=== PATIENT | male | born 1950 | race Caucasian/White ===

== ENCOUNTER 2023-04-01 13:22 | Observation (INO) | payer MEDICARE, OTHER, SELFPAY ==
[2023-04-01] VITALS (43 sets, daily range): BP systolic 135–183; BP diastolic 75–108; PULSE 61–78; RESP 0–25; TEMP 36.2–36.9; O2SAT 92–99; BMI 27.3; BMI 20.1
--- NOTE | 2023-04-01 13:36 | CT_ITS ---
The [address] [address] Patient Name: KIA MENDEZ MRN: [id number] date: 1950 Sex: M Assigned Patient Location: ER Current Patient Location: ER Accession/Order Number: [id number] Exam Date: 04/01/2023 13:40 Report Date: 04/01/2023 14:05 At the request of: TENA BOWLING Procedure: CT stroke head/brain wo con EXAM: CT stroke head/brain wo con; [id number] REASON FOR EXAM: aphasia, now resolved COMPARISON: None. TECHNIQUE: Axial CT images of the head obtained without contrast. Multiplanar reformats generated at the scanner. Dose reduction technique used: Automated exposure control and/or adjustment of the mA and/or kV according to patient size and/or use of iterative reconstruction technique. FINDINGS: Parenchyma: -Mild generalized cerebral volume loss. -No midline shift or mass effect. Basilar cisterns are patent. -No acute intracranial hemorrhage. -No loss of cortical dejesus-white differentiation to indicate acute cortical infarct. -Mild multifocal and bilateral periventricular white matter predominant hypoattenuation, nonspecific though commonly seen in the setting of chronic microvascular ischemic disease. Extra-axial spaces: No extra-axial fluid collection or hemorrhage. Ventricles: Within expected limits given degree of cerebral volume loss. Paranasal sinuses: Partial opacification of the right anterior and posterior ethmoid air cells. Mastoid air cells: Visualized mastoids are clear. Orbits: No acute abnormality. Osseous: No acute findings. Soft tissues: No acute abnormality. IMPRESSION: No acute intracranial abnormality. Electronically authenticated by: SARATH SHETH Date: 04/01/2023 14:05
--- NOTE | 2023-04-01 13:37 | ECG_ITS ---
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
--- NOTE | 2023-04-01 13:37 | XR_ITS ---
The [place] [id number] Patient Name: KIA MENDEZ MRN: [id number] date: 1950 Sex: M Assigned Patient Location: ER Current Patient Location: ER Accession/Order Number: [id number] Exam Date: 04/01/2023 13:40 Report Date: 04/01/2023 14:12 At the request of: TENA BOWLIGN Procedure: XR chest 1V EXAMINATION: XR chest 1V 04/01/2023 11:11 AM PDT HISTORY: cva TECHNIQUE: Single frontal view of the chest acquired. COMPARISONS: None. FINDINGS: Lines/tubes/other: None. Heart and mediastinum: Calcified atherosclerosis of the aortic arch. Bones: No acute osseous abnormality. Lungs: The lungs are clear. There is no evidence of pneumonia or pulmonary edema. Pleura: There is no significant pleural effusion or pneumothorax. Other: None. IMPRESSION: No acute cardiopulmonary abnormality. Electronically authenticated by: SARATH SHETH Date: 04/01/2023 14:12
[2023-04-01 13:39] LABS: Glucometer 136 mg/dL (74-106)
--- NOTE | 2023-04-01 13:39 | ED.NEUROSD1 ---
HPI - Neuro Symptoms/Deficit General Chief Complaint: Neuro Symptoms/Deficit Stated Complaint: CVA SYMPTOMS Time Seen by Provider: 04/01/23 13:32 Source: patient and family Mode of arrival: Wheelchair History of Present Illness HPI Narrative: 72-year-old male presents for aphasia which is now resolved. It started about twenty minutes ago. Family reports that he couldn't get any words out and what did come out was not intelligible. He has a mild headache. He is now able to speak and his speech is back to normal. He didn't have any motor deficits. He's never had a stroke. Related Data Home Medications Medication Instructions Recorded Confirmed acetaminophen 650 mg 650 mg PO Q8H 04/01/23 04/01/23 tablet,extended release (8 Hour Pain Reliever) atorvastatin 40 mg tablet 40 mg PO DAILY 04/01/23 04/01/23 clopidogrel 75 mg tablet 75 mg PO DAILY 04/01/23 04/01/23 famotidine 20 mg tablet 20 mg PO Q12H 04/01/23 04/01/23 lisinopril 2.5 mg tablet 2.5 mg PO DAILY 04/01/23 04/01/23 metformin 1,000 mg tablet 1,000 mg PO DAILY 04/01/23 04/01/23 metoprolol tartrate 25 mg tablet 25 mg PO Q12H 04/01/23 04/01/23 primidone 50 mg tablet 50 mg PO DAILY 04/01/23 04/01/23 semaglutide 0.25 mg or 0.5 mg (2 mg subcut 04/01/23 mg/3 mL) subcutaneous pen injector (Ozempic) tamsulosin 0.4 mg capsule 0.4 mg PO Q24H 04/01/23 04/01/23 tramadol 50 mg tablet 50 mg PO Q6H PRN pain 04/01/23 04/01/23 Allergies Allergy/AdvReac Type Severity Reaction Status Date / Time codeine Allergy Severe Verified 04/01/23 13:31 acetaminophen [From Percocet] Allergy Mild itchy Verified 04/01/23 14:49 oxycodone [From Percocet] Allergy Mild itchy Verified 04/01/23 14:49 Review of Systems ROS Narrative A ten point review of systems is negative except as noted above. [facility] Medical History (Updated 04/01/23 @ 16:13 by Kashmir Harris MD) Surgical History (Updated 04/01/23 @ 14:00 by Kenneth Eldridge) Exam Narrative Exam Narrative: Nurses note and vital signs reviewed and patient is not hypoxic. General: The patient appears well and in no apparent distress. Patient is resting comfortably on cart. Skin: Warm, dry, no pallor noted. There is no rash noted. Head: Normocephalic, atraumatic Eye: Normal conjunctiva, no drainage, EOMI. PERRL Ears, Nose, Mouth, and Throat: oral mucosa is moist. Nares patent. Cardiovascular: Regular Rate and Rhythm Respiratory: Patient is in no distress, no accessory muscle use, lungs are clear to auscultation, no wheezing, rales or rhonchi Back: non-tender GI: soft and nontender Musculoskeletal: The patient has no evidence of calf tenderness, no pitting edema, symmetrical pulses noted bilaterally Neurological: A&O x4, normal speech; upper and lower extremity strength five out of five and symmetric, no pronator drift. Cranial nerves II through XII intact. Psychiatric: Cooperative initial NIH score is zero. Constitutional Vital Signs - 24 hr 04/01/23 13:26 04/01/23 13:33 04/01/23 14:00 Temperature 97.6 F Pulse Rate [Monitor] 78 75 Respiratory Rate 16 16 Blood Pressure [Left Arm] 169/83 H 135/76 H Pulse Oximetry 97 95 Oxygen Delivery Method Room Air Room Air Course Vital Signs Vital signs: Vital Signs Pulse Rate 78 04/01/23 13:26 Respiratory Rate 16 04/01/23 13:26 Blood Pressure 169/83 H 04/01/23 13:26 Pulse Oximetry 97 04/01/23 13:26 Oxygen Delivery Method Room Air 04/01/23 13:26 Temperature 97.6 F 04/01/23 13:33 Pulse Rate 75 04/01/23 14:00 Respiratory Rate 16 04/01/23 14:00 Blood Pressure 135/76 H 04/01/23 14:00 Pulse Oximetry 95 04/01/23 14:00 Oxygen Delivery Method Room Air 04/01/23 14:00 MDM - Neuro Symptoms/Deficit MDM Narrative Medical decision making narrative: the patient's symptoms have resolved completely. He continues to have a normal neurologic exam. 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 Radiologist recommended follow-up CTA of chest but we must wait twenty-four hours for another dose of the contrast material. I have consulted neurology and they recommended admission here with MRI tomorrow and 75 mg of Plavix as well as aspirin be given here today. The patient has been off of his Plavix for twelve days because he had right knee arthroscopic surgery. Findings are discussed thoroughly with the patient and his family. Differential Diagnosis Differential diagnosis: Likely subarachnoid hemorrhage, cerebrovascular accident and transient cerebral ischemia Lab Data Attestation: I reviewed the patient's lab results. Labs: Lab Results 04/01/23 04/01/23 Range/Units 13:28 13:35 WBC 6.5 (4.0-11.0) 10^3/uL RBC 4.43 L (4.70-6.10) 10^6/uL Hgb 13.5 L (14.0-18.0) g/dL Hct 40.1 L (42.0-54.0) % MCV 90.5 (80.0-94.0) fL MCH 30.5 (25.9-34.0) pg MCHC 33.7 (29.9-35.2) g/dL RDW 13.2 (11.0-15.0) % Plt Count 208 (150-450) 10^3/uL MPV 10.2 (9.5-13.5) fL Neut % (Auto) 69.0 (43.0-75.0) % Lymph % (Auto) 16.8 L (20.5-60.0) % [place] % (Auto) 8.2 (1.7-12.0) % Eos % (Auto) 5.1 (0.9-7.0) % Baso % (Auto) 0.6 (0.2-2.0) % Neut # (Auto) 4.5 (1.4-6.5) 10^3/uL Lymph # (Auto) 1.1 L (1.2-3.8) 10^3/uL [place] # (Auto) 0.5 (0.3-0.8) 10^3/uL Eos # (Auto) 0.3 (0.0-0.7) 10^3/uL Baso # (Auto) 0.0 (0.0-0.1) 10^3/uL Abs Immat Gran (auto) 0.02 (0.00-0.03) 10^3/uL Imm/Tot Granulo (auto) 0.3 (0.0-0.5) % PT 10.7 (9.0-11.6) sec INR 1.01 APTT 28.9 (22.3-36.2) sec Sodium 140 (136-145) mmol/L Potassium 4.2 (3.5-5.1) mmol/L Chloride 104 (98-107) mmol/L Carbon Dioxide 26.6 (21.0-32.0) mmol/L Anion Gap 13.6 BUN 24.0 H (7.0-18.0) mg/dL Creatinine 1.23 (0.70-1.30) mg/dL Est GFR ( Amer) >60 (>=60) Est GFR (Non-Af Amer) 58 L (>=60) BUN/Creatinine Ratio 19.5 Glucose 144 H (74-106) mg/dL Calcium 8.9 (8.5-10.1) mg/dL POC Glucose 136 H (74-106) mg/dL Discharge Plan Discharge Chief Complaint: Neuro Symptoms/Deficit Clinical Impression: Transient cerebral ischemia Patient Disposition: Admitted As Inpatient Time of Disposition Decision: 16:13 Condition: Good Prescriptions / Home Meds: No Action acetaminophen [8 Hour Pain Reliever] 650 mg tablet extended release 650 mg PO Q8H atorvastatin 40 mg tablet 40 mg PO DAILY clopidogrel 75 mg tablet 75 mg PO DAILY famotidine 20 mg tablet 20 mg PO Q12H lisinopril 2.5 mg tablet 2.5 mg PO DAILY metformin 1,000 mg tablet 1,000 mg PO DAILY metoprolol tartrate 25 mg tablet 25 mg PO Q12H primidone 50 mg tablet 50 mg PO DAILY Ozempic 0.25 mg or 0.5 mg (2 mg/3 mL) pen injector SUBCUT tamsulosin 0.4 mg capsule 0.4 mg PO Q24H tramadol 50 mg tablet 50 mg PO Q6H PRN (Reason: pain) Referrals: BRINDA WELLER [Primary Care Provider] - 1 week
[2023-04-01 13:52] LABS: Basophils Percent Auto 0.6 % (0.2-2.0); Eosinophils Absolute Auto 0.3 10^3/uL (0.0-0.7); Eosinophils Percent Auto 5.1 % (0.9-7.0); Hematocrit 40.1 % (42.0-54.0); Hemoglobin 13.5 g/dL (14.0-18.0); Immature Granulocytes Abs Auto 0.02 10^3/uL (0.00-0.03); Immature Granulocytes Pct Auto 0.3 % (0.0-0.5); Lymphocytes Absolute Auto 1.1 10^3/uL (1.2-3.8); Lymphocytes Percent Auto 16.8 % (20.5-60.0); Mean Corpuscular HGB Conc 33.7 g/dL (29.9-35.2); Mean Corpuscular Hemoglobin 30.5 pg (25.9-34.0); Mean Corpuscular Volume 90.5 fL (80.0-94.0); Mean Platelet Volume 10.2 fL (9.5-13.5); Monocytes Absolute Auto 0.5 10^3/uL (0.3-0.8); Monocytes Percent Auto 8.2 % (1.7-12.0); Neutrophils Absolute Auto 4.5 10^3/uL (1.4-6.5); Platelet Count 208 10^3/uL (150-450); Red Blood Count 4.43 10^6/uL (4.70-6.10); Red Cell Distribution Width 13.2 % (11.0-15.0); White Blood Count 6.5 10^3/uL (4.0-11.0)
[2023-04-01 14:03] LABS: Anion Gap 13.6; BUN Creatinine Ratio 19.5; Calcium 8.9 mg/dL (8.5-10.1); Carbon Dioxide 26.6 mmol/L (21.0-32.0); Chloride 104 mmol/L (98-107); Estimated GFR (African America >60 (>=60); Estimated GFR (Non-African Ame 58 (>=60); Glucose 144 mg/dL (74-106); Potassium 4.2 mmol/L (3.5-5.1); Sodium 140 mmol/L (136-145)
[2023-04-01 14:12] LABS: INR 1.01; Partial Thromboplastin Time 28.9 sec (22.3-36.2); Prothrombin Time 10.7 sec (9.0-11.6)
--- NOTE | 2023-04-01 14:12 | CT_ITS ---
[address] [address] Patient Name: KIA MENDEZ MRN: [id number] date: 1950 Sex: M Assigned Patient Location: ED.MAIN Current Patient Location: ED.MAIN Accession/Order Number: [id number] Exam Date: 04/01/2023 14:20 Report Date: 04/01/2023 15:34 At the request of: TENA BOWLING Procedure: CT angio head EXAMINATION: CT angio head, CT angio neck; [id number], [id number] COMPARISON: None. CLINICAL STATEMENT: aphasia, resolved TECHNIQUE: Helical CT images of the head and neck were obtained after the administration of IV contrast. Multiplanar reformats and maximum intensity projection images were generated at the scanner. 3-D imaging was performed. Dose reduction technique used: Automated exposure control and/or adjustment of the mA and/or kV according to patient size and/or use of iterative reconstruction technique. Findings: CTA of the neck: Aortic arch: Conventional arch anatomy. Severe atherosclerosis with broad-based focal outpouching in the distal left caudal aspect of the aortic arch measuring up to 2.5 cm in diameter which may represent eccentric mural thrombus versus atypical ductal diverticulum or focal aneurysm. Right common carotid artery: No significant stenosis. Right internal carotid artery: Mild plaque. No hemodynamically significant stenosis, with degree of narrowing in the <50% range. Left common carotid artery: No significant stenosis. Left internal carotid artery: No significant plaque. No hemodynamically significant stenosis, with degree of narrowing in the <50% range. Vertebral arteries: No hemodynamically significant stenosis. * Note: Measurements of stenoses were done in accordance with NASCET criteria. That is, the stenosis is calculated from the ratio of the linear luminal diameter of the narrowest segment of the diseased portion of the artery compared to the diameter of the artery beyond or distal to any post stenotic dilatation. CTA of the head ([place], COW): Right anterior circulation: Normal course and caliber of the right intracranial internal carotid artery. Conventional branching anatomy into the anterior and middle cerebral arteries. No significant stenosis. No aneurysm. Left anterior circulation: Normal course and caliber of the right intracranial internal carotid artery. Conventional branching anatomy into the anterior and middle cerebral arteries. No significant stenosis. No aneurysm. Anterior communicating artery: Present. No aneurysm. Posterior communicating arteries: origin to the left posterior cerebral artery. A right-sided posterior communicating artery is present. Posterior circulation: No significant stenosis. No aneurysm. Soft tissues of the neck: No other significant findings. Visualized lung apices: Clear. Osseous: No acute findings. Mild mucosal thickening of the right anterior and posterior ethmoid air cells. Small mucous retention cyst in the left maxillary sinus. Impression: 1. No large vessel occlusion. 2. No significant stenosis of the cervical carotid or vertebral arteries. 3. Severe atherosclerosis with broad-based focal outpouching in the left caudal aspect of the distal aortic arch which may represent eccentric mural thrombus versus atypical ductal diverticulum or focal aneurysm. Incompletely evaluated on this exam. Recommend CTA of the chest for further evaluation. Electronically authenticated by: SARATH SHETH Date: 04/01/2023 15:34
--- NOTE | 2023-04-01 14:12 | CT_ITS ---
[address] [address] Patient Name: KIA MENDEZ MRN: [id number] date: 1950 Sex: M Assigned Patient Location: ED.MAIN Current Patient Location: ED.MAIN Accession/Order Number: [id number] Exam Date: 04/01/2023 14:20 Report Date: 04/01/2023 15:34 At the request of: TENA BOWLING Procedure: CT angio neck EXAMINATION: CT angio head, CT angio neck; [id number], [id number] COMPARISON: None. CLINICAL STATEMENT: aphasia, resolved TECHNIQUE: Helical CT images of the head and neck were obtained after the administration of IV contrast. Multiplanar reformats and maximum intensity projection images were generated at the scanner. 3-D imaging was performed. Dose reduction technique used: Automated exposure control and/or adjustment of the mA and/or kV according to patient size and/or use of iterative reconstruction technique. Findings: CTA of the neck: Aortic arch: Conventional arch anatomy. Severe atherosclerosis with broad-based focal outpouching in the distal left caudal aspect of the aortic arch measuring up to 2.5 cm in diameter which may represent eccentric mural thrombus versus atypical ductal diverticulum or focal aneurysm. Right common carotid artery: No significant stenosis. Right internal carotid artery: Mild plaque. No hemodynamically significant stenosis, with degree of narrowing in the <50% range. Left common carotid artery: No significant stenosis. Left internal carotid artery: No significant plaque. No hemodynamically significant stenosis, with degree of narrowing in the <50% range. Vertebral arteries: No hemodynamically significant stenosis. * Note: Measurements of stenoses were done in accordance with NASCET criteria. That is, the stenosis is calculated from the ratio of the linear luminal diameter of the narrowest segment of the diseased portion of the artery compared to the diameter of the artery beyond or distal to any post stenotic dilatation. CTA of the head ([place], COW): Right anterior circulation: Normal course and caliber of the right intracranial internal carotid artery. Conventional branching anatomy into the anterior and middle cerebral arteries. No significant stenosis. No aneurysm. Left anterior circulation: Normal course and caliber of the right intracranial internal carotid artery. Conventional branching anatomy into the anterior and middle cerebral arteries. No significant stenosis. No aneurysm. Anterior communicating artery: Present. No aneurysm. Posterior communicating arteries: origin to the left posterior cerebral artery. A right-sided posterior communicating artery is present. Posterior circulation: No significant stenosis. No aneurysm. Soft tissues of the neck: No other significant findings. Visualized lung apices: Clear. Osseous: No acute findings. Mild mucosal thickening of the right anterior and posterior ethmoid air cells. Small mucous retention cyst in the left maxillary sinus. Impression: 1. No large vessel occlusion. 2. No significant stenosis of the cervical carotid or vertebral arteries. 3. Severe atherosclerosis with broad-based focal outpouching in the left caudal aspect of the distal aortic arch which may represent eccentric mural thrombus versus atypical ductal diverticulum or focal aneurysm. Incompletely evaluated on this exam. Recommend CTA of the chest for further evaluation. Electronically authenticated by: SARATH SHETH Date: 04/01/2023 15:34
[2023-04-01] MEDS: ASPIRIN 81 MG TAB.CHEW 324 MG PO (14:38)
[2023-04-01] MEDS: MORPHINE SULFATE 2 MG/ML SYRINGE IV (14:39)
[2023-04-01] MEDS: CLOPIDOGREL BISULFATE 75 MG TABLET PO (16:43)
--- NOTE | 2023-04-01 17:15 | CA_ITS ---
Patient: KIA MENDEZ Exam Date: 04/02/2023 : 1950 Gender:M Ordering : SHAIKH Pricila CAMPA . Admission #: [id number] Family : DR BOTELLOMarin MARIA DE JESUS Smart Order #: [id number] CLICK HERE TO VIEW EXAM ECHOCARDIOGRAM REPORT PROCEDURE: CA ECHO DOPPLER COMPLETE INDICATIONS: TIA, Hypertension COMPARISON: None. DESCRIPTION: COMPLETE ECHOCARDIOGRAM Real-time transthoracic echocardiography with 2D, M-mode, spectral and color flow Doppler performed. QUALITY: Technical quality was good. LEFT VENTRICLE: Normal chamber size. Severely thickened septal wall (2.1 cm). Systolic function is at the lower limits of normal. No evidence of outflow tract obstruction. LV EF: Lower limits of normal left ventricular ejection fraction, (50-55%). DIASTOLIC: Grade I diastolic dysfunction. ATRIAL SEPTUM: Visually appears intact. LEFT ATRIUM: Moderate dilatation. RIGHT ATRIUM: Mild dilatation. RIGHT VENTRICLE: Normal chamber size. Normal systolic function. TRICUSPID VALVE: Normal mobility and thickness. No stenosis with no regurgitation. MITRAL VALVE: Normal mobility and thickness. No evidence of mitral valve stenosis. There is no mitral annular calcification. Mild mitral regurgitation. AORTIC VALVE: Normal trileaflet appearance. Mildly calcified aortic valve. Normal leaflet mobility. No evidence of aortic valve stenosis. Mild to moderate aortic regurgitation. AORTIC ROOT: Normal diameter and appearance. PULMONIC VALVE: Normal thickness and mobility. No stenosis. No regurgitation. PERICARDIUM: No evidence of pericardial effusion. IVC: Collapses with inspirations. PLEURA: CONCLUSION: 1. The left ventricle exhibits concentric hypertrophy with significant thickening of the septal wall [2.1 cm]. Systolic function is at the lower limits of normal. LVEF is 50 to 55%. 2. Grade 1, mild diastolic dysfunction. 3. Normal right ventricular size and systolic function. 4. Mild mitral regurgitation. 5. Mild to moderate aortic regurgitation. 6. No pericardial effusion Adult Echocardiography Procedure Report Left Ventricle LVEDD (3.7 - 5.6 cm): 5.16 cm, 5.11 cm LVESD (2.2 - 4.0 cm): 3.94 cm LVIVS thickness (0.6 - 1.2 cm): 2.51 cm, 2.15 cm LVPW thickness (0.5 - 1.0 cm): 1.18 cm e': 0.09 m/s E - e': 7.89 LVOT Max Gradient: 3.65 mm[Hg] LVOT Area (cm2): 0.96 m/s Peak Velocity (LVOT): 0.96 m/s Mean Velocity (LVOT): 0.68 m/s LVOT Diameter 2.59 cm Left Atrium LA Volume Index (2D A2C): 50.00 ml/m2 Left Atrium Systolic Dimension: 4.39 cm Mitral Valve MV E to A Ratio: 0.63 Mitral Valve A-Wave Peak Velocity: 1.08 m/s Mitral Valve E-Wave Peak Velocity: 0.68 m/s Right Ventricle Aorta AO Root Diam: 3.80 cm Aortic Valve AoV Area (Peak Deepak): 4.21 cm2, 4.21 cm2 Peak Velocity(Antegrade Flow): 1.20 m/s Peak Gradient(Antegrade Flow): 5.72 mm[Hg] Tricuspid Valve Pulmonic Valve Peak Velocity: 0.90 m/s Peak Gradient: 4.03 mm[Hg], 2.49 mm[Hg] Right Atrium Right Atrium Systolic Pressure: 50.33 ml, 50.33 ml Dictated by: Chago Salter M.D. on 04/02/2023 at 18:04 Approved by: Chago Salter M.D. on 04/02/2023 at 18:15
--- NOTE | 2023-04-01 17:25 | MR_ITS ---
The [address] [address] Patient Name: KIA MENDEZ MRN: [id number] date: 1950 Sex: M Assigned Patient Location: MS Current Patient Location: MS Accession/Order Number: [id number] Exam Date: 04/01/2023 08:00 Report Date: 04/02/2023 09:23 At the request of: SHAIKH LOKESH Procedure: MR head/brain wo con EXAMINATION: MR head/brain wo con, 04/01/2023 8:00 AM EDT HISTORY: TIA/stroke COMPARISON: None. TECHNIQUE: MRI of the brain was performed without IV contrast. HISTORY: TIA/stroke FINDINGS: CEREBRUM: No edema, hemorrhage, mass, acute infarction, or inappropriate atrophy. Mild scattered hyperintense foci are present, typical for a patient of this age, most commonly caused by small vessel ischemic changes. CEREBELLUM: No edema, hemorrhage, mass, acute infarction, or inappropriate atrophy. BRAINSTEM: No edema, hemorrhage, mass, acute infarction, or inappropriate atrophy. CSF SPACES: Ventricles, cisterns, and sulci are appropriate for age. No hydrocephalus, subarachnoid hemorrhage, or mass. SKULL: No mass or other significant visible lesion. SINUSES: Mild diffuse paranasal sinus mucoperiosteal thickening ORBITS: Limited views are unremarkable. OTHER: Negative. IMPRESSION: No acute infarct Electronically authenticated by: BARBARA RODGERS Date: 04/02/2023 09:23
--- NOTE | 2023-04-01 17:26 | CT_ITS ---
[address] [address] Patient Name: KIA MENDEZ MRN: [id number] date: 1950 Sex: M Assigned Patient Location: Current Patient Location: Accession/Order Number: [id number] Exam Date: 04/01/2023 14:45 Report Date: 04/02/2023 17:09 At the request of: SHAIKH LOKESH Procedure: CT angio chest EXAM: CT angio chest TECHNIQUE: CT angiogram with contrast performed of the chest including multi planar reformatted images and maximum intensity projection images. 3-D volume rendering created of the thoracic vasculature. Dose reduction techniques were achieved by using automated exposure control and/or adjustment of mA and/or kV according to patient size and/or use of iterative reconstruction technique. HISTORY: Aortic arch thrombus COMPARISON: CT scan of the neck from 04/01/2023 FINDINGS: Neck and Axilla: No lower neck or axillary lymphadenopathy. Mediastinum and Linnea: No hilar or mediastinal lymphadenopathy. The esophagus is grossly unremarkable without dilatation or gross mass lesion. Heart and Major Vessels: The heart appears unremarkable for size without pericardial effusion. Stable small broad outpouching of the caudal surface of the distal aortic arch, most compatible with a ductus diverticulum, with the diverticulum [id number] mm in diameter and approximately 8 mm maximum depth. Lung Suh: A few small benign calcified granulomas of the right lung. No acute consolidation. Pleural Spaces: No significant pleural effusion. No pneumothorax. Upper Abdomen: No acute abnormality identified. Chest Wall: No acute abnormality. IMPRESSION: Outpouching of the caudal surface of the distal portion of the aortic arch, most compatible with a ductus diverticulum. No additional acute thoracic pathology. Electronically authenticated by: CHRISTIAN JACOBSEN Date: 04/02/2023 17:09
[2023-04-01] MEDS: ENOXAPARIN SODIUM 60 MG/0.6 ML SYRINGE SUBQ (18:13)
[2023-04-01] MEDS: FAMOTIDINE 20 MG TABLET PO (18:13)
[2023-04-01 20:12] LABS: Glucometer 104 mg/dL (74-106)
[2023-04-01] MEDS: TAMSULOSIN HCL 0.4 MG CAPSULE PO (20:38)
[2023-04-01] MEDS: METOPROLOL TARTRATE 25 MG TABLET PO (20:38)
[2023-04-02] VITALS (15 sets, daily range): BP systolic 153–172; BP diastolic 67–83; PULSE 65–79; RESP 16; TEMP 36.3–36.8; O2SAT 92–95; BMI 28.1
[2023-04-02 01:00] LABS: Estimated Average Glucose 189 mg/dL; Glycohemoglobin A1C 8.2 % (4.5-6.2)
[2023-04-02 01:25] LABS: Chol HDL Ratio 3.2; Cholesterol 107 mg/dL (<=200); HDL Cholesterol 33 mg/dL (40-60); Triglycerides 117 mg/dL (<=150); VLDL CHOLESTEROL 23.4 mg/dL
[2023-04-02] MEDS: ENOXAPARIN SODIUM 60 MG/0.6 ML SYRINGE SUBQ (05:56)
[2023-04-02] MEDS: FAMOTIDINE 20 MG TABLET PO (05:56)
[2023-04-02 07:36] LABS: Glucometer 103 mg/dL (74-106)
[2023-04-02] MEDS: PRIMIDONE 50 MG TABLET PO (08:50)
[2023-04-02] MEDS: LISINOPRIL 10 MG TABLET PO (08:50)
[2023-04-02] MEDS: ATORVASTATIN CALCIUM 40 MG TABLET PO (08:51)
[2023-04-02] MEDS: CLOPIDOGREL BISULFATE 75 MG TABLET PO (08:51)
[2023-04-02] MEDS: METOPROLOL TARTRATE 25 MG TABLET PO (08:51)
[2023-04-02] MEDS: ACETAMINOPHEN 325 MG TABLET 650 MG PO (08:51)
--- NOTE | 2023-04-02 12:00 | SWNOTE1 ---
SW met with pt to discuss dc needs. Pt live at home by himself, but stated family does check on him. He is independent at home, does not use any medical equipment and does not have any services coming into the home. Pt denies having any needs at discharge. SW to follow as needed.
[2023-04-02 13:03] LABS: Glucometer 102 mg/dL (74-106)
--- NOTE | 2023-04-02 14:45 | CM.NOTE ---
Rounds made with Dr. Marie, pt awaiting CTA to be completed this afternoon. Possible discharge to home after CTA. No discharge needs identified.
--- NOTE | 2023-04-02 17:15 | PM.HP ---
H&P: HPI History of Present Illness Chief complaint: CVA SYMPTOMS TRANSIET CEREBRAL ISCHEMCIA Narrative: HPI and hospital course: 72 y o male presented to ED with sudden onset inability to speak c/w expressive aphasia, associated headache that resolved shortly after he came to ED. Denied any prior hx of similar complaints, also denies any other neurological signs and symptoms Patient admitted for TIA w/u. Normal CT head, CTA head and neck negative for large vessel disease. Possible thrombus in aortic arch on CTA neck that was ruled out by CTA chest. He was empirically treated with Lovenox until CTA chest confirmed there was no mural thrombus. MRI brain negative for stroke. No events on tele. No prior hx of Afib. Patent follows [facility] for CAD. Patient has no neurological symptoms to offer. Stable for d/c. Outpatient f/u with PCP and neurology Educated on signs and symptoms of CVA and instructed to come to ED if he developed any symptoms concerning for CVA/TIA Admission Diagnosis TIA CAD s/p PCI HTN HLD T2 DM Migraine FLORES BPH h/o melanoma Discharge diagnosis as above Discharge status as above Review of Systems ROS Status of ROS 10 or more systems reviewed and unremarkable except as noted in history and below [facility] Medical History (Updated 04/02/23 @ 17:38 by Shaikh Cynthia MD) Surgical History (Updated 04/01/23 @ 14:00 by Kenneth Eldridge) Family History (Updated 04/02/23 @ 17:33 by Shaikh Cynthia MD) Other Family history of hypertension Family history of myocardial infarction Family history of stroke Social History (Updated 04/02/23 @ 17:34 by Shaikh Cynthia MD) Within the past year, how often did you have a drink containing alcohol: never Within the past year, how often did you have six or more drinks on one occasion: never Score interpretation: A score less than 4 is consistent with normal alcohol consumption. Smoking status: Never smoker Non-prescribed substance use: denies use Meds Home Medications and Allergies Home Medications Medication Instructions Recorded Confirmed Type acetaminophen 650 mg 650 mg PO Q8H 04/01/23 04/01/23 History tablet,extended release (8 Hour Pain Reliever) atorvastatin 40 mg tablet 40 mg PO DAILY 04/01/23 04/01/23 History clopidogrel 75 mg tablet 75 mg PO DAILY 04/01/23 04/01/23 History famotidine 20 mg tablet 20 mg PO Q12H 04/01/23 04/01/23 History lisinopril 2.5 mg tablet 2.5 mg PO DAILY 04/01/23 04/01/23 History metformin 1,000 mg tablet 1,000 mg PO DAILY 04/01/23 04/01/23 History metoprolol tartrate 25 mg tablet 25 mg PO Q12H 04/01/23 04/01/23 History primidone 50 mg tablet 50 mg PO DAILY 04/01/23 04/01/23 History semaglutide 0.25 mg or 0.5 mg (2 mg subcut 04/01/23 History mg/3 mL) subcutaneous pen injector (Ozempic) tamsulosin 0.4 mg capsule 0.4 mg PO Q24H 04/01/23 04/01/23 History tramadol 50 mg tablet 50 mg PO Q6H PRN pain 04/01/23 04/01/23 History aspirin 81 mg chewable tablet 81 mg PO DAILY #30 tabs 04/02/23 Rx Allergies Allergy/AdvReac Type Severity Reaction Status Date / Time codeine Allergy Severe Verified 04/01/23 13:31 acetaminophen [From Percocet] Allergy Mild itchy Verified 04/01/23 14:49 oxycodone [From Percocet] Allergy Mild itchy Verified 04/01/23 14:49 Exam Constitutional Vital Signs - 24 hr 04/01/23 19:52 04/01/23 17:33 04/01/23 17:35 Temperature Pulse Rate 71 62 Respiratory Rate 14 Blood Pressure 160/82 H Blood Pressure [Left Arm] Pulse Oximetry 96 Oxygen Delivery Method 04/01/23 17:40 04/01/23 17:50 04/01/23 18:00 Temperature Pulse Rate 63 61 62 Respiratory Rate 0 L 2 L 17 Blood Pressure Blood Pressure [Left Arm] Pulse Oximetry Oxygen Delivery Method 04/01/23 18:10 04/01/23 18:20 04/01/23 18:30 Temperature Pulse Rate 62 66 69 Respiratory Rate 11 L 13 7 L Blood Pressure Blood Pressure [Left Arm] Pulse Oximetry Oxygen Delivery Method 04/01/23 18:40 04/01/23 18:50 04/01/23 19:00 Temperature Pulse Rate 67 64 70 Respiratory Rate 8 L 4 L 10 L Blood Pressure Blood Pressure [Left Arm] Pulse Oximetry Oxygen Delivery Method 04/01/23 19:10 04/01/23 19:20 04/01/23 19:21 Temperature 97.2 F L Pulse Rate 68 73 73 Respiratory Rate 7 L 9 L 12 Blood Pressure 137/79 H Blood Pressure [Left Arm] Pulse Oximetry 96 Oxygen Delivery Method 04/01/23 19:21 04/01/23 19:30 04/01/23 19:40 Temperature Pulse Rate 73 68 69 Respiratory Rate 12 6 L 0 L Blood Pressure Blood Pressure [Left Arm] Pulse Oximetry Oxygen Delivery Method 04/01/23 19:50 04/01/23 19:47 04/01/23 20:50 Temperature 97.6 F Pulse Rate 73 69 Respiratory Rate 0 L 18 Blood Pressure Blood Pressure [Left Arm] 162/82 H Pulse Oximetry 93 L 97 Oxygen Delivery Method Room Air Room Air 04/01/23 21:55 04/01/23 23:55 04/02/23 01:00 Temperature Pulse Rate 75 73 67 Respiratory Rate Blood Pressure Blood Pressure [Left Arm] Pulse Oximetry Oxygen Delivery Method 04/02/23 01:48 04/02/23 03:40 04/02/23 04:03 Temperature Pulse Rate 74 67 68 Respiratory Rate Blood Pressure Blood Pressure [Left Arm] Pulse Oximetry Oxygen Delivery Method 04/02/23 04:07 04/02/23 05:30 04/02/23 06:51 Temperature 98.3 F Pulse Rate 72 70 79 Respiratory Rate 16 Blood Pressure Blood Pressure [Left Arm] 160/67 H Pulse Oximetry 95 Oxygen Delivery Method Room Air 04/02/23 08:50 04/02/23 09:00 04/02/23 11:25 Temperature Pulse Rate 70 Respiratory Rate Blood Pressure 172/83 H Blood Pressure [Left Arm] Pulse Oximetry 92 L Oxygen Delivery Method Room Air 04/02/23 11:51 04/02/23 14:02 04/02/23 14:00 Temperature 97.4 F L Pulse Rate 65 72 71 Respiratory Rate 16 Blood Pressure Blood Pressure [Left Arm] 153/74 H Pulse Oximetry 94 L Oxygen Delivery Method Room Air 04/02/23 15:59 Temperature Pulse Rate 69 Respiratory Rate Blood Pressure Blood Pressure [Left Arm] Pulse Oximetry Oxygen Delivery Method Documenting provider has reviewed patient's vital signs: yes Common normals: no apparent distress, healthy appearing and well nourished General appearance: cooperative HENMT Common normals: normocephalic and head/scalp atraumatic Eye Common normals: PERRL, EOMs intact bilaterally, conjunctivae normal and no scleral icterus Respiratory Common normals: normal respiratory effort, no use of accessory muscles and clear to auscultation bilaterally Cardio Common normals: regular rate, regular rhythm, S1 normal heart sound, S2 normal heart sound and no murmurs GI Common normals: Normal to inspection, nondistended, normoactive bowel sounds present, soft to palpation, non-tender and no hepatosplenomegaly Extremity Common normals: normal to inspection and full ROM Neuro Common normals: CN's II-XII intact bilaterally, moves all extremities, no focal motor deficits and no sensory deficits noted Psych Common normals: mental status grossly normal, thought process normal, cooperative, affect normal, speech normal and activity/motor behavior normal Assessment and Plan Assessment and Plan (1) Transient cerebral ischemia: Assessment and Plan: Presented with expressive aphasia. No other neurologial symptoms. Asymptomatic currently. MRI brain/CT head negative CTA head/neck negative 2D ECHO no sig structural abnormality - official read is pending C/w ASA, plavix, statin as before. Outpatient f/u with PCP and Neurology. Qualifiers: Transient cerebral ischemia type: other Qualified Code(s): G45.8 - Other transient cerebral ischemic attacks and related syndromes (2) CAD (coronary artery disease): Assessment and Plan: Asymptomatic, stable. S/p PCI x 4 On ASA, plavix, statin and Lopressor. (3) History of diabetes mellitus: Assessment and Plan: On metformin, ozempic Metformin needs to be withheld for 48 hours and can be resumed on 04/05/23 A1C above goal. Will defer to PCP (4) History of hypertension: Assessment and Plan: c/w home meds Defer to PCP (5) HLD (hyperlipidemia): Assessment and Plan: c/w statin (6) Migraine: Assessment and Plan: Not frequent. Outpatient f/u Qualifiers: Migraine type: without aura Status migrainosus presence: without status migrainosus Intractability: not intractable Qualified Code(s): G43.009 - Migraine without aura, not intractable, without status migrainosus
[2023-04-02 17:39] LABS: Glucometer 173 mg/dL (74-106)
--- NOTE | 2023-04-04 13:26 | CM.DCFOLLOWU ---
Person spoke with:patient How are you feeling? good How is your pain? no pain Did you understand your discharge instructions? yes Do you have any questions about your discharge instructions? no Were you given any prescriptions at discharge? yes Were you able to get your prescriptions filled? yes Do you understand how to take your medications as ordered?yes Do you have any questions about your follow up appointment and do you plan to keep your follow up appointment? no questions, did not make follow up appointments yet, but he will Is there anything else that you would like to discuss? no Questions/Comments/Concerns/Other:
== END 2023-04-02 18:53 | disposition home or self-care (01) ==
LOC: ER 16:13 → MS 04-02 06:47 → ICU 04-02 16:37 → MS 04-02 16:37
PROVIDERS: Admitting Provider Internal Medicine; Emergency Provider Emergency Medicine; PCP Internal Medicine; Visit Provider Internal Medicine
DX: G45.9 Transient cerebral ischemic attack, unspecified (principal); I25.10 Atherosclerotic heart disease of native coronary artery without angina pectoris; I10 Essential (primary) hypertension; E78.5 Hyperlipidemia, unspecified; E11.9 Type 2 diabetes mellitus without complications; G43.909 Migraine, unspecified, not intractable, without status migrainosus; N40.0 Benign prostatic hyperplasia without lower urinary tract symptoms; Z85.820 Personal history of malignant melanoma of skin; Z79.899 Other long term (current) drug therapy; Z79.84 Long term (current) use of oral hypoglycemic drugs; Z79.85 Long-term (current) use of injectable non-insulin antidiabetic drugs; Z79.82 Long term (current) use of aspirin
CPT/HCPCS: 36415; 70450; 70496; 70498; 70551; 71045; 71275; 80048; 80061; 83036; 85025; 85610; 85730; 93005; 93306; 94761; 96372; 96374; 99285; G0378; Q9967

== ENCOUNTER 2023-04-12 21:28 | Emergency (ER) | payer MEDICARE, OTHER, SELFPAY ==
[2023-04-12] VITALS (10 sets, daily range): BP systolic 111–130; BP diastolic 61–68; PULSE 57–99; RESP 3–22; TEMP 36.7; O2SAT 93–99; BMI 27.8
--- NOTE | 2023-04-12 22:13 | ECG_ITS ---
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
--- NOTE | 2023-04-12 22:13 | XR_ITS ---
[address] [address] Patient Name: KIA MENDEZ MRN: [id number] date: 1950 Sex: M Assigned Patient Location: ER Current Patient Location: ER Accession/Order Number: [id number] Exam Date: 04/12/2023 22:25 Report Date: 04/12/2023 22:51 At the request of: RALPH MONAE Procedure: XR chest 1V EXAMINATION: XR chest 1V, , 04/12/2023 10:25 PM EDT INDICATION: chest pain HISTORY: Ordering Provider Reason for Exam: chest pain Technologist Note: Additional: COMPARISON: Chest x-ray dated 04/01/2023. TECHNIQUE: Chest x-ray: One view. FINDINGS: No pneumothorax, pleural effusion or focal airspace consolidation. Heart is normal in size. Bony thorax is unremarkable. IMPRESSION: No acute cardiopulmonary process. Electronically authenticated by: JANAK GOMEZ Date: 04/12/2023 22:51
--- NOTE | 2023-04-12 22:14 | ED.CHESTPAI1 ---
HPI - Chest Pain General Chief Complaint: Chest Pain Stated Complaint: SOB, BURNING THROAT, LIGHT HEADED Time Seen by Provider: 04/12/23 21:47 Source: patient Mode of arrival: Wheelchair Limitations: no limitations History of Present Illness HPI narrative: past history of multiple stents for CAD. Presents complaining of chest pain that started around 8pm. Burning substernal pain that radiated into his nec and numbness of the left arm. Pain associated with dyspnea. Pain did resolve and it returned after he took a shower and was resting. States it felt worse when it returned. En route to the hospital it started to subside and is now nearly gone. No associated nausea Related Data Home Medications Medication Instructions Recorded Confirmed acetaminophen 650 mg 650 mg PO Q8H 04/01/23 04/12/23 tablet,extended release (8 Hour Pain Reliever) atorvastatin 40 mg tablet 40 mg PO DAILY 04/01/23 04/12/23 clopidogrel 75 mg tablet 75 mg PO DAILY 04/01/23 04/12/23 famotidine 20 mg tablet 20 mg PO Q12H 04/01/23 04/12/23 lisinopril 2.5 mg tablet 2.5 mg PO DAILY 04/01/23 04/12/23 metformin 1,000 mg tablet 1,000 mg PO DAILY 04/01/23 04/12/23 metoprolol tartrate 25 mg tablet 25 mg PO Q12H 04/01/23 04/12/23 primidone 50 mg tablet 50 mg PO DAILY 04/01/23 04/12/23 semaglutide 0.25 mg or 0.5 mg (2 mg subcut 04/01/23 mg/3 mL) subcutaneous pen injector (Ozempic) tamsulosin 0.4 mg capsule 0.4 mg PO Q24H 04/01/23 04/12/23 tramadol 50 mg tablet 50 mg PO Q6H PRN pain 04/01/23 04/12/23 Previous Rx's Medication Instructions Recorded aspirin 81 mg chewable tablet 81 mg PO DAILY #30 tabs 04/02/23 Allergies Allergy/AdvReac Type Severity Reaction Status Date / Time codeine Allergy Severe Verified 04/01/23 13:31 acetaminophen [From Percocet] Allergy Mild itchy Verified 04/01/23 14:49 oxycodone [From Percocet] Allergy Mild itchy Verified 04/01/23 14:49 Review of Systems ROS Status of ROS 10 or more systems reviewed and unremarkable except as noted in history and below [facility] Medical History (Updated 04/13/23 @ 00:29 by Maurilio Rowell MD) Surgical History (Updated 04/01/23 @ 14:00 by Kenneth Eldridge) Family History (Updated 04/02/23 @ 17:33 by Shaikh Cynthia MD) Other Family history of hypertension Family history of myocardial infarction Family history of stroke Social History (Updated 04/02/23 @ 17:34 by Shaikh Cynthia MD) Within the past year, how often did you have a drink containing alcohol: never Within the past year, how often did you have six or more drinks on one occasion: never Score interpretation: A score less than 4 is consistent with normal alcohol consumption. Smoking status: Never smoker Non-prescribed substance use: denies use Exam Constitutional Vital Signs - 24 hr 04/12/23 21:33 04/12/23 21:39 04/12/23 21:40 Temperature 98.0 F Pulse Rate 95 H 88 Pulse Rate [Monitor] 57 L Respiratory Rate 22 3 L 21 Blood Pressure Blood Pressure [Left Arm] 116/68 Pulse Oximetry 98 99 97 Oxygen Delivery Method Room Air 04/12/23 21:50 04/12/23 22:00 04/12/23 22:10 Temperature Pulse Rate 99 H 91 H 90 Pulse Rate [Monitor] Respiratory Rate 10 L 15 10 L Blood Pressure Blood Pressure [Left Arm] Pulse Oximetry 93 L 94 L 94 L Oxygen Delivery Method 04/12/23 22:17 04/12/23 22:17 04/12/23 22:17 Temperature Pulse Rate 94 H 90 92 H Pulse Rate [Monitor] Respiratory Rate 15 13 13 Blood Pressure 111/67 111/67 Blood Pressure [Left Arm] Pulse Oximetry 94 L 94 L Oxygen Delivery Method 04/12/23 22:30 04/12/23 23:00 04/12/23 23:30 Temperature Pulse Rate 82 83 91 H Pulse Rate [Monitor] Respiratory Rate 18 17 18 Blood Pressure 122/67 H 122/61 H 130/62 H Blood Pressure [Left Arm] Pulse Oximetry 94 L 94 L Oxygen Delivery Method Common normals: no apparent distress, average body habitus, oriented x3 and healthy appearing Eye Common normals: PERRL, EOMs intact bilaterally and conjunctivae normal Respiratory Common normals: normal respiratory effort, no retractions, no use of accessory muscles and clear to auscultation bilaterally Cardio Common normals: no JVD, regular rate, regular rhythm, S1 normal heart sound and S2 normal heart sound GI Common normals: Normal to inspection, nondistended, normoactive bowel sounds present, soft to palpation and non-tender Extremity Common normals: normal to inspection and full ROM Neuro Common normals: oriented x3, CN's II-XII intact bilaterally, moves all extremities, no focal motor deficits and no sensory deficits noted Psych Appearance: grossly normal Course Vital Signs Vital signs: Vital Signs Temperature 98.0 F 04/12/23 21:33 Pulse Rate 57 L 04/12/23 21:33 Respiratory Rate 22 04/12/23 21:33 Blood Pressure 116/68 04/12/23 21:33 Pulse Oximetry 98 04/12/23 21:33 Oxygen Delivery Method Room Air 04/12/23 21:33 Temperature 98.0 F 04/12/23 21:33 Pulse Rate 91 H 04/12/23 23:30 Respiratory Rate 18 04/12/23 23:30 Blood Pressure 130/62 H 04/12/23 23:30 Pulse Oximetry 94 L 04/12/23 23:00 Oxygen Delivery Method Room Air 04/12/23 21:33 MDM - Chest Pain MDM Narrative Medical decision making narrative: patient known history of CAD. Presents with recurrent chest pain tonight. Workup neg and pain resolved. 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 Discussed with the hospitalist and patient accepted in transfer Lab Data Labs: Lab Results 04/12/23 Range/Units 21:45 WBC 7.9 (4.0-11.0) 10^3/uL RBC 4.54 L (4.70-6.10) 10^6/uL Hgb 13.9 L (14.0-18.0) g/dL Hct 40.9 L (42.0-54.0) % MCV 90.1 (80.0-94.0) fL MCH 30.6 (25.9-34.0) pg MCHC 34.0 (29.9-35.2) g/dL RDW 13.1 (11.0-15.0) % Plt Count 243 (150-450) 10^3/uL MPV 10.4 (9.5-13.5) fL Neut % (Auto) 72.0 (43.0-75.0) % Lymph % (Auto) 13.8 L (20.5-60.0) % [place] % (Auto) 8.3 (1.7-12.0) % Eos % (Auto) 4.9 (0.9-7.0) % Baso % (Auto) 0.5 (0.2-2.0) % Neut # (Auto) 5.7 (1.4-6.5) 10^3/uL Lymph # (Auto) 1.1 L (1.2-3.8) 10^3/uL [place] # (Auto) 0.7 (0.3-0.8) 10^3/uL Eos # (Auto) 0.4 (0.0-0.7) 10^3/uL Baso # (Auto) 0.0 (0.0-0.1) 10^3/uL Abs Immat Gran (auto) 0.04 H (0.00-0.03) 10^3/uL Imm/Tot Granulo (auto) 0.5 (0.0-0.5) % Sodium 140 (136-145) mmol/L Potassium 4.0 (3.5-5.1) mmol/L Chloride 107 (98-107) mmol/L Carbon Dioxide 21.8 (21.0-32.0) mmol/L Anion Gap 15.2 BUN 22.0 H (7.0-18.0) mg/dL Creatinine 1.47 H (0.70-1.30) mg/dL Est GFR ( Amer) 57 L (>=60) Est GFR (Non-Af Amer) 47 L (>=60) BUN/Creatinine Ratio 15.0 Glucose 176 H (74-106) mg/dL Calcium 9.2 (8.5-10.1) mg/dL Troponin I High Sens 14.5 (4.0-76.1) pg/mL NT-Pro-B Natriuret Pep 871.0 (<=900.0) pg/mL Discharge Plan Discharge Chief Complaint: Chest Pain Clinical Impression: Chest pain Patient Disposition: [facility] Discharge Location: [facility] Mode of Transportation: EMS
[2023-04-12 22:21] LABS: Basophils Percent Auto 0.5 % (0.2-2.0); Eosinophils Absolute Auto 0.4 10^3/uL (0.0-0.7); Eosinophils Percent Auto 4.9 % (0.9-7.0); Hematocrit 40.9 % (42.0-54.0); Hemoglobin 13.9 g/dL (14.0-18.0); Immature Granulocytes Abs Auto 0.04 10^3/uL (0.00-0.03); Immature Granulocytes Pct Auto 0.5 % (0.0-0.5); Lymphocytes Absolute Auto 1.1 10^3/uL (1.2-3.8); Lymphocytes Percent Auto 13.8 % (20.5-60.0); Mean Corpuscular Hemoglobin 30.6 pg (25.9-34.0); Mean Corpuscular Volume 90.1 fL (80.0-94.0); Mean Platelet Volume 10.4 fL (9.5-13.5); Monocytes Absolute Auto 0.7 10^3/uL (0.3-0.8); Monocytes Percent Auto 8.3 % (1.7-12.0); Neutrophils Absolute Auto 5.7 10^3/uL (1.4-6.5); Platelet Count 243 10^3/uL (150-450); Red Blood Count 4.54 10^6/uL (4.70-6.10); Red Cell Distribution Width 13.1 % (11.0-15.0); White Blood Count 7.9 10^3/uL (4.0-11.0)
[2023-04-12 22:46] LABS: Anion Gap 15.2; Calcium 9.2 mg/dL (8.5-10.1); Carbon Dioxide 21.8 mmol/L (21.0-32.0); Chloride 107 mmol/L (98-107); Estimated GFR (African America 57 (>=60); Estimated GFR (Non-African Ame 47 (>=60); Glucose 176 mg/dL (74-106); Sodium 140 mmol/L (136-145); Troponin I High Sensitivity 14.5 pg/mL (4.0-76.1)
[2023-04-13] VITALS (10 sets, daily range): BP systolic 150–158; BP diastolic 70–73; PULSE 72–80; RESP 14–25; O2SAT 93–96
[2023-04-13 01:23] LABS: Troponin I High Sensitivity 25.2 pg/mL (4.0-76.1)
== END 2023-04-13 02:40 | disposition short-term general hospital (02) ==
PROVIDERS: Emergency Provider Internal Medicine; PCP Internal Medicine
DX: R07.9 Chest pain, unspecified (principal); I25.10 Atherosclerotic heart disease of native coronary artery without angina pectoris; R06.00 Dyspnea, unspecified; Z95.5 Presence of coronary angioplasty implant and graft; Z79.899 Other long term (current) drug therapy; Z79.84 Long term (current) use of oral hypoglycemic drugs
CPT/HCPCS: 36415; 71045; 80048; 83880; 84484; 85025; 93005; 99285

== ENCOUNTER 2023-04-20 15:58 | Outpatient (OUT) | payer MEDICARE, OTHER, SELFPAY ==
--- NOTE | 2023-04-20 16:01 | US_ITS ---
[place] [id number] Patient Name: KIA MENDEZ MRN: [id number] date: 1950 Sex: M Assigned Patient Location: US Current Patient Location: US Accession/Order Number: [id number] Exam Date: 04/20/2023 16:02 Report Date: 04/23/2023 09:02 At the request of: HILARIO GARCIA Procedure: US venous doppler LE RT EXAMINATION: US venous doppler LE RT HISTORY: R60.0 EDEMA COMPARISON: No relevant comparison available. TECHNIQUE: Grayscale, color and Doppler FINDINGS: Region: Right leg Thrombus: None Flow: Normal Augmentation: Normal Compressibility: Normal US/US venous doppler LE RT IMPRESSION: No deep or superficial vein thrombus in the right leg *Exam performed in accordance with [facility] practice guidelines- Peripheral venous ultrasound, January 01, 2010. Electronically authenticated by: BARBARA RODGERS Date: 04/23/2023 09:02
== END 2023-04-20 15:59 | disposition home or self-care (01) ==
LOC: US 15:59
PROVIDERS: PCP Nurse Practitioner Family; Visit Provider Nurse Practitioner Family
DX: R60.0 Localized edema (principal)
CPT/HCPCS: 93971

== ENCOUNTER 2023-05-29 08:10 | Emergency (ER) | payer MEDICARE, OTHER, SELFPAY ==
[2023-05-29 08:29] VITALS: BP 174/94; PULSE 70; RESP 18; TEMP 36.7; O2SAT 96; BMI 27.3
--- NOTE | 2023-05-29 08:51 | ECG_ITS ---
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
[2023-05-29 08:53] VITALS: BP 137/71
[2023-05-29 08:55] VITALS: PULSE 69; RESP 13
--- NOTE | 2023-05-29 09:14 | ED_ITS ---
HPI - General Adult General Chief complaint: Extremity Problem, Nontraumatic Stated complaint: R SHOULDER PAIN/HAD GALBLADDER SURG 05/28 Time Seen by Provider: 05/29/23 08:28 Source: patient and family Mode of arrival: walk-in Limitations: no limitations History of Present Illness HPI narrative: 73-year-old chief complaint right shoulder pain. Patient reports he has had right shoulder pain since his discharge from his cholecystectomy yesterday. Right shoulder but not think it would be this severe. He denies any fever, sweats, chills. He denies any chest pain or shortness of breath. He reports some mild discomfort in his abdomen but it is no worse than yesterday. He has not had a bowel movement in forty-eight hours. He denies any nausea or vomiting. He did not call his surgeon. He reports that he took tramadol but this has not worked for him. He is requesting stronger pain medication deal of pain. Related Data Home Medications Medication Instructions Recorded Confirmed acetaminophen 650 mg 650 mg PO Q8H 04/01/23 04/12/23 tablet,extended release (8 Hour Pain Reliever) atorvastatin 40 mg tablet 40 mg PO DAILY 04/01/23 04/12/23 clopidogrel 75 mg tablet 75 mg PO DAILY 04/01/23 04/12/23 famotidine 20 mg tablet 20 mg PO Q12H 04/01/23 04/12/23 lisinopril 2.5 mg tablet 2.5 mg PO DAILY 04/01/23 04/12/23 metformin 1,000 mg tablet 1,000 mg PO DAILY 04/01/23 04/12/23 metoprolol tartrate 25 mg tablet 25 mg PO Q12H 04/01/23 04/12/23 primidone 50 mg tablet 50 mg PO DAILY 04/01/23 04/12/23 semaglutide 0.25 mg or 0.5 mg (2 mg subcut 04/01/23 mg/3 mL) subcutaneous pen injector (Ozempic) tamsulosin 0.4 mg capsule 0.4 mg PO Q24H 04/01/23 04/12/23 tramadol 50 mg tablet 50 mg PO Q6H PRN pain 04/01/23 04/12/23 Previous Rx's Medication Instructions Recorded aspirin 81 mg chewable tablet 81 mg PO DAILY #30 tabs 04/02/23 hydrocodone 5 mg-acetaminophen 325 1 tab PO Q8H PRN pain 3 days #9 05/29/23 mg tablet tabs Allergies Allergy/AdvReac Type Severity Reaction Status Date / Time codeine Allergy Severe Verified 04/01/23 13:31 acetaminophen [From Percocet] Allergy Mild itchy Verified 04/01/23 14:49 oxycodone [From Percocet] Allergy Mild itchy Verified 04/01/23 14:49 Review of Systems ROS Status of ROS 10 or more systems reviewed and unremarkable except as noted in history and below [facility] Medical History Surgical History Family History Other Family history of hypertension Family history of myocardial infarction Family history of stroke Social History Within the past year, how often did you have a drink containing alcohol: never Within the past year, how often did you have six or more drinks on one occasion: never Score interpretation: A score less than 4 is consistent with normal alcohol consumption. Smoking status: Never smoker Non-prescribed substance use: denies use Exam Narrative Exam Narrative: VITALS: I have reviewed the triage vital signs. GENERAL: Well developed, well appearing adult in no acute distress. NEURO: Alert and oriented. Moves all extremities. Face is symmetric and expressive. EYES: PERRL. No scleral icterus or conjunctival injection. No discharge. HENT: Normocephalic, atraumatic. Hearing is grossly intact. Nares grossly patent and without discharge. Mucous membranes moist. NECK: No JVD. Patient moves neck without restriction. CARDIO: Rhythm regular. Normal rate. No murmur, rub, or gallop. Pulses equal bilaterally in the upper and lower extremity. No lower extremity edema. PULM: Lungs clear to auscultation in all [place]. No wheezes, rales, or rhonchi. No conversational dyspnea. No splinting, stridor, or accessory muscle use. GI/: Abdomen is soft and non-tender. Normoactive bowel sounds. Multiple port sites that are well approximated. EXTREMITIES: Symmetric muscle bulk. No joint swelling. No clubbing, cyanosis, or deformity. No pain with range of motion of the right shoulder. No swelling SKIN: Warm and dry. Normal turgor. No rash or lesions appreciated. PSYCH: Mood, affect, and interaction is appropriate to the setting. Constitutional Vital Signs, click to edit/add: Last Vital Signs Temp 98.0 F 05/29/23 08:29 Pulse 70 05/29/23 08:29 Resp 18 05/29/23 08:29 BP 174/94 H 05/29/23 08:29 Pulse Ox 96 05/29/23 08:29 O2 Del Method Room Air 05/29/23 08:29 Course Vital Signs Vital signs: Vital Signs Temperature 98.0 F 05/29/23 08:29 Pulse Rate 70 05/29/23 08:29 Respiratory Rate 18 05/29/23 08:29 Blood Pressure 174/94 H 05/29/23 08:29 Pulse Oximetry 96 05/29/23 08:29 Oxygen Delivery Method Room Air 05/29/23 08:29 Temperature 98.0 F 05/29/23 08:29 Pulse Rate 70 05/29/23 08:29 Respiratory Rate 18 05/29/23 08:29 Blood Pressure 174/94 H 05/29/23 08:29 Pulse Oximetry 96 05/29/23 08:29 Oxygen Delivery Method Room Air 05/29/23 08:29 Medical Decision Making MDM Narrative Medical decision making narrative: Well-appearing 73-year-old male with some pain in his right shoulder after undergoing acute cholecystectomy outpatient yesterday. Vital stable, the patient is febrile. He is in no acute distress. He took tramadol at home with no relief and is requesting a stronger pain medication called the surgeon yet. His abdomen is soft and nontender. We'll obtain an EKG. EKG normal sinus rhythm. NO STEMI. Normal QTC. unchanged from 02/23/23 ECG. Recommend discussing with his surgeon. We discussed that this shoulder pain to normal and surgery from either patient positioning, retained gas in the abdomen or referred pain from inflammation in the gallbladder fossa. Either way the expected course is improving. Discussed return if it is not improving. He is appropriate for discharge home. SHe reports she is ALLERGIC to codeine. Might have been ALLERGIC to Percocet and is not sure. ALLERGY was mild itching. His OARRS is reviewed and appropriate. Discuss discontinuation of tramadol if he does not believe this works. We'll prescribe [place]. D/C tramadol. Return precautions were discussed. All questions were answered. The patient was discharged home. Discharge Plan Discharge Chief Complaint: Extremity Problem, Nontraumatic Clinical Impression: Acute shoulder pain Patient Disposition: Home, Self-Care Time of Disposition Decision: 09:15 Condition: Good Mode of Transportation: Private Vehicle Prescriptions / Home Meds: New hydrocodone-acetaminophen 5-325 mg tablet 1 tab PO Q8H MDD 3 tabs PRN (Reason: pain) 3 Days Qty: 9 0RF No Action acetaminophen [8 Hour Pain Reliever] 650 mg tablet extended release 650 mg PO Q8H atorvastatin 40 mg tablet 40 mg PO DAILY clopidogrel 75 mg tablet 75 mg PO DAILY famotidine 20 mg tablet 20 mg PO Q12H lisinopril 2.5 mg tablet 2.5 mg PO DAILY metformin 1,000 mg tablet 1,000 mg PO DAILY metoprolol tartrate 25 mg tablet 25 mg PO Q12H primidone 50 mg tablet 50 mg PO DAILY Ozempic 0.25 mg or 0.5 mg (2 mg/3 mL) pen injector SUBCUT tamsulosin 0.4 mg capsule 0.4 mg PO Q24H tramadol 50 mg tablet 50 mg PO Q6H PRN (Reason: pain) aspirin 81 mg tablet,chewable 81 mg PO DAILY Qty: 30 0RF Instructions: Arm Pain (ED) Additional Instructions: CALL YOUR SURGEON TODAY TO UPDATE ON YOUR CONDITION. Stand Alone Forms: Portal Instructions Referrals: HILARIO GARCIA [Primary Care Provider] - 1 week (FOLLOW UP WITH YOUR SURGEON THIS WEEK. RETURN WITH NEW OR WORSENING SYMPTOMS DISCUSSED. )
== END 2023-05-29 09:38 | disposition home or self-care (01) ==
PROVIDERS: Emergency Provider Student in an Organized Health Care Education/Training Program; PCP Nurse Practitioner Family
DX: M25.511 Pain in right shoulder (principal); Z90.49 Acquired absence of other specified parts of digestive tract; Z79.899 Other long term (current) drug therapy; Z79.84 Long term (current) use of oral hypoglycemic drugs
CPT/HCPCS: 93005; 99283

== ENCOUNTER 2023-06-13 12:26 | Outpatient (OUT) | payer MEDICARE, OTHER, SELFPAY ==
[2023-06-13 13:18] LABS: Erythrocyte Sedimentation Rate 28 mm/hr (<=20)
[2023-06-14 04:07] LABS: RPR Non Reactive (Non Reactive)
[2023-06-14 06:15] LABS: C-Reactive Protein, Cardiac 1.23 mg/L (0.00-3.00); Homocyst(e)ine 14.7 umol/L (0.0-19.2); Rheumatoid Factor (RF) <10.0 IU/mL (<14.0)
[2023-06-14 08:14] LABS: Ceruloplasmin 13.4 mg/dL (16.0-31.0)
[2023-06-14 12:09] LABS: Lyme Total Antibody CIA Negative (Negative)
[2023-06-14 13:09] LABS: ANA Direct Negative (Negative)
[2023-06-14 16:09] LABS: Immunoglobulin A, Qn, Serum 290 mg/dL (61-437); Immunoglobulin G, Qn, Serum 845 mg/dL (603-1613); Immunoglobulin M, Qn, Serum 63 mg/dL (15-143)
[2023-06-14 18:07] LABS: West Nile Virus, IgG Negative (Negative); West Nile Virus, IgM Negative (Negative)
[2023-06-18 05:08] LABS: Methylmalonic Acid, Serum 150 nmol/L (0-378)
[2023-06-19 21:07] LABS: Copper Level 64 ug/dL (69-132); Zinc Level 54 ug/dL (44-115)
== END 2023-06-13 12:27 | disposition home or self-care (01) ==
LOC: LAB 12:31
PROVIDERS: PCP Internal Medicine; Visit Provider Psychiatry & Neurology Neurology
DX: R51.9 Headache, unspecified (principal); G60.9 Hereditary and idiopathic neuropathy, unspecified; Z11.3 Encounter for screening for infections with a predominantly sexual mode of transmission; E53.1 Pyridoxine deficiency; I70.91 Generalized atherosclerosis; D51.3 Other dietary vitamin B12 deficiency anemia; M79.10 Myalgia, unspecified site; E78.5 Hyperlipidemia, unspecified; G40.909 Epilepsy, unspecified, not intractable, without status epilepticus; R79.89 Other specified abnormal findings of blood chemistry
CPT/HCPCS: 36415; 82390; 82525; 82607; 82746; 82784; 83090; 83921; 84156; 84166; 84207; 84630; 85652; 86038; 86140; 86334; 86335; 86430; 86431; 86592; 86618; 86788; 86789

== ENCOUNTER 2023-09-17 10:27 | Emergency (ER) | payer MEDICARE, OTHER, SELFPAY ==
[2023-09-17 10:40] VITALS: BP 154/70; PULSE 66; RESP 18; TEMP 36.4; O2SAT 98; BMI 26.9
--- NOTE | 2023-09-17 11:14 | ECG_ITS ---
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1950 Requested By: BRINDA WELLER Order Number: [id number] Reading MD: KONSTANTIN HERNANDEZ Measurements Intervals [place] Rate: 68 P: 7 OR: 160 QRS: 17 QRSD: 108 T: -38 QT: 398 QTc: 415 Interpretive Statements 1100 Sinus rhythm 1570 with occasional ventricular premature complexes 3624 Possible inferior myocardial infarction, age undetermined [address] depression 9150 abnormal ECG Compared to ECG 05/29/2023 08:54:52 ST (T wave) deviation now present Possible ischemia no longer present Myocardial infarct finding still present Electronically Signed On 09-18-2023 6:42:32 EST by KONSTANTIN HERNANDEZ
[2023-09-17 11:40] VITALS: PULSE 62
[2023-09-17 11:41] VITALS: BP 153/76
--- NOTE | 2023-09-17 12:10 | ED_ITS ---
HPI - Back Pain/Injury General Chief Complaint: Back Pain/Injury Stated Complaint: BACK PAIN/ PREVIOUS FALL Time Seen by Provider: 09/17/23 12:10 Source: patient Mode of arrival: walk-in History of Present Illness HPI Narrative: this patient's here complaining of back pain. He was deer hunting several weeks ago. He seemingly stumbled and lost his balance and fell over and hit the upper thoracic area on a log. He said it really didn't bother him too much for the 1st several days but now it's been really bothering him severely especially at nighttime. It hurts to twist and turn and makes certain movements. As a sharp lancinating pain. He does not have any underlying pulmonary disease. He has had coronary stents but does not have any type of anterior chest discomfort. Does not radiate to his neck jaw or arm. It's all movement related. Related Data Home Medications Medication Instructions Recorded Confirmed acetaminophen 650 mg 650 mg PO Q8H 04/01/23 04/12/23 tablet,extended release (8 Hour Pain Reliever) atorvastatin 40 mg tablet 40 mg PO DAILY 04/01/23 04/12/23 clopidogrel 75 mg tablet 75 mg PO DAILY 04/01/23 04/12/23 famotidine 20 mg tablet 20 mg PO Q12H 04/01/23 04/12/23 lisinopril 2.5 mg tablet 2.5 mg PO DAILY 04/01/23 04/12/23 metformin 1,000 mg tablet 1,000 mg PO DAILY 04/01/23 04/12/23 metoprolol tartrate 25 mg tablet 25 mg PO Q12H 04/01/23 04/12/23 primidone 50 mg tablet 50 mg PO DAILY 04/01/23 04/12/23 semaglutide 0.25 mg or 0.5 mg (2 mg subcut 04/01/23 mg/3 mL) subcutaneous pen injector (Ozempic) tamsulosin 0.4 mg capsule 0.4 mg PO Q24H 04/01/23 04/12/23 tramadol 50 mg tablet 50 mg PO Q6H PRN pain 04/01/23 04/12/23 Previous Rx's Medication Instructions Recorded aspirin 81 mg chewable tablet 81 mg PO DAILY #30 tabs 04/02/23 hydrocodone 5 mg-acetaminophen 325 1 tab PO Q8H PRN pain 3 days #9 05/29/23 mg tablet tabs Allergies Allergy/AdvReac Type Severity Reaction Status Date / Time codeine Allergy Severe Verified 04/01/23 13:31 acetaminophen [From Percocet] Allergy Mild itchy Verified 04/01/23 14:49 oxycodone [From Percocet] Allergy Mild itchy Verified 04/01/23 14:49 PFSH PFS Medical History (Updated 09/17/23 @ 13:27 by Jl Zarate MD) Migraine ?G43.909 - Migraine, unspecified, not intractable, without status migrainosus (ICD-10) HLD (hyperlipidemia) ?E78.5 - Hyperlipidemia, unspecified (ICD-10) CAD (coronary artery disease) ?I25.10 - Atherosclerotic heart disease of [place] coronary artery without angina pectoris (ICD-10) Transient cerebral ischemia ?G45.9 - Transient cerebral ischemic attack, unspecified (ICD-10) History of diabetes mellitus ?Z86.39 - Personal history of other endocrine, nutritional and metabolic disease (ICD-10) History of hypertension ?Z86.79 - Personal history of other diseases of the circulatory system (ICD- 10) Surgical History (Updated 09/17/23 @ 11:32 by Aditi Minaya RN) Hx of cholecystectomy ?Z90.49 - Acquired absence of other specified parts of digestive tract (ICD- 10) History of heart artery stent ?Z95.5 - Presence of coronary angioplasty implant and graft (ICD-10) History of arthroscopic knee surgery ?Z98.890 - Other specified postprocedural states (ICD-10) Family History Other Family history of hypertension Family history of myocardial infarction Family history of stroke Social History Within the past year, how often did you have a drink containing alcohol: never Within the past year, how often did you have six or more drinks on one occasion: never Score interpretation: A score less than 4 is consistent with normal alcohol consumption. Smoking status: Never smoker Non-prescribed substance use: denies use Exam Narrative Exam Narrative: . Pleasant gentleman appears in no distress while sitting still. Certain movements will catch him and causing him discomfort. Examination of the back shows a be good breath sounds bilaterally with no substance emphysema, there is no bruising or evidence of injury or skin rash. He has some tenderness or percussion of the mid thoracic spine. He has no discomfort in the low back or the cervical spine. Ribs are nontender. He has restriction of motion in the thoracic spine. Heart sounds are normal is no jugular vein distention is Good pulses in both upper extremities. Constitutional Vital Signs, click to edit/add: Last Vital Signs Temp 97.6 F 09/17/23 10:40 Pulse 66 09/17/23 10:40 Resp 18 09/17/23 10:40 BP 153/76 H 09/17/23 11:41 Pulse Ox 98 09/17/23 10:40 Course Vital Signs Vital signs: Vital Signs Temperature 97.6 F 09/17/23 10:40 Pulse Rate 66 09/17/23 10:40 Respiratory Rate 18 09/17/23 10:40 Blood Pressure 154/70 H 09/17/23 10:40 Pulse Oximetry 98 09/17/23 10:40 Temperature 97.6 F 09/17/23 10:40 Pulse Rate 66 09/17/23 10:40 Respiratory Rate 18 09/17/23 10:40 Blood Pressure 153/76 H 09/17/23 11:41 Pulse Oximetry 98 09/17/23 10:40 MDM - Back Pain/Injury MDM Narrative Medical decision making narrative: because the nature of the injury and the fact that he says his pain is a level X CT of the thoracic spine was done and shows no acute injury or fracture. There was some irregularities of his thoracic aorta but it was unchanged from previous imaging. This was discussed with the patient he'll be treated accordingly Discharge Plan Discharge Chief Complaint: Back Pain/Injury Clinical Impression: Contusion of back wall of thorax Patient Disposition: Home, Self-Care Time of Disposition Decision: 13:25 Prescriptions / Home Meds: No Action hydrocodone-acetaminophen 5-325 mg tablet 1 tab PO Q8H MDD 3 tabs PRN (Reason: pain) 3 Days Qty: 9 0RF acetaminophen [8 Hour Pain Reliever] 650 mg tablet extended release 650 mg PO Q8H atorvastatin 40 mg tablet 40 mg PO DAILY clopidogrel 75 mg tablet 75 mg PO DAILY famotidine 20 mg tablet 20 mg PO Q12H lisinopril 2.5 mg tablet 2.5 mg PO DAILY metformin 1,000 mg tablet 1,000 mg PO DAILY metoprolol tartrate 25 mg tablet 25 mg PO Q12H primidone 50 mg tablet 50 mg PO DAILY Ozempic 0.25 mg or 0.5 mg (2 mg/3 mL) pen injector SUBCUT tamsulosin 0.4 mg capsule 0.4 mg PO Q24H tramadol 50 mg tablet 50 mg PO Q6H PRN (Reason: pain) aspirin 81 mg tablet,chewable 81 mg PO DAILY Qty: 30 0RF Additional Instructions: Toradol/[place] Stand Alone Forms: Portal Instructions Referrals: BRINDA WELLER [Primary Care Provider] - 1 week
--- NOTE | 2023-09-17 12:11 | CT_ITS ---
The [address] [address] Patient Name: KIA MENDEZ MRN: [id number] date: 1950 Sex: M Assigned Patient Location: ER Current Patient Location: ER Accession/Order Number: [id number] Exam Date: 09/17/2023 12:27 Report Date: 09/17/2023 13:09 At the request of: PADMINI MINA Procedure: CT thoracic spine wo con EXAM: CT thoracic spine wo con HISTORY: trauma COMPARISON: CTA chest from 04/02/2023 TECHNIQUE: CT thoracic spine wo con FINDINGS: VERTEBRA: No fracture. DISC SPACES AND FACET JOINTS: No acute injury. PREVERTEBRAL SOFT TISSUES: Focal outpouching from the proximal descending thoracic aorta, similar to the prior exam. Evaluation is limited with noncontrast CT. ALIGNMENT: Normal. CT/CT thoracic spine wo con IMPRESSION: 1. No acute abnormality of the thoracic spine. 2. Focal outpouching from the proximal descending thoracic aorta, similar to the prior exam. Electronically authenticated by: AGUSTINA STUART Date: 09/17/2023 13:09
[2023-09-17 13:58] VITALS: BP 161/82; PULSE 63; RESP 17; O2SAT 98
== END 2023-09-17 14:01 | disposition home or self-care (01) ==
PROVIDERS: Emergency Provider Emergency Medicine Emergency Medical Services; PCP Internal Medicine
DX: S20.229A Contusion of unspecified back wall of thorax, initial encounter (principal); W01.198A Fall on same level from slipping, tripping and stumbling with subsequent striking against other object, initial encounter; Z95.5 Presence of coronary angioplasty implant and graft; Z79.899 Other long term (current) drug therapy; Z79.84 Long term (current) use of oral hypoglycemic drugs; E78.5 Hyperlipidemia, unspecified; I25.10 Atherosclerotic heart disease of native coronary artery without angina pectoris; Z86.73 Personal history of transient ischemic attack (TIA), and cerebral infarction without residual deficits; E11.9 Type 2 diabetes mellitus without complications; Z90.49 Acquired absence of other specified parts of digestive tract; Z98.890 Other specified postprocedural states; Z86.79 Personal history of other diseases of the circulatory system
CPT/HCPCS: 72128; 93005; 99284

== ENCOUNTER 2024-03-10 05:39 | Emergency (ER) | payer MEDICARE, OTHER, SELFPAY ==
[2024-03-10] VITALS (16 sets, daily range): BP systolic 108–149; BP diastolic 65–86; PULSE 75–93; TEMP 36.6; O2SAT 93–99; BMI 28.3
--- NOTE | 2024-03-10 06:03 | XR_ITS ---
The [address] [address] Patient Name: KIA MENDEZ MRN: [id number] date: 1950 Sex: M Assigned Patient Location: ER Current Patient Location: ED.MAIN Accession/Order Number: [id number] Exam Date: 03/10/2024 06:15 Report Date: 03/10/2024 06:43 At the request of: TENA BOWLING Procedure: XR chest 1V EXAMINATION: XR chest 1V HISTORY: Chest pain COMPARISON: XR chest 04/12/2023 FINDINGS: LUNGS: Underexpanded lungs with thin strandy opacity within left lateral costophrenic angle. VASCULATURE: No increased pulmonary vasculature. PLEURA: No pneumothorax, effusion, or pleural thickening. CARDIAC: No cardiomegaly or cardiac silhouette abnormality. MEDIASTINUM: No visible mass or adenopathy. BONES: No fracture or visible bone lesion. OTHER: Negative. XR/XR chest 1V IMPRESSION: 1. Low lung volume examination with trace amount of lingular atelectasis or possibly infiltrates. Electronically authenticated by: MEME VILLANUEVA Date: 03/10/2024 06:43
--- NOTE | 2024-03-10 06:03 | ECG_ITS ---
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
--- NOTE | 2024-03-10 06:04 | ED_ITS ---
HPI - Chest Pain General Chief Complaint: Chest Pain Stated Complaint: chest pain cva symptoms Time Seen by Provider: 03/10/24 05:58 Source: patient Mode of arrival: Wheelchair Limitations: no limitations History of Present Illness HPI narrative: 73-year-old male presents to the emergency department for chest pain. He describes a burning sensation in his throat and upper chest associated with tingling in his left arm. No dyspnea fever or cough. At 1:00 in the morning, 5 hours ago, he developed diarrhea and states he made several trips to the bathroom for diarrhea. Subsequently the symptoms developed and have been there continuously but the burning in his chest is almost gone now. He has a history of CAD and has 4 stents. He also states when he was still at home he felt that his heart was beating irregularly and fast. He believes he has a history of atrial fibrillation. Related Data Home Medications ?Medication ?Instructions ?Recorded ?Confirmed acetaminophen 650 mg 650 mg PO Q8H 04/01/23 04/12/23 tablet,extended release (8 Hour Pain Reliever) atorvastatin 40 mg tablet 40 mg PO DAILY 04/01/23 03/10/24 clopidogrel 75 mg tablet 75 mg PO DAILY 04/01/23 03/10/24 famotidine 20 mg tablet 20 mg PO Q12H 04/01/23 03/10/24 lisinopril 2.5 mg tablet 2.5 mg PO DAILY 04/01/23 03/10/24 metformin 1,000 mg tablet 1,000 mg PO DAILY 04/01/23 03/10/24 metoprolol tartrate 25 mg tablet 25 mg PO Q12H 04/01/23 03/10/24 primidone 50 mg tablet 50 mg PO DAILY 04/01/23 03/10/24 semaglutide 0.25 mg or 0.5 mg (2 mg subcut 04/01/23 mg/3 mL) subcutaneous pen injector (Ozempic) tamsulosin 0.4 mg capsule 0.4 mg PO Q24H 04/01/23 03/10/24 tramadol 50 mg tablet 50 mg PO Q6H PRN pain 04/01/23 03/10/24 Previous Rx's ?Medication ?Instructions ?Recorded aspirin 81 mg chewable tablet 81 mg PO DAILY #30 tabs 04/02/23 hydrocodone 5 mg-acetaminophen 325 1 tab PO Q8H PRN pain 3 days #9 05/29/23 mg tablet tabs Allergies Allergy/AdvReac Type Severity Reaction Status Date / Time codeine Allergy Severe Verified 03/10/24 05:47 acetaminophen [From Percocet] Allergy Mild itchy Verified 03/10/24 05:47 oxycodone [From Percocet] Allergy Mild itchy Verified 03/10/24 05:47 Review of Systems ROS Narrative A ten point review of systems is negative except as noted above. PFSH PFSH Medical History (Updated 03/10/24 @ 06:41 by Kashmir Harris MD) Migraine ?G43.909 - Migraine, unspecified, not intractable, without status migrainosus (ICD-10) HLD (hyperlipidemia) ?E78.5 - Hyperlipidemia, unspecified (ICD-10) CAD (coronary artery disease) ?I25.10 - Atherosclerotic heart disease of [place] coronary artery without angina pectoris (ICD-10) Transient cerebral ischemia ?G45.9 - Transient cerebral ischemic attack, unspecified (ICD-10) History of diabetes mellitus ?Z86.39 - Personal history of other endocrine, nutritional and metabolic disease (ICD-10) History of hypertension ?Z86.79 - Personal history of other diseases of the circulatory system (ICD- 10) Surgical History (Updated 09/17/23 @ 11:32 by Aditi Minaya RN) Hx of cholecystectomy ?Z90.49 - Acquired absence of other specified parts of digestive tract (ICD- 10) History of heart artery stent ?Z95.5 - Presence of coronary angioplasty implant and graft (ICD-10) History of arthroscopic knee surgery ?Z98.890 - Other specified postprocedural states (ICD-10) Family History Other Family history of hypertension Family history of myocardial infarction Family history of stroke Social History Within the past year, how often did you have a drink containing alcohol: never Within the past year, how often did you have six or more drinks on one occasion: never Score interpretation: A score less than 4 is consistent with normal alcohol consumption. Smoking status: Never smoker Non-prescribed substance use: denies use Exam Narrative Exam Narrative: Nurses note and vital signs reviewed and patient is not hypoxic. General: The patient appears in no apparent distress. Patient is resting comfortably on cart. Skin: Warm, dry, no pallor noted. There is no rash noted. Head: Normocephalic, atraumatic Eye: Normal conjunctiva, no drainage Ears, Nose, Mouth, and Throat: oral mucosa is moist. Nares patent. Cardiovascular: Regular Rate and Rhythm Respiratory: Patient is in no distress, no accessory muscle use, lungs are clear to auscultation, no wheezing, rales or rhonchi Back: non-tender GI: Soft and nontender Musculoskeletal: The patient has no evidence of calf tenderness, no pitting edema, symmetrical pulses noted bilaterally Neurological: Awake and alert Psychiatric: Cooperative Constitutional Vital Signs, click to edit/add: Last Vital Signs Temp 97.8 F 03/10/24 05:44 Pulse 88 03/10/24 06:10 Resp 16 03/10/24 06:10 BP 126/81 03/10/24 06:00 Pulse Ox 95 03/10/24 06:10 O2 Del Method Room Air 03/10/24 05:44 Course Vital Signs Vital signs: Vital Signs Temperature 97.8 F 03/10/24 05:44 Pulse Rate 89 03/10/24 05:44 Respiratory Rate 22 H 03/10/24 05:44 Blood Pressure 108/78 03/10/24 05:44 Pulse Oximetry 99 03/10/24 05:44 Oxygen Delivery Method Room Air 03/10/24 05:44 Temperature 97.8 F 03/10/24 05:44 Pulse Rate 88 03/10/24 06:10 Respiratory Rate 16 03/10/24 06:10 Blood Pressure 126/81 03/10/24 06:00 Pulse Oximetry 95 03/10/24 06:10 Oxygen Delivery Method Room Air 03/10/24 05:44 MDM - Chest Pain MDM Narrative Medical decision making narrative: Initial troponin is negative. Repeat is ordered for 8 AM and the patient is signed out to Dr. Zarate at change of shift. Differential Diagnosis Differential diagnosis: Likely pneumothorax, unstable angina pectoris, atypical chest pain, st elevation myocardial infarction and chest pain Lab Data Attestation: I reviewed the patient's lab results. Labs: Lab Results 03/10/24 Range/Units 05:56 WBC 6.1 (4.0-11.0) 10^3/uL RBC 4.27 L (4.70-6.10) 10^6/uL Hgb 13.2 L (14.0-18.0) g/dL Hct 39.1 L (42.0-54.0) % MCV 91.6 (80.0-94.0) fL MCH 30.9 (25.9-34.0) pg MCHC 33.8 (29.9-35.2) g/dL RDW 13.2 (11.0-15.0) % Plt Count 216 (150-450) 10^3/uL MPV 10.4 (9.5-13.5) fL Neut % (Auto) 58.4 (43.0-75.0) % Lymph % (Auto) 18.7 L (20.5-60.0) % [place] % (Auto) 7.5 (1.7-12.0) % Eos % (Auto) 14.2 H (0.9-7.0) % Baso % (Auto) 0.7 (0.2-2.0) % Neut # (Auto) 3.6 (1.4-6.5) 10^3/uL Lymph # (Auto) 1.2 (1.2-3.8) 10^3/uL [place] # (Auto) 0.5 (0.3-0.8) 10^3/uL Eos # (Auto) 0.9 H (0.0-0.7) 10^3/uL Baso # (Auto) 0.0 (0.0-0.1) 10^3/uL Abs Immat Gran (auto) 0.03 (0.00-0.03) 10^3/uL Imm/Tot Granulo (auto) 0.5 (0.0-0.5) % Sodium 136 (136-145) mmol/L Potassium 3.8 (3.5-5.1) mmol/L Chloride 103 (98-107) mmol/L Carbon Dioxide 22.6 (21.0-32.0) mmol/L Anion Gap 14.2 BUN 28.0 H (7.0-18.0) mg/dL Creatinine 1.43 H (0.70-1.30) mg/dL Est GFR ( Amer) 58 L (>=60) Est GFR (Non-Af Amer) 48 L (>=60) BUN/Creatinine Ratio 19.6 Glucose 320 H (74-106) mg/dL Calcium 8.4 L (8.5-10.1) mg/dL Troponin I High Sens 16.8 (4.0-76.1) pg/mL ECG Data Attestation: I personally reviewed and interpreted this ECG as follows: (EKG on my interpretation shows sinus rhythm with a rate of [address] segment elevation.) Heart Score History: Highly Suspicious ECG: NS Repolarization Age: >65 years Risk Factors: >3 Risk Factors/ HX of CAD:2 Troponin: <Normal Limit Total Heart Score Recommendations & Risks:: 7 Discharge Plan Discharge Patient Disposition: Still a Patient
[2024-03-10 06:15] LABS: Basophils Percent Auto 0.7 % (0.2-2.0); Eosinophils Absolute Auto 0.9 10^3/uL (0.0-0.7); Eosinophils Percent Auto 14.2 % (0.9-7.0); Hematocrit 39.1 % (42.0-54.0); Hemoglobin 13.2 g/dL (14.0-18.0); Immature Granulocytes Abs Auto 0.03 10^3/uL (0.00-0.03); Immature Granulocytes Pct Auto 0.5 % (0.0-0.5); Lymphocytes Absolute Auto 1.2 10^3/uL (1.2-3.8); Lymphocytes Percent Auto 18.7 % (20.5-60.0); Mean Corpuscular HGB Conc 33.8 g/dL (29.9-35.2); Mean Corpuscular Hemoglobin 30.9 pg (25.9-34.0); Mean Corpuscular Volume 91.6 fL (80.0-94.0); Mean Platelet Volume 10.4 fL (9.5-13.5); Monocytes Absolute Auto 0.5 10^3/uL (0.3-0.8); Monocytes Percent Auto 7.5 % (1.7-12.0); Neutrophils Absolute Auto 3.6 10^3/uL (1.4-6.5); Neutrophils Percent Auto 58.4 % (43.0-75.0); Platelet Count 216 10^3/uL (150-450); Red Blood Count 4.27 10^6/uL (4.70-6.10); Red Cell Distribution Width 13.2 % (11.0-15.0); White Blood Count 6.1 10^3/uL (4.0-11.0)
[2024-03-10] MEDS: ASPIRIN 81 MG TAB.CHEW 324 MG PO (06:24)
[2024-03-10 06:32] LABS: Anion Gap 14.2; BUN Creatinine Ratio 19.6; Calcium 8.4 mg/dL (8.5-10.1); Carbon Dioxide 22.6 mmol/L (21.0-32.0); Chloride 103 mmol/L (98-107); Estimated GFR (African America 58 (>=60); Estimated GFR (Non-African Ame 48 (>=60); Glucose 320 mg/dL (74-106); Potassium 3.8 mmol/L (3.5-5.1); Sodium 136 mmol/L (136-145); Troponin I High Sensitivity 16.8 pg/mL (4.0-76.1)
--- OUTSIDE RECORDS SUMMARY | 2024-03-10 06:34 | XMS_ITS | CCD ---
Author Organization [facility] Care Team Providers Care Table Setter Name Role Phone FRANCHESCA ROWELL Unavailable Unavailable MARCIE, SHI Unavailable Unavailable MARCIE, SHI Unavailable Unavailable MARCIE, SHI Unavailable Unavailable MARCIE, SHI Unavailable Unavailable MARCIE, SHI Unavailable Unavailable MARCIE, SHI Unavailable Unavailable MARCIE, SHI Unavailable Unavailable MARCIE, SHI Unavailable Unavailable JOELLE, LEESA (OD) Unavailable Unavailabl e MARCIE, SHI Unavailable Unavailable MARCIE, SHI Unavailable Unavailable MARCIE, SHI Unavailable Unavailable MARCIE, SHI Unavailable Unavailable MARCIE, SHI Unavailable Unavailable JOELLE, LEESA (OD) Unavailable Unavailabl e MARCIE, SHI Unavailable Unavailable JOELLE, LEESA (OD) Unavailable Unavailabl e JOELLE, LEESA (OD) Unavailable Unavailabl e LACEY PRETTY Unavailable Unavailable SEBAS MIGUEL Unavailable Unavailable Unavailable Unavailable MARANDA Miguel Primary Care Provider DO Yifan Caldwell Emergency Provider [phone] MD Alec Hogue Jr Attending Provider Alka Phillips Unavailable LONG RODRIGUEZ Consulting Unavailable DR SEBAS MIGUEL Primary Care Unavailable MAUREEN MYERS Attending Unavailable MAUREEN MYERS Admitting Unavailable JUAN STEWART Consulting Unavailable DR SEBAS MIGUEL Primary Care Unavailable RALPH ROWELL Consulting Unavailable RALPH ROWELL Attending Unavailable RALPH ROWELL Admitting Unavailable BARBARA TIAN Consulting Unavailable DR SEBAS MIGUEL Primary Care Unavailable DR MEME VILLANUEVA Consulting Unavailable TENA BOWLING Attending Unavailable TNEA BOWLING Admitting Unavailable ALEJANDRO .DR TORRES Consulting Unavailable TENA BOWLING Consulting Unavailable JOSE, HILARIO Admitting Unavailable LAMONT, DR PARRY Primary Care Unavailable RICH, DR MEME Shabazz Consulting Unavailable JOSE, HILARIO Attending Unavailable JOSE, HILARIO Consulting Unavailable LAMONT, DR PARRY Primary Care Unavailable RICH, DR MEME Shabazz Consulting Unavailable JOSE, HILARIO Attending Unavailable JOSE, HILARIO Admitting Unavailable JOSE, HILARIO Consulting Unavailable MARANDA Miguel Primary Care Provider DO Guanako Plummer Emergency Provider DO Grey Neff Admit Provider MD Moses Velez Attending Provider [phone] Sebas Miguel Unavailable Boaz, Dr. Gupta Attending Unavaila ble Lamont II, Dr. Sebas Manzo Primary [facility] vailable Asaad, Imad Unavailable MD Katty Pierre Jr Emergency Provider DO Amauri Carrera Attending Provider Lamont LOW, Dr. Sebas Manzo [facility] [place] vailable Traboulkobii, Dr. Gupta Referring Unavaila ble Traboulssi, Dr. Gupta Attending Unavaila ble Miguel II, Dr. Sebas Manzo [facility] [place] vailable Lamont II, Dr. Sebas Manzo [facility] Aranza vailable Wenydouldominguez, Dr. Gupta Attending Unavaila ble Lamont II, Dr. Sebas Manzo Primary [facility] [place] vailable Traboulkobii, Dr. Gupta Referring Unavaila ble Miguel II, Dr. Sebas Manzo [facility] Aranza vailable Traboulkobii, Dr. Gupta Referring Unavaila ble Traboulssi, Dr. Gupta Attending Unavaila ble Guanako Plummer Admitting Unavailable Guanako Plummer Attending Unavailable Sebas Miguel Primary Care Unavailable Amauri Carrera Admitting Unavailable Amauri Carrera Attending Unavailable Sebas Miguel Primary Care Unavailable Moses Velez Attending Unavailable Grey Neff Admitting Unavailable Belia Hart Consulting Unavailable Sebas Miguel Primary Care Unavailable Edmund Saha Consulting Unavailable Shelley Torres Consulting Unavailable Marco Seymour Consulting Unavail able Lacey Pretty Consulting Unavailable Cosmo Hameed Consulting Unavailab Franca Bueno Consulting Unavailable Dia Mead Consulting Unavailable Belen Darden Consulting Unavailab Lynsey Oneal Consulting Unavailable Giovanna Alberto Consulting Unavailable Taylor Mauricio Consulting Unavailable Amauri Carrera Admitting Unavailable Amauri Carrera Attending Unavailable Sebas Miguel Primary Care Unavailable Katty Pierre Jr Admitting Unavailable Katty Pierre Jr Attending Unavailable Sebas Miguel Primary Care Unavailable Hali Alexander Unavailable Sebas Miguel MD Primary Care Provider [phone] LACEY PRETTY Attending Unavailable SEBAS MIGUEL Primary Care Unavailable HILARIO GARCIA Attending Unavailable AGUSTINA LUIS Attending Unavailable Allergies Allergy Classification Reported Allergen(s) Allergy Type Date of Onset Reaction(s) Facility (8 sources) codeine; Translations: [CODEINE] Drug Allergy 6 AOF, Confusion, Itching [place] [facility] (10 sources) Codeine; Translations: [Codeine Derivatives] Drug Allergy Itching [place] [id number] DO Work Phone: (6 sources) oxyCODONE; Translations: [oxycodone] Drug Allergy 2 [facility] (3 sources) Codeine Drug Allergy itching [email or web address] Other (1 source) Acetaminophen / oxyCODONE Drug Allergy 4 [facility] Repository Medications Current Medications Medication Drug Class(es) Dates Sig (Normalized) Sig (Original) acetaminophen 325 mg / HYDROcodone bitartrate 5 mg oral tablet (2 sources) Opioid Agonist End: 03-04-2024 HYDROcodone-acetami nophen (Scurry) 5-325 mg tablet Take by mouth. As needed/directed 03/04/2024 Discontinued (Therapy completed) Scurry 5-325 MG T ABS one tablet every 8 hours as needed for pain, 3 max per day Quantity: 0 Refills: 0 Ordered: 01-Jun-2023 DO Active acetaminophen 325 mg / oxyCODONE hydrochloride 10 mg oral tablet (1 source) Opioid Agonist take 1 tablet by mouth every six hours as needed oxyCODONE-acetaminophen (Percocet) 10-325 mg tablet Take 1 tablet by mouth every 6 hours if needed for severe pain (7 - 10). Active Aspir-81 (1 source) Aspir-81 Active aspirin 81 mg chewable tablet (19 sources) Platelet Aggregation Inhibitor, Nonsteroidal Anti-inflammatory Drug Start: 2017 End: 2022 take 81 mg by mouth once daily in the morning Aspirin Active 81 MG PO Every morning May 09, 2023 12:00am take 1 tablet by mouth once paola y aspirin 81 mg EC tablet Take 1 tablet (81 mg) by mouth once daily. Active atorvastatin 20 mg oral tablet (20 sources) HMG-CoA Reductase Inhibitor Start: 04-06-2023 take 40 mg by mouth once daily in the morning Atorvastatin Active 40 MG PO Every morning April 06, 2023 3:28pm Start: 10-26-2021 End: 03-04-2024 take 1 tablet by mouth once daily atorvastatin (Lipitor) 40 mg tablet Take 1 tablet (40 mg) by mouth once daily. 03/06/2023 03/04/2024 Discontinued (Therapy completed) Start: 08-19-2019 End: 04-06-2023 take 20 mg by mouth at bedtime Atorvastatin Discontinu ed 20 MG PO Bedtime August 19, 2019 1:00am April 06, 2023 3:28pm Atorvastatin Satya cium Active clopidogrel 75 mg oral tablet (20 sources) [id number] Platelet Inhibitor Start: 08-18-2019 End: 05-09-2023 take 1 tablet by mouth once daily clopidogrel (Plavix) 75 mg tablet Take 1 tablet (75 mg) by mouth once daily. 04/26/2020 Active Clopidogrel Bisu lfate Active cyclobenzaprine hydrochloride 10 mg oral tablet (1 source) Muscle Relaxant Start: 09-27-2023 take 1 tablet by mouth every twenty-four hours Cyclobenzaprine HCl 10 MG 1 tablet at bedtime as needed Orally Once a day for 7 Sep, Active dapagliflozin 10 mg oral tablet (2 sources) Sodium-Glucose Cotransporter 2 Inhibitor End: 03-04-2024 take 1 tablet by mouth once daily dapagliflozin propanediol (Farxiga) 10 mg Take 1 tablet (10 mg) by mouth once daily. 03/04/2024 Discontinued (Therapy completed) dextromethorphan hydrobromide 1.5 mg/ml / pyrilamine maleate 1.5 mg/ml oral solution (1 source) Uncompetitive Q-nojaen-V-aspart ate Receptor Antagonist, Sigma-1 Agonist Start: 09-27-2023 take 10 mL by mouth every eight hours Ringling DM 7.5-7.5 MG/5ML 10 mL Orally every 8 hours for 5 days Sep, Active docusate sodium 50 mg oral capsule (2 sources) take 1 capsule by mouth twice daily as needed for constipation docusate sodium (Colace) 50 mg capsule Take 1 capsule (50 mg) by mouth 2 times a day as needed for constipation. Active take 1 capsule by mo ut twice daily as needed Colace 100 MG Oral Capsule TAKE 1 CAPSUL E TWICE DAILY NEEDED. Quantity: 0 Refills: 0 Ordered: 01-Jun-2023 DO Active docusate sodium 50 mg / sennosides, long term 8.6 mg oral tablet (2 sources) Start: 05-08-2023 take 2 tablets by mouth once daily at bedtime Sennosides-Docusate Sodium (Senna Plus) 8.6-50 mg tablet Active 2 TAB PO Daily at bedtime May 08, 2023 12:00am lisinopril 2.5 mg oral tablet (18 sources) Angiotensin Converting Enzyme Inhibitor Start: 06-09-2018 End: 03-04-2025 take 1 tablet by mouth once daily lisinopril 2.5 mg tablet Indications: Benign essential hypertension Take 1 tablet (2.5 mg) by mouth once daily. 90 tablet 3 03/04/2024 03/04/2025 Active Lisinopril Activ e metFORMIN hydrochloride 1000 mg oral tablet (18 sources) Biguanide Start: 08-18-2019 take 1 tablet by mouth twice daily after mealtime metFORMIN (Glucophage) 1,000 mg tablet Take 1 tablet (1,000 mg) by mouth 2 times a day after meals. 01/07/2023 Active take 1 tablet by mouth once paola y metFORMIN HCl - 1000 MG Oral Tablet TAKE 1 TABLET EVERY 12 HOURS DAILY. Quantity: 0 Refills: 0 Ordered: 13-Sep-2021 DO Active metFORMIN HCl Ac tive metoprolol tartrate 25 mg oral tablet (19 sources) beta-Adrenergic Nicolas Start: 06-09-2018 take 1 tablet by mouth twice daily metoprolol tartrate (Lopressor) 25 mg tablet Take 1 tablet (25 mg) by mouth twice a day. 03/20/2023 Active Metoprolol Tartr ate Active naproxen 500 mg oral tablet (1 source) Nonsteroidal Anti-inflammatory Drug Start: 09-27-2023 take 1 tablet by mouth every twelve hours at mealtime as needed Naproxen 500 MG 1 tablet with food or milk as needed Orally every 12 hrs for 7 days Sep, Active nitroglycerin 0.4 mg sublingual tablet (18 sources) Nitrate Vasodilator Start: 08-19-2019 End: 03-04-2025 nitroglycerin (Nitrostat) 0.4 mg SL tablet Indications: CAD, multiple vessel Place 1 tablet (0.4 mg) under the tongue every 5 minutes if needed for chest pain. 90 tablet 3 03/04/2024 03/04/2025 Active Nitroglycerin Ac tive omeprazole 40 mg delayed release oral capsule (19 sources) Proton Pump Inhibitor Start: 10-18-2020 take 1 capsule by mouth once daily before mealtime omeprazole (PriLOSEC) [address] capsule Take 1 capsule (40 mg) by mouth once daily in the morning. Take before meals. 10/18/2020 Active Start: 06-09-2018 take 40 mg by mouth once daily Omeprazole Active 40 MG PO Daily June 09, 2018 12:00am Omeprazole Activ e ondansetron 4 mg disintegrating oral tablet (7 sources) Serotonin-3 Receptor Antagonist Start: 05-08-2023 take 4 mg by mouth every eight hours Ondansetron Active 4 MG PO Q8H May 08, 2023 12:00am Start: 04-06-2023 End: 04-13-2023 Ondansetron Discontinued 4 M G PO every 6 to 8 hours April 06, 2023 12:00am April 13, 2023 3:57am take 1 tablet by suraj th every four hours Ondansetron HCl - 4 MG Oral Tablet TAKE 1 TABLET EVERY 4 HOURS NEEDED Quantity: 0 Refills: 0 Ordered: 01-Jun-2023 DO Active oseltamivir 75 mg oral capsule (1 source) Neuraminidase Inhibitor Start: 09-27-2023 take 1 capsule by mouth every twelve hours Oseltamivir Phosphate 75 MG 1 capsule Orally Twice a day for 5 day(s) Sep, Active Ozempic (2 sources) Ozempic Active primidone 50 mg oral tablet (18 sources) Anti-epileptic Agent Start: 02-22-2022 End: 04-13-2023 primidone (Mysoline) 50 mg tablet once daily. 03/20/2023 Active Semaglutide (3 sources) Start: 04-13-2023 Semaglutide (Ozempic) 0.25 mg or 0.5 mg (2 mg/3 mL) pen injector Active 0.5 MG SUBCUT every week April 13, 2023 12:00am traMADol hydrochloride 50 mg oral tablet (2 sources) Opioid Agonist End: 03-04-2024 traMADol (Ultram) 50 mg tablet Take by mouth. As needed. 03/04/2024 Discontinued (Therapy completed) Completed/Discontinued Medications Medication Drug Class(es) Dates Sig (Normalized) Sig (Original) 8 hr acetaminophen 650 mg extended release oral tablet (1 source) take 2 tablets by mouth every eight hours Acetaminophen ER 650 MG Oral Tablet Extended Release TAKE 2 TABLET Every 8 hours as needed Quantity: 0 Refills: 0 Ordered: 01-Jun-2023 DO Active acetaminophen 500 mg / chlorpheniramine maleate 2 mg / dextromethorphan hydrobromide 15 mg / pseudoephedrine hydrochloride 30 mg oral tablet (1 source) alpha-Adrenergic Agonist, Histamine-1 Receptor Antagonist, Uncompetitive O-ksyslf-L-asparta te Receptor Antagonist, Sigma-1 Agonist Cold Relief TABS TAKE 1 TABLET ONCE DAILY. Quantity: 0 Refills: 0 Ordered: 01-Jun-2023 DO Active amoxicillin 500 mg oral capsule (1 source) Penicillin-class Antibacterial take 1 capsule by mouth every six hours Amoxicillin 500 MG Oral Capsule TAKE 1 CAPSULE Every 6 hours Quantity: 0 Refills: 0 Ordered: 01-Jun-2023 DO Active canagliflozin 150 mg / metFORMIN hydrochloride 1000 mg oral tablet (5 sources) Biguanide, Sodium-Glucose Cotransporter 2 Inhibitor Start: 06-09-2018 End: 06-11-2019 take 150-1000 mg by mouth twice daily Canagliflozin-Metf ormin (Invokamet) 150-1,000 mg Tablet Discontinued 1 TAB PO Twice daily June 09, 2018 12:00am June 11, 2019 1:29pm doxycycline hyclate 100 mg oral capsule (1 source) Tetracycline-class Drug take 1 capsule by mouth every twelve hours Doxycycline Hyclate 100 MG Oral Capsule TAKE 1 CAPSULE EVERY 12 HOURS UNTIL GONE. Quantity: 0 Refills: 0 Ordered: 01-Jun-2023 DO Active famotidine 20 mg oral tablet (5 sources) Histamine-2 Receptor Antagonist Start: 03-21-2023 End: 03-15-2024 take 20 mg by mouth once daily in the morning Famotidine Discontinued 20 MG PO Every morning April 13, 2023 12:00am May 09, 2023 11:47am fexofenadine hydrochloride 180 mg oral tablet (12 sources) Histamine-1 Receptor Antagonist Start: 08-18-2019 End: 02-02-2020 Fexofenadine (Lizeth Allergy) 180 mg Tablet Discontinued 0 MG PO Daily August 18, 2019 1:00am February 02, 2020 3:33pm UNABLE TO CONFIRM WITH PHARMACY OR PATIENT Lizeth Active 24 hr isosorbide mononitrate 30 mg extended release oral tablet (6 sources) Nitrate Vasodilator Start: 02-03-2020 End: 04-06-2023 take 30 mg by mouth once daily Isosorbide Mononitrate Discontinued 30 MG PO Daily February 03, 2020 12:00am April 06, 2023 3:28pm predniSONE 10 mg oral tablet (5 sources) Start: 03-09-2022 predniSONE 10 MG Oral Tablet TAKE 4 TABS FOR 4 DAYS, 3 TABS FOR 4 DAYS, 2 TABS FOR 4 DAYS, 1 TAB FOR 4 DAYS Quantity: 40 Refills: 0 Ordered: 09-Mar-2022 DO Start : 09-Mar-2022 Active 12 hr ranolazine 500 mg extended release oral tablet (5 sources) Anti-anginal Start: 03-15-2022 take 1 tablet by mouth every twelve hours Ranolazine ER 500 MG Oral Tablet Extended Release 12 Hour TAKE 1 TABLET EVERY 12 HOURS. Quantity: 180 Refills: 3 Ordered: 15-Mar-2022 Lacey Pretty MD Start : 15-Mar-2022 Active rosuvastatin calcium 10 mg oral tablet (10 sources) HMG-CoA Reductase Inhibitor Start: 06-09-2018 End: 08-19-2019 take 1 tablet by mouth once daily Rosuvastatin (Crestor) 10 mg Tablet Discontinued 10 MG PO Daily June 09, 2018 12:00am August 19, 2019 7:46pm sennosides, long term 8.6 mg oral capsule (1 source) Senna 8.6 MG Ora l Capsule TAKE DIRECTED. Quantity: 0 Refills: 0 Ordered: 01-Jun-2023 DO Active sertraline 50 mg oral tablet (5 sources) Serotonin Reuptake Inhibitor Start: 03-09-2022 take 0.5 tablet by mouth once daily, then take 1 tablet by mouth once daily Sertraline HCl - 50 MG Oral Tablet TAKE 1/2 TABLET BY MOUTH DAILY FOR 7 DAYS,THEN 1 TABLET ONCE DAILY FOR 30 DAYS Quantity: 19 Refills: 0 Ordered: 09-Mar-2022 DO Start : 09-Mar-2022 Active tamsulosin hydrochloride 0.4 mg oral capsule (17 sources) alpha-Adrenergic Nicolas Start: 12-06-2020 take 1 capsule by mouth once daily Tamsulosin HCl - 0.4 MG Oral Capsule TAKE 1 CAPSULE Daily Quantity: 0 Refills: 0 Ordered: 07-Dec-2020 DO Start : 06-Dec-2020 Active Start: 06-11-2019 take 0.4 mg by mouth twice daily Tamsulosin Active 0.4 MG PO Twice daily June 11, 2019 12:00am Tamsulosin HCl A ctive ticagrelor 90 mg oral tablet (5 sources) Start: 06-11-2018 End: 08-18-2019 take 1 tablet by mouth twice daily Ticagrelor (Brilinta) 90 mg Tablet Discontinued 90 MG PO Twice daily 60 30 June 11, 2018 12:00am August 18, 2019 6:29pm Problems Active Problems Problem Classification Problem Date Documented Da te Episodic/Chronic Abdominal pain (3 sources) Abdominal pain; Translations: [Unspecified abdominal pain] Onset: 3 05-08-2023 Episodic Acute myocardial infarction (5 sources) Acute ST segment elevation myocardial infarction; Translations: [ST elevation (STEMI) myocardial infarction of unspecified site] 06-09-2018 Chronic Biliary tract disease (4 sources) Cholecystitis; Translations: [Cholecystitis, unspecified] Onset: 3 Episodic Cardiac dysrhythmias (12 sources) Paroxysmal supraventricular tachycardia; Translations: [Paroxysmal supraventricular tachycardia] Onset: 4 03-04-2024 Chronic Cataract (2 sources) Age-related nuclear cataract, right eye; Translations: [Age-related nuclear cataract, left eye] Onset: 7 Chronic Conditions associated with dizziness or vertigo (9 sources) Dizziness; Translations: [Dizziness and giddiness] Episodic Coronary atherosclerosis and other heart disease (20 sources) Atherosclerotic heart disease of [place] post[place] coronary artery without angina pectoris; Translations: [Multi vessel coronary artery disease] Onset: 8 06-09-2018 Chronic Coronary atherosclerosis and other heart disease (5 sources) Presence of coronary angioplasty implant and graft; Translations: [Percutaneous transluminal coronary angioplasty status] Onset: 2 04-13-2023 Episodic Diabetes mellitus without complication (20 sources) Diabetes mellitus; Translations: [Diabetes mellitus without mention of complication, type II or unspecified type, not stated as uncontrolled] Onset: 3 08-19-2019 Chronic Disorders of lipid metabolism (20 sources) Hyperlipidemia; Translations: [Other and unspecified hyperlipidemia] Onset: 7 08-19-2019 Chronic E Codes: Natural/environment (1 source) Overexertion from prolonged static or awkward postures, initial encounter; Translations: [OVEREXERT PROLNG STAT/AWK PST INIT] Onset: 3 Episodic Essential hypertension (20 sources) Essential hypertension; Translations: [Unspecified essential hypertension] Onset: 7 08-19-2019 Chronic Influenza (1 source) Influenza due to other identified influenza virus with other respiratory manifestations Episodic Malaise and fatigue (14 sources) Fatigue; Translations: [Other malaise and fatigue] Onset: 4 03-04-2024 Episodic Nausea and vomiting (6 sources) Nausea, vomiting and diarrhea; Translations: [Nausea with vomiting, unspecified] Onset: 3 08-18-2021 Episodic Noninfectious gastroenteritis (4 sources) Gastroenteritis; Translations: [Noninfective gastroenteritis and colitis, unspecified] 04-06-2023 Episodic Nonspecific chest pain (20 sources) Chest pain; Translations: [Chest pain, unspecified] Onset: 2 08-23-2019 Episodic Other aftercare (1 source) exterminator (current) use of aspirin; Translations: [LEGAL EXECUTIVE ASSISTANT CURRENT USE OF ASPIRIN] Onset: 3 Episodic Other aftercare (1 source) exterminator (current) use of oral hypoglycemic drugs; Translations: [LEGAL EXECUTIVE ASSISTANT USE ORAL HYPOGLYCEMIC DX] Onset: 3 Episodic Other aftercare (1 source) Other exterminator (current) drug therapy; Translations: [OTH RESIDENTIAL CURRENT DRUG THERAPY] Onset: 3 Episodic Other gastrointestinal disorders (5 sources) Stool DNA-based colorectal cancer screening positive; Translations: [Other fecal abnormalities] 06-12-2019 Episodic Other gastrointestinal disorders (2 sources) Constipation; Translations: [Constipation, unspecified] 05-08-2023 Episodic Other gastrointestinal disorders (1 source) Diarrhea, unspecified; Translations: [Diarrhea, unspecified] Onset: 3 Episodic Other lower respiratory disease (1 source) Snoring; Translations: [Other respiratory abnormalities] Episodic Other nervous system disorders (4 sources) Other chronic pain; Translations: [OTHER CHRONIC PAIN] Onset: 2 Chronic Other non-traumatic joint disorders (4 sources) Pain in right knee; Translations: [PAIN IN RIGHT KNEE] Onset: 2 Episodic Other non-traumatic joint disorders (1 source) Effusion, right knee; Translations: [EFFUSION RIGHT KNEE] Onset: 3 Episodic Other nutritional; endocrine; and metabolic disorders (5 sources) Obesity; Translations: [Obesity, unspecified] 08-19-2019 Chronic Other nutritional; endocrine; and metabolic disorders (12 sources) Overweight in adulthood with body mass index of 25 or more but less than 30; Translations: [Overweight] Onset: 4 03-04-2024 Episodic Other nutritional; endocrine; and metabolic disorders (2 sources) Body mass index (BMI) 28.0-28.9, adult; Translations: [Body mass index (BMI) 28.0-28.9, adult] Onset: 4 Episodic Other upper respiratory infections (2 sources) Acute pharyngitis, unspecified Onset: 2 Resolved: 2 Episodic Pancreatic disorders (not diabetes) (3 sources) Pancreatitis; Translations: [Acute pancreatitis without necrosis or infection, unspecified] Episodic Residual codes; unclassified (13 sources) Sleep apnea; Translations: [Unspecified sleep apnea] Chronic Residual codes; unclassified (4 sources) Obstructive sleep apnea syndrome; Translations: [Obstructive sleep apnea (adult) (pediatric)] Onset: 8 12-14-2023 Chronic Sprains and strains (2 sources) Sprain of unspecified site of right knee, initial encounter; Translations: [Strain of muscle, fascia and tendon of lower back, initial encounter] Onset: 3 Episodic Unclassified (2 sources) Athscl heart disease of [place] coronary artery w/o ang pctrs / I25.10(ICD-9) Onset: 8 Unclassified (1 source) Chest pain, unspecified / R07.9(ICD-9) Onset: 8 Unclassified (1 source) CONTACT W/AND (SUSP) EXPOS COVID-19; Translations: [CONTACT W/AND (SUSP) EXPOS COVID-19] Onset: 2 Unclassified (1 source) Supraventricular tachycardia, unspecified (CMS-HCC); Translations: [Supraventricular tachycardia, unspecified (CMS-HCC)] Onset: 4 Past or Other Problems Problem Classification Problem Date Documented Date Episodic/Chronic Cardiac dysrhythmias (1 source) Tachycardia, unspecified; Translations: [TACHYCARDIA UNSPECIFIED] Onset: 05-18-2022 Episodic Other lower respiratory disease (3 sources) Shortness of breath; Translations: [SHORTNESS OF BREATH] Onset: 05-10-2022 Episodic Other non-traumatic joint disorders (4 sources) Pain in unspecified knee; Translations: [PAIN IN UNSPECIFIED KNEE] Onset: 03-09-2022 Episodic Unclassified (10 sources) Never smoked tobacco; Translations: [Never a smoker] Unclassified (2 sources) Contact with and (suspected) exposure to covid-19 Z20.822 Onset: 04-15-2022 Resolved: 04-15-2022 Unclassified (1 source) Onset: 03-04-2024 03-04-2024 Unclassified (1 source) Supraventricular tachycardia, unspecified (CMS-HCC); Translations: [Supraventricular tachycardia, unspecified (CMS-HCC)] Onset: 03-04-2024 Results Test Name Value Interpretation Reference Range Facility COVID + FLU Quick Testingon 09-27-2023 SARS-CoV-2 (COVID-19) RNA BISI+probe Ql (Unsp spec) Negative [employer] Other COVID + FLU Quick Testing Positive [employer] Other COVID + FLU Quick Testing Negative [employer] Other Quick Strepon 09-27-2023 S. pyogenes Org specific cx Ql (Throat) Negative [employer] Other Quick Strep [employer] Other Office Visit (Cardiology)on 06-01-2023 Follow-up visit Diagnoses/Problems Assessed CAD, multiple vessel (414.00) (I25.10) Chest pain (786.50) (R07.9) Essential hypertension (401.9) (I10) Hyperlipidemia (272.4) (E78.5) Never a smoker Overweight with body mass index (BMI) of 27 to 27.9 in adult (278.02,V85.23) (E66.3,Z68.27) Paroxysmal supraventricular tachycardia (427.0) (I47.1) Sleep apnea (780.57) (G47.30) Diabetes mellitus (250.00) (E11.9) Fatigue (780.79) (R53.83) Orders CAD, multiple vessel Renew: Aspirin 81 MG Oral Tablet Delayed Release; TAKE 1 TABLET DAILY Overweight with body mass index (BMI) of 27 to 27.9 in adult Healthy Weight Tips; Status:Complete - Retrospective Authorization; Done: [id number] Some eating tips that can help you lose weight.; Status:Complete - Retrospective Authorization; Done: [id number] SocHx: Never a smoker Tobacco Use Screening; Status:Complete; Done: [id number] Patient Instructions Please bring all medicines, vitamins, and herbal supplements with you when you come to the office. Prescriptions will not be filled unless you are compliant with your follow up appointments or have a follow up appointment scheduled as per instruction of your physician. Refills should be requested at the time of your visit. Follow up in 6 months Same meds. Chief Complaint KIA MENDEZ is being seen for [facility] DC and stress test results. History of Present Illness Patient is here for follow-up continue management for coronary artery disease with prior PCI of the right coronary artery, hyperlipidemia and recent evaluation for chest pain. He underwent PCI to the RCA remotely. Following that he underwent heart cath which showed no residual stenosis. Recent stress test showed inferior NH but no ischemia. He recently underwent cholecystectomy. He has lost about 18 pounds. He feels better but continues to complain of intermittent atypical chest pain. ASSESSMENT: 1. Coronary artery disease with prior PCI to the right coronary artery previously and PCI to the LAD/diagonal. Describe intermittent atypical chest pain I suspect GI possibly due to gastroesophageal reflux disease and recent gallbladder disease. Repeat cardiac catheterization showed only minimal small marginal disease and medical therapy was recommended. recent stress test also was negative for ischemia 2. Previous symptoms of orthostatic hypotension, completely resolved after adjusting his beta-nicolas dose. 3. Remote history of supraventricular tachycardia, with no recurrence. 4. Hyperlipidemia on atorvastatin 5. Mildly overweight. 6. Patient described nitro induced headache. Resolved 7. Classic symptoms of sleep apnea including loud snoring, frequent awakening and daily nap. Recent outpatient sleep study was borderline abnormal. Recommendation was made to see the sleep clinic. He unfortunately did not follow through due to passing away of his 8. Social stress due to the of his 's terminal illness 9. Recent cholecystectomy without any cardiac issues or complication RECOMMENDATION: 1. The patient was advised to continue present medical therapy 2. I suggested losing weight, exercise, and risk factor adjustment. 3. I will see him back in the office in 6-month and recent diagnostic testing including stress test 4. I have reviewed his recent hospitalization record and lab with him 5. Advised him to follow-up with the sleep clinic 6. I advised him to try some [id number] Maalox if develop chest pain Surgical History Problems History of Arm surgery Arm Excision left / removal of melanoma History of Cardiac catheterization History of Complete colonoscopy Procedue Date: 12Jun[address] History of Eye surgery History of Leg surgery History of Percutaneous transluminal coronary angioplasty History of Repair Leg Repair History of Surgery skin cancer removal Current Meds Medication NameInstruction Acetaminophen ER 650 MG Oral Tablet Extended ReleaseTAKE 2 TABLET Every 8 hours as needed Amoxicillin 500 MG Oral CapsuleTAKE 1 CAPSULE Every 6 hours Aspirin 81 MG Oral Tablet Delayed ReleaseTAKE 1 TABLET DAILY. Atorvastatin Calcium 40 MG Oral TabletTAKE 1 TABLET BY MOUTH EVERY DAY Clopidogrel Bisulfate 75 MG Oral TabletTake 1 tablet daily Colace 100 MG Oral CapsuleTAKE 1 CAPSULE TWICE DAILY NEEDED. Cold Relief TABSTAKE 1 TABLET ONCE DAILY. Doxycycline Hyclate 100 MG Oral CapsuleTAKE 1 CAPSULE EVERY 12 HOURS UNTIL GONE. Famotidine 20 MG Oral TabletTAKE 1 TABLET AT BEDTIME. Farxiga 10 MG Oral TabletTAKE 1 TABLET BY MOUTH EVERY MORNING Lisinopril 2.5 MG Oral TabletTAKE 1 TABLET DAILY DIRECTED. metFORMIN HCl - 1000 MG Oral TabletTAKE 1 TABLET EVERY 12 HOURS DAILY. Metoprolol Tartrate 25 MG Oral TabletTAKE 1 TABLET TWICE DAILY. Nitroglycerin 0.4 MG Sublingual Tablet SublingualPLACE 1 TABLET UNDER THE TONGUE EVERY 5 MINUTES FOR UP TO 3 DOSES NEEDED FOR CHEST PAIN.CALL 911 IF PAIN PERSISTS. Scurry 5-325 MG TABSone ta (more content not included)... Normal [employer] Tobacco Screening.on 023 Fall risk assessment a) No falls within the last year [facility] [employer] 600 DO Work Phone: Tobacco use status CPHS b) No [facility] [employer] 600 DO Work Phone: Alkaline Phosphataseon 05-28 ALP [Catalytic activity/Vol] 62 U/L Normal 34-104 [facility] Comment on above: Performed By: #### A DDONUAPLUS #### [facility] [address] Amylaseon 05-28-2023 Amylase [Catalytic activity/Vol] 38 U/L Normal 29-103 [facility] Comment on above: Performed By: #### A DDONUAPLUS #### [facility] [address] Aspartate Amino Transferaseo n 05-28-2023 AST [Catalytic activity/Vol] 10 U/L Low 13-39 [facility] Comment on above: Performed By: #### A DDONUAPLUS #### [facility] [address] Bilirubin, Total and Directo n 05-28-2023 Bilirubin [Mass/Vol] 0.7 mg/dL Normal 0.3-1.0 [facility] Comment on above: Performed By: #### A DDONUAPLUS #### [address] Bilirubin,Indirect 0.5 mg/dL Normal [facility] Comment on above: Performed By: #### A DDONUAPLUS #### [address] Bilirubin.indirect [Mass/Vol] 0.20 mg/dL High 0.03-0.18 [facility] Comment on above: Performed By: #### A DDONUAPLUS #### [address] Glucose Poct Glucometerson 0 05-28-2023 Commemt1 Glu2: [facility] Comment on above: Result Comment: PERF ORMED BY: [place] [address] PATHOLOGIST NON DESTRUCTIVE EVALUATION SPECIALIST VANESSA VASQUEZ M.D. Performed By: #### G LULS #### Point of Care testing , Glucose [Mass/Vol] 216 mg/dL Normal [facility] Comment on above: Result Comment: [place] om Glucose Reference Range is dependent on time and content of last meal. Glucose of more than 200 mg/dL in a nonstressed, ambulatory subject supports the diagnosis of Diabetes Mellitus. Performed By: #### G LULS #### Point of Care testing , Commemt1 Glu2: [employer] [facility] Comment on above: Result Comment: PERF ORMED BY: [place] [address] PATHOLOGIST NON DESTRUCTIVE EVALUATION SPECIALIST VANESSA VASQUEZ M.D. Performed By: #### A DDONUAPLUS #### [address] Glucose [Mass/Vol] 127 mg/dL Normal [facility] Comment on above: Result Comment: [place] om Glucose Reference Range is dependent on time and content of last meal. Glucose of more than 200 mg/dL in a nonstressed, ambulatory subject supports the diagnosis of Diabetes Mellitus. Performed By: #### A DDONUAPLUS #### [address] [place] [address] [facility] 05-28-2023 L ------ Specimen: [id number] Received: 05/28/23 Status: MACK Ruiz Num: [id number] Spec Type: Surgical Subm Dr: Amauri Carrera DO Tissues: A Gallbladder (GALLBLADDER) Procedures: Trace ISIDRO/Alber L3 Age/ Patient Sex Location Account Attending Physician Kia Mendez/[facility] [place] [facility] [id number] Amauri Carrera DO SPEC NUM: [id number] RECD: 05/28/23 STATUS: MACK RUIZ NUM: [id number] EDWAR: 05/28/23- SUBM DR: Amauri Carrera DO ENTERED: 05/28/[address] [facility] [address]: SPEC TYPE: Surgical DEPT: S ORDERED: HE, Gross/Micro L3 ORDERED: HE, Gross/Micro L3 Pathological Diagnosis Gallbladder, cholecystectomy: - No obvious stone identified grossly - Incidental mild acalculous chronic cholecystitis showing patchy associated sinus glandular herniations - Occasional pyloric metaplasia in the neck region, otherwise without intestinal metaplasia, malignancy, or any glandular dysplasia identified Clinical Information Cholelithiasis, pancreatitis Gross Description Received in formalin labeled with the patient's name, date of and gallbladder is a 7.2 x 4.4 x 2.2 cm previously incised open gallbladder with a yellow-hines serosa. The average wall thickness is 0.2 cm. The lumen contains yellow-green bile. No choleliths are identified. The mucosa is yellow-hines, granular. The 0.5 cm in diameter patent cystic duct margin is inked. [employer] sections are submitted in one cassette labeled A1. Microscopic Description One H E slide reviewed. The microscopic examination confirms the diagnosis. Specimen: [id number] Received: 05/28/23 Status: MACK Mallika Num: [id number] Spec Type: Surgical Subm Dr: Amauri Carrera DO Tissues: A Gallbladder (GALLBLADDER) Procedures: SANNA, Gross/Micro L3 Patient: VanessaKia Funk [id number] (Continued) Specimen: [id number] Received: 05/28/23 (Continued) Signed (signature on file) Olive Browne MD 05/29/23 1652 Specimen: [id number] Received: 05/28/23 Status: MACK Mallika Num: [id number] Spec Type: Surgical Subm Dr: Amauri Carrera DO Tissues: A Gallbladder (GALLBLADDER) Procedures: Trace ISIDRO/Alber L3 Patient: Kia Mendez [id number] (Continued) Specimen: [id number] Received: 05/28/23 (Continued) CPT Codes 32685 Specimen: [id number] Received: 05/28/23 Status: MACK Ruiz Num: [id number] Spec Type: Surgical Subm Dr: Amauri Carrera DO Tissues: A Gallbladder (GALLBLADDER) Procedures: Trace ISIDRO/Alber L3 Patient: Kia Mendez [id number] (Continued) Signed (signature on file) Amado Browne MD 05/29/23 1652 Normal [facility] Lipaseon 05-28-2023 Lipase [Catalytic activity/Vol] 48.0 U/L Normal 11.0-82.0 [facility] Comment on above: Result Comment: PERF ORMED BY: [place] [address] PATHOLOGIST NON DESTRUCTIVE EVALUATION SPECIALIST VANESSA VASQUEZ M.D. Performed By: #### A DDONUAPLUS #### [address] Activated partial thrombopla stin time (aPTT) in platelet poor plasma by coagulation aOrdered By: Katty Pierre on 05-08-2023 aPTT Coag (PPP) [Time] 31.3 s 25.1-36.5 [facility] Alanine aminotransferase [En zymatic activity/volume] in Serum or PlasmaOrdered By: Katty Pierre on 05-08-2023 ALT [Catalytic activity/Vol] 9 U/L 7-52 [facility] Albumin [Mass/volume] in Ser um or Plasma by Bromocresol green (BCG) dye binding methoOrdered By: Katty Pierre on 05-08-2023 Albumin BCG dye [Mass/Vol] 3.9 g/dL 3.5-5.7 [facility] Alkaline phosphatase [Enzyma tic activity/volume] in Serum or PlasmaOrdered By: Katty Pierre on 05-08-2023 ALP [Catalytic activity/Vol] 71 U/L 34-104 [facility] Aspartate aminotransferase [ Enzymatic activity/volume] in Serum or PlasmaOrdered By: Katty Pierre on 05-08-2023 AST [Catalytic activity/Vol] 12 U/L 13-39 [facility] Automated erythrocytes count in urine sediment (number/area)Ordered By: Katty Pierre on 05-08-2023 RBC Auto (Urine sed) [#/Area] 0-1 [HPF] 0-4 [facility] Automated leukocytes count i n urine sediment (number/area)Ordered By: Katty Pierre on 05-08-2023 WBC Auto (Urine sed) [#/Area] 0-1 [HPF] 0-4 [facility] Basophils Auto (Bld) [#/Vol] Ordered By: Katty Pierre on 05-08-2023 Basophils (Bld) [#/Vol] 0.0 10*3/uL 0.0-0.2 [facility] Basophils/100 WBC Auto (Bld) Ordered By: Katty Pierre on 05-08-2023 Basophils/100 WBC (Bld) 0.2 % . [facility] Bilirubin Test strip Ql (U)O rdered By: Katty Pierre on 05-08-2023 Bilirubin Ql (U) Negative Negative [facility] Bilirubin.total [Mass/volume ] in Serum or PlasmaOrdered By: Katty Pierre on 05-08-2023 Bilirubin [Mass/Vol] 1.1 mg/dL 0.3-1.[address] [facility] CT abdomen pelvis w conon CT abdomen pelvis w con [facility] Main [place] [address] [place] [address] CT Scan Report Signed Patient: Kia Mendez MR#: [id number] 98 : 1950 Acct:[id number] Age/Sex: 73 / M ADM Date: 05/07/23 Loc: ER Room: Type: [facility] ER Attending Dr: Copies to: Ktaty Pierre Jr, MD Ordering Provider: Katty Pierre Jr, MD Date of Service: 05/08/23 CT/CT abdomen pelvis w con: abdominal pain, vomiting CT Abdomen and Pelvis withcontrast TECHNIQUE: Axial imaging with 2-D reconstruction.90 cc of Isovue-300. The CT exam was performed using one or more the following dose reduction techniques: Automated exposure control, adjustment of the MA and/or Kv according to patient size, or use of the iterative reconstruction technique. COMPARISON: 04/06/23 History: Mid abdominal pain LIMITATIONS: None LOWER THORAX minor atelectasis. Coronary artery calcification. LIVER: Calcified hepatic granulomata. GALLBLADDER: No gallbladder abnormality identified. BILE DUCTS: No dilatation SPLEEN: Calcified splenic granulomata. PANCREAS: Unremarkable ADRENAL GLANDS: Unremarkable KIDNEYS:Symmetric enhancement of the kidneys. Stable moderate RIGHT pelvocaliectasis to level of the UPJ. No hydronephrosis. AORTA: No abdominal aortic aneurysm identified. Atherosclerosis. RETROPERITONEUM: No significant retroperitoneal abnormalities identified. MESENTERY:Unremarkable SMALL BOWEL: The small bowel loops are nondistended. APPENDIX: The appendix is normal. COLON: Mild colonic diverticulosis. Moderate stool in the the colon. URINARY BLADDER: Urinary bladder is unremarkable. REPRODUCTIVE SYSTEM: Mildly enlarged prostate. PNEUMOPERITONEUM: None PERITONEAL FLUID:None BONY STRUCTURES: Degenerative change. ABDOMINAL WALL: Small fat-containing inguinal hernias. CT/CT abdomen pelvis w con IMPRESSION: No acute findings. Stable RIGHT pelvocaliectasis. Mild colonic diverticulosis. Moderate stool in the colon. Impression dictated by: Aj Tabor M.D.05/08/2023 10:21 AM Dictation Location: [place] [address] Transcribed By: [facility] 05/08/23 1021 Dictated By: Aj Tabor DO 05/08/23 1017 Signed By: 05/08/23 1021 Normal [facility] Calcium [Mass/volume] in Ser um or PlasmaOrdered By: Katty Pierre on 05-08-2023 Calcium [Mass/Vol] 8.7 mg/dL 8.6-10.3 [facility] Carbon dioxide, total [Moles /volume] in Serum or PlasmaOrdered By: Katty Pierre on 05-08-2023 CO2 [Moles/Vol] 25.4 mmol/L 21.0-31.0 [facility] Chloride [Moles/volume] in S arvin or PlasmaOrdered By: Katty Pierre on 05-08-2023 Chloride [Moles/Vol] 105 mmol/L 98-107 [facility] Color Auto (U)Ordered By: Samia Pierre on 05-08-2023 Color (U) Yellow Yellow [facility] Complete Blood Count Auto Di ffon 05-08-2023 Basophils (Bld) [#/Vol] 0.0 10*3/uL Normal 0.0-0.2 [facility] Comment on above: Result Comment: PERF ORMED BY: [facility] [address] [place] [address] PATHOLOGIST NON DESTRUCTIVE EVALUATION SPECIALIST VANESSA VASQUEZ M.D. Performed By: #### G LULS #### Point of Care testing , Basophils/100 WBC (Bld) 0.2 % Normal . [facility] Comment on above: Performed By: #### G LULS #### Point of Care testing , Eosinophils (Bld) [#/Vol] 0.3 10*3/uL Normal 0.0-0.45 [facility] Comment on above: Performed By: #### Robert CORREA #### Point of Care testing , Eosinophils/100 WBC (Bld) 5.5 % Normal . [facility] Comment on above: Performed By: #### Robert CORREA #### Point of Care testing , Erythrocyte distribution width (RBC) [Ratio] 14.0 % Normal 12.0-14.8 [facility] Comment on above: Performed By: #### Robert CORREA #### Point of Care testing , Hematocrit (Bld) [Volume fraction] 42.2 % Normal 38.8-50.0 [facility] Comment on above: Performed By: #### Robert CORREA #### Point of Care testing , Hemoglobin (Bld) [Mass/Vol] 14.4 g/dL Normal 13.0-17.0 [facility] Comment on above: Performed By: #### Robert CORREA #### Point of Care testing , Lymphocytes (Bld) [#/Vol] 0.7 10*3/uL Low 1.00-4.8 [facility] Comment on above: Performed By: #### Robert CORREA #### Point of Care testing , Lymphocytes/100 WBC (Bld) 12.0 % Normal . [facility] Comment on above: Performed By: #### Robert CORREA #### Point of Care testing , MCH (RBC) [Entitic mass] 31.1 pg Normal 27.5-35.2 [facility] Comment on above: Performed By: #### Robert CORREA #### Point of Care testing , MCV (RBC) [Entitic vol] 91.0 fL Normal 83.5-101 [facility] Comment on above: Performed By: #### Robert MCCORDLS #### Point of Care testing , Mean Corpuscular HGB Conc 34.1 g/dL Normal 32.5-35.6 [facility] Comment on above: Performed By: #### Robert CORREA #### Point of Care testing , Monocytes (Bld) [#/Vol] 0.8 10*3/uL Normal 0.0-0.8 [facility] Comment on above: Performed By: #### Robert CORREA #### Point of Care testing , Monocytes/100 WBC (Bld) 19.36 % Normal 0.00-20.00 [facility] Comment on above: Performed By: #### G FLEXLS #### Point of Care testing , Monocytes/100 WBC (Bld) 12.9 % Normal . [facility] Comment on above: Performed By: #### G FLEXLS #### Point of Care testing , Neutrophils (Bld) [#/Vol] 4.2 10*3/uL Normal 1.8-7.7 [facility] Comment on above: Performed By: #### Robert CORREA #### Point of Care testing , Neutrophils/100 WBC (Bld) 69.4 % Normal . [facility] Comment on above: Performed By: #### Robert MCCORDLS #### Point of Care testing , NRBC% 0.0 /100{WBC} Normal 0-0.5 [facility] Comment on above: Performed By: #### Robert CORREA #### Point of Care testing , Platelet mean volume (Bld) [Entitic vol] 8.1 fL Normal 6.6-10.1 [facility] Comment on above: Performed By: #### Robert CORREA #### Point of Care testing , Platelets (Bld) [#/Vol] 203 10*3/uL Normal 150-450 [facility] Comment on above: Performed By: #### Robert MCCORDLS #### Point of Care testing , RBC (Bld) [#/Vol] 4.63 10*6/uL Normal 3.90-5.60 [facility] Comment on above: Performed By: #### G FLEXLS #### Point of Care testing , WBC (Bld) [#/Vol] 6.0 10*3/uL Normal 4.1-10.5 [facility] Comment on above: Performed By: #### Robert CORREA #### Point of Care testing , Comprehensive Metabolic Pane willian 05-08-2023 Albumin [Mass/Vol] 3.9 g/dL Normal 3.5-5.7 [facility] Comment on above: Performed By: #### P T, PTT, CMP #### [address] Albumin/Globulin [Mass ratio] 1.3 {ratio} Normal [facility] Comment on above: Performed By: #### P T, PTT, CMP #### [address] ALP [Catalytic activity/Vol] 71 U/L Normal 34-104 [facility] Comment on above: Performed By: #### P T, PTT, CMP #### [address] ALT [Catalytic activity/Vol] 9 U/L Normal 7-52 [facility] Comment on above: Performed By: #### P T, PTT, CMP #### [address] Anion gap [Moles/Vol] 6.9 mmol/L Normal 6.0-15.0 [facility] Comment on above: Performed By: #### P T, PTT, CMP #### [address] AST [Catalytic activity/Vol] 12 U/L Low 13-39 [facility] Comment on above: Performed By: #### P T, PTT, CMP #### [address] Bilirubin [Mass/Vol] 1.1 mg/dL High 0.3-1.0 [facility] Comment on above: Performed By: #### P T, PTT, CMP #### [facility] [address] [place] [address] Calcium [Mass/Vol] 8.7 mg/dL Normal 8.6-10.3 [facility] Comment on above: Performed By: #### P T, PTT, CMP #### [facility] [address] [place] [address] Chloride [Moles/Vol] 105 mmol/L Normal 98-107 [facility] Comment on above: Performed By: #### P T, PTT, CMP #### [facility] [address] CO2 [Moles/Vol] 25.4 mmol/L Normal 21.0-31.0 [facility] Comment on above: Performed By: #### P T, PTT, CMP #### [facility] [address] Creatinine [Mass/Vol] 1.17 mg/dL Normal 0.70-1.30 [facility] Comment on above: Performed By: #### P T, PTT, CMP #### [address] Creatinine Clr Calc Pharmacy 56.33 [facility] Comment on above: Result Comment: PERF ORMED BY: [place] [address] PATHOLOGIST NON DESTRUCTIVE EVALUATION SPECIALIST VANESSA VASQUEZ M.D. Performed By: #### P T, PTT, CMP #### [address] GFR/1.73 sq M.predicted MDRD (S/P/Bld) [Vol rate/Area] mL/min/{1.73_m2} [facility] Comment on above: Performed By: #### P T, PTT, CMP #### [address] Globulin (S) [Mass/Vol] 3.0 g/dL [facility] Comment on above: Performed By: #### P T, PTT, CMP #### [facility] [address] Glucose [Mass/Vol] 106 mg/dL High 70-100 [facility] Comment on above: Result Comment: [place] Glucose Reference Range is dependent on time and content of last meal. Glucose of more than 200 mg/dL in a nonstressed, ambulatory subject supports the diagnosis of Diabetes Mellitus. ADA recommended reference range Performed By: #### P T, PTT, CMP #### [facility] [address] [place] [address] [place] Potassium [Moles/Vol] 4.3 mmol/L Normal 3.5-5.1 [facility] Comment on above: Performed By: #### P T, PTT, CMP #### [facility] [address] [place] [id number] [place] Protein [Mass/Vol] 6.9 g/dL Normal 6.4-8.9 [facility] Comment on above: Performed By: #### P T, PTT, CMP #### [facility] [address] [place] [address] [place] Sodium [Moles/Vol] 133 mmol/L Low 136-145 [facility] Comment on above: Performed By: #### P T, PTT, CMP #### [facility] [address] [place] [address] [place] Urea nitrogen [Mass/Vol] 26 mg/dL High 7-25 [facility] Comment on above: Performed By: #### P T, PTT, CMP #### [facility] [address] Creatinine [Mass/volume] in Serum or PlasmaOrdered By: Katty Pierre on 05-08-2023 Creatinine [Mass/Vol] 1.17 mg/dL 0.70-1.30 [facility] Dipstick and Microscopicon 0 05-08-2023 Appearance (U) Clear Normal Clear [facility] Comment on above: Order Comment: Name Collection Type:: Clean-Voided Midstream Performed By: #### A DDONUAPLUS #### [facility] [address] [place] [id number] [place] Bacteria,Urine None Seen Normal None Seen [facility] Comment on above: Order Comment: Name Collection Type:: Clean-Voided Midstream Performed By: #### A DDONUAPLUS #### [facility] [address] [place] [id number] [place] Bilirubin,Urine Negative Normal Negative [facility] Comment on above: Order Comment: Name Collection Type:: Clean-Voided Midstream Performed By: #### A DDONUAPLUS #### [facility] [address] [place] [address] [place] Color (U) Yellow Normal Yellow [facility] Comment on above: Order Comment: Name Collection Type:: Clean-Voided Midstream Performed By: #### A DDONUAPLUS #### [facility] [address] [place] [id number] [place] Glucose Ql (U) >=1000 High Normal [facility] Comment on above: Order Comment: Name Collection Type:: Clean-Voided Midstream Performed By: #### A DDONUAPLUS #### [facility] [address] [place] [address] [place] Hyaline Casts,Urine 0-8 Normal 0-8 [facility] Comment on above: Order Comment: Name Collection Type:: Clean-Voided Midstream Result Comment: PERF ORMED BY: [place] [address] PATHOLOGIST NON DESTRUCTIVE EVALUATION SPECIALIST VANESSA VASQUEZ M.D. Performed By: #### A DDONUAPLUS #### [facility] [address] [place] [address] [place] Ketones Ql (U) 1+ High Negative [facility] Comment on above: Order Comment: Name Collection Type:: Clean-Voided Midstream Performed By: #### A DDONUAPLUS #### [facility] [address] [place] [address] [place] Leukocyte esterase Test strip Ql (U) 1+ High Negative [facility] Comment on above: Order Comment: Name Collection Type:: Clean-Voided Midstream Performed By: #### A DDONUAPLUS #### [facility] [address] [place] [address] [place] Nitrite,Urine Negative Normal Negative [facility] Comment on above: Order Comment: Name Collection Type:: Clean-Voided Midstream Performed By: #### A DDONUAPLUS #### [facility] [address] [place] [address] [place] Occult Blood,Urine Negative Normal Negative [facility] Comment on above: Order Comment: Name Collection Type:: Clean-Voided Midstream Result Comment: PERF ORMED BY: [place] [address] PATHOLOGIST NON DESTRUCTIVE EVALUATION SPECIALIST VANESSA VASQUEZ M.D. Performed By: #### A DDONUAPLUS #### [address] pH (U) 5.5 [pH] Normal 5.0-9.0 [facility] Comment on above: Order Comment: Name Collection Type:: Clean-Voided Midstream Performed By: #### A DDONUAPLUS #### [address] Protein,Urine Trace High Negative [facility] Comment on above: Order Comment: Name Collection Type:: Clean-Voided Midstream Performed By: #### A DDONUAPLUS #### [address] RBC LM.HPF (Urine sed) [#/Area] 0 /[HPF] Normal 0-4 [facility] Comment on above: Order Comment: Name Collection Type:: Clean-Voided Midstream Performed By: #### A DDONUAPLUS #### [address] Specificy [place],Urine 1.020 Normal 1.001-1.03 0 [facility] Comment on above: Order Comment: Name Collection Type:: Clean-Voided Midstream Performed By: #### A DDONUAPLUS #### [address] Squamous Epithelial Cell,Urine None Seen Normal 0-2 [facility] Comment on above: Order Comment: Name Collection Type:: Clean-Voided Midstream Performed By: #### A DDONUAPLUS #### [place] [address] [place] Urobilinogen,Urine Normal Normal Normal [facility] Comment on above: Order Comment: Name Collection Type:: Clean-Voided Midstream Performed By: #### A DDONUAPLUS #### [address] WBC LM.HPF (Urine sed) [#/Area] 0 /[HPF] Normal 0-4 [facility] Comment on above: Order Comment: Name Collection Type:: Clean-Voided Midstream Performed By: #### A DDONUAPLUS #### [address] ECG 12 lead ECGon 05-08-2023 ECG 12 lead ECG [facility] [place] [address] [place] [address] Electrocardiograph Report Signed Patient: Kia Mendez MR#: [id number] 98 : 1950 Acct:[id number] Age/Sex: 73 / M ADM Date: 05/07/23 Loc: ER Room: Type: [facility] ER Attending Dr: Ordering Provider: Katty Pierre Jr, MD Date of Service: 05/08/2310/30/117 ECG/ECG 12 lead ECG: Abdominal Pain Copies to: Test Reason : Blood Pressure : / mmHG Vent. 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 [facility] Erythrocyte distribution wid th Auto (RBC) [Ratio]Ordered By: Katty Pierre on 05-08-2023 Erythrocyte distribution width (RBC) [Ratio] 14.0 % 12.0-14.8 [facility] Globulin Calc (S) [Mass/Vol] Ordered By: Katty Pierre on 05-08-2023 Globulin (S) [Mass/Vol] 3.0 g/dL [facility] Glucose [Mass/volume] in Ser um or PlasmaOrdered By: Katty Pierre on 05-08-2023 Glucose [Mass/Vol] 106 mg/dL 70-100 [facility] Comment on above: ADA recommended refe rence rangeRandom Glucose Reference Range is dependent on time and content of last meal. Glucose of more than 200 mg/dL in a nonstressed, ambulatory subject supports the diagnosis of Diabetes Mellitus. Hematocrit Auto (Bld) [Volum e fraction]Ordered By: Katty Pierre on 05-08-2023 Hematocrit (Bld) [Volume fraction] 42.2 % 38.8-50.0 [facility] Hemoglobin [Mass/volume] in BloodOrdered By: Katty Pierre on 05-08-2023 Hemoglobin (Bld) [Mass/Vol] 14.4 g/dL 13.0-17.0 [facility] Ketones Auto test strip (U) [Mass/Vol]Ordered By: Katty Pierre on 05-08-2023 Ketones (U) [Mass/Vol] 1+ Negative [facility] Laboratory - CoagulationOrde red By: Katty Pierre on 05-08-2023 PT Coag (PPP) [Time] 12.5 s 9.0-12.9 [facility] - UrinalysisOrder ed By: Katty Pierre on 05-08-2023 Hyaline casts LM Ql (Urine sed) 0-8 [LPF] 0-8 [facility] Leukocytes [#/volume] correc wyatt for nucleated erythrocytes in Blood by Automated counOrdered By: Katty Pierre on 05-08-2023 WBC corrected for nucl RBC Auto (Bld) [#/Vol] 6.0 10*3/uL 4.1-10.5 [facility] Lipaseon 05-08-2023 Lipase [Catalytic activity/Vol] 43.0 U/L Normal 11.0-82.0 [facility] Comment on above: Result Comment: PERF ORMED BY: [facility] [address] [place] [address] PATHOLOGIST NON DESTRUCTIVE EVALUATION SPECIALIST VANESSA VASQUEZ M.D. Performed By: #### G SUNNY #### Point of Care testing , Lipase [Enzymatic activity/v olume] in Serum or PlasmaOrdered By: Katty Pierre on 05-08-2023 Lipase [Catalytic activity/Vol] 43.0 U/L 11.0-82.0 [facility] Lymphocytes Auto (Bld) [#/Vo l]Ordered By: Katty Pierre on 05-08-2023 Lymphocytes (Bld) [#/Vol] 0.7 10*3/uL 1.00-4.8 [facility] Lymphocytes/100 WBC Auto (Bl d)Ordered By: Katty Pierre on 05-08-2023 Lymphocytes/100 WBC (Bld) 12.0 % . [facility] MCH Auto (RBC) [Entitic mass ]Ordered By: Katty Pierre on 05-08-2023 MCH (RBC) [Entitic mass] 31.1 pg 27.5-35.2 [facility] MCHC Auto (RBC) [Mass/Vol]Or dered By: Katty Pierre on 05-08-2023 MCHC (RBC) [Mass/Vol] 34.1 g/dL 32.5-35.6 [facility] MCV Auto (RBC) [Entitic vol] Ordered By: Katty Pierre on 05-08-2023 MCV (RBC) [Entitic vol] 91.0 fL 83.5-101 [facility] Monocyte distribution width [Entitic volume] in Blood by AutomatedOrdered By: Katty Pierre on 05-08-2023 Monocyte distribution width Auto (Bld) [Entitic vol] 19.36 % 0.00-20.00 [facility] Monocytes Auto (Bld) [#/Vol] Ordered By: Katty Pierre on 05-08-2023 Monocytes (Bld) [#/Vol] 0.8 10*3/uL 0.0-0.8 [facility] Monocytes/100 WBC Auto (Bld) Ordered By: Katty Pierre on 05-08-2023 Monocytes/100 WBC (Bld) 12.9 % . [facility] Neutrophils Auto (Bld) [#/Vo l]Ordered By: Katty Pierre on 05-08-2023 Neutrophils (Bld) [#/Vol] 4.2 10*3/uL 1.8-7.7 [facility] Neutrophils/100 WBC Auto (Bl d)Ordered By: Katty Pierre on 05-08-2023 Neutrophils/100 WBC (Bld) 69.4 % . [facility] Nitrite Test strip Ql (U)Ord ered By: Katty Pierre on 05-08-2023 Nitrite Ql (U) Negative Negative [facility] No Panel InformationOrdered By: Katty Pierre on 05-08-2023 Estimated GFR (CKD-EPI) > 60.0 mL/Min [facility]acy Creatinine Clearance (Chem 56.33 [facility] Nucleated erythrocytes [Pres ence] in Blood by Automated countOrdered By: Katty Pierre on 05-08-2023 Nucleated RBC Auto Ql (Bld) 0.0 /100{WBC} 0-0.5 [facility] Partial Thromboplastin Timeo n 05-08-2023 aPTT Coag (Bld) [Time] 31.3 s Normal 25.1-36.5 [facility] Comment on above: Result Comment: PERF ORMED BY: [place] [address] PATHOLOGIST NON DESTRUCTIVE EVALUATION SPECIALIST VANESSA VASQUEZ M.D. Performed By: #### P T, PTT, CMP #### [address] Platelet mean volume Auto (B ld) [Entitic vol]Ordered By: Katty Pierre on 05-08-2023 Platelet mean volume (Bld) [Entitic vol] 8.1 fL 6.6-10.1 [facility] Platelet poor plasma interna tional normalized ratio (INR) by coagulation assay (relatOrdered By: Katty Pierre on 05-08-2023 INR Coag (PPP) [Relative time] 1.1 {INR} [facility] Comment on above: INR Therapeutic Rang e A) Pre- and Peroperative OAT started two weeks before surgery. NOT HIP SURGERY: 1.5 - 2.5 HIP SURGERY: 2 - 3B) Primary and secondary prevention of venous THROMBOSIS: 2 - 3C) Active venous thrombosis, pulmonary embolismand prevention of recurrent venous thrombosis: 2 - 3D) Prevention of arterial thromboembolismincluding patients with mechanical heart valves: 3 - 4.5 Platelets Auto (Bld) [#/Vol] Ordered By: Katty Pierre on 05-08-2023 Platelets (Bld) [#/Vol] 203 10*3/uL 150-450 [facility] Potassium [Moles/volume] in Serum or PlasmaOrdered By: Katty Pierre on 05-08-2023 Potassium [Moles/Vol] 4.3 mmol/L 3.5-5.1 [facility] Protein Auto test strip (U) [Mass/Vol]Ordered By: Katty Pierre on 05-08-2023 Protein (U) [Mass/Vol] Trace mg/dL Negative [facility] Protein [Mass/volume] in Ser um or PlasmaOrdered By: Katty Pierre on 05-08-2023 Protein [Mass/Vol] 6.9 g/dL 6.4-8.9 [facility] Prothrombin Time INRon 05-08 INR Coag (PPP) [Relative time] 1.1 {INR} Normal [facility] Comment on above: Result Comment: INR Therapeutic Range A) Pre- and Peroperative OAT started two weeks before surgery. NOT HIP SURGERY: 1.5 - 2.5 HIP SURGERY: 2 - 3 B) Primary and secondary prevention of venous THROMBOSIS: 2 - 3 C) Active venous thrombosis, pulmonary embolism and prevention of recurrent venous thrombosis: 2 - 3 D) Prevention of arterial thromboembolism including patients with mechanical heart valves: 3 - 4.5 Performed By: #### P T, PTT, CMP #### [facility] [address] PT Coag (PPP) [Time] 12.5 s Normal 9.0-12.9 [facility] Comment on above: Performed By: #### P T, PTT, CMP #### [facility] [address] RBC Auto (Bld) [#/Vol]Ordere d By: Katty Pierre on 05-08-2023 RBC (Bld) [#/Vol] 4.63 10*6/uL 3.90-5.60 [facility] Serum or plasma albumin/glob ulin mass ratioOrdered By: Katty Pierre on 05-08-2023 Albumin/Globulin [Mass ratio] 1.3 {ratio} [facility] Serum or plasma anion gap de terminationOrdered By: Katty Pierre on 05-08-2023 Anion gap [Moles/Vol] 6.9 mmol/L 6.0-15.0 [facility] Sodium [Moles/volume] in Ser um or PlasmaOrdered By: Katty Pierre on 05-08-2023 Sodium [Moles/Vol] 133 mmol/L 136-145 [facility] Specific gravity Auto test s trip (U) [Rel density]Ordered By: Katty Pierre on 05-08-2023 Specific gravity (U) [Rel density] 1.020 1.001-1.03 0 [facility] Squamous epithelial cells de tection in urine sediment by light microscopyOrdered By: Katty Pierre on 05-08-2023 Epithelial cells.squamous LM Ql (Urine sed) None seen [HPF] 0-2 [facility] Urea nitrogen [Mass/volume] in Serum or PlasmaOrdered By: Katty Pierre on 05-08-2023 Urea nitrogen [Mass/Vol] 26 mg/dL 7-25 [facility] Urine bacteria detection by automated methodOrdered By: Katty Pierre on 05-08-2023 Bacteria Auto Ql (U) None seen None Seen [facility] Urine clarity by refractomet ry automatedOrdered By: Katty Pierre on 05-08-2023 Clarity Refractometry automated (U) Clear Clear [facility] Urine glucose measurement by automated test strip (mass/volume)Ordered By: Katty Pierre on 05-08-2023 Glucose Auto test strip (U) [Mass/Vol] >=1000 mg/dL Normal [facility] Urine hemoglobin detection b y automated test stripOrdered By: Katty Pierre on 05-08-2023 Hemoglobin Auto test strip Ql (U) Negative Negative [facility] Urine leukocyte esterase det ection by automated test stripOrdered By: Katty Pierre on 05-08-2023 Leukocyte esterase Auto test strip Ql (U) 1+ Negative [facility] Urobilinogen Auto test strip (U) [Mass/Vol]Ordered By: Katty Pierre on 05-08-2023 Urobilinogen (U) [Mass/Vol] Normal mg/dL Normal [facility] WBC Auto (Bld) [#/Vol]Ordere d By: Katty Pierre on 05-08-2023 WBC (Bld) [#/Vol] 6.0 10*3/uL 4.1-10.5 [facility] pH Auto test strip (U)Ordere d By: Katty Pierre on 05-08-2023 pH (U) 5.5 [pH] 5.0-9.0 [facility] CARDIAC STRESS/REST INJE CTIONon 04-20-2023 [facility] CARDIAC STRESS/REST INJECTION Patient Name: KIA MENDEZ STUDY: MYOCARDIAL PERFUSION STRESS TEST WITH EXERCISE Performing facility: [facility], [address] [place] [address], [address], [address] Provider: Pastor Saha DO, [facility] PCP: Dr. Allegra Miguel Supervising provider: Lacey Pretty MD INDICATION: Chest Pain; HISTORY: Gender: M; Age: 72 y/o ; Height: 0 cm; Weight: 85.3902065 kg. CAD; High Cholesterol; Diabetes; HTN; Arrhythmias; Chest Pain; Fatigue; Denies smoking. Cardiac catheterization on 2007, 2015, 2017, 2018, 2019. PTCA on 2015, 2017, 2018. COMPARISON: No comparison. ACCESSION NUMBER(S): [id number]; [id number]; [id number] ORDERING CLINICIAN: MARCO SAHA TECHNIQUE: ONE DAY protocol. Stress injection: Date:04-20-23, 34.5 mCi of Myoview IV at peak exercise. Rest injection: Date: 04-20-23, 11.0 mCi of Myoview IV at rest. Imaging was performed by gated tomographic technique. STRESS TEST DATA: Resting heart rate was 67 BPM. Resting blood pressure was 120/58 mmHg. The patient exercised using a Piter exercise protocol. 7:30 minutes exercised. 86 % of MPHR achieved for age. 9.20 METS achieved. Maximum heart rate was 126 BPM. Maximum blood pressure was 180/60 mmHg. DTS 2. TEST TERMINATED DUE TO: Dyspnea FINDINGS: STRESS TEST RESULTS: Resting electrocardiogram revealed normal sinus rhythm with old inferior NH. The patient had no significant ECG changes with maximal stress. The patient did not have chest pains/symptoms during the procedure. There was a normal recovery phase. There were no significant dysrhythmias. IMAGING RESULTS: Image quality was good. Rest and stress tomographic images were reviewed and revealed abnormal perfusion. There was no evidence of myocardial ischemia There was evidence of perfusion abnormality with moderate size area of severe which is fixed on both rest and stress images consistent with inferolateral infarction. There was not left ventricular dilatation with stress. Overall left ventricular systolic function appeared to be abnormal. There were regional wall motion abnormalities with akinesis of the basal and mid segment of the inferolateral wall LVEF was 44%. TID is 0.83 and is normal. There were no evidence of attenuation artifact. IMPRESSION: Abnormal exercise Myoview cardiac perfusion stress test. No myocardial ischemia by perfusion imaging. Moderate inferolateral myocardial infarction by perfusion imaging. Abnormal left ventricular systolic function. Left ventricular ejection fraction 44 %. No previous study available for comparison. Electronically signed by: LACEY PRETTY MD Normal [facility] A1C with Estimated Average G [facility] 04-13-2023 Glucose [Mass/Vol] 183 mg/dL Normal [facility] Comment on above: Result Comment: PERF ORMED BY: [place] [address] PATHOLOGIST NON DESTRUCTIVE EVALUATION SPECIALIST VANESSA VASQUEZ M.D. Performed By: #### A DDONUAPLUS #### [address] HbA1c (Bld) [Mass fraction] 8.0 % High 4.3-5.6 [facility] Comment on above: Result Comment: Incr eased risk for diabetes: 5.7 - 6.4 diabetes: >6.4 glycemic control for adults with diabetes: <7.0 Performed By: #### A DDONUAPLUS #### [address] Basic Metabolic Panelon Anion gap [Moles/Vol] 8.7 mmol/L Normal 6.0-15.0 [facility] Comment on above: Performed By: #### A 1C WTH eA, MG, BMP, CBC, HS TROP, LIPID #### [address] Calcium [Mass/Vol] 8.8 mg/dL Normal 8.6-10.3 [facility] Comment on above: Performed By: #### A 1C WTH eA, MG, BMP, CBC, HS TROP, LIPID #### [facility] [address] Chloride [Moles/Vol] 109 mmol/L High 98-107 [facility] Comment on above: Performed By: #### A 1C WTH eA, MG, BMP, CBC, HS TROP, LIPID #### [facility] [address] CO2 [Moles/Vol] 26.2 mmol/L Normal 21.0-31.0 [facility] Comment on above: Performed By: #### A 1C WTH eA, MG, BMP, CBC, HS TROP, LIPID #### [facility] [address] Creatinine [Mass/Vol] 1.22 mg/dL Normal 0.70-1.30 [facility] Comment on above: Performed By: #### A 1C WTH eA, MG, BMP, CBC, HS TROP, LIPID #### [facility] [address] [place] [address] [place] Creatinine Clr Calc Pharmacy 54.85 [facility] Comment on above: Performed By: #### A 1C WTH eA, MG, BMP, CBC, HS TROP, LIPID #### [facility] [address] [place] [address] [place] GFR/1.73 sq M.predicted MDRD (S/P/Bld) [Vol rate/Area] mL/min/{1.73_m2} [facility] Comment on above: Performed By: #### A 1C WTH eA, MG, BMP, CBC, HS TROP, LIPID #### [facility] [address] [place] [address] [place] Glucose [Mass/Vol] 131 mg/dL High 70-100 [facility] Comment on above: Result Comment: [place] Glucose Reference Range is dependent on time and content of last meal. Glucose of more than 200 mg/dL in a nonstressed, ambulatory subject supports the diagnosis of Diabetes Mellitus. ADA recommended reference range Performed By: #### A 1C WTH eA, MG, BMP, CBC, HS TROP, LIPID #### [facility] [address] Potassium [Moles/Vol] 3.9 mmol/L Normal 3.5-5.1 [facility] Comment on above: Performed By: #### A 1C WTH eA, MG, BMP, CBC, HS TROP, LIPID #### [facility] [address] Sodium [Moles/Vol] 140 mmol/L Normal 136-145 [facility] Comment on above: Performed By: #### A 1C WTH eA, MG, BMP, CBC, HS TROP, LIPID #### [facility] [address] Urea nitrogen [Mass/Vol] 20 mg/dL Normal 7-25 [facility] Comment on above: Performed By: #### A 1C WT eA, MG, BMP, CBC, HS TROP, LIPID #### [facility] [address] Basophils Auto (Bld) [#/Vol] Ordered By: Ruth Hogeu on 04-13-2023 Basophils (Bld) [#/Vol] 0.1 10*3/uL 0.0-0.2 [facility] Basophils/100 WBC Auto (Bld) Ordered By: Ruth Hogue on 04-13-2023 Basophils/100 WBC (Bld) 1.0 % . [facility] Calcium [Mass/volume] in Ser um or PlasmaOrdered By: Ruth Hogue on 04-13-2023 Calcium [Mass/Vol] 8.8 mg/dL 8.6-10.3 [facility] Carbon dioxide, total [Moles /volume] in Serum or PlasmaOrdered By: Ruth Hogue on 04-13-2023 CO2 [Moles/Vol] 26.2 mmol/L 21.0-31.0 [facility] Chloride [Moles/volume] in S arvin or PlasmaOrdered By: Ruth Hogue on 04-13-2023 Chloride [Moles/Vol] 109 mmol/L 98-107 [facility] Cholesterol [Mass/volume] in Serum or PlasmaOrdered By: Ruth Hogue on 04-13-2023 Cholesterol [Mass/Vol] 88 mg/dL 140-200 [facility] Comment on above: Chol less than 200 m g/dl low riskChol 201-239 mg/dl borderline riskChol 240 mg/dl and greater high risk Cholesterol in LDL Calc [Mas s/Vol]Ordered By: Ruth Hogue on 04-13-2023 Cholesterol in LDL [Mass/Vol] 46 mg/dL 0-100 [facility] Comment on above: LDL ATP III CLASSIFI CATIONLDL less than 100 mg/dL OptimalLDL 100-129 mg/dL Near or above optimalLDL 130-159 mg/dL Borderline highLDL 160-189 mg/dL HighLDL greater than 189 mg/dL Very high Cholesterol in VLDL Calc [Ma ss/Vol]Ordered By: Ruth Hogue on 04-13-2023 Cholesterol in VLDL [Mass/Vol] 16 mg/dL [facility] Complete Blood Count Auto Di ffon 04-13-2023 Basophils (Bld) [#/Vol] 0.1 10*3/uL Normal 0.0-0.2 [facility] Comment on above: Result Comment: PERF ORMED BY: [place] [address] PATHOLOGIST NON DESTRUCTIVE EVALUATION SPECIALIST VANESSA VASQUEZ M.D. Performed By: #### A 1C WTH eA, MG, BMP, CBC, HS TROP, LIPID #### [facility] [address] Basophils/100 WBC (Bld) 1.0 % Normal . [facility] Comment on above: Performed By: #### A 1C WTH eA, MG, BMP, CBC, HS TROP, LIPID #### [facility] [address] [place] [address] [place] Eosinophils (Bld) [#/Vol] 0.5 10*3/uL High 0.0-0.45 [facility] Comment on above: Performed By: #### A 1C WTH eA, MG, BMP, CBC, HS TROP, LIPID #### [facility] [address] [place] [address] [place] Eosinophils/100 WBC (Bld) 8.9 % Normal . [facility] Comment on above: Performed By: #### A 1C WTH eA, MG, BMP, CBC, HS TROP, LIPID #### [address] Erythrocyte distribution width (RBC) [Ratio] 14.0 % Normal 12.0-14.8 [facility] Comment on above: Performed By: #### A 1C WTH eA, MG, BMP, CBC, HS TROP, LIPID #### [address] Hematocrit (Bld) [Volume fraction] 38.6 % Low 38.8-50.0 [facility] Comment on above: Performed By: #### A 1C WTH eA, MG, BMP, CBC, HS TROP, LIPID #### [address] Hemoglobin (Bld) [Mass/Vol] 12.9 g/dL Low 13.0-17.0 [facility] Comment on above: Performed By: #### A 1C WTH eA, MG, BMP, CBC, HS TROP, LIPID #### [address] Lymphocytes (Bld) [#/Vol] 1.3 10*3/uL Normal 1.00-4.8 [facility] Comment on above: Performed By: #### A 1C WTH eA, MG, BMP, CBC, HS TROP, LIPID #### [address] Lymphocytes/100 WBC (Bld) 22.5 % Normal . [facility] Comment on above: Performed By: #### A 1C WTH eA, MG, BMP, CBC, HS TROP, LIPID #### [address] MCH (RBC) [Entitic mass] 30.7 pg Normal 27.5-35.2 [facility] Comment on above: Performed By: #### A 1C WTH eA, MG, BMP, CBC, HS TROP, LIPID #### [address] [place] [address] [place] MCV (RBC) [Entitic vol] 91.5 fL Normal 83.5-101 [facility] Comment on above: Performed By: #### A 1C WTH eA, MG, BMP, CBC, HS TROP, LIPID #### [facility] [address] Mean Corpuscular HGB Conc 33.5 g/dL Normal 32.5-35.6 [facility] Comment on above: Performed By: #### A 1C WTH eA, MG, BMP, CBC, HS TROP, LIPID #### [address] Monocytes (Bld) [#/Vol] 0.6 10*3/uL Normal 0.0-0.8 [facility] Comment on above: Performed By: #### A 1C WTH eA, MG, BMP, CBC, HS TROP, LIPID #### [address] Monocytes/100 WBC (Bld) 10.5 % Normal . [facility] Comment on above: Performed By: #### A 1C WTH eA, MG, BMP, CBC, HS TROP, LIPID #### [address] Neutrophils (Bld) [#/Vol] 3.2 10*3/uL Normal 1.8-7.7 [facility] Comment on above: Performed By: #### A 1C WTH eA, MG, BMP, CBC, HS TROP, LIPID #### [address] Neutrophils/100 WBC (Bld) 57.1 % Normal . [facility] Comment on above: Performed By: #### A 1C WTH eA, MG, BMP, CBC, HS TROP, LIPID #### [address] NRBC% 0.5 /100{WBC} Normal 0-0.5 [facility] Comment on above: Performed By: #### A 1C WTH eA, MG, BMP, CBC, HS TROP, LIPID #### [facility] [address] Platelet mean volume (Bld) [Entitic vol] 8.8 fL Normal 6.6-10.1 [facility] Comment on above: Performed By: #### A 1C WTH eA, MG, BMP, CBC, HS TROP, LIPID #### [facility] [address] [place] [address] [place] Platelets (Bld) [#/Vol] 209 10*3/uL Normal 150-450 [facility] Comment on above: Performed By: #### A 1C WTH eA, MG, BMP, CBC, HS TROP, LIPID #### [facility] [address] RBC (Bld) [#/Vol] 4.22 10*6/uL Normal 3.90-5.60 [facility] Comment on above: Performed By: #### A 1C WTH eA, MG, BMP, CBC, HS TROP, LIPID #### [facility] [address] WBC (Bld) [#/Vol] 5.6 10*3/uL Normal 4.1-10.5 [facility] Comment on above: Performed By: #### A 1C WTH eA, MG, BMP, CBC, HS TROP, LIPID #### [facility] [address] Creatinine [Mass/volume] in Serum or PlasmaOrdered By: Ruth Hogue on 04-13-2023 Creatinine [Mass/Vol] 1.22 mg/dL 0.70-1.30 [facility] D-Dimer High Sensitivityon 0 04-13-2023 D-Dimer High Sensitivity < 200 Normal 0-243 [facility] Comment on above: Result Comment: The reference range for D-dimer is <243 ng/mL D-dimer units. D-dimer results must be used in conjunction with a clinical pretest probability (PTP) assessment model for deep vein thrombosis (DVT) and pulmonary embolism (PE). Results <230 ng/mL d-dimer units can be used as a negative predictor in patients with low or moderate probability for DVT/PE. Results above the exclusion threshold of 230 ng/ml D-dimer units for DVT/PE may indicate the need for further diagnostic testing. D-Dimer can be increased in hospitalized patients due to co-morbid conditions. PERFORMED BY: [place] [address] PATHOLOGIST NON DESTRUCTIVE EVALUATION SPECIALIST VANESSA VASQUEZ M.D. Performed By: #### A DDONUAPLUS #### [address] ECG 12 lead ECGon 04-13-2023 ECG 12 lead ECG [facility] [place] [place] [address] Electrocardiograph Report Signed Patient: Kia Mendez MR#: [id number] [birth year] : 1950 Acct:[id number] Age/Sex: 72 / M ADM Date: 04/13/23 Loc: Room: [address] [place] [address] Type: ADM INOo Attending Dr: Moses Velez MD Ordering Provider: Ruth Hogue APRN Date of Service: 04/13/2304/29/500 ECG/ECG 12 lead ECG: shortness of breath, chest pain Copies to: Test Reason : Blood Pressure : / mmHG Vent. Rate : 070 BPM Atrial Rate : 070 BPM P-R Int : 184 ms QRS Dur : 110 ms QT Int : 396 ms P-R-T Axes : 019 013 053 degrees QTc Int : 427 ms Sinus rhythm with occasional premature ventricular complexes Inferior infarct (cited on or before 13-APR-2023) Abnormal ECG When compared with ECG of 02-MAR-2022 11:41, premature ventricular complexes are now present Non-specific change in ST segment in Inferior leads T wave inversion no longer evident in Inferior leads Confirmed by AJ OLIVO DO ([id number]) on 04/13/2023 12:57:13 PM Referred By: Electronically Signed By:AJ OLIVO DO Transcribed By: MUS Signed By Aj Olivo DO 04/13 1257 Normal [facility] ECH echo transthoracicon ECH echo transthoracic [facility] [place] [address] Echocardiogram Signed Patient: Kia Mendez MR#: [id number] 98 : 1950 Acct:[id number] Age/Sex: 72 / M ADM Date: 04/13/23 Loc: Room: 7O7697-2 Type: ADM INOo Attending Dr: Moses Velez MD Ordering Provider: Ruth Hogue APRN Date of Service: 04/13/2304/29/500 ECH/ECH echo transthoracic: chest pain Copies to: Shelley Torres MD, FACC Ruth Hogue, DIRECTOR OF DEVELOPMENT AND MARKETING BSA: 2.0 m2 BP: 165/73 mmHg HR: 59 Reason For Study: chest pain History: CAD, DM, NH, Hyperlipidemia, stent Interpretation Summary Mild to moderate concentric left ventricular hypertrophy. There are regional wall motion abnormalities as specified. There is severe inferior and inferolateral wall hypokinesis The LV ejection fraction is 45 %. A variety of Doppler measurements indicate impaired left ventricular relaxation, which is associated with grade I/IV or mild diastolic dysfunction. The left atrium appears mildly dilated. Mild aortic regurgitation. Procedure/Quality: A two-dimensional transthoracic echocardiogram with color flow and Doppler was performed. The study was technically good in quality. Left Ventricle: Mild to moderate concentric left ventricular hypertrophy. The LV ejection fraction is 45 %. A variety of Doppler measurements indicate impaired left ventricular relaxation, which is associated with grade I/IV or mild diastolic dysfunction. There are regional wall motion abnormalities as specified. There is severe inferior and inferolateral wall hypokinesis. Left Atrium: The left atrium appears mildly dilated. The atrial septum appears normal. Right Atrium: The right atrium appears normal in size. Right Ventricle: The right ventricular size, thickness and function are normal. Aortic Valve: The aortic valve is mildly sclerotic. Mild aortic regurgitation. Mitral Valve: The mitral valve is mildly sclerotic. Tricuspid Valve: The tricuspid valve is normal. Pulmonic Valve: The pulmonic valve is not well seen, but is grossly normal. Arteries: The aortic root is normal size. Pericardium/Pleura: No pericardial effusion seen. There is no pleural effusion. IVC/Hepatic Viens: The IVC is normal in size with an inspiratory collapse of greater then 50%, suggesting normal right atrial pressure. Miscellaneous: No thrombus, vegetation or mass is seen. Measurements with Normals IVSd: 1.3 cm (0.7-1.1 cm)LVIDd: 5.4 cm (3.7-5.4 cm) LVPWd: 1.6 cm (0.7-1.1 cm)LVIDs: 3.3 cm (2.3-3.6 cm) LA dimension: 4.3 cm (2.3-4.0 cm)Ao root diam: 3.7 cm(2.0-3.6 cm) asc Aorta Diam: 3.9 cm(2.1-3.4cm) Doppler with Normals RVSP(TR): 25.6 mmHg (18-35mmHg) MV E max tara: 65.0 cm/sec (0.8-1.3m/s) MV A max tara: 114.0 cm/sec(0.0-0.0m/s) MV E/A: 0.57 (<1.5) MMode/2D Measurements Calculations RVDd: 3.3 cm FS: 39.1 % Ao root area: LVOT diam: 2.2 cm TAPSE: 3.5 cm EDV(Teich): 10.8 cm2 LVOT area: 3.8 cm2 RV S Tara: 140.3 ml 17.5 cm/sec ESV(Teich): 43.4 ml EF(Teich): 69.0 % __ LVLd ap4: 7.8 cm SV(MOD-sp4): LAV(MOD-sp4): LA A2 area: 24.7 cm2 EDV(MOD-sp4): 49.4 ml 42.7 ml 103.0 ml LAV(MOD-sp2): LA A4 area: 15.6 cm2 LVLs ap4: 7.3 cm 87.7 ml LA length (vol): ESV(MOD-sp4): 4.5 cm 53.6 ml LA vol: 72.8 ml EF(MOD-sp4): 48.0 % LA vol index: 35.8 ml/m2 Doppler Measurements Calculations MV dec time: 0.39 sec E/E' lat: MV dec slope: TV max P.9 21.0 mmHg E/E' med: 165.2 cm/sec2 12.7 __ TR max tara: 226.7 cm/sec TR max P.6 mmHg RAP systole: 5.0 mmHg Transcribed By: LARRY Performed At: 04/13/23 0900 Signed By: Shelley Torres MD, [facility] 04/13/23 1152 Normal [facility] Eosinophils Auto (Bld) [#/Vo l]Ordered By: Ruth Hogue on 04-13-2023 Eosinophils (Bld) [#/Vol] 0.5 10*3/uL 0.0-0.45 [facility] Eosinophils/100 WBC Auto (Bl d)Ordered By: Ruth Hogue on 04-13-2023 Eosinophils/100 WBC (Bld) 8.9 % . [facility] Erythrocyte distribution wid th Auto (RBC) [Ratio]Ordered By: Ruth Hogue on 04-13-2023 Erythrocyte distribution width (RBC) [Ratio] 14.0 % 12.0-14.8 [facility] Glucose Glucometer (BldC) [M ass/Vol]Ordered By: Moses Velez on 04-13-2023 Glucose [Mass/Vol] 128 mg/dL [facility] Comment on above: Random Glucose Refer ence Range is dependent on time and content of last meal. Glucose of more than 200 mg/dL in a nonstressed, ambulatory subject supports the diagnosis of Diabetes Mellitus. Glucose Poct Glucometerson 0 04-13-2023 Glucose [Mass/Vol] 128 mg/dL Normal [facility] Comment on above: Result Comment: [place] om Glucose Reference Range is dependent on time and content of last meal. Glucose of more than 200 mg/dL in a nonstressed, ambulatory subject supports the diagnosis of Diabetes Mellitus. PERFORMED BY: [facility] [address] [place] [address] PATHOLOGIST NON DESTRUCTIVE EVALUATION SPECIALIST JIANLAN SUN M.D. Performed By: #### G FLEXISABEL #### Point of Care testing , Glucose [Mass/Vol] 134 mg/dL Normal [facility] Comment on above: Result Comment: [place] om Glucose Reference Range is dependent on time and content of last meal. Glucose of more than 200 mg/dL in a nonstressed, ambulatory subject supports the diagnosis of Diabetes Mellitus. PERFORMED BY: [facility] [address] [place] [address] PATHOLOGIST NON DESTRUCTIVE EVALUATION SPECIALIST VANESSA VASQUEZ M.D. Performed By: #### A DDONUAPLUS #### [facility] [address] Glucose [Mass/volume] in Ser um or PlasmaOrdered By: Ruth Hogue on 04-13-2023 Glucose [Mass/Vol] 131 mg/dL 70-100 [facility] Comment on above: ADA recommended refe rence rangeRandom Glucose Reference Range is dependent on time and content of last meal. Glucose of more than 200 mg/dL in a nonstressed, ambulatory subject supports the diagnosis of Diabetes Mellitus. Glucose mean value [Mass/vol ume] in Blood Estimated from glycated hemoglobinOrdered By: Ruth Hogue on 04-13-2023 Average glucose Estimated from glycated hemoglobin (Bld) [Mass/Vol] 183 mg/dL [facility] Hematocrit Auto (Bld) [Volum e fraction]Ordered By: Ruth Hogue on 04-13-2023 Hematocrit (Bld) [Volume fraction] 38.6 % 38.8-50.0 [facility] Hemoglobin A1c percentageOrd ered By: Ruth Hogue on 04-13-2023 HbA1c (Bld) [Mass fraction] 8.0 % 4.3-5.6 [facility] Comment on above: Increased risk for d iabetes: 5.7 - 6.4diabetes: >6.4glycemic control for adults with diabetes: <7.0 Hemoglobin [Mass/volume] in BloodOrdered By: Ruth Hogue on 04-13-2023 Hemoglobin (Bld) [Mass/Vol] 12.9 g/dL 13.0-17.0 [facility] Leukocytes [#/volume] correc wyatt for nucleated erythrocytes in Blood by Automated counOrdered By: Ruth Hogue on 04-13-2023 WBC corrected for nucl RBC Auto (Bld) [#/Vol] 5.6 10*3/uL 4.1-10.5 [facility] Lipid Panelon 04-13-2023 Cholesterol [Mass/Vol] 88 mg/dL Low 140-200 [facility] Comment on above: Result Comment: Chol less than 200 mg/dl low risk Chol 201-239 mg/dl borderline risk Chol 240 mg/dl and greater high risk Performed By: #### A DDONUAPLUS #### [facility] [address] [place] [address] [place] Cholesterol in HDL [Mass/Vol] 25 mg/dL Normal 23-92 [facility] Comment on above: Result Comment: HDL CHOL ATP-III CLASSIFICATION Cardiovascular Risk HDL > or equal to 60 mg/dL LOW HDL < 40 mg/dL HIGH Performed By: #### A DDONUAPLUS #### [facility] [address] [place] [address] [place] Cholesterol.total/Cho lesterol in HDL [Mass ratio] 3.5 {ratio} Normal <5.0 [facility] Comment on above: Result Comment: PERF ORMED BY: [place] [address] PATHOLOGIST NON DESTRUCTIVE EVALUATION SPECIALIST VANESSA VASQUEZ M.D. Performed By: #### A DDONUAPLUS #### [facility] [address] LDL Cholesterol,Calculate d 46 mg/dL Normal 0-100 [facility] Comment on above: Result Comment: LDL ATP III CLASSIFICATION LDL less than 100 mg/dL Optimal LDL 100-129 mg/dL Near or above optimal LDL 130-159 mg/dL Borderline high LDL 160-189 mg/dL High LDL greater than 189 mg/dL Very high Performed By: #### A DDONUAPLUS #### [facility] [address] [place] [address] [place] Triglyceride w/Reflex 83 mg/dL Normal 0-149 [facility] Comment on above: Result Comment: TRIG ATP III CLASSIFICATION TRIG less than 150 mg/dL Normal TRIG 150-199 mg/dL Borderline high TRIG 200-500 mg/dL High TRIG greater than 500 mg/dL Very high Standard traceable to the Center for Disease Conrtrol and Prevention (CDC) test method. Performed By: #### A DDONUAPLUS #### [facility] [address] VLDL CHOLESTEROL 16 mg/dL Normal [facility] Comment on above: Performed By: #### A DDONUAPLUS #### [facility] [address] Lymphocytes Auto (Bld) [#/Vo l]Ordered By: Ruth Hogue on 04-13-2023 Lymphocytes (Bld) [#/Vol] 1.3 10*3/uL 1.00-4.8 [facility] Lymphocytes/100 WBC Auto (Bl d)Ordered By: Ruth Hogue on 04-13-2023 Lymphocytes/100 WBC (Bld) 22.5 % . [facility] MCH Auto (RBC) [Entitic mass ]Ordered By: Ruth Hogue on 04-13-2023 MCH (RBC) [Entitic mass] 30.7 pg 27.5-35.2 [facility] MCHC Auto (RBC) [Mass/Vol]Or dered By: Ruth Hogue on 04-13-2023 MCHC (RBC) [Mass/Vol] 33.5 g/dL 32.5-35.6 [facility] MCV Auto (RBC) [Entitic vol] Ordered By: Ruth Hogue on 04-13-2023 MCV (RBC) [Entitic vol] 91.5 fL 83.5-101 [facility] Magnesiumon 04-13-2023 Magnesium [Mass/Vol] 1.4 mg/dL Low 1.9-2.7 [facility] Comment on above: Performed By: #### A 1C WTH eA, MG, BMP, CBC, HS TROP, LIPID #### [facility] [address] Magnesium [Mass/volume] in S arvin or PlasmaOrdered By: Ruth Hogue on 04-13-2023 Magnesium [Mass/Vol] 1.4 mg/dL 1.9-2.7 [facility] Monocytes Auto (Bld) [#/Vol] Ordered By: Ruth Hogue on 04-13-2023 Monocytes (Bld) [#/Vol] 0.6 10*3/uL 0.0-0.8 [facility] Monocytes/100 WBC Auto (Bld) Ordered By: Ruth Hogue on 04-13-2023 Monocytes/100 WBC (Bld) 10.5 % . [facility] Neutrophils Auto (Bld) [#/Vo l]Ordered By: Ruth Hogue on 04-13-2023 Neutrophils (Bld) [#/Vol] 3.2 10*3/uL 1.8-7.7 [facility] Neutrophils/100 WBC Auto (Bl d)Ordered By: Ruth Hogue on 04-13-2023 Neutrophils/100 WBC (Bld) 57.1 % . [facility] No Panel InformationOrdered By: Katerine Clark on 04-13-2023 D-Dimer Quantitative (PE/DVT) < 200 ng/mL 0-243 [facility] Comment on above: The reference range for D-dimer is <243 ng/mL D-dimer units.D-dimer results must be used in conjunction with a clinicalpretest probability (PTP) assessment model for deep veinthrombosis (DVT) and pulmonary embolism (PE). Results <230ng/mL d-dimer units can be used as a negative predictor inpatients with low or moderate probability for DVT/PE.Results above the exclusion threshold of 230 ng/ml D-dimerunits for DVT/PE may indicate the need for furtherdiagnostic testing.D-Dimer can be increased in hospitalized patients due toco-morbid conditions. No Panel InformationOrdered By: Ruth Hogue on 04-13-2023 Estimated GFR (CKD-EPI) > 60.0 mL/Min [facility] Creatinine Clearance (Chem 54.85 [facility] Nucleated erythrocytes [Pres ence] in Blood by Automated countOrdered By: Ruth Hogue on 04-13-2023 Nucleated RBC Auto Ql (Bld) 0.5 /100{WBC} 0-0.5 [facility] Platelet mean volume Auto (B ld) [Entitic vol]Ordered By: Ruth Hogue on 04-13-2023 Platelet mean volume (Bld) [Entitic vol] 8.8 fL 6.6-10.1 [facility] Platelets Auto (Bld) [#/Vol] Ordered By: Ruth Hogue on 04-13-2023 Platelets (Bld) [#/Vol] 209 10*3/uL 150-450 [facility] Potassium [Moles/volume] in Serum or PlasmaOrdered By: Ruth Hogue on 04-13-2023 Potassium [Moles/Vol] 3.9 mmol/L 3.5-5.1 [facility] RBC Auto (Bld) [#/Vol]Ordere d By: Ruth Hogue on 04-13-2023 RBC (Bld) [#/Vol] 4.22 10*6/uL 3.90-5.60 [facility] Serum or plasma anion gap de terminationOrdered By: Ruth Hogue on 04-13-2023 Anion gap [Moles/Vol] 8.7 mmol/L 6.0-15.0 [facility] Serum or plasma high density lipoprotein (HDL) cholesterol measurementOrdered By: Ruth Hogue on 04-13-2023 Cholesterol in HDL [Mass/Vol] 25 mg/dL 23-92 [facility] Comment on above: HDL CHOL ATP-III CLA SSIFICATION Cardiovascular RiskHDL > or equal to 60 mg/dL LOWHDL < 40 mg/dL HIGH Serum or plasma total choles terol/high density lipoprotein (HDL) cholesterol mass ratOrdered By: Ruth Hogue on 04-13-2023 Cholesterol.total/Cho lesterol in HDL [Mass ratio] 3.5 {ratio} <5.0 [facility] Sodium [Moles/volume] in Ser um or PlasmaOrdered By: Ruth Hogue on 04-13-2023 Sodium [Moles/Vol] 140 mmol/L 136-145 [facility] Triglyceride [Mass/volume] i n Serum or PlasmaOrdered By: Ruth Hogue on 04-13-2023 Triglyceride [Mass/Vol] 83 mg/dL 0-149 [facility] Comment on above: TRIG ATP III CLASSIF ICATIONTRIG less than 150 mg/dL NormalTRIG 150-199 mg/dL Borderline highTRIG 200-500 mg/dL High TRIG greater than 500 mg/dL Very highStandard traceable to the Center for Disease Conrtrol and Prevention (CDC) test method. Troponin I High Sensitivityo n 04-13-2023 Troponin I High Sensitivity 32.1 pg/mL High 0.0-20.0 [facility] Comment on above: Result Comment: PERF ORMED BY: [place] [address] PATHOLOGIST NON DESTRUCTIVE EVALUATION SPECIALIST VANESSA VASQUEZ M.D. Performed By: #### A DDONUAPLUS #### [address] Troponin I.cardiac [Mass/vol ume] in Serum or Plasma by Detection limit <= 0.01 ng/Ordered By: Ruth Hogue on 04-13-2023 Troponin I.cardiac DL <= 0.01 ng/mL [Mass/Vol] 32.1 pg/mL 0.0-20.0 [facility] Urea nitrogen [Mass/volume] in Serum or PlasmaOrdered By: Ruth Hogue on 04-13-2023 Urea nitrogen [Mass/Vol] 20 mg/dL 7 [facility] WBC Auto (Bld) [#/Vol]Ordere d By: Ruth Hogue on 04-13-2023 WBC (Bld) [#/Vol] 5.6 10*3/uL 4.1-10.5 [facility] Alanine aminotransferase [En zymatic activity/volume] in Serum or PlasmaOrdered By: Guanako Plummer on 04-06-2023 ALT [Catalytic activity/Vol] 14 U/L 7-52 [facility] Albumin [Mass/volume] in Ser um or Plasma by Bromocresol green (BCG) dye binding methoOrdered By: Guanako Plummer on 04-06-2023 Albumin BCG dye [Mass/Vol] 4.2 g/dL 3.5-5.7 [facility] Alkaline phosphatase [Enzyma tic activity/volume] in Serum or PlasmaOrdered By: Guanako Plummer on 04-06-2023 ALP [Catalytic activity/Vol] 68 U/L 34-104 [facility] Aspartate aminotransferase [ Enzymatic activity/volume] in Serum or PlasmaOrdered By: Guanako Plummer on 04-06-2023 AST [Catalytic activity/Vol] 11 U/L 13-39 [facility] Automated erythrocytes count in urine sediment (number/area)Ordered By: Guanako Plummer on 04-06-2023 RBC Auto (Urine sed) [#/Area] 0-1 [HPF] 0-4 [facility] Automated leukocytes count i n urine sediment (number/area)Ordered By: Guanako Plummer on 04-06-2023 WBC Auto (Urine sed) [#/Area] 0-1 [HPF] 0-4 [facility] Bacterial blood cultureOrder ed By: Guanako Plummer on 04-06-2023 Bacteria identified Cx Nom (Bld) NO GROWTH 5 DAYS [facility] Basophils Auto (Bld) [#/Vol] Ordered By: Guanako Plummer on 04-06-2023 Basophils (Bld) [#/Vol] 0.0 10*3/uL 0.0-0.2 [facility] Basophils/100 WBC Auto (Bld) Ordered By: Guanako Plummer on 04-06-2023 Basophils/100 WBC (Bld) 0.2 % . [facility] Bilirubin Test strip Ql (U)O rdered By: Guanako Plummer on 04-06-2023 Bilirubin Ql (U) Negative Negative [facility] Bilirubin.total [Mass/volume ] in Serum or PlasmaOrdered By: Guanako Plummer on 04-06-2023 Bilirubin [Mass/Vol] 1.1 mg/dL 0.3-1.0 [facility] Blood Cultureon 04-06-2023 Bacteria identified Cx Nom (Bld) NO GROWTH 5 DAYS PERFORMED BY: [place] [address] PATHOLOGIST NON DESTRUCTIVE EVALUATION SPECIALIST VANESSA VASQUEZ M.D. [facility] Comment on above: Performed By: #### A DDONUAPLUS #### [facility] [address] [place] [address] Bacteria identified Cx Nom (Bld) NO GROWTH 5 DAYS PERFORMED BY: [place] [address] PATHOLOGIST NON DESTRUCTIVE EVALUATION SPECIALIST VANESSA VASQUEZ M.D. [facility] Comment on above: Performed By: #### A DDONUAPLUS #### [facility] [address] [place] [address] [facility] [address] abdomen pelvis w conon CT abdomen pelvis w con [facility] [address] [place] [address] [place] [address] CT Scan Report Signed Patient: Kia Mendez MR#: [id number] 98 : 1950 Acct:[id number] Age/Sex: 72 / M ADM Date: 04/06/23 Loc: ER Room: Type: [facility] ER Attending Dr: Copies to: Guanako Plummer DO Ordering Provider: Guanako Plummer DO Date of Service: 04/06/23 CT/CT abdomen pelvis w con: nausea, vomiting, diarrhea CT abdomen pelvis w con 04/06/2023 3:05 PM SIGNS AND SYMPTOMS: Nausea, vomiting, diarrhea, abdominal pain TECHNIQUE: Multidetector ct axial images of the abdomen and pelvis were obtained with IV contrast. Multiplanar reformats were performed and reviewed to further define anatomy and possible pathology. CT was performed with one or more of the following dose reduction techniques: Automated exposure control, adjustment of the mA and/or kV according to patient size, or use of iterative reconstruction technique. COMPARISON: Ultrasound 03/13/2022. FINDINGS: Lower Chest: Calcified granulomas are noted in the lung bases. ABDOMEN: Liver: Calcified granulomas are noted in the liver. Bile Ducts: Normal caliber. Gallbladder: No calcified gallstones. Normal caliber wall. Pancreas: Within normal limits. Spleen: Calcified granulomas are present in the spleen. Adrenals: Within normal limits. Kidneys: There is right-sided hydronephrosis. This is similar to that seen on the prior exam. Pelvis: Reproductive Organs: No pelvic masses. Ureters: Within normal limits. Bladder: Within normal limits. Bowel: There are a few uncomplicated colonic diverticula. There is a normal appendix in the right lower quadrant. There is no evidence of bowel obstruction. Mesenteric Lymph Nodes: No enlarged mesenteric lymph nodes. Peritoneum: No ascites or free air, no fluid collection. Vessels: Atherosclerotic changes are noted in the abdominal aorta and its branches. Retroperitoneum: Within normal limits. Abdominal Wall: Within normal limits. Bones: Mild degenerative changes are noted in the lumbar spine and hips. CT/CT abdomen pelvis w con IMPRESSION: There is no bowel obstruction or obstructive uropathy. There is uncomplicated colonic diverticulosis. There is similar right-sided hydronephrosis. Impression dictated by: Sen Otero M.D.04/06/2023 4:55 PM Dictation Location: [place] [address] Transcribed By: [facility] 04/06/231654 Dictated By: Sen Otero II, MD 04/06/23 1648 Signed By: 04/06/231654 Normal [facility] Calcium [Mass/volume] in Ser um or PlasmaOrdered By: Guanako Plummer on 04-06-2023 Calcium [Mass/Vol] 8.8 mg/dL 8.6-10.3 [facility] Carbon dioxide, total [Moles /volume] in Serum or PlasmaOrdered By: Guanako Plummer on 04-06-2023 CO2 [Moles/Vol] 25.2 mmol/L 21.0-31.0 [facility] Chloride [Moles/volume] in S arvin or PlasmaOrdered By: Guanako Plummer on 04-06-2023 Chloride [Moles/Vol] 106 mmol/L 98-107 [facility] Color Auto (U)Ordered By: Ry Plummer on 04-06-2023 Color (U) Yellow Yellow [facility] Complete Blood Count Auto Di ffon 04-06-2023 Basophils (Bld) [#/Vol] 0.0 10*3/uL Normal 0.0-0.2 [facility] Comment on above: Result Comment: PERF ORMED BY: [facility] [address] [place] [address] PATHOLOGIST NON DESTRUCTIVE EVALUATION SPECIALIST VANESSA VASQUEZ M.D. Performed By: #### G LULS #### Point of Care testing , Basophils/100 WBC (Bld) 0.2 % Normal . [facility] Comment on above: Performed By: #### G LULS #### Point of Care testing , Eosinophils (Bld) [#/Vol] 0.2 10*3/uL Normal 0.0-0.45 [facility] Comment on above: Performed By: #### G LULS #### Point of Care testing , Eosinophils/100 WBC (Bld) 4.4 % Normal . [facility] Comment on above: Performed By: #### Robert CORREA #### Point of Care testing , Erythrocyte distribution width (RBC) [Ratio] 14.0 % Normal 12.0-14.8 [facility] Comment on above: Performed By: #### G FLEXLS #### Point of Care testing , Hematocrit (Bld) [Volume fraction] 41.1 % Normal 38.8-50.0 [facility] Comment on above: Performed By: #### G FLEXLS #### Point of Care testing , Hemoglobin (Bld) [Mass/Vol] 13.8 g/dL Normal 13.0-17.0 [facility] Comment on above: Performed By: #### G FLEXLS #### Point of Care testing , Lymphocytes (Bld) [#/Vol] 0.4 10*3/uL Low 1.00-4.8 [facility] Comment on above: Performed By: #### Robert MCCORDLS #### Point of Care testing , Lymphocytes/100 WBC (Bld) 8.4 % Normal . [facility] Comment on above: Performed By: #### Robert CORREA #### Point of Care testing , MCH (RBC) [Entitic mass] 30.9 pg Normal 27.5-35.2 [facility] Comment on above: Performed By: #### G SUNNY #### Point of Care testing , MCV (RBC) [Entitic vol] 91.8 fL Normal 83.5-101 [facility] Comment on above: Performed By: #### G FLEXLS #### Point of Care testing , Mean Corpuscular HGB Conc 33.6 g/dL Normal 32.5-35.6 [facility] Comment on above: Performed By: #### G FLEXLS #### Point of Care testing , Monocytes (Bld) [#/Vol] 0.6 10*3/uL Normal 0.0-0.8 [facility] Comment on above: Performed By: #### Robert CORREA #### Point of Care testing , Monocytes/100 WBC (Bld) 17.74 % Normal 0.00-20.00 [facility] Comment on above: Performed By: #### G FLEXLS #### Point of Care testing , Monocytes/100 WBC (Bld) 11.5 % Normal . [facility] Comment on above: Performed By: #### G FLEXLS #### Point of Care testing , Neutrophils (Bld) [#/Vol] 3.7 10*3/uL Normal 1.8-7.7 [facility] Comment on above: Performed By: #### G FLEXLS #### Point of Care testing , Neutrophils/100 WBC (Bld) 75.5 % Normal . [facility] Comment on above: Performed By: #### G FLEXLS #### Point of Care testing , NRBC% 0.0 /100{WBC} Normal 0-0.5 [facility] Comment on above: Performed By: #### Robert MCCORDLS #### Point of Care testing , Platelet mean volume (Bld) [Entitic vol] 8.5 fL Normal 6.6-10.1 [facility] Comment on above: Performed By: #### G SUNNY #### Point of Care testing , Platelets (Bld) [#/Vol] 210 10*3/uL Normal 150-450 [facility] Comment on above: Performed By: #### G FLEXLS #### Point of Care testing , RBC (Bld) [#/Vol] 4.48 10*6/uL Normal 3.90-5.60 [facility] Comment on above: Performed By: #### Robert MCCORDLS #### Point of Care testing , WBC (Bld) [#/Vol] 4.9 10*3/uL Normal 4.1-10.5 [facility] Comment on above: Performed By: #### G FLEXLS #### Point of Care testing , Comprehensive Metabolic Pane willian 04-06-2023 Albumin [Mass/Vol] 4.2 g/dL Normal 3.5-5.7 [facility] Comment on above: Performed By: #### Robert MCCORDLS #### Point of Care testing , Albumin/Globulin [Mass ratio] 1.6 {ratio} Normal [facility] Comment on above: Performed By: #### G SUNNY #### Point of Care testing , ALP [Catalytic activity/Vol] 68 U/L Normal 34-104 [facility] Comment on above: Performed By: #### G FLEXLS #### Point of Care testing , ALT [Catalytic activity/Vol] 14 U/L Normal 7-52 [facility] Comment on above: Performed By: #### G FLEXLS #### Point of Care testing , Anion gap [Moles/Vol] 10.2 mmol/L Normal 6.0-15.0 [facility] Comment on above: Performed By: #### Robert CORREA #### Point of Care testing , AST [Catalytic activity/Vol] 11 U/L Low 13-39 [facility] Comment on above: Performed By: #### G SUNNY #### Point of Care testing , Bilirubin [Mass/Vol] 1.1 mg/dL High 0.3-1.0 [facility] Comment on above: Performed By: #### G SUNNY #### Point of Care testing , Calcium [Mass/Vol] 8.8 mg/dL Normal 8.6-10.3 [facility] Comment on above: Performed By: #### G FLEXLS #### Point of Care testing , Chloride [Moles/Vol] 106 mmol/L Normal 98-107 [facility] Comment on above: Performed By: #### Robert MCCORDLS #### Point of Care testing , CO2 [Moles/Vol] 25.2 mmol/L Normal 21.0-31.0 [facility] Comment on above: Performed By: #### G SUNNY #### Point of Care testing , Creatinine [Mass/Vol] 1.41 mg/dL High 0.70-1.30 [facility] Comment on above: Performed By: #### G FLEXLS #### Point of Care testing , Creatinine Clr Calc Pharmacy 51.48 [facility] Comment on above: Performed By: #### Robert MCCORDLS #### Point of Care testing , GFR/1.73 sq M.predicted MDRD (S/P/Bld) [Vol rate/Area] 52.293 mL/min/{1.73_m2} Normal [facility] Comment on above: Performed By: #### G SUNNY #### Point of Care testing , Globulin (S) [Mass/Vol] 2.7 g/dL Normal [facility] Comment on above: Performed By: #### G FLEXLS #### Point of Care testing , Glucose [Mass/Vol] 197 mg/dL High 70-100 [facility] Comment on above: Result Comment: [facility] Glucose Reference Range is dependent on time and content of last meal. Glucose of more than 200 mg/dL in a nonstressed, ambulatory subject supports the diagnosis of Diabetes Mellitus. ADA recommended reference range Performed By: #### G FLEXLS #### Point of Care testing , Potassium [Moles/Vol] 4.4 mmol/L Normal 3.5-5.1 [facility] Comment on above: Performed By: #### G FLEXLS #### Point of Care testing , Protein [Mass/Vol] 6.9 g/dL Normal 6.4-8.9 [facility] Comment on above: Performed By: #### G FLEXLS #### Point of Care testing , Sodium [Moles/Vol] 137 mmol/L Normal 136-145 [facility] Comment on above: Performed By: #### G SUNNY #### Point of Care testing , Urea nitrogen [Mass/Vol] 26 mg/dL High 7-25 [facility] Comment on above: Performed By: #### G FLEXLS #### Point of Care testing , Creatinine [Mass/volume] in Serum or PlasmaOrdered By: Guanako Plummer on 04-06-2023 Creatinine [Mass/Vol] 1.41 mg/dL 0.70-1.30 [facility] Dipstick and Microscopicon 0 04-06-2023 Appearance (U) Clear Normal Clear [facility] Comment on above: Order Comment: Name Collection Type:: Clean-Voided Midstream Performed By: #### A DDONUAPLUS #### [address] [place] [address] [place] Bacteria,Urine None Seen Normal None Seen [facility] Comment on above: Order Comment: Name Collection Type:: Clean-Voided Midstream Performed By: #### A DDONUAPLUS #### [facility] [address] [place] [address] [place] Bilirubin,Urine Negative Normal Negative [facility] Comment on above: Order Comment: Name Collection Type:: Clean-Voided Midstream Performed By: #### A DDONUAPLUS #### [place] [address] [place] Color (U) Yellow Normal Yellow [facility] Comment on above: Order Comment: Name Collection Type:: Clean-Voided Midstream Performed By: #### A DDONUAPLUS #### [place] [address] [place] Glucose Ql (U) 100 mg/dL High Normal [facility] Comment on above: Order Comment: Name Collection Type:: Clean-Voided Midstream Performed By: #### A DDONUAPLUS #### [place] [address] [place] Hyaline Casts,Urine None Seen Normal 0-8 [facility] Comment on above: Order Comment: Name Collection Type:: Clean-Voided Midstream Result Comment: PERF ORMED BY: [place] [address] PATHOLOGIST NON DESTRUCTIVE EVALUATION SPECIALIST VANESSA VASQUEZ M.D. Performed By: #### A DDONUAPLUS #### [facility] [address] [place] [address] [place] Ketones Ql (U) Negative Normal Negative [facility] Comment on above: Order Comment: Name Collection Type:: Clean-Voided Midstream Performed By: #### A DDONUAPLUS #### [facility] [address] [place] [address] [place] Leukocyte esterase Test strip Ql (U) Negative Normal Negative [facility] Comment on above: Order Comment: Name Collection Type:: Clean-Voided Midstream Performed By: #### A DDONUAPLUS #### [place] [address] [place] Nitrite,Urine Negative Normal Negative [facility] Comment on above: Order Comment: Name Collection Type:: Clean-Voided Midstream Performed By: #### A DDONUAPLUS #### [address] Occult Blood,Urine Negative Normal Negative [facility] Comment on above: Order Comment: Name Collection Type:: Clean-Voided Midstream Result Comment: PERF ORMED BY: [place] [address] PATHOLOGIST NON DESTRUCTIVE EVALUATION SPECIALIST VANESSA VASQUEZ M.D. Performed By: #### A DDONUAPLUS #### [address] pH (U) 5.5 [pH] Normal 5.0-9.0 [facility] Comment on above: Order Comment: Name Collection Type:: Clean-Voided Midstream Performed By: #### A DDONUAPLUS #### [address] Protein (U) [Mass/Vol] 30 mg/dL High Negative [facility] Comment on above: Order Comment: Name Collection Type:: Clean-Voided Midstream Performed By: #### A DDONUAPLUS #### [place] [address] [place] RBC LM.HPF (Urine sed) [#/Area] 0 /[HPF] Normal 0-4 [facility] Comment on above: Order Comment: Name Collection Type:: Clean-Voided Midstream Performed By: #### A DDONUAPLUS #### [place] [address] [place] Specificy [place],Urine 1.034 High 1.001-1.03 0 [facility] Comment on above: Order Comment: Name Collection Type:: Clean-Voided Midstream Performed By: #### A DDONUAPLUS #### [place] [address] [place] Squamous Epithelial Cell,Urine None Seen Normal 0-2 [facility] Comment on above: Order Comment: Name Collection Type:: Clean-Voided Midstream Performed By: #### A DDONUAPLUS #### [facility] [address] Urobilinogen,Urine Normal Normal Normal [facility] Comment on above: Order Comment: Name Collection Type:: Clean-Voided Midstream Performed By: #### A DDONUAPLUS #### [facility] [address] WBC LM.HPF (Urine sed) [#/Area] 0 /[HPF] Normal 0-4 [facility] Comment on above: Order Comment: Name Collection Type:: Clean-Voided Midstream Performed By: #### A DDONUAPLUS #### [address] Eosinophils Auto (Bld) [#/Vo l]Ordered By: Guanako Plummer on 04-06-2023 Eosinophils (Bld) [#/Vol] 0.2 10*3/uL 0.0-0.45 [facility] Eosinophils/100 WBC Auto (Bl d)Ordered By: Guanako Plummer on 04-06-2023 Eosinophils/100 WBC (Bld) 4.4 % . [facility] Erythrocyte distribution wid th Auto (RBC) [Ratio]Ordered By: Guanako Plummer on 04-06-2023 Erythrocyte distribution width (RBC) [Ratio] 14.0 % 12.0-14.8 [facility] Globulin Calc (S) [Mass/Vol] Ordered By: Guanako Plummer on 04-06-2023 Globulin (S) [Mass/Vol] 2.7 g/dL [facility] Glucose [Mass/volume] in Ser um or PlasmaOrdered By: Guanako Plummer on 04-06-2023 Glucose [Mass/Vol] 197 mg/dL 70-100 [facility] Comment on above: ADA recommended refe rence rangeRandom Glucose Reference Range is dependent on time and content of last meal. Glucose of more than 200 mg/dL in a nonstressed, ambulatory subject supports the diagnosis of Diabetes Mellitus. Hematocrit Auto (Bld) [Volum e fraction]Ordered By: Guanako Plummer on 04-06-2023 Hematocrit (Bld) [Volume fraction] 41.1 % 38.8-50.0 [facility] Hemoglobin [Mass/volume] in BloodOrdered By: Guanako Plummer on 04-06-2023 Hemoglobin (Bld) [Mass/Vol] 13.8 g/dL 13.0-17.0 [facility] Ketones Auto test strip (U) [Mass/Vol]Ordered By: Guanako Plummer on 04-06-2023 Ketones (U) [Mass/Vol] Negative Negative [facility] Laboratory - UrinalysisOrder ed By: Guanako Plummer on 04-06-2023 Hyaline casts LM Ql (Urine sed) None seen [LPF] 0-8 [facility] Leukocytes [#/volume] correc wyatt for nucleated erythrocytes in Blood by Automated counOrdered By: Guanako Plummer on 04-06-2023 WBC corrected for nucl RBC Auto (Bld) [#/Vol] 4.9 10*3/uL 4.1-10.5 [facility] Lipaseon 04-06-2023 Lipase [Catalytic activity/Vol] 40.0 U/L Normal 11.0-82.0 [facility] Comment on above: Result Comment: PERF ORMED BY: [facility] [address] [place] [address] PATHOLOGIST NON DESTRUCTIVE EVALUATION SPECIALIST VANESSA VASQUEZ M.D. Performed By: #### G LUISABEL #### Point of Care testing , Lipase [Enzymatic activity/v olume] in Serum or PlasmaOrdered By: Guanako Plummer on 04-06-2023 Lipase [Catalytic activity/Vol] 40.0 U/L 11.0-82.0 [facility] Lymphocytes Auto (Bld) [#/Vo l]Ordered By: Guanako Plummer on 04-06-2023 Lymphocytes (Bld) [#/Vol] 0.4 10*3/uL 1.00-4.8 [facility] Lymphocytes/100 WBC Auto (Bl d)Ordered By: Guanako Plummer on 04-06-2023 Lymphocytes/100 WBC (Bld) 8.4 % . [facility] MCH Auto (RBC) [Entitic mass ]Ordered By: Guanako Plummer on 04-06-2023 MCH (RBC) [Entitic mass] 30.9 pg 27.5-35.2 [facility] MCHC Auto (RBC) [Mass/Vol]Or dered By: Guanako Plummer on 04-06-2023 MCHC (RBC) [Mass/Vol] 33.6 g/dL 32.5-35.6 [facility] MCV Auto (RBC) [Entitic vol] Ordered By: Guanako Plummer on 04-06-2023 MCV (RBC) [Entitic vol] 91.8 fL 83.5-101 [facility] Monocyte distribution width [Entitic volume] in Blood by AutomatedOrdered By: Guanako Plummer on 04-06-2023 Monocyte distribution width Auto (Bld) [Entitic vol] 17.74 % 0.00-20.00 [facility] Monocytes Auto (Bld) [#/Vol] Ordered By: Guanako Plummer on 04-06-2023 Monocytes (Bld) [#/Vol] 0.6 10*3/uL 0.0-0.8 [facility] Monocytes/100 WBC Auto (Bld) Ordered By: Guanako Plummer on 04-06-2023 Monocytes/100 WBC (Bld) 11.5 % . [facility] Neutrophils Auto (Bld) [#/Vo l]Ordered By: Guanako Plummer on 04-06-2023 Neutrophils (Bld) [#/Vol] 3.7 10*3/uL 1.8-7.7 [facility] Neutrophils/100 WBC Auto (Bl d)Ordered By: Guanako Plummer on 04-06-2023 Neutrophils/100 WBC (Bld) 75.5 % . [facility] Nitrite Test strip Ql (U)Ord ered By: Guanako Plummer on 04-06-2023 Nitrite Ql (U) Negative Negative [facility] No Panel InformationOrdered By: Guanako Plummer on 04-06-2023 Estimated GFR (CKD-EPI) 52.293 mL/Min [facility] Pharmacy Creatinine Clearance (Chem 51.48 [facility] Nucleated erythrocytes [Pres ence] in Blood by Automated countOrdered By: Guanako Plummer on 04-06-2023 Nucleated RBC Auto Ql (Bld) 0.0 /100{WBC} 0-0.5 [facility] Platelet mean volume Auto (B ld) [Entitic vol]Ordered By: Guanako Plummer on 04-06-2023 Platelet mean volume (Bld) [Entitic vol] 8.5 fL 6.6-10.1 [facility] Platelets Auto (Bld) [#/Vol] Ordered By: Guanako Plummer on 04-06-2023 Platelets (Bld) [#/Vol] 210 10*3/uL 150-450 [facility] Potassium [Moles/volume] in Serum or PlasmaOrdered By: Guanako Plummer on 04-06-2023 Potassium [Moles/Vol] 4.4 mmol/L 3.5-5.1 [facility] Protein Auto test strip (U) [Mass/Vol]Ordered By: Guanako Plummer on 04-06-2023 Protein (U) [Mass/Vol] 30 mg/dL Negative [facility] Protein [Mass/volume] in Ser um or PlasmaOrdered By: Guanako Plummer on 04-06-2023 Protein [Mass/Vol] 6.9 g/dL 6.4-8.9 [facility] RBC Auto (Bld) [#/Vol]Ordere d By: Guanako Plummer on 04-06-2023 RBC (Bld) [#/Vol] 4.48 10*6/uL 3.90-5.60 [facility] Serum or plasma albumin/glob ulin mass ratioOrdered By: Guanako Plummer on 04-06-2023 Albumin/Globulin [Mass ratio] 1.6 {ratio} [facility] Serum or plasma anion gap de terminationOrdered By: Guanako Plummer on 04-06-2023 Anion gap [Moles/Vol] 10.2 mmol/L 6.0-15.0 [facility] Sodium [Moles/volume] in Ser um or PlasmaOrdered By: Guanako Plummer on 04-06-2023 Sodium [Moles/Vol] 137 mmol/L 136-145 [facility] Specific gravity Auto test s trip (U) [Rel density]Ordered By: Guanako Plummer on 04-06-2023 Specific gravity (U) [Rel density] 1.034 1.001-1.03 0 [facility] Squamous epithelial cells de tection in urine sediment by light microscopyOrdered By: Guanako Plummer on 04-06-2023 Epithelial cells.squamous LM Ql (Urine sed) None seen [HPF] 0-2 [facility] Urea nitrogen [Mass/volume] in Serum or PlasmaOrdered By: Guanako Plummer on 04-06-2023 Urea nitrogen [Mass/Vol] 26 mg/dL 7-25 [facility] Urine bacteria detection by automated methodOrdered By: Guanako Plummer on 04-06-2023 Bacteria Auto Ql (U) None seen None Seen [facility] Urine clarity by refractomet ry automatedOrdered By: Guanako Plummer on 04-06-2023 Clarity Refractometry automated (U) Clear Clear [facility] Urine glucose measurement by automated test strip (mass/volume)Ordered By: Guanako Plummer on 04-06-2023 Glucose Auto test strip (U) [Mass/Vol] 100 mg/dL Normal [facility] Urine hemoglobin detection b y automated test stripOrdered By: Guanako Plummer on 04-06-2023 Hemoglobin Auto test strip Ql (U) Negative Negative [facility] Urine leukocyte esterase det ection by automated test stripOrdered By: Guanako Plummer on 04-06-2023 Leukocyte esterase Auto test strip Ql (U) Negative Negative [facility] Urobilinogen Auto test strip (U) [Mass/Vol]Ordered By: Guanako Plummer on 04-06-2023 Urobilinogen (U) [Mass/Vol] Normal mg/dL Normal [facility] WBC Auto (Bld) [#/Vol]Ordere d By: Guanako Plummer on 04-06-2023 WBC (Bld) [#/Vol] 4.9 10*3/uL 4.1-10.5 [facility] pH Auto test strip (U)Ordere d By: Guanako Plummer on 04-06-2023 pH (U) 5.5 [pH] 5.0-9.0 [facility] Office Visit (Cardiology)on 03-15-2023 Follow-up visit Diagnoses/Problems Assessed CAD, multiple vessel (414.00) (I25.10) Paroxysmal supraventricular tachycardia (427.0) (I47.1) Essential hypertension (401.9) (I10) Fatigue (780.79) (R53.83) Hyperlipidemia (272.4) (E78.5) Never a smoker Overweight with body mass index (BMI) of 27 to 27.9 in adult (278.02,V85.23) (E66.3,Z68.27) Sleep apnea (780.57) (G47.30) Dizziness (780.4) (R42) Diabetes mellitus (250.00) (E11.9) Preop cardiovascular exam (V72.81) (Z01.810) Orders CAD, multiple vessel Changed: From Aspirin EC 81 MG TBEC TAKE 1 TABLET DAILY DIRECTED To Aspirin 81 MG Oral Tablet Delayed Release TAKE 1 TABLET DAILY CAD, multiple vessel, Essential hypertension Renew: Lisinopril 2.5 MG Oral Tablet; TAKE 1 TABLET DAILY DIRECTED CAD, multiple vessel, Preop cardiovascular exam IO EKG Electrocardiogram- 12 Lead; Status:Complete; Done: 15Mar2023 Hyperlipidemia Renew: Atorvastatin Calcium 40 MG Oral Tablet; TAKE 1 TABLET BY MOUTH EVERY DAY SocHx: Never a smoker Tobacco Use Screening; Status:Complete; Done: [id number] Patient Instructions Please bring all medicines, vitamins, and herbal supplements with you when you come to the office. Prescriptions will not be filled unless you are compliant with your follow up appointments or have a follow up appointment scheduled as per instruction of your physician. Refills should be requested at the time of your visit. Patient provided Falls Prevention education sheet. Patient can proceed with surgery from a cardiac standpoint. Same meds. Follow up in 9 months The provider reviewed the following test(s) and result(s) with the patient: ECG Chief Complaint KIA MENDEZ is being seen for pre-operative clearance and Dr. Luis knee surgery. History of Present Illness Patient is here for follow-up due to management for coronary artery disease prior PCI to the right coronary artery, remote history of supraventricular tachycardia, hyperlipidemia and sleep apnea. Since last time I saw him he reported he was in the hospital for gallbladder disease. He is scheduled to undergo gallbladder surgery and knee surgery. Cardiac sunshine he denies chest pain, palpitation, lightheadedness, dizziness or syncope. He described functional class I. He report his recently. ASSESSMENT: 1. Coronary artery disease with prior PCI to the right coronary artery previously and PCI to the LAD/diagonal. No chest pain. Repeat cardiac catheterization showed only minimal small marginal disease and medical therapy was recommended 2. Previous symptoms of orthostatic hypotension, completely resolved after adjusting his beta-nicolas dose. 3. Remote history of supraventricular tachycardia, with no recurrence. 4. Hyperlipidemia report was controlled based on recent lab at his PCP 5. Mildly overweight. 6. Patient described nitro induced headache. Resolved 7. Classic symptoms of sleep apnea including loud snoring, frequent awakening and daily nap. Recent outpatient sleep study was borderline abnormal. Recommendation was made to see the sleep clinic. He unfortunately did not follow through due to the illness of his 8. Social stress due to the of his 's terminal illness 9. Patient requesting preoperative risk assessment for cholecystectomy and knee surgery RECOMMENDATION: 1. The patient was advised to continue present medical therapy 2. I suggested losing weight, exercise, and risk factor adjustment. 3. I will see him back in the office in 1 month 4. I have reviewed his recent hospitalization record and lab with him 5. We will consider referring him to sleep study after current issues resolved 6. Patient can proceed with his knee surgery and cholecystectomy. His operative risk is acceptable. He is functional class I. His anatomy is well known. His cardiac status has been stable. He can hold his aspirin and Plavix for 5 days 7 days prior to procedure Surgical History Problems History of Arm surgery Arm Excision left / removal of melanoma History of Cardiac catheterization History of Complete colonoscopy Procedue Date: 12Jun[address] History of Eye surgery History of Leg surgery History of Percutaneous transluminal coronary angioplasty History of Repair Leg Repair History of Surgery skin cancer removal Current Meds Medication NameInstruction Aspirin EC 81 MG TBECTAKE 1 TABLET DAILY DIRECTED. Atorvastatin Calcium 40 MG Oral TabletTAKE 1 TABLET BY MOUTH EVERY DAY Clopidogrel Bisulfate 75 MG Oral TabletTAKE 1 TABLET BY MOUTH EVERY DAY Lisinopril 2.5 MG Oral TabletTAKE 1 TABLET DAILY DIRECTED. metFORMIN HCl - 1000 MG Oral TabletTAKE 1 TABLET EVERY 12 HOURS DAILY. Metoprolol Tartrate 25 MG Oral TabletTAKE 1 TABLET TWICE DAILY. Nitroglycerin 0.4 MG Sublingual Tablet SublingualPLACE 1 TABLET UNDER THE TONGUE EVERY 5 MINUTES FOR UP TO 3 DOSES NEEDED FOR CHEST PAIN.CALL 911 IF PAIN PERSISTS. Omeprazole 40 MG Oral Capsu (more content not included)... Normal [facility] Tobacco Screening.on 023 Fall risk assessment b) One or more fall s in the last year [facility] Nimisha ramirez 250 DO Work Phone: Tobacco use status CP b) No [facility] Nimisha Harris DO Work Phone: Tobacco Screening. Yes [facility] Nimisha ramirez 250 DO Work Phone: XR KNEE RT 4V or >on 023 XR KNEE RT 4V or > XR KNEE RT 4V or >: HISTORY: Pain. COMPARISON: None available. TECHNIQUE: 3 radiographic view(s) obtained. FINDINGS: BONES/JOINT SPACES: There is no acute fracture or dislocation. Small anterior joint bodies are noted. There is a joint effusion. No bony destruction. SOFT TISSUES: Fast or calcifications noted. IMPRESSION: Possible small anterior joint bodies. Joint effusion. Consider further evaluation with MRI if clinically indicated. Electronically authenticated by: JUAN STEWART Date: 2023-02-15 18:57 Normal [facility] Falls Screening (Age 18+)on 07-28-2022 Fall risk assessment a) No falls within the last year [facility] Nimisha Harris DO Work Phone: Falls Screening (Age 18+)on 05-18-2022 Fall risk assessment a) No falls within the last year [facility] Nimisha Harris DO Work Phone: CARDIAC SEN 3-6on 2 CK [Catalytic activity/Vol] 68 U/L Normal 39-308 [facility] Comment on above: Performed By: #### C MREP #### [facility] [address] [place], [place] [address] Dr. Vern Browne CK.MB [Mass/Vol] 1.29 ng/mL Normal <=3.60 [facility] Comment on above: Performed By: #### C MREP #### [facility] [address] [place], [place] [address] Dr. Vern Browne HSTROP 24.2 pg/mL Normal 4.0-76.1 [facility] Comment on above: Result Comment: CUT- OFF POINTS HAVE BEEN ESTABLISHED BASED ON THE FOURTH UNIVERSAL DEFINITIONS OF MYOCARDIAL INFARCTION. THE UPPER REFERENCE LIMIT (URL) OF TROPONIN, DEFINED THE 99TH PERCENTILE OF cTnI DISTRIBUTION IN A REFERENCE POPULATION, HAS BEEN CONFIRMED THE DECISION THRESHOLD FOR [place] DIAGNOSIS. Performed By: #### C MREP #### [facility] [address] [place] [address] [address] Vern Browne LACTATE/LACTIC ACIDon 2021 Lactate [Moles/Vol] 1.3 mmol/L Normal 0.4-1.9 [facility] Comment on above: Performed By: #### L ACT #### [facility] [address] [place] [address] [address] Vern Browne XR CHEST 1 Von 05-17-2022 XR CHEST 1 V EXAMINATION: XR CHES T 1 V HISTORY: Chest pain COMPARISON: Chest x-ray 05/10/2022 TECHNIQUE: Portable chest FINDINGS: The lung parenchyma is free of consolidation or infiltrate. No pneumothorax or pleural effusion. The cardiac, mediastinal and hilar contours are normal. The visualized osseous structures exhibit no gross abnormality. IMPRESSION: No acute cardiopulmonary abnormality. Electronically authenticated by: BARBARA TIAN Date: 2022-05-16 22:45 Normal [facility] CARDIAC SEN ADMITon 022 CK [Catalytic activity/Vol] 88 U/L Normal 39-308 [facility] Comment on above: Performed By: #### Seven MAURICIO HSTROPN #### [facility] [address] [address] [address] Vern Browne CK.MB [Mass/Vol] 1.74 ng/mL Normal <=3.60 [facility] Comment on above: Performed By: #### Seven MAURICIO HSTROPN #### [facility] [address] [place] [address] Dr. Vern Browne HSTROP 18.8 pg/mL Normal 4.0-76.1 [facility] Comment on above: Result Comment: CUT- OFF POINTS HAVE BEEN ESTABLISHED BASED ON THE FOURTH UNIVERSAL DEFINITIONS OF MYOCARDIAL INFARCTION. THE UPPER REFERENCE LIMIT (URL) OF TROPONIN, DEFINED THE 99TH PERCENTILE OF cTnI DISTRIBUTION IN A REFERENCE POPULATION, HAS BEEN CONFIRMED THE DECISION THRESHOLD FOR [place] DIAGNOSIS. Performed By: #### B HANG, HSTROPN #### [facility] [address] [place] [address] Dr. Vern Browne PHIL 125 ng/mL Critically high 16-96 [facility] Comment on above: Performed By: #### B HANG, HSTROPN #### [facility] [address] [place] [address] Dr. Vern Browne CBC AUTO DIFFon 05-16-2022 BASO # 0.0 103/ul Normal 0.0-0.1 [facility] Comment on above: Performed By: #### B HANG, HSTROPN #### [facility] [address] [place] [address] Dr. Vern Browne Basophils/100 WBC (Bld) 0.5 % Normal 0.2-2.0 [facility] Comment on above: Performed By: #### B HANG, HSTROPN #### [facility] [address] [place] [address] Dr. Vern Browne EO # 0.4 103/ul Normal 0.0-0.7 [facility] Comment on above: Performed By: #### B HANG, HSTROPN #### [facility] [address] [place] [address] Dr. Vern Browne Eosinophils/100 WBC (Bld) 5.5 % Normal 0.9-7.0 [facility] Comment on above: Performed By: #### B HANG, HSTROPN #### [facility] [address] [place] [address] Dr. Vern Browne Erythrocyte distribution width (RBC) [Ratio] 13.2 % Normal 11.0-15.0 [facility] Comment on above: Performed By: #### B HANG, HSTROPN #### [facility] [address] [place] [address] Dr. Vern Browne Hematocrit (Bld) [Volume fraction] 39.5 % Critically low 42.0-54.0 [facility] Comment on above: Performed By: #### B HANG, HSTROPN #### [facility] [address] [place] [address] Dr. Vern Browne Hemoglobin (Bld) [Mass/Vol] 13.2 g/dL Critically low 14.0-18.0 [facility] Comment on above: Performed By: #### B MP, HSTROPN #### [facility] [address] [place] [address] Dr. Vern Browne IG # 0.03 10e3/ul Normal 0.00-0.03 [facility] Comment on above: Performed By: #### B MP, HSTROPN #### [facility] [address] [place] [address] Dr. Vern Browne IG % 0.4 % Normal 0.0-0.5 [facility] Comment on above: Performed By: #### B MP, HSTROPN #### [facility] [address] [place] [address] Dr. Vern Browne LYMPH # 1.5 103/ul Normal 1.2-3.8 [facility] Comment on above: Performed By: #### B MP, HSTROPN #### [facility] [address] [place] [address] Dr. Vern Browne Lymphocytes/100 WBC (Bld) 20.5 % Normal 20.5-60.0 [facility] Comment on above: Performed By: #### B MP, HSTROPN #### [facility] [address] [place] [address] Dr. Vern Browne MANUAL DIFF REQ NO Normal [facility] Comment on above: Performed By: #### B MP, HSTROPN #### [facility] [address] [place] [address] Dr. Vern Browne MCH (RBC) [Entitic mass] 29.9 pg Normal 25.9-34.0 [facility] Comment on above: Performed By: #### B MP, HSTROPN #### [facility] [address] [place] [address] Dr. Vern Browne MCHC (RBC) [Mass/Vol] 33.4 g/dL Normal 29.9-35.2 [facility] Comment on above: Performed By: #### B HANG, HSTROPN #### [facility] [address] [place] [address] Dr. Vern Browne MCV (RBC) [Entitic vol] 89.6 fL Normal 80.0-94.0 [facility] Comment on above: Performed By: #### B HANG, HSTROPN #### [facility] [address] [place] [address] Dr. Vern Browne MONO # 0.6 103/ul Normal 0.3-0.8 [facility] Comment on above: Performed By: #### B HANG, HSTROPN #### [facility] [address] [place] [address] Dr. Vern Browne Monocytes/100 WBC (Bld) 8.2 % Normal 1.7-12.0 [facility] Comment on above: Performed By: #### B HANG, HSTROPN #### [facility] [address] [place] [address] Dr. Vern Browne NEUT # 4.9 103/ul Normal 1.4-6.5 [facility] Comment on above: Performed By: #### B HANG, HSTROPN #### [facility] [address] [place] [address] Dr. Vern Browne Neutrophils/100 WBC (Bld) 64.9 % Normal 43.0-75.0 [facility] Comment on above: Performed By: #### B MP, HSTROPN #### [facility] [address] [place] [address] Dr. Vern Browne Platelet mean volume (Bld) [Entitic vol] 10.6 fL Normal 9.5-13.5 [facility] Comment on above: Performed By: #### B MP, HSTROPN #### [facility] [address] [place] [address] Dr. Vern Browne PLT 176 103/ul Normal 150-450 [facility] Comment on above: Performed By: #### B HANG, HSTROPN #### [facility] [address] [address] [address] Vern Browne RBC 4.41 106/ul Critically low 4.70-6.10 [facility] Comment on above: Performed By: #### B MP, HSTROPN #### [facility] [address] [address] [address] Vern Browne WBC 7.5 103/ul Normal 4.0-11.0 [facility] Comment on above: Performed By: #### B MP, HSTROPN #### [facility] [address] [address] [address] Vern Browne Covid-19 PCR (CVDTBH)on SARS-CoV-2 (COVID-19) RNA BISI+probe Ql (Unsp spec) Not detected Normal NOT DETECTED [facility] Comment on above: Result Comment: When diagnostic testing is negative, the possibility of a false negative should be considered in the context of a patient's recent exposures and the presence of clinical signs and symptoms consistent with SARS-CoV-2. This test is not yet approved or cleared by the [place] FDA. When there are no FDA-approved or cleared tests available, and other criteria are met, FDA can make tests available under an emergency access mechanism called an Emergency Use Authorization (EUA). The EUA for this test is supported by the [employer] Operator of Health and Human Service's declaration that circumstances exist to justify the emergency use of in vitro diagnostics for the detection and/or diagnosis of the virus that causes COVID-19. This EUA will remain in effect for the duration of the COVID-19 declaration justifying emergency of IVDs, unless it is terminated or revoked by the FDA (after which the test may no longer be used). Performed By: #### C VDTBH #### [facility] [address] [place] [address] Dr. Vern Browne LACTATE/LACTIC ACIDon 2021 Lactate [Moles/Vol] 2.1 mmol/L Critically high 0.4-1.9 [facility] Comment on above: Performed By: #### L ACT #### [facility] [address] [place] [address] Dr. Vern Browne PROF CHEM 8 (BAS METB)on Anion gap [Moles/Vol] 13.2 mmol/L Normal [facility] Comment on above: Performed By: #### B MP, HSTROPN #### [facility] [address] [address] [address] Vern Browne Calcium [Mass/Vol] 8.6 mg/dL Normal 8.5-10.1 [facility] Comment on above: Performed By: #### B MP, HSTROPN #### [facility] [address] [address] [address] Vern Browne Chloride [Moles/Vol] 102 mmol/L Normal 98-107 [facility] Comment on above: Performed By: #### B MP, HSTROPN #### [facility] [address] [place] [address] Dr. Vern Browne CO2 [Moles/Vol] 25.3 mmol/L Normal 21.0-32.0 [facility] Comment on above: Performed By: #### B MP, HSTROPN #### [facility] [address] [address] [address] Vern Browne Creatinine [Mass/Vol] 1.39 mg/dL Critically high 0.70-1.30 [facility] Comment on above: Performed By: #### B MP, HSTROPN #### [facility] [address] [address] [address] Vern Browne EGFR-AF SAMMARINESE >60 Normal >=60 [facility] Comment on above: Performed By: #### B MP, HSTROPN #### [facility] [address] [address] [address] Vern Browne EGFR-NON AF SAMMARINESE 50 mL/min/1.73m2 Critically low >=60 [facility] Comment on above: Performed By: #### B MP, HSTROPN #### [facility] [address] [address] [address] Vern Browne Glucose [Mass/Vol] 312 mg/dL Critically high 74-[address] [facility] Comment on above: Performed By: #### B HANG, HSTROPN #### [facility] [address] [place] [address] Dr. Vern Browne Potassium [Moles/Vol] 4.5 mmol/L Normal 3.5-5.1 [facility] Comment on above: Performed By: #### B HANG, HSTROPN #### [facility] [address] [place] [address] Dr. Vern Browne Sodium [Moles/Vol] 136 mmol/L Normal 136-145 [facility] Comment on above: Performed By: #### B HANG, HSTROPN #### [facility] [address] [place] [address] Dr. Vern Browne Urea nitrogen [Mass/Vol] 24.0 mg/dL Critically high 7.0-18.0 [facility] Comment on above: Performed By: #### B HANG HSTROPN #### [facility] [address] [place] [address] Dr. Vern Browne Urea nitrogen/Creatinine [Mass ratio] 17.3 mg/mg Normal [facility] Comment on above: Performed By: #### B HANG HSTROPN #### [facility] [address] [place] [address] Dr. Vern Browne CBC AUTO DIFFon 05-10-2022 BASO # 0.1 103/ul Normal 0.0-0.1 [facility] Comment on above: Performed By: #### C BC #### [facility] [address] [place] [address] Dr. Vern Browne Basophils/100 WBC (Bld) 0.8 % Normal 0.2-2.0 [facility] Comment on above: Performed By: #### C BC #### [facility] [address] [place] [address] Dr. Vern Browne EO # 0.4 103/ul Normal 0.0-0.7 [facility] Comment on above: Performed By: #### C BC #### [facility] [address] [place] [address] Dr. Vern Browne Eosinophils/100 WBC (Bld) 4.7 % Normal 0.9-7.0 [facility] Comment on above: Performed By: #### C BC #### [facility] [address] [place] [address] Dr. Vern Browne Erythrocyte distribution width (RBC) [Ratio] 13.1 % Normal 11.0-15.0 [facility] Comment on above: Performed By: #### C BC #### [facility] [address] [place] [address] Dr. Vern Browne Hematocrit (Bld) [Volume fraction] 40.9 % Critically low 42.0-54.0 [facility] Comment on above: Performed By: #### C BC #### [facility] [address] [place] [address] Dr. Vern Browne Hemoglobin (Bld) [Mass/Vol] 13.9 g/dL Critically low 14.0-18.0 [facility] Comment on above: Performed By: #### C BC #### [facility] [address] [place] [address] Dr. Vern Browne IG # 0.05 10e3/ul Critically high 0.00-0.03 [facility] Comment on above: Performed By: #### C BC #### [facility] [address] [place] [address] Dr. Vern Browne IG % 0.6 % Critically high 0.0-0.5 [facility] Comment on above: Performed By: #### C BC #### [facility] [address] [place] [address] Dr. Vern Browne LYMPH # 1.4 103/ul Normal 1.2-3.8 [facility] Comment on above: Performed By: #### C BC #### [facility] [address] [place] [address] Dr. Vern Browne Lymphocytes/100 WBC (Bld) 14.9 % Critically low 20.5-60.0 [facility] Comment on above: Performed By: #### C BC #### [facility] [address] [place] [address] Dr. Vern Browne MANUAL DIFF REQ NO Normal [facility] Comment on above: Performed By: #### C BC #### [facility] [address] [place] [address] Dr. Vern Browne MCH (RBC) [Entitic mass] 30.3 pg Normal 25.9-34.0 [facility] Comment on above: Performed By: #### C BC #### [facility] [address] [place] [address] Dr. Vern Browne MCHC (RBC) [Mass/Vol] 34.0 g/dL Normal 29.9-35.2 [facility] Comment on above: Performed By: #### C BC #### [facility] [address] [place] [address] Dr. Vern Browne MCV (RBC) [Entitic vol] 89.1 fL Normal 80.0-94.0 [facility] Comment on above: Performed By: #### C BC #### [facility] [address] [place] [address] Dr. Vern Browne MONO # 0.8 103/ul Normal 0.3-0.8 [facility] Comment on above: Performed By: #### C BC #### [facility] [address] [place] [address] Dr. Vern Browne Monocytes/100 WBC (Bld) 8.7 % Normal 1.7-12.0 [facility] Comment on above: Performed By: #### C BC #### [facility] [address] [place] [address] Dr. Vern Browne NEUT # 6.4 103/ul Normal 1.4-6.5 [facility] Comment on above: Performed By: #### C BC #### [facility] [address] [place] [address] Dr. Vern Browne Neutrophils/100 WBC (Bld) 70.3 % Normal 43.0-75.0 [facility] Comment on above: Performed By: #### C BC #### [facility] [address] [place] [address] Dr. Vern Browne Platelet mean volume (Bld) [Entitic vol] 10.9 fL Normal 9.5-13.5 [facility] Comment on above: Performed By: #### C BC #### [facility] [address] [place] [address] Dr. Vern Browne PLT 199 103/ul Normal 150-450 [facility] Comment on above: Performed By: #### C BC #### [facility] [address] [place], [place] [id number] Dr. Vern Browne RBC 4.59 106/ul Critically low 4.70-6.10 [facility] Comment on above: Performed By: #### C BC #### [facility] [address] [place] [address] Dr. Vern Browne WBC 9.1 103/ul Normal 4.0-11.0 [facility] Comment on above: Performed By: #### C BC #### [facility] [address] [place] [address] Dr. Vern Browne D-DIMERon 05-10-2022 D-DIMER 0.38 mg/L FEU Normal <=0.59 [facility] Comment on above: Performed By: #### D DIM #### [facility] [address] [place] [address] Dr. Vern Browne D-DIMER COMMENTS SEE BELOW Normal [facility] Comment on above: Result Comment: Incr eases in D-Dimer concentration observed with thromboembolic events can be variable due to localization, size, and age of the thrombus. Therefore, a thromboembolic event cannot be diagnosed with certainty on the basis of the reference range. D-Dimers may also be elevated for a variety of disorders including: advanced age, , coronary disease, cancer, liver disease, infection, inflammation, hematoma, DIC, trauma, post-surgery, diabetes, thrombolytic or anticoagulant therapy, stress, and generalized hospitalization. Performed By: #### D DIM #### [facility] [address] [place] [address] Dr. Vern Browne PROF CHEM 8 (BAS METB)on Anion gap [Moles/Vol] 15.9 mmol/L Normal [facility] Comment on above: Performed By: #### B MP, HSTROPN #### [facility] [address] [place] [address] Dr. Vern Browne Calcium [Mass/Vol] 8.3 mg/dL Critically low 8.5-10.1 [facility] Comment on above: Performed By: #### B MP, HSTROPN #### [facility] [address] [place] [address] Dr. Vern Browne Chloride [Moles/Vol] 103 mmol/L Normal 98-107 [facility] Comment on above: Performed By: #### B MP, HSTROPN #### [facility] [address] [place] [address] Dr. Vern Browne CO2 [Moles/Vol] 23.8 mmol/L Normal 21.0-32.0 [facility] Comment on above: Performed By: #### B MP, HSTROPN #### [facility] [address] [place] [address] Dr. Vern Browne Creatinine [Mass/Vol] 1.30 mg/dL Normal 0.70-1.30 [facility] Comment on above: Performed By: #### B MP, HSTROPN #### [facility] [address] [place] [address] Dr. Vern Browne EGFR-AF SAMMARINESE >60 Normal >=60 [facility] Comment on above: Performed By: #### B MP, HSTROPN #### [facility] [address] [place] [address] Dr. Vern Browne EGFR-NON AF SAMMARINESE 54 mL/min/1.73m2 Critically low >=60 [facility] Comment on above: Performed By: #### B MP, HSTROPN #### [facility] [address] [place] [address] Dr. Vern Browne Glucose [Mass/Vol] 310 mg/dL Critically high 74-106 [facility] Comment on above: Performed By: #### B MP, HSTROPN #### [facility] [address] [place] [address] Dr. Vern Browne Potassium [Moles/Vol] 4.7 mmol/L Normal 3.5-5.1 [facility] Comment on above: Performed By: #### B MP, HSTROPN #### [facility] [address] [address] [address] Vern Browne Sodium [Moles/Vol] 138 mmol/L Normal 136-145 [facility] Comment on above: Performed By: #### B MP, HSTROPN #### [facility] [address] [address] [address] Vern Browne Urea nitrogen [Mass/Vol] 17.0 mg/dL Normal 7.0-18.0 [facility] Comment on above: Performed By: #### B HANG, HSTROPN #### [facility] [address] [place] [address] Dr. Vern Browne Urea nitrogen/Creatinine [Mass ratio] 13.1 mg/mg Normal [facility] Comment on above: Performed By: #### B HANG, HSTROPN #### [facility] [address] [place] [address] Dr. Vern Browne TROPONIN, HIGH SENSITIVITYon 05-10-2022 HSTROP 15.7 pg/mL Normal 4.0-76.1 [facility] Comment on above: Result Comment: CUT- OFF POINTS HAVE BEEN ESTABLISHED BASED ON THE FOURTH UNIVERSAL DEFINITIONS OF MYOCARDIAL INFARCTION. THE UPPER REFERENCE LIMIT (URL) OF TROPONIN, DEFINED THE 99TH PERCENTILE OF cTnI DISTRIBUTION IN A REFERENCE POPULATION, HAS BEEN CONFIRMED THE DECISION THRESHOLD FOR NH DIAGNOSIS. Performed By: #### H STROPN #### [facility] [address] [place] [address] Dr. Vern Browne HSTROP 15.1 pg/mL Normal 4.0-76.1 [facility] Comment on above: Result Comment: CUT- OFF POINTS HAVE BEEN ESTABLISHED BASED ON THE FOURTH UNIVERSAL DEFINITIONS OF MYOCARDIAL INFARCTION. THE UPPER REFERENCE LIMIT (URL) OF TROPONIN, DEFINED THE 99TH PERCENTILE OF cTnI DISTRIBUTION IN A REFERENCE POPULATION, HAS BEEN CONFIRMED THE DECISION THRESHOLD FOR NH DIAGNOSIS. Performed By: #### B MP, HSTROPN #### [facility] [address] [place], [place] [id number] Dr. Vern Browne XR CHEST 1 Von 05-10-2022 XR CHEST 1 V EXAMINATION: XR CHES T 1 V HISTORY: CHEST PAIN, UNSPECIFIED , acute dyspnea, chest pressure COMPARISON: XR chest 06/09/2018 FINDINGS: LUNGS: No significant pulmonary parenchymal abnormalities. VASCULATURE: No increased pulmonary vasculature. PLEURA: No pneumothorax, effusion, or pleural thickening. CARDIAC: No cardiomegaly or cardiac silhouette abnormality. MEDIASTINUM: No visible mass or adenopathy. BONES: No fracture or visible bone lesion. OTHER: Negative. IMPRESSION: 1. No acute cardiopulmonary process. Stable chest. Electronically authenticated by: MEME VILLANUEVA Date: 2022-05-10 17:27 Normal [facility] COVID Quick Testingon 2021 Result Negative [employer] Other Quick Strepon 04-15-2022 S. pyogenes Org specific cx Ql (Throat) Negative [employer] Other Quick Strep [employer] Other MRI KNEE RT WO CONon 022 MRI KNEE RT WO CON EXAMINATION: MRI KNE E RT WO CON HISTORY: Pain of right knee joint ; acute anterior knee pain for 2 months; no known injury COMPARISON: No relevant comparison available. TECHNIQUE: A complete multi-planar MRI was performed. FINDINGS: MEDIAL COMPARTMENT MEDIAL MENISCUS: Slight irregularity of the undersurface of the posterior horn demonstrating mild increased T2 signal; possibly representing small tears. CARTILAGE: No visible defect. BONES: No marrow pathology, fracture, or significant arthropathy. MCL AND MEDIAL CAPSULE: Normal medial collateral ligament and medial capsule. LATERAL COMPARTMENT LATERAL MENISCUS: No visible tear or significant degeneration. CARTILAGE: No visible defect. BONES: No marrow pathology, fracture, or significant arthropathy. LCL/POSTEROLAT COMPLEX: Normal lateral collateral ligament, fascicles, lateral capsule and ligaments. ANTERIOR COMPARTMENT PATELLA: No marrow pathology, fracture, or significant arthropathy. CARTILAGE: Mild thinning without focal defect. TENDONS: Normal. EFFUSION: Small joint effusion. ACL: Normal appearing ligament. PCL: Normal appearing ligament. MENISCOFEMORAL: Normal meniscofemoral ligaments. OTHER: Negative. IMPRESSION: 1. Small joint effusion. 2. Mild thinning of the cartilage of the anterior compartment without focal defect or specific findings to account for patient's symptoms. 3. Degenerative changes versus mild, possibly remote, undersurface tears of the posterior horn the medial meniscus. Electronically authenticated by: MEME VILLANUEVA Date: 2022-03-31 09:05 Normal [facility] XR FOREIGN BODY EYEon 2021 XR FOREIGN BODY EYE EXAMINATION: XR FORE IGN BODY EYE HISTORY: Foreign body in eye COMPARISON: No relevant comparison available. FINDINGS: ORBITS: Negative for a metallic foreign body. OTHER: Negative. IMPRESSION: 1. No metallic foreign body within the orbits. Electronically authenticated by: MEME VILLANUEVA Date: 2022-03-30 16:02 Normal [facility] Tobacco Screening.on 022 Adult depression screening assessment No [facility] DO Work Phone: Fall risk assessment a) No falls within the last year [facility] [facility] 250 DO Work Phone: Tobacco use status [facility] b) No [facility] [facility] 250 DO Work Phone: RAD - Ultrasound Reporton RAD - Ultrasound Report [id number] Normal [facility] Activated partial thrombopla stin time (aPTT) in platelet poor plasma by coagulation aOrdered By: Yifan Caldwell on 03-02-2022 aPTT Coag (PPP) [Time] 33.4 s 25.1-36.5 [facility] Basophils Auto (Bld) [#/Vol] Ordered By: Yifan Caldwell on 03-02-2022 Basophils (Bld) [#/Vol] 0.0 10*3/uL 0.0-0.2 [facility] Basophils/100 WBC Auto (Bld) Ordered By: Yifan Caldwell on 03-02-2022 Basophils/100 WBC (Bld) 0.8 % [facility] Blood hemoglobin measurement (mass/volume)Ordered By: Yiafn Caldwell on 03-02-2022 Hemoglobin (Bld) [Mass/Vol] 13.6 g/dL 13.0-17.0 [facility] Blood leukocytes automated c ount (number/volume)Ordered By: Yifan Caldwell on 03-02-2022 WBC (Bld) [#/Vol] 5.8 10*3/uL 4.5-11.0 [facility] Creatine kinase [Enzymatic a ctivity/volume] in Serum or PlasmaOrdered By: Yifan Caldwell on 03-02-2022 CK [Catalytic activity/Vol] 94 U/L 22-269 [facility] Creatinine and Glomerular fi ltration rate.predicted panel (S/P/Bld)Ordered By: Yifan Caldwell on 03-02-2022 Creatinine [Mass/Vol] 1.15 mg/dL 0.64-1.27 [facility] Eosinophils Auto (Bld) [#/Vo l]Ordered By: Yifan Caldwell on 03-02-2022 Eosinophils (Bld) [#/Vol] 0.6 10*3/uL 0.0-0.45 [facility] Eosinophils/100 WBC Auto (Bl d)Ordered By: Yifan Caldwell on 03-02-2022 Eosinophils/100 WBC (Bld) 9.8 % [facility] Erythrocyte distribution wid th Auto (RBC) [Ratio]Ordered By: Yifan Caldwell on 03-02-2022 Erythrocyte distribution width (RBC) [Ratio] 13.3 % 12.0-14.8 [facility] Estimated glomerular filtrat ion rate (GFR) non- AmericanOrdered By: Yifan Caldwell on 03-02-2022 GFR/1.73 sq M.predicted among non-blacks MDRD (S/P/Bld) [Vol rate/Area] > 60 mL/Min [facility] Hematocrit Auto (Bld) [Volum e fraction]Ordered By: Yifan Caldwell on 03-02-2022 Hematocrit (Bld) [Volume fraction] 40.3 % 38.8-50.0 [facility] Laboratory - Chemistry and C hemistry - challengeOrdered By: Yifan Caldwell on 03-02-2022 Natriuretic peptide B (Bld) [Mass/Vol] 115.0 pg/mL 5-100 [facility] Laboratory - CoagulationOrde red By: Yifan Caldwell on 03-02-2022 PT Coag (PPP) [Time] 11.5 s 9.0-12.9 [facility] Laboratory - Hematology and Cell countsOrdered By: Yifan Caldwell on 03-02-2022 Nucleated RBC/100 WBC (Bld) [Ratio] 0.0 % 0-0.5 [facility] Lymphocytes Auto (Bld) [#/Vo l]Ordered By: Yifan Caldwell on 03-02-2022 Lymphocytes (Bld) [#/Vol] 0.8 10*3/uL 1.00-4.8 [facility] Lymphocytes/100 WBC Auto (Bl d)Ordered By: Yifan Caldwell on 03-02-2022 Lymphocytes/100 WBC (Bld) 14.3 % [facility] MCH Auto (RBC) [Entitic mass ]Ordered By: Yifan Caldwell on 03-02-2022 MCH (RBC) [Entitic mass] 30.7 pg 27.5-35.2 [facility] MCHC Auto (RBC) [Mass/Vol]Or dered By: Yifan Caldwell on 03-02-2022 MCHC (RBC) [Mass/Vol] 33.7 g/dL 32.5-35.6 [facility] MCV Auto (RBC) [Entitic vol] Ordered By: Yifan Caldwell on 03-02-2022 MCV (RBC) [Entitic vol] 91.0 fL 83.5-101 [facility] Monocytes Auto (Bld) [#/Vol] Ordered By: Yifan Caldwell on 03-02-2022 Monocytes (Bld) [#/Vol] 0.6 10*3/uL 0.0-0.8 [facility] Monocytes/100 WBC Auto (Bld) Ordered By: Yifan Caldwell on 03-02-2022 Monocytes/100 WBC (Bld) 10.8 % [facility] Neutrophils Auto (Bld) [#/Vo l]Ordered By: Yifan Caldwell on 03-02-2022 Neutrophils (Bld) [#/Vol] 3.7 10*3/uL 1.8-7.7 [facility] Neutrophils/100 WBC Auto (Bl d)Ordered By: Yifan Caldwell on 03-02-2022 Neutrophils/100 WBC (Bld) 64.3 % [facility] No Panel InformationOrdered By: Yifan Caldwell on 03-02-2022 Estimated GFR () > 60 mL/Min [facility] Comment on above: GFR estimated refere nce range: According to KDOQI guidelines, <60 ml/min/1.73m2 is sufficient to diagnose a patient with chronic kidney disease. Pharmacy Creatinine Clearance (Chem 64.07 [facility] Platelet mean volume Auto (B ld) [Entitic vol]Ordered By: Yifan Caldwell on 03-02-2022 Platelet mean volume (Bld) [Entitic vol] 8.8 fL 6.6-10.1 [facility] Platelet poor plasma interna tional normalized ratio (INR) by coagulation assay (relatOrdered By: Yifan Caldwell on 03-02-2022 INR Coag (PPP) [Relative time] 1.0 {INR} [facility] Comment on above: INR Therapeutic Rang e A) Pre- and Peroperative OAT started two weeks before surgery. NOT HIP SURGERY: 1.5 - 2.5 HIP SURGERY: 2 - 3 B) Primary and secondary prevention of venous THROMBOSIS: 2 - 3 C) Active venous thrombosis, pulmonary embolism and prevention of recurrent venous thrombosis: 2 - 3 D) Prevention of arterial thromboembolism including patients with mechanical heart valves: 3 - 4.5 Platelets Auto (Bld) [#/Vol] Ordered By: Yifan Caldwell on 03-02-2022 Platelets (Bld) [#/Vol] 186 10*3/uL 150-450 [facility] RBC Auto (Bld) [#/Vol]Ordere d By: Yifan Caldwell on 03-02-2022 RBC (Bld) [#/Vol] 4.43 10*6/uL 3.90-5.60 [facility] Serum or plasma calcium leo urement (mass/volume)Ordered By: Yifan Caldwell on 03-02-2022 Calcium [Mass/Vol] 8.6 mg/dL 8.2-10.2 [facility] Serum or plasma chloride angel surement (moles/volume)Ordered By: Yifan Caldwell on 03-02-2022 Chloride [Moles/Vol] 99 mmol/L 95-114 [facility] Serum or plasma creatine kin ase MB (CKMB)/total creatine kinase (CK) ratio by calculaOrdered By: Yifan Caldwell on 03-02-2022 CK.MB Calc [Catalytic fraction] 2.4 % 0.00-2.50 [facility] Serum or plasma creatine kin ase MB measurement (mass/volume)Ordered By: Yifan Caldwell on 03-02-2022 CK.MB [Mass/Vol] 2.3 ng/mL 0.6-6.3 [facility] Serum or plasma glucose leo urement (mass/volume)Ordered By: Yifan Caldwell on 03-02-2022 Glucose [Mass/Vol] 332 mg/dL 70-100 [facility] Comment on above: ADA recommended refe rence range Random Glucose Reference Range is dependent on time and content of last meal. Glucose of more than 200 mg/dL in a nonstressed, ambulatory subject supports the diagnosis of Diabetes Mellitus. Serum or plasma potassium me asurement (moles/volume)Ordered By: Yifan Caldwell on 03-02-2022 Potassium [Moles/Vol] 4.8 mmol/L 3.5-5.1 [facility] Serum or plasma sodium measu rement (moles/volume)Ordered By: Yifan Caldwell on 03-02-2022 Sodium [Moles/Vol] 131 mmol/L 136-146 [facility] Serum or plasma total carbon dioxide measurement (moles/volume)Ordered By: Yifan Caldwell on 03-02-2022 CO2 [Moles/Vol] 22.1 mmol/L 22.0-30.0 [facility] Serum or plasma urea nitroge n measurement (mass/volume)Ordered By: Yifan Caldwell on 03-02-2022 Urea nitrogen [Mass/Vol] 25 mg/dL 9-23 [facility] Troponin I.cardiac [Mass/vol ume] in Serum or Plasma by High sensitivity methodOrdered By: Yifan Caldwell on 03-02-2022 Troponin I.cardiac High sensitivity method [Mass/Vol] 10 pg/mL 0-20 [facility] Tobacco Screening.on 021 Fall risk assessment a) No falls within the last year -[facility] DO Work Phone: Tobacco use status [facility] b) No -[facility] y 250 DO Work Phone: HOSPon 09-13-2017 HOSP Office Visit OPHT (OPHTLN) KIA MENDEZ ([id number]) 1950 MDate Time Provider Qrjghbvpob21/7/17 11:00 AM LEESA LAI (OD) OPHTLLasha During your visit today, we recorded the following information about you:Leesa Lai OD 09/13/2017 12:16 PM Signed(Z96.1) Presence of intraocular lens (primary encounter diagnosis)Pseudophakia both eyesDoing wellSpectacle RX givenOTC reader power discussedMonitor visionReturn for annual eye examsPatient being treated for a skin rash on antibiotic cream, no rash near eye,does not appear herpeticRea Ron 2016 11:58 AMI have confirmed and edited as necessary the relevant ophthalmic history, ROS,and the neuro exam findings as obtained by others. I have seen and examinedKia Mendez.I have discussed the case and the management of this patient's care with theResident/Fellow, if applicable. I also have reviewed and agree with theassessment and plan as stated above and agree with all of its relevantcomponents.Referri Provider: LEESA LAI (OD) [[id number]]Allergies As of Date: 09/13/2017 Noted Allergy ReactionCODEINE 06/28/2017 9 - ItchingDate Reviewed: 09/13/2017Reviewed by: Leesa (Od) Joelle - Fully AssessedReason for Visit: Post-op (Ophthalmology) Both Eyes [2905]Primary Visit Diagnosis:Presence of intraocular lens [Z96.1]Order(s):IOP MEASUREMENT [[id number]] Order #: [id number]: 1 FUTURE IOP MEASUREMENT [[id number]] Order #: [id number]: 1Prescriptions as of 09/13/2017 Sig: OMEPRAZOLE 40 MG CAPSULE,BELEM* Take 40 mg by mouth once paola* CANAGLIFLOZIN 50 MG-METFORMIN* Take by mouth. ROSUVASTATIN 10 MG TABLET Take 10 mg by mouth once paola* LISINOPRIL 2.5 MG TABLET Take 2.5 mg by mouth once jono* METOPROLOL SUCCINATE ER 25 MG* Take 25 mg by mouth once paola* ASPIRIN 81 MG TABLET,DELAYED * Take 81 mg by mouth once paola*Problem List As Of Date 09/13/2017 Noted Resolved Presbyopia [H52.4] INVALID FOR*08/02/2017 OPENED IN ERROR INVALID FOR* Cataract, nuclear sclerotic senile, left [H25.1*INVALID FOR*08/02/2017 More... Cataract, nuclear sclerotic senile, right [H25.*INVALID FOR*09/13/2017 More... Essential hypertension [I10] INVALID FOR* Other hyperlipidemia [E78.4] INVALID FOR* Uncontrolled type 2 diabetes mellitus without c*INVALID FOR*Medications Discontinued During This Encounter ketorolac (ACULAR) 0.5 % ophthalmic * 1 Emre* 1 06/28/2017 09/13/2017 Route: BOTH EYES Sig: Use 1 Drop in both eyes four times daily. Disc: Course of therapy completed Cosign accepted by SHI JACK[[id number]] on 06/28/2017 3:44 PM prednisoLONE acetate (PRED FORTE, EC* 1 Emre* 1 06/28/2017 09/13/2017 Route: BOTH EYES Sig: Use 1 Drop in both eyes four times daily. Disc: Course of therapy completed Cosign accepted by SHI JACK[[id number]] on 06/28/2017 3:44 PMDisposition: Return in about 1 year (around 09/13/2018).Follow-up and Disposition History RecordedEncounter Number: [id number] Status:Closed by LEESA LAI OD on 09/13/17 Normal [facility] PROGRESSon 09-13-2017 PROGRESS HNO ID: [id number] thor: Leesa (Od) Diegoervice: (none)Author Type: OPTOMETRISTType: Progress NotesFiled: 09/13/2017 12:16 PMNote Text:(Z96.1) Presence of intraocular lens (primary encounter diagnosis)Pseudophakia both eyesDoing wellSpectacle RX givenOTC reader power discussedMonitor visionReturn for annual eye examsPatient being treated for a skin rash on antibiotic cream, no rash neareye, does not appear herpeticNgozihumberto Rea Lai 2016 11:58 AMI have confirmed and edited as necessary the relevant ophthalmic history,ROS, and the neuro exam findings as obtained by others. I have seen andexamined Kia Mendez.I have discussed the case and the management of this patient's care withthe Resident/Fellow, if applicable. I also have reviewed and agree withthe assessment and plan as stated above and agree with all of its relevantcomponents. Normal [facility] HOSPon 08-16-2017 HOSP Office Visit OPHT (OPHTLN) KIA MENDEZ ([id number]) 1950 [facility] Ocjqhbcxgt89/9/17 11:00 AM LEESA LAI (OD) OPHTLLasha During your visit today, we recorded the following information about you:Leesa Lai OD 08/16/2017 12:47 PM Signed(Z96.1) Presence of intraocular lens (primary encounter diagnosis)Post-op week #1 status-post cataract extraction with intraocular lens insertion right eye: Doing well. status-post cataract extraction with intraocular lens insertion left eye:Doing well.The patient was instructed to continue to follow the post-op drop checklist:Use Prednisolone Acetate and ketorolac for a total of 10 days after surgeryand then taper off of it over the next 15 days by decreasing by 1 drop every 5days according to the drop schedule.The patient was reminded to wear the eye shield at night over the operative eyewhile sleeping, refrain from rubbing or touching the eye, wear dark sunglasseswhile outside, not get any water in the eye, not wear any eye makeup (ifapplicable), and refrain from heavy lifting for a total of 10 days after surgeryThe signs and symptoms of a retinal tear/detachment (flashes, floaters, orchange in peripheral vision) were reviewed with the patient as well as thesigns and symptoms of infection (decreased vision, red eye, painful eye, oreyelid swelling). The patient understands to call or return to our officeimmediately if any of these symptoms are present.Return to clinic if signs or symptoms change.Return visit 3 weeks post-op/final refractionBala Ron 2016 12:03 PMI have confirmed and edited as necessary the relevant ophthalmic history, ROS,and the neuro exam findings as obtained by others. I have seen and examinedKia Mendez.I have discussed the case and the management of this patient's care with theResident/Fellow, if applicable. I also have reviewed and agree with theassessment and plan as stated above and agree with all of its relevantcomponents.Referri Provider: SHI JACK V [[id number]]Allergies As of Date: 08/16/2017 Noted Allergy ReactionCODEINE 06/28/2017 9 - ItchingDate Reviewed: 08/16/2017Reviewed by: Leesa (Od) Joelle - Fully AssessedReason for Visit: Post-op (Ophthalmology) Right Eye [2903] Cmt: PCIOL 08/08/17. Aim Swatara. 7-10 day post Post-op (Ophthalmology) Left Eye [2904] Cmt: PCIOL 07/25/17. Aim PlanoPrimary Visit Diagnosis:Presence of intraocular lens [Z96.1]Order(s):IOP MEASUREMENT [[id number]] Order #: [id number]: 1 FUTUREPrescriptions as of 08/16/2017 Sig: OMEPRAZOLE 40 MG CAPSULE,BELEM* Take 40 mg by mouth once paola* CANAGLIFLOZIN 50 MG-METFORMIN* Take by mouth. ROSUVASTATIN 10 MG TABLET Take 10 mg by mouth once paola* LISINOPRIL 2.5 MG TABLET Take 2.5 mg by mouth once jono* METOPROLOL SUCCINATE ER 25 MG* Take 25 mg by mouth once paola* ASPIRIN 81 MG TABLET,DELAYED * Take 81 mg by mouth once paola* KETOROLAC 0.5 % EYE DROPS Use 1 Drop in both eyes four * PREDNISOLONE ACETATE 1 % EYE * Use 1 Drop in both eyes four *Problem List As Of Date 08/16/2017 Noted Resolved Presbyopia [H52.4] INVALID FOR*08/02/2017 OPENED IN ERROR INVALID FOR* Cataract, nuclear sclerotic senile, left [H25.1*INVALID FOR*08/02/2017 More... Cataract, nuclear sclerotic senile, right [H25.*INVALID FOR* More... Essential hypertension [I10] INVALID FOR* Other hyperlipidemia [E78.4] INVALID FOR* Uncontrolled type 2 diabetes mellitus without c*INVALID FOR*Follow-up and Disposition History RecordedEncounter Number: [id number] Status:Closed by LEESA LAI OD on 08/16/17 [facility] PROGRESSon 08-16-2017 PROGRESS HNO ID: [id number] thor: Leesa (Od) Diegoervice: (none)Author Type: OPTOMETRISTType: Progress NotesFiled: 08/16/2017 12:47 PMNote Text:(Z96.1) Presence of intraocular lens (primary encounter diagnosis)Post-op week #1 status-post cataract extraction with intraocular lensinsertion right eye: Doing well. status-post cataract extraction with intraocular lens insertion lefteye: Doing well.The patient was instructed to continue to follow the post-op dropchecklist:Use Prednisolone Acetate and ketorolac for a total of 10 days aftersurgery and then taper off of it over the next 15 days by decreasing by 1drop every 5 days according to the drop schedule.The patient was reminded to wear the eye shield at night over theoperative eye while sleeping, refrain from rubbing or touching the eye,wear dark sunglasses while outside, not get any water in the eye, not wearany eye makeup (if applicable), and refrain from heavy lifting for a totalof 10 days after surgeryThe signs and symptoms of a retinal tear/detachment (flashes, floaters, orchange in peripheral vision) were reviewed with the patient as well as thesigns and symptoms of infection (decreased vision, red eye, painful eye,or eyelid swelling). The patient understands to call or return to ouroffice immediately if any of these symptoms are present.Return to clinic if signs or symptoms change.Return visit 3 weeks post-op/final refractionBala Ron 2016 12:03 PMI have confirmed and edited as necessary the relevant ophthalmic history,ROS, and the neuro exam findings as obtained by others. I have seen andexamined Kia Mendez.I have discussed the case and the management of this patient's care withthe Resident/Fellow, if applicable. I also have reviewed and agree withthe assessment and plan as stated above and agree with all of its relevantcomponents. Normal [facility] 08-09-2017 HOSP Office Visit OPHT (OPHTLN) KIA MENDEZ ([id number]) 1950 MDate Time Provider Effcdiwbop01/2/17 9:30 AM SHI JACK During your visit today, we recorded the following information about you:Ana Martinez, OD 08/09/2017 11:48 AM SignedASSESSMENT/PLAN:1. Pseudophakia of both eyes - ICD9: V43.1, ICD10: Z96.1 (primary diagnosis)Doing well 1 day post-op Right eye and 2 weeks post-op Left eyeStart Pred and Keto Right eye four times a dayContinue taper of drops Left eye asa directedc shield and s H2O x 2 weeksSigns and/or symptoms Retinal detachment Discussed and written2. Diabetes mellitus type 2 without retinopathy (HCC) - ICD9: 250.00, ICD10:E11.9MonitorI have confirmed and edited as necessary the relevant ophthalmic history, ROS,and the exam findings as obtained by others. I have seen and examined thispatient.I have discussed the case and the management of this patient's care with theResident/Fellow, if applicable. I also have reviewed and agree with theassessment and plan as stated above and agree with all of its relevantcomponents.Ana Martinez ODNovember 201611:45 Colton Juan, OD 08/09/2017 11:48 AM SignedSigns and symptoms of infection in the operative eye can include the following: - Increased pain- Increased redness- Increased light sensitivity- A sudden decrease in visionSigns and symptoms of retinal detachment can include the following: - Increasing floaters (spider web like) - Continuous or very bright flashes - Curtain or veil across the vision - Decline in visionPlease call our office if these symptoms occur at . These arepossible signs of infection or retinal detachment and may require immediatemedical attention.Referring Provider: SHI JACK V [[id number]]Allergies As of Date: 08/09/2017 Noted Allergy ReactionCODEINE 06/28/2017 9 - ItchingDate Reviewed: 08/09/2017Reviewed by: Ana Martinez - Fully AssessedReason for Visit: Post-op (Ophthalmology) Right Eye [2903] Cmt: PCIOL 08/08/17. Aim Swatara. 1 day Post-op (Ophthalmology) Left Eye [2904] Cmt: PCIOL 07/25/17. Aim Swatara.Primary Visit Diagnosis:Pseudophakia of both eyes [Z96.1] Other Visit Diagnosis:Diabetes mellitus type 2 without retinopathy (HCC) [E11.9]Order(s):IOP MEASUREMENT [[id number]] Order #: [id number]: 1 IOP MEASUREMENT [[id number]] Order #: [id number]: 1 FUTUREPrescriptions as of 08/09/2017 Sig: OMEPRAZOLE 40 MG CAPSULE,BELEM* Take 40 mg by mouth once paola* CANAGLIFLOZIN 50 MG-METFORMIN* Take by mouth. ROSUVASTATIN 10 MG TABLET Take 10 mg by mouth once paola* LISINOPRIL 2.5 MG TABLET Take 2.5 mg by mouth once jono* METOPROLOL SUCCINATE ER 25 MG* Take 25 mg by mouth once paola* ASPIRIN 81 MG TABLET,DELAYED * Take 81 mg by mouth once paola* KETOROLAC 0.5 % EYE DROPS Use 1 Drop in both eyes four * PREDNISOLONE ACETATE 1 % EYE * Use 1 Drop in both eyes four *Problem List As Of Date 08/09/2017 Noted Resolved Presbyopia [H52.4] INVALID FOR*08/02/2017 OPENED IN ERROR INVALID FOR* Cataract, nuclear sclerotic senile, left [H25.1*INVALID FOR*08/02/2017 More... Cataract, nuclear sclerotic senile, right [H25.*INVALID FOR* More... Essential hypertension [I10] INVALID FOR* Other hyperlipidemia [E78.4] INVALID FOR* Uncontrolled type 2 diabetes mellitus without c*INVALID FOR* Other instructions from your clinician: Signs and symptoms of infection in the operative eye can include the following: - Increased pain - Increased redness - Increased light sensitivity - A sudden decrease in vision Signs and symptoms of retinal detachment can include the following: - Increasing floaters (spider web like) - Continuous or very bright flashes - Curtain or veil across the vision - Decline in vision Please call our office if these symptoms occur at . These are possible signs of infection or retinal detachment and may require immediate medical attention.Follow-up and Disposition History RecordedEncounter Number: [id number] Status:Closed by ANA MARTINEZ OD on 08/09/17 [facility] PROGRESSon 08-09-2017 PROGRESS HNO ID: [id number] thor: Ana Farriservice: (none)Author Type: OPTOMETRISTType: Progress NotesFiled: 08/09/2017 11:48 AMNote Text:ASSESSMENT/PLAN:1. Pseudophakia of both eyes - ICD9: V43.1, ICD10: Z96.1 (primarydiagnosis)Doing well 1 day post-op Right eye and 2 weeks post-op Left eyeStart Pred and Keto Right eye four times a dayContinue taper of drops Left eye asa directedc shield and s H2O x 2 weeksSigns and/or symptoms Retinal detachment Discussed and written2. Diabetes mellitus type 2 without retinopathy (HCC) - ICD9: 250.00,ICD10: E11.9MonitorI have confirmed and edited as necessary the relevant ophthalmic history,ROS, and the exam findings as obtained by others. I have seen and examinedthis patient.I have discussed the case and the management of this patient's care withthe Resident/Fellow, if applicable. I also have reviewed and agree withthe assessment and plan as stated above and agree with all of its relevantcomponents.Ana Bala Martinez 201611:45 AM [facility] ANES Jacinda 08-08-2017 ANES POST HNO ID: [id number] thor: Desmond Murrietaice: AnesthesiologyAuthor Type: AnesthesiologistType: Anesthesia PostOpFiled: 08/08/2017 8:51 AMNote Text:POST ANESTHESIA EVALUATION NOTESERVICE DATE: 08/08/2017SERVICE TIME: 8:51 AMDOB: 1950Vitals: Temp: 36.2 ?C (97.2 ?F) 08/08/1708BP: 152/75 136/71 08/08/1708Pulse: (!) 59 60 08/08/1708Resp: 18 16 08/08/1708SpO2: 96% 96%Validated Vital Signs: YesPOST ANES STATUS: No apparent anesthetic complications. The patient isappropriately hydrated with stable respiratory and cardiovascular status.Patient has safe and adequate airway control. The patient has appropriatepain relief and no significant post operative nausea or vomiting. Thepatient has achieved baseline mental status.Further assessment by Anesthesia Service: NoneOther Remarks:SIGNATURE: Desmond Sorenson MD PATIENT NAME: Kia Schwarz: August 08, 2017 : 8:51 AM PAGER/CONTACT #: [facility] ANES PREOPon 08-08-2017 ANES PREOP HNO ID: [id number] thor: Desmond Murrietaice: AnesthesiologyAuthor Type: AnesthesiologistType: Anesthesia PreOpFiled: 08/08/2017 7:34 AMNote Text: ANESTHESIOLOGY DAY OF SURGERY NOTESERVICE DATE: 08/08/2017SERVICE TIME: 7:33 AMDOB: 1950Procedure(s) (LRB):PHACOEMULSIFICATION CATARACT IMPLANT INTRAOCULAR LENS (Right)OPHTHALMIC BIOMETRY BY PARTIAL COHERENCE INTERFEROMETRY W/INTRAOCULAR LENSPOWER CALCULATION (Right)Surgeon(s):Edi Granados body mass index is 28.7 kg/(m2) as calculated from thefollowing: Height as of 07/16/17: 177.8 cm (5' 10 ). Weight as of 07/16/17: 90.7 kg (200 lb).Most recent hematocrit and potassium results:No results found for this basename: HCT,HEMATOCRIT,K,POTASSIUM ANES DOS/PREOP NOTE:Vitals: 412571CX: 152/75Pulse: (!) 59Resp: 18Temp: 36.2 ?C (97.2 ?F)TempSrc: Temporal ArterySpO2: 96%ACTIVE PROBLEM LISTOpened in ErrorCataract, Nuclear Sclerotic Senile, RightEssential HypertensionOther HyperlipidemiaUncontrolled Type 2 Diabetes Mellitus Without Complication, WithoutLong-Term Current Use of Insulin (Hcc)PAST MEDICAL HISTORYDiagnosis Date- CAD (coronary artery disease)- GERD (gastroesophageal reflux disease)- HLD (hyperlipidemia)- HTN (hypertension)- Pseudophakia of left eye- Type 2 diabetes mellitus (HCC)PAST SURGICAL HISTORYProcedure Laterality Date- CC PTCA STENT 01/07/2016- PAST SURGICAL HISTORY OF surgery on right calf for stitches,- PAST SURGICAL HISTORY OF Melanoma removed- PAST SURGICAL HISTORY OF 07/2017 melanoma on head- REMV CATARACT EXTRACAP,INSERT LENS Left 07/25/2017 Cataract Extraction with PC IOLFAMILY HISTORYProblem Relation Age of Onset- Heart Father- No Ocular Disease Father- No Ocular Disease MotherSocial History:Social HistorySubstance Use Topics- Smoking status: Never Smoker- Smokeless tobacco: Never Used- Alcohol use NoNo current facility-administered medications on file prior to encounter.Current Outpatient Prescriptions on File Prior to Encounter:rosuvastatin (CRESTOR) 10 mg tablet Take 10 mg by mouth once daily.lisinopril 2.5 mg tablet Take 2.5 mg by mouth once daily.metoprolol succinate ER (TOPROL XL) 25 mg 24 hr tablet Take 25 mg by mouthonce daily.aspirin, enteric coated (ASPIRIN, ENTERIC COATED) 81 mg EC tablet Take 81mg by mouth once daily.ketorolac (ACULAR) 0.5 % ophthalmic solution Use 1 Drop in both eyes fourtimes daily.prednisoLONE acetate (PRED FORTE, ECONOPRED PLUS) 1 % ophthalmicsuspension Use 1 Drop in both eyes four times daily.Current Facility-Administered Medications:NaCl 0.9% iv infusion 30 mL/hr INTRAVENOUS CONTINUOUS Shi Jack V LastRate: 30 mL/hr at 08/08/17 0730 30 mL/hr at 08/08/17 0730[START ON 08/09/2017] lidocaine 2 % (XYLOCAINE) OTHER [employer] to OR Vc Terrellyclopentolate 1 % 1 Drop (CYCLOGYL) 1 Drop RIGHT EYE Pre-Op PRN Viviane Tejadagirodger:ALLERGIESAllerg en Reactions- Codeine ItchingDOS EXAM: Adequate NPO Status: YesAnesthetic Risks, Benefits, Alternatives, Personnel and Consent Discussed:YesPatient agrees to proceed: YesPrevious Anesthesia: No history of adverse eventAirway Assessment: MP 2; Neck ROM: Full ROM without neurologic symptoms;Airway Evaluation: No significant abnormalitiesSymptoms of Sleep Apnea: Hypertension, Age over 50 (67 year old) and MalegenderDentition: Teeth intactAdditional Physical Exam:Lungs: Patient health status unchanged since recent history and physical.See history and physical for exam findings.Cardiac: Patient health status unchanged since recent history andphysical. See history and physical for exam findings.Additional Pertinent Findings: N/ABlood Products: Not anticipated for this procedureAnesthetic Plan: MAC with general as back upAnesthetic Monitoring: Standard ASA MonitorsPain Management Plan: Parenteral or OralASA Class: 4Other Medical Problems: NoneChronic Beta Nicolas medication administered within 24 hours: Benita have interviewed and examined the patient. I have reviewed the medicalrecord and/or the pre-anesthesia evaluation, pertinent labs, and testresults.Significant changes in the patient's condition since the History andPhysical, not otherwise documented in primary service progress notes: NoThis contains updated information obtained within 48 hours ofSurgery/Procedure.SIGNAT URE: Desmond Sorenson MD PATIENT NAME: Kia SalmondDATE: August 08, 2017 : 7:33 AM CSN: [id number] Normal [facility] NURSING PROGon 08-08-2017 NURSING PROG HNO ID: [id number] Author: Shi Anders (Rn) JENN Lebron Service: Nursing Author Type: Registered Nurse Type: Nursing Progress Note Filed: 08/08/2017 12:59 PM Note Text: Patient doing well and resting comfortably at home Normal [facility] OPERATIVE NOon 08-08-2017 OPERATIVE NO HNO ID: [id number] thor: ISAURA Granadoservice: OphthalmologyAuthor Type: PhysicianType: Operative ReportFiled: 08/08/2017 8:48 AMNote Text:OPERATIVE REPORTDATE OF SERVICE: August 08, 2017PRIMARY SURGEON: Shi Jack M.D.GLUE SPREADER: NoneOPERATION: Phacoemulsification of cataract, insertion of posterior chamberintraocular lens implant, right eye.ANESTHESIA: Topical with monitored anesthesia care.PREOPERATIVE DIAGNOSIS: Age-related cataractPOSTOPERATIVE DIAGNOSIS: Age-related cataractOPERATIVE INDICATIONS: BAT 20/80OPERATIVE PROCEDURE: The patient was admitted to the operating suite wherean IV and BP, EKG, and O2 monitors were placed. Nasal oxygen wasadministered. The operative eye was confirmed, marked, then pretreatedwith 2.5% tropicamide, 1% phenylephrine, and ciprofloxacin eye drops. Withthe patient in the supine position, topical lidocaine gel 2% was placed ej small ribbon in the lower cul-de-sac. The patient was then prepped anddraped in the usual sterile fashion for intraocular surgery. After atime-out confirming correct patient, correct eye, correct operation,presence of allergies, and correct implant, an eyelid speculum was placed.Under the operating microscope a beveled clear corneal incision wascreated temporally with a Ringgold blade then a 2.4 mm keratome. Theanterior chamber was reformed with Viscoat, after which the anteriorcapsule was opened centrally. Using the Utrata forceps a continuouscurvilinear capsulorrhexis of approximately 5.5 mm round was created.Gentle hydrodissection was accomplished using preservative-free lidocaineon a 27-gauge cannula. Using the Iftikhar phacoemulsification unit with theKelman curved tip, the anterior chamber was entered and the nucleus wasremoved while it was in the bag. The epinuclear ring was dissected intoseveral segments, then removed using the phacoemulsification unit set tothe desired aspiration flow rate and ultrasound parameters. It wasnecessary to use chopper forceps at various intervals to aid in thefragmentation of the dense lens material. Great care was taken not toviolate the posterior capsule. The silicone-tipped I and A instrument wasused to remove the cortex and buff off any remaining cataractous materialfrom the posterior capsule. The capsular bag was then reformed withDiscovisc and an Iftikhar SN60WF 18.0 diopter intraocular lens was insertedthrough the lips of the wound into the capsular bag. Using the I and Ainstrument, the Discovisc was removed from the anterior chamber andcapsular bag, and the implant was centered. Cefuroxime 1mg in 0.1 mLnormal saline was introduced into the anterior chamber through the clearcorneal incision using a 30 gauge cannula. The wound was checked andfound to be watertight. At the end of the procedure, the cornea was clear,the anterior chamber was deep and clear, the pupil was round, the implantwas centered within the capsular bag, and the posterior capsule wasintact. The eyelid speculum was removed and timolol and Maxitrol eye dropswere administered. A shield was affixed over the eye and the patient wassent to the recovery room, leaving the operating room in excellentcondition.ESTIMAT ED BLOOD LOSS: <1mLSPECIMEN: NoneFINDINGS: Age-related cataractCOMPLICATIONS: NoneIncision/Procedure Start Time: 8:38 AMIncision Close/Procedure End Time: 8:47 Gina JACK MD [facility] PT EDon 08-08-2017 PT ED HNO ID: [id number] thor: Marleen (Rn) DELMAR Umanzorervice: (none)Author Type: Registered NurseType: Patient EducationFiled: 08/08/2017 8:54 AMNote Text:[facility] PATIENT EDUCATION NOTEREADINESS TO LEARNCOGNITIVE ABILITY: Alert and orientedMOTIVATION TO LEARN: InterestedFAMILY SUPPORT: High - Very involved in pt careINSTRUCTION PROVIDED TO: Patient and family memberPATIENT LEARNS BEST BY: Multiple MethodsFACTORS AFFECTING LEARNING: NonePHYSICAL LIMITATIONS AFFECTING LEARNING: NoneLEARNING RESPONSEDIAGNOSIS: cataract odEDUCATION TOPIC/TEACHING POINTS: phaco iol odMETHOD OF INSTRUCTION: Written instruction - handoutsVerbal instructionPATIENT / FAMILY RESPONSE: Verbalizes understanding of: INCISIONCARE/DRESSING CAREINFECTION MANAGEMENT-Signs and symptoms of an infection and importance ofcontacting the physicianMEDICAL REGIMEN-Importance of following prescribed medical regimenPAIN MANAGEMENT-Effective strategies to manage pain in addition to painmedicationPROCEDURE PRECAUTIONSWORSENING CONDITIONDISCHARGE INSTRUCTIONS: PROCEDURE SPECIFICFOLLOW-UP PLAN: Follow up phone call.REFERRAL (RECOMMENDATION): NonePatient Education completed by another RN: Yes: Aditi StricklandElectronissa Signed By Marleen Umanzor RN In Department: AMBULATORYSURGERY Normal [facility] [place] 08-02-2017 HOSP Office Visit OPHT (OPHTLN) KIA MENDEZ ([id number]) 1950 [facility] Tmrhxgbafl64/26/17 11:00 AM LEESA LAI (OD) OPHTLLasha During your visit today, we recorded the following information about you:Leesa Lai, OD 08/02/2017 11:34 AM Signed(Z96.1) Presence of intraocular lens (primary encounter diagnosis)(H25.11) Cataract, nuclear sclerotic senile, rightPost-op week #1 status-post cataract extraction with intraocular lens insertion left eye: Doing well. The patient was instructed to continue to follow the post-op drop checklist:Use Prednisolone Acetate and ketorolac for a total of 10 days after surgery andthen taper off of it over the next 15 days by decreasing by 1 drop every 5 daysaccording to the drop schedule.The patient was reminded to wear the eye shield at night over the operative eyewhile sleeping, refrain from rubbing or touching the eye, wear dark sunglasseswhile outside, not get any water in the eye, not wear any eye makeup (ifapplicable), and refrain from heavy lifting for a total of 10 days after surgeryThe signs and symptoms of a retinal tear/detachment (flashes, floaters, orchange in peripheral vision) were reviewed with the patient as well as thesigns and symptoms of infection (decreased vision, red eye, painful eye, oreyelid swelling). The patient understands to call or return to our officeimmediately if any of these symptoms are present.Return to clinic if signs or symptoms change.Patient scheduled for cataract surgery Right eye eugenia Lai ODOctober 2016 11:33 AMI have confirmed and edited as necessary the relevant ophthalmic history, ROS,and the neuro exam findings as obtained by others. I have seen and examinedKia Mendez.I have discussed the case and the management of this patient's care with theResident/Fellow, if applicable. I also have reviewed and agree with theassessment and plan as stated above and agree with all of its relevantcomponents.Referri Provider: SHI JACK V [[id number]]Allergies As of Date: 08/02/2017 Noted Allergy ReactionCODEINE 06/28/2017 9 - ItchingDate Reviewed: 08/02/2017Reviewed by: Leesa Lai - Fully AssessedReason for Visit: Post-op (Ophthalmology) Left Eye [2904]Primary Visit Diagnosis:Presence of intraocular lens [Z96.1] Other Visit Diagnosis:Cataract, nuclear sclerotic senile, right [H25.11]Order(s):IOP MEASUREMENT [[id number]] Order #: [id number]: 1 FUTURE IOP MEASUREMENT [[id number]] Order #: [id number]: 1Prescriptions as of 08/02/2017 Sig: OMEPRAZOLE 40 MG CAPSULE,BELEM* Take 40 mg by mouth once paola* CANAGLIFLOZIN 50 MG-METFORMIN* Take by mouth. ROSUVASTATIN 10 MG TABLET Take 10 mg by mouth once paola* LISINOPRIL 2.5 MG TABLET Take 2.5 mg by mouth once jono* METOPROLOL SUCCINATE ER 25 MG* Take 25 mg by mouth once paola* ASPIRIN 81 MG TABLET,DELAYED * Take 81 mg by mouth once paola* KETOROLAC 0.5 % EYE DROPS Use 1 Drop in both eyes four * PREDNISOLONE ACETATE 1 % EYE * Use 1 Drop in both eyes four *Problem List As Of Date 08/02/2017 Noted Resolved Presbyopia [H52.4] INVALID FOR*08/02/2017 OPENED IN ERROR INVALID FOR* Cataract, nuclear sclerotic senile, left [H25.1*INVALID FOR*08/02/2017 More... Cataract, nuclear sclerotic senile, right [H25.*INVALID FOR* More... Essential hypertension [I10] INVALID FOR* Other hyperlipidemia [E78.4] INVALID FOR* Uncontrolled type 2 diabetes mellitus without c*INVALID FOR*Follow-up and Disposition History RecordedEncounter Number: [id number] Status:Closed by LEESA LAI OD on 08/02/17 Normal [facility] PROGRESSon 08-02-2017 PROGRESS HNO ID: [id number] thor: Leesa (Od) Diegoervice: (none)Author Type: OPTOMETRISTType: Progress NotesFiled: 08/02/2017 11:34 AMNote Text:(Z96.1) Presence of intraocular lens (primary encounter diagnosis)(H25.11) Cataract, nuclear sclerotic senile, rightPost-op week #1 status-post cataract extraction with intraocular lensinsertion left eye: Doing well. The patient was instructed to continue to follow the post-op dropchecklist:Use Prednisolone Acetate and ketorolac for a total of 10 days aftersurgery and then taper off of it over the next 15 days by decreasing by 1drop every 5 days according to the drop schedule.The patient was reminded to wear the eye shield at night over theoperative eye while sleeping, refrain from rubbing or touching the eye,wear dark sunglasses while outside, not get any water in the eye, not wearany eye makeup (if applicable), and refrain from heavy lifting for a totalof 10 days after surgeryThe signs and symptoms of a retinal tear/detachment (flashes, floaters, orchange in peripheral vision) were reviewed with the patient as well as thesigns and symptoms of infection (decreased vision, red eye, painful eye,or eyelid swelling). The patient understands to call or return to ouroffice immediately if any of these symptoms are present.Return to clinic if signs or symptoms change.Patient scheduled for cataract surgery Right eye aim Jalil Lai ODOctober 2016 11:33 AMI have confirmed and edited as necessary the relevant ophthalmic history,ROS, and the neuro exam findings as obtained by others. I have seen andexamined Kia Mendez.I have discussed the case and the management of this patient's care withthe Resident/Fellow, if applicable. I also have reviewed and agree withthe assessment and plan as stated above and agree with all of its relevantcomponents. Normal [facility] [place] 07-26-2017 HOSP Office Visit OPHT (OPHTLN) VANESSAKIA Funk ([id number]) 1950 MDate Time Provider Cfbnkhjume86/19/17 9:00 AM SHI JACK V OPHTLN During your visit today, we recorded the following information about you:Radha Phelps, OD 07/26/2017 9:25 AM SignedPost-op day #1 status-post cataract extraction with intraocular lens insertion, left eye. Doing well. Aim plano.Written instructions detailing the following given:Prednisolone Acetate 1% 1 drop four times a dayKetorolac 1 drop four times a day- Eye shield at bedtime for 1 week- Signs and symptoms of retinal detachment and infection reviewed- Follow up in 7-10 days as scheduledI have interviewed and examined Kia Mendez. I have confirmed and edited asnecessary the chief complaint, history of present illness, past medicalhistory, medications, family history, social history, review of systems, andexam findings as obtained by others. I agree with the assessment and plan asstated above.Radha Phelps, ODOctober 2016 9:18 AMReferring Provider: SHI JACK V [[id number]]Allergies As of Date: 07/26/2017 Noted Allergy ReactionCODEINE 06/28/2017 9 - ItchingDate Reviewed: 07/26/2017Reviewed by: Radha Phelps - Fully AssessedReason for Visit: Post-op (Ophthalmology) Left Eye [5074] Cmt: s/p PEIOL OS; PEIOL OD scheduled for 08/08/17.Reason For Visit History RecordedPrimary Visit Diagnosis:S/P cataract extraction and insertion of intraocular lens, left [Z98.42, Z96.1]Order(s):IOP MEASUREMENT [[id number]] Order #: [id number]: 1Prescriptions as of 07/26/2017 Sig: OMEPRAZOLE 40 MG CAPSULE,BELEM* Take 40 mg by mouth once paola* CANAGLIFLOZIN 50 MG-METFORMIN* Take by mouth. ROSUVASTATIN 10 MG TABLET Take 10 mg by mouth once paola* LISINOPRIL 2.5 MG TABLET Take 2.5 mg by mouth once jono* METOPROLOL SUCCINATE ER 25 MG* Take 25 mg by mouth once paola* ASPIRIN 81 MG TABLET,DELAYED * Take 81 mg by mouth once paola* KETOROLAC 0.5 % EYE DROPS Use 1 Drop in both eyes four * PREDNISOLONE ACETATE 1 % EYE * Use 1 Drop in both eyes four *Problem List As Of Date 07/26/2017 Noted Resolved Presbyopia [H52.4] INVALID FOR* OPENED IN ERROR INVALID FOR* Cataract, nuclear sclerotic senile, left [H25.1*INVALID FOR* More... Cataract, nuclear sclerotic senile, right [H25.*INVALID FOR* More... Essential hypertension [I10] INVALID FOR* Other hyperlipidemia [E78.4] INVALID FOR* Uncontrolled type 2 diabetes mellitus without c*INVALID FOR* Status:Closed by RADHA PHELPS OD on 07/26/17 [facility] PROGRESSon 07-26-2017 PROGRESS HNO ID: [id number] thor: Radha Ornelas: (none)Author Type: OPTOMETRISTType: Progress NotesFiled: 07/26/2017 9:25 AMNote Text:Post-op day #1 status-post cataract extraction with intraocular lensinsertion, left eye. Doing well. Aim plano.Written instructions detailing the following given:Prednisolone Acetate 1% 1 drop four times a dayKetorolac 1 drop four times a day- Eye shield at bedtime for 1 week- Signs and symptoms of retinal detachment and infection reviewed- Follow up in 7-10 days as scheduledI have interviewed and examined Kia Mendez. I have confirmed andedited as necessary the chief complaint, history of present illness, pastmedical history, medications, family history, social history, review ofsystems, and exam findings as obtained by others. I agree with theassessment and plan as stated above.Radha Lewis JoshuaCALOctpablo 2016 9:18 AM [facility] ANES Jacinda 07-25-2017 ANES POST HNO ID: [id number] thor: Jon Valente: AnesthesiologyAuthor Type: PhysicianType: Anesthesia PostOpFiled: 07/25/2017 8:50 AMNote Text:POST ANESTHESIA EVALUATION NOTESERVICE DATE: 07/25/2017 TIME: 08:50DOB: 1950Vitals: Temp: 36.3 ?C (97.4 ?F) 07/25/1708BP: 189/83 167/79 07/25/1708Pulse: 61 (!) 56 07/25/1708Resp: 18 16 07/25/1708SpO2: 96% 96%Validated Vital Signs: YesPOST ANES STATUS: No apparent anesthetic complications. The patient isappropriately hydrated with stable respiratory and cardiovascular status.Patient has safe and adequate airway control. The patient has appropriatepain relief and no significant post operative nausea or vomiting. Thepatient has achieved baseline mental status.Further assessment by Anesthesia Service: NoneOther Remarks:SIGNATURE: Jon Reynolds MD PATIENT NAME: Kia TrimbleATE: July 25, 2017 : 8:50 AM PAGER/CONTACT #: [facility] ANES PREOPon 07-25-2017 ANES PREOP HNO ID: [id number] thor: Jon Valente: AnesthesiologyAuthor Type: PhysicianType: Anesthesia PreOpFiled: 07/25/2017 7:49 AMNote Text: ANESTHESIOLOGY DAY OF SURGERY NOTESERVICE DATE: 07/25/2017SER TIME: 07:47DOB: 1950Procedure(s) (LRB):PHACOEMULSIFICATION CATARACT IMPLANT INTRAOCULAR LENS (Left)OPHTHALMIC BIOMETRY BY PARTIAL COHERENCE INTERFEROMETRY W/INTRAOCULAR LENSPOWER CALCULATION (Left)Surgeon(s):Edi Granados body mass index is 28.7 kg/(m2) as calculated from thefollowing: Height as of 07/16/17: 177.8 cm (5' 10 ). Weight as of 07/16/17: 90.7 kg (200 lb).Most recent hematocrit and potassium results:No results found for this basename: HCT,HEMATOCRIT,K,POTASSIUM ANES DOS/PREOP NOTE:Vitals: 07/25/729753PF: 189/83Pulse: 61Resp: 18Temp: 36.3 ?C (97.4 ?F)TempSrc: Temporal ArterySpO2: 96%ACTIVE PROBLEM LISTPresbyopiaOpened in ErrorCataract, Nuclear Sclerotic Senile, LeftCataract, Nuclear Sclerotic Senile, RightEssential HypertensionOther HyperlipidemiaUncontrolled Type 2 Diabetes Mellitus Without Complication, WithoutLong-Term Current Use of Insulin (Hcc)PAST MEDICAL HISTORYDiagnosis Date- CAD (coronary artery disease)- GERD (gastroesophageal reflux disease)- HLD (hyperlipidemia)- HTN (hypertension)- Type 2 diabetes mellitus (HCC)PAST SURGICAL HISTORYProcedure Laterality Date- CC PTCA STENT 01/07/2016- PAST SURGICAL HISTORY OF surgery on right calf for stitches,- PAST SURGICAL HISTORY OF Melanoma removed- PAST SURGICAL HISTORY OF 07/2017 melanoma on headFAMILY HISTORYProblem Relation Age of Onset- Heart FatherSocial History:Social HistorySubstance Use Topics- Smoking status: Never Smoker- Smokeless tobacco: Never Used- Alcohol use NoNo current facility-administered medications on file prior to encounter.Current Outpatient Prescriptions on File Prior to Encounter:rosuvastatin (CRESTOR) 10 mg tablet Take 10 mg by mouth once daily.lisinopril 2.5 mg tablet Take 2.5 mg by mouth once daily.metoprolol succinate ER (TOPROL XL) 25 mg 24 hr tablet Take 25 mg by mouthonce daily.aspirin, enteric coated (ASPIRIN, ENTERIC COATED) 81 mg EC tablet Take 81mg by mouth once daily.ketorolac (ACULAR) 0.5 % ophthalmic solution Use 1 Drop in both eyes fourtimes daily.prednisoLONE acetate (PRED FORTE, ECONOPRED PLUS) 1 % ophthalmicsuspension Use 1 Drop in both eyes four times daily.Current Facility-Administered Medications:NaCl 0.9% iv infusion 30 mL/hr INTRAVENOUS CONTINUOUS Shi Jack V LastRate: 30 mL/hr at 07/25/17 0730 30 mL/hr at 07/25/17 0730[START ON 07/26/2017] lidocaine 2 % (XYLOCAINE) OTHER [employer] to OR Vc Terrellyclopentolate 1 % 1 Drop (CYCLOGYL) 1 Drop LEFT EYE Pre-Op PRN Viviane Tejadagirodger:ALLERGIESAllerg en Reactions- Codeine ItchingDOS EXAM: Adequate NPO Status: YesAnesthetic Risks, Benefits, Alternatives, Personnel and Consent Discussed:YesPatient agrees to proceed: YesPrevious Anesthesia: No history of adverse eventAirway Assessment: MP 2; Neck ROM: Full ROM without neurologic symptoms;Airway Evaluation: No significant abnormalitiesDentition: Teeth intactAdditional Physical Exam:Lungs: Patient health status unchanged since recent history and physical.See history and physical for exam findings.Cardiac: Patient health status unchanged since recent history andphysical. See history and physical for exam findings.Additional Pertinent Findings: N/ABlood Products: Not anticipated for this procedureAnesthetic Plan: MAC with general as back upAnesthetic Monitoring: Standard ASA MonitorsPain Management Plan: Parenteral or OralASA Class: 3Other Medical Problems: NoneChronic Beta Nicolas medication administered within 24 hours: N/AI have interviewed and examined the patient. I have reviewed the medicalrecord and/or the pre-anesthesia evaluation, pertinent labs, and testresults.Significant changes in the patient's condition since the History andPhysical, not otherwise documented in primary service progress notes: NoTsaint j[facility] contains updated information obtained within 48 hours ofSurgery/Procedure.SIGNAT URE: Jon Reynolds MD PATIENT NAME: Kia Schwarz: July 25, 2017 : 7:48 AM CSN: [id number] [facility] NURSING PROGon 07-25-2017 NURSING PROG HNO ID: [id number] Author: Madeline (Rn) JENN Qureshi Service: (none) Author Type: Registered Nurse Type: Nursing Progress Note Filed: 07/25/2017 1:49 PM Note Text: Called and spoke with patient he is resting comfortably at home. Normal [facility] OPERATIVE NOon 07-25-2017 OPERATIVE NO HNO ID: [id number] thor: ISAURA Granadoservice: OphthalmologyAuthor Type: PhysicianType: Operative ReportFiled: 07/25/2017 8:40 AMNote Text:OPERATIVE REPORTDATE OF SERVICE: July 25, 2017PRIMARY SURGEON: Shi Jack M.D.GLUE SPREADER: NoneOPERATION: Phacoemulsification of cataract, insertion of posterior chamberintraocular lens implant, left eye.ANESTHESIA: Topical with monitored anesthesia care.PREOPERATIVE DIAGNOSIS: Age-related cataractPOSTOPERATIVE DIAGNOSIS: Age-related cataractOPERATIVE INDICATIONS: BAT 20/60OPERATIVE PROCEDURE: The patient was admitted to the operating suite wherean IV and BP, EKG, and O2 monitors were placed. Nasal oxygen wasadministered. The operative eye was confirmed, marked, then pretreatedwith 2.5% tropicamide, 1% phenylephrine, and ciprofloxacin eye drops. Withthe patient in the supine position, topical lidocaine gel 2% was placed ej small ribbon in the lower cul-de-sac. The patient was then prepped anddraped in the usual sterile fashion for intraocular surgery. After atime-out confirming correct patient, correct eye, correct operation,presence of allergies, and correct implant, an eyelid speculum was placed.Under the operating microscope a beveled clear corneal incision wascreated temporally with a Ringgold blade then a 2.4 mm keratome. Theanterior chamber was reformed with Viscoat, after which the anteriorcapsule was opened centrally. Using the Utrata forceps a continuouscurvilinear capsulorrhexis of approximately 5.5 mm round was created.Gentle hydrodissection was accomplished using preservative-free lidocaineon a 27-gauge cannula. Using the Iftikhar phacoemulsification unit with theKelman curved tip, the anterior chamber was entered and the nucleus wasremoved while it was in the bag. The epinuclear ring was dissected intoseveral segments, then removed using the phacoemulsification unit set tothe desired aspiration flow rate and ultrasound parameters. It wasnecessary to use chopper forceps at various intervals to aid in thefragmentation of the dense lens material. Great care was taken not toviolate the posterior capsule. The silicone-tipped I and A instrument wasused to remove the cortex and buff off any remaining cataractous materialfrom the posterior capsule. The capsular bag was then reformed withDiscovisc and an Iftikhar SN60WF 18.5 diopter intraocular lens was insertedthrough the lips of the wound into the capsular bag. Using the I and Ainstrument, the Discovisc was removed from the anterior chamber andcapsular bag, and the implant was centered. Cefuroxime 1mg in 0.1 mLnormal saline was introduced into the anterior chamber through the clearcorneal incision using a 30 gauge cannula. The wound was checked andfound to be watertight. At the end of the procedure, the cornea was clear,the anterior chamber was deep and clear, the pupil was round, the implantwas centered within the capsular bag, and the posterior capsule wasintact. The eyelid speculum was removed and timolol and Maxitrol eye dropswere administered. A shield was affixed over the eye and the patient wassent to the recovery room, leaving the operating room in excellentcondition.ESTIMAT ED BLOOD LOSS: <1mLSPECIMEN: NoneFINDINGS: Age-related cataractCOMPLICATIONS: NoneIncision/Procedure Start Time: 8:30 AMIncision Close/Procedure End Time: 8:37 Gina JACK MD [facility] PT EDon 07-25-2017 PT ED HNO ID: [id number] thor: Marleen (Rn) DELMAR Umanzorervice: (none)Author Type: Registered NurseType: Patient EducationFiled: 07/25/2017 8:55 AMNote Text:[facility] PATIENT EDUCATION NOTEREADINESS TO LEARNCOGNITIVE ABILITY: Alert and orientedMOTIVATION TO LEARN: InterestedFAMILY SUPPORT: High - Very involved in pt careINSTRUCTION PROVIDED TO: Patient and family memberPATIENT LEARNS BEST BY: Multiple MethodsFACTORS AFFECTING LEARNING: NonePHYSICAL LIMITATIONS AFFECTING LEARNING: NoneLEARNING RESPONSEDIAGNOSIS: cataract osEDUCATION TOPIC/TEACHING POINTS: phaco iol osMETHOD OF INSTRUCTION: Written instruction - handoutsVerbal instructionPATIENT / FAMILY RESPONSE: Verbalizes understanding of: INCISIONCARE/DRESSING CAREINFECTION MANAGEMENT-Signs and symptoms of an infection and importance ofcontacting the physicianMEDICAL REGIMEN-Importance of following prescribed medical regimenPAIN MANAGEMENT-Effective strategies to manage pain in addition to painmedicationPROCEDURE PRECAUTIONSWORSENING CONDITIONDISCHARGE INSTRUCTIONS: PROCEDURE SPECIFICFOLLOW-UP PLAN: Follow up phone call.REFERRAL (RECOMMENDATION): NonePatient Education completed by another RN: Yes: Katelin EllisonElectronically Signed By Marleen Umanzor RN In Department: AMBULATORYSURGERY Normal [facility] HISTORY PHYSICALon HISTORY PHYSICAL HNO ID: [id number] thor: Shelley Lewis ([facility]) SheppardService: (none)Author Type: Nurse PractitionerType: HANDPFiled: 07/16/2017 9:27 AMNote Text:HISTORY AND PHYSICAL EXAMINATIONSERVICE DATE: 07/16/2017SERVICE TIME: 9:11 [facility] CARE PHYSICIAN: DENISE Johnson IIEASON FOR VISIT:Kia Mendez is a 67 year old male who is scheduled for PACC at [facility] of Dr. Shi Jack V for consultation. My final recommendationwill be communicated back to the requesting physician by way of sharedmedical record or letter.The patient has the following:ACTIVE PROBLEM LISTPresbyopiaOpened in ErrorCataract, Nuclear Sclerotic Senile, LeftCataract, Nuclear Sclerotic Senile, RightEssential HypertensionOther HyperlipidemiaUncontrolled Type 2 Diabetes Mellitus Without Complication, WithoutLong-Term Current Use of Insulin (Hcc)SUBJECTIVECHIEF COMPLAINT: Bilateral change of visionHPI: 57 year old female with bilateral change of vision for 2 months.Patient states decreased vision,difficulty with reading,floaters,glare.Has a little difficulty reading small print with his glasses. ?Patient states the glare off head lights at night. Has long standingfloaters in his left eye, no flashes. Patient denies any pain.PAST MEDICAL HISTORYDiagnosis Date- CAD (coronary artery disease)- GERD (gastroesophageal reflux disease)- HLD (hyperlipidemia)- HTN (hypertension)- Type 2 diabetes mellitus (HCC)PAST SURGICAL HISTORYProcedure Laterality Date- CC PTCA STENT 01/07/2016- PAST SURGICAL HISTORY OF surgery on right calf for stitches,- PAST SURGICAL HISTORY OF Melanoma removed- PAST SURGICAL HISTORY OF 07/2017 melanoma on headFAMILY HISTORYProblem Relation Age of Onset- Heart FatherSOCIAL HISTORY:Social History Marital status: Spouse name: Years of education: Number of children:Social History Main Topics Smoking status: Never Smoker Smokeless status: Never Used Alcohol use: No Drug use: NoMEDICATIONS:Prior to Admission medications as of 07/16/17 0908Medication Sig Last Dose TakingOmeprazole 40 mg capsule Take 40 mg by mouth once daily. Yescanagliflozin-metformin (INVOKAMET) 50-1,000 mg tab Take by mouth. Yesrosuvastatin (CRESTOR) 10 mg tablet Take 10 mg by mouth once daily. Yeslisinopril 2.5 mg tablet Take 2.5 mg by mouth once daily. Yesmetoprolol succinate ER (TOPROL XL) 25 mg 24 hr tablet Take 25 mg by mouthonce daily. Yesaspirin, enteric coated (ASPIRIN, ENTERIC COATED) 81 mg EC tablet Take 81mg by mouth once daily. Yesketorolac (ACULAR) 0.5 % ophthalmic solution Use 1 Drop in both eyes fourtimes daily. YesprednisoLONE acetate (PRED FORTE, ECONOPRED PLUS) 1 % ophthalmicsuspension Use 1 Drop in both eyes four times daily. YesNo medication comments found.CURRENT ALLERGIES:ALLERGIESAllerge n Reactions- Codeine ItchingREVIEW OF SYSTEMS:PAIN ASSESSMENT:General: No weight loss, malaise or fevers.Neuro: No history of TIA's, stroke, [place] tumor, impaired sensorium,hemiplegia, paraplegia or quadraplegia. No neurological symptoms orproblems.Respiratory: No history of current cough or dyspnea, or pneumonia in thepast 6 weeks. No history of respiratory/pulmonary symptoms or problems.Cardiovascular: Positive for: HLD, Hypertension- Crestor, Lisinopril,Metoprolol. PTCA on 01/2016 on ASA Denies any CP or SOBGI: Positive for GERD, Negative for Hepatitis, Liver disease, ETOH > 2drinks / day, Colon cancer, Rectal cancerGU: No history of dysuria, frequency or incontinence,, stones or chronickidney disease, No difficulty urinating, nocturia > 1 time per night orhematuriaEndocrine: Diabetes Mellitus on oral agent, Diabetic NeuropathyHematology: Chronic anti-coagulation / platelet meds (Aspirin)Oncology:History of Melanoma on Head and Left s/p removalPsych: No history of psychiatric symptoms or problems.Musculoskeletal: Negative for joint pain or swelling, back pain or musclepain.Skin: Negative for lesions, rash and itching.OBJECTIVEPHYSICAL EXAM:VITALS:BP 112/60 Pulse 58 Resp 18 Ht 5' 10 (1.78m) Wt 200 lb (90.7kg) SpO2 98% BMI 28.70 kg/(m2).General: Alert and oriented, Healthy appearanceSkin: Normal color, no rash, no lesions.HEENT: No carotid bruitsCardiovascular: Normal S1 AND S2, no rubs, murmurs or gallops. No JVD. Pulseregular.Lungs: Normal breath sounds, no wheezes or crackles.Abdomen: Soft, non-tender, no rigidity.Extremities: No deformity, no edema or tenderness, no joint swelling orclubbing.Neurological: Normal cognition and motor skills.Pulses: Carotid and radial pulses normal +2.Diagnostic tests reviewed for today's visit:No new labs or testsAssessmentASSESSMENTP atient has the following medical conditions which may affectperi-operative courseCAD - Stable and medication(s) reviewed and With previous stent placement- Antiplatelet therapy should be restarted as soon as adequate hemostasisis achieved postoperatively. PTCA 01/2016. Currently on ASADiabetes - Well controlledHTN - Well controlled Metoprolol, LisinoprilHyperlipidemiaME TS:Do moderate work around the house such as vacuuming, sweeping floors, orcarrying in groceries (3.50 METs)Do yardwork, such as raking leaves, weeding,or pushing a power mower (4.50METs)Climb a flight of stairs or walk up a hill (5.50 METs)Do heavy work around the house, such as scrubbing floors, lifting ormoving heavy furniture (8.00 METs)Patient denies any chest pain or undue shortness of breath with the abovephysical activity.ASA Class: 4ANESTHESIA FINDINGS:Intubation History: No history of difficult intubationSignificant Anesthesia Considerations: NoneAirway Exam: General: Normal appearance Mallampati Score is CLASS I ULBT: Class II - Lower incisors can bite the upper lip below thevermillion line Neck: Normal appearance and function, Distance from hyoid to mentumduring neck extension is at least 3 finger breaths, Short neck Mouth: Normal tongue size and Mouth opening greater than 2 finger breaths Dentition: Lower dentureAirway History: No abnormal airway historySTOP BANG Score:Criteria:Hypertensio nAge over 50 (67 year old)Male genderScore = 3PLANThis patient is optimally prepared for surgery.CONSULTS:Patient does not require consults for optimization at this time.The Following Tests/Procedures Have Been Initiated:Labs not indicated per PACC protocol, EKG not indicated per PACC protocolPlanned Anesthetic: MACInstructions Given to Patient:Patient given verbal and written preop instructions and voicescomprehension and compliance.SIGNATURE: Shelley Paulino CNP PATIENT NAME: Kia SalmondDATE: July 16, 2017 : 9:11 AM PAGER/CONTACT #: V[facility] [place] 07-16-2017 HOSP Office Visit OPHT (OPHTLN) VANESSAKIA ([id number]) 1950 MDate Time Provider Rlgvwnxleg93/9/17 10:00 AM ULTRASOUND OPHT NITZA OPHMAGO During your visit today, we recorded the following information about you:DONG Argueta 07/16/2017 10:14 AM SignedCONFIRM AIM PLANO BOTH EYES. PATIENT NOT A TORIC CANDIDATE.Antonieta Wood, NAOMIReferring Provider: SHI JACK V [[id number]]Allergies As of Date: 07/16/2017 Noted Allergy ReactionCODEINE 06/28/2017 9 - ItchingDate Reviewed: 07/16/2017Reviewed by: Shelley Lewis (Demond) Lora - Fully AssessedReason for Visit: Pre-Op Exam [87]Visit Diagnoses:Nuclear sclerotic cataract of both eyes [H25.13] Cataract, nuclear sclerotic senile, left [H25.12] Cataract, nuclear sclerotic senile, right [H25.11]Order(s):ASCAN ONLY - DIAGNOSTIC OU (BOTH EYES) [[id number]] Order #: [id number]: 1 IOL BIOMETRY W/ IOL CALC OU (BOTH EYES) [[id number]] Order #: [id number]: 1 CORNEAL TOPOGRAPHY ATLAS OU (BOTH EYES) [[id number]] Order #: [id number]: 1Prescriptions as of 07/16/2017 Sig: OMEPRAZOLE 40 MG CAPSULE,BELEM* Take 40 mg by mouth once paola* CANAGLIFLOZIN 50 MG-METFORMIN* Take by mouth. ROSUVASTATIN 10 MG TABLET Take 10 mg by mouth once paola* LISINOPRIL 2.5 MG TABLET Take 2.5 mg by mouth once jono* METOPROLOL SUCCINATE ER 25 MG* Take 25 mg by mouth once paola* ASPIRIN 81 MG TABLET,DELAYED * Take 81 mg by mouth once paola* KETOROLAC 0.5 % EYE DROPS Use 1 Drop in both eyes four * PREDNISOLONE ACETATE 1 % EYE * Use 1 Drop in both eyes four *Problem List As Of Date 07/16/2017 Noted Resolved Presbyopia [H52.4] INVALID FOR* OPENED IN ERROR INVALID FOR* Cataract, nuclear sclerotic senile, left [H25.1*INVALID FOR* More... Cataract, nuclear sclerotic senile, right [H25.*INVALID FOR* More... Essential hypertension [I10] INVALID FOR* Other hyperlipidemia [E78.4] INVALID FOR* Uncontrolled type 2 diabetes mellitus without c*INVALID FOR* Status:Closed by ANTONIETA MAURO on 07/16/17 [facility] PROGRESSon 07-16-2017 PROGRESS HNO ID: [id number] Author: Antoineta Wood (Cot) Service: (none) Author Type: Record Tabulating Clerk Type: Progress Notes Filed: 07/16/2017 10:14 AM Note Text: CONFIRM AIM PLANO BOTH EYES. PATIENT NOT A TORIC CANDIDATE. NAOMI Argueta [facility] HOSPon 06-28-2017 HOSP Office Visit OPHT (OPHTLN) VANESSAKIA ([id number]) 1950 MDate Time Provider Department06/28/17 12:45 PM SHI JACK During your visit today, we recorded the following information about you:Shi JACK MD 07/03/2017 10:12 AM SignedThe documentation for this note was completed by Judy Latham, COA acting as ascribe for Shi JACK MD. 06/28/2017 2:55 PM.ASSESSMENT / PLAN:1. Combined cataract, both eyes- Offered cataract extraction by phacoemulsification and intraocular lensimplant with Dr. Jack, both eyes, left eye first- Aim: Swatara Both eyes (confirm at U/S visit)- Flomax/alpha-nicolas? No- Toric candidate: Insufficient data - repeat catarina at U/S visit; patientinterested if candidate- Anesthesia: Topical with MAC- Diabetes Mellitus Yes- Contact lens use No- Perioperative eyedrops E-scribed Yes- Discussed twice daily eyelid scrubs for one week prior to surgeryCataract Presurgical DocumentationCataract: Both eyes (OU)Patient reported symptoms:Associated symptomsPositive for: Decreased Vision, floaters, difficulty with reading, glareCurrent Visual Acuity:Right Eye Distance CC 20/30Left Eye Distance CC 20/25Best Corrected Vision Right Eye 20/20Best Corrected Vision Left Eye 20/20Glare Testing:Right Eye Medium 20/60Right Eye High 20/80Left Eye Medium 20/50Left Eye High 20/60Visual Function: Kia Mendez states that the decline in vision from thecataract impedes the ability to drive as well as other activities of dailyliving.Kia Mendez has confirmed that he is no longer able to function adequatelyon a day-to-day basis because of his current visual condition.Further, it is my medical opinion that the cataract is the primary cause, or atleast a significantly contributory cause of his visual dysfunction. Withuncomplicated cataract surgery and lens implantation, it is my expectation thathis visual function and quality of life will improve, significantly.The risks, benefits, alternatives, personnel and complications of cataractsurgery with lens implantation were discussed with Kia Mendez in detail.he appeared to understand and asked that I proceed with plans for surgery.Patient acknowledges possible need for glasses after procedure. Informedconsent form signed by physician and patient.Literature regarding cataract and cataract extraction by phacoemulsificationoffered .Return for preadmission testing, biometry ANDamp; intraocular lens calculationsprior to surgery.2. Astigmtaism, presbyopia Both eyesAideanna JACK MDThe documentation recorded by the scribe accurately reflects the service Ipersonally performed and the decisions made by me. I have confirmed and editedas necessary the relevant ophthalmic history, ROS, and the exam findings asobtained by others. I have seen and examined Kia Mendez. I also havereviewed and agree with the assessment and plan as stated above and agree withall of its relevant components.CHANTE Gonzalezeptember 2016 2:55 PMReferring Provider: SELF [[id number]]Allergies As of Date: 06/28/2017 Noted Allergy ReactionCODEINE 06/28/2017 9 - ItchingDate Reviewed: 06/28/2017Reviewed by: Shi Jack V - Fully AssessedReason for Visit: Cataract Evaluation [1919]Primary Visit Diagnosis:Nuclear sclerotic cataract of both eyes [H25.13] Other Visit Diagnosis:Astigmatism with presbyopia, bilateral [H52.203, H52.4]Order(s):CORNEAL TOPOGRAPHY ATLAS OU (BOTH EYES) [] Order #: [id number]: 1 ASCAN ONLY - DIAGNOSTIC OU (BOTH EYES) [] Order #: [id number]: 1 FUTURE CORNEAL TOPOGRAPHY ATLAS OU (BOTH EYES) [] Order #: [id number]: 1 FUTURE IOL BIOMETRY W/ IOL CALC OU (BOTH EYES) [] Order #: [id number]: 1 FUTURE ketorolac (ACULAR) 0.5 % ophthalmic solutionUse 1 Drop in both eyes four times daily.Disp: 1 BottleRfl: 1 prednisoLONE acetate (PRED FORTE, ECONOPRED PLUS) 1 % ophthalmic suspensionUse 1 Drop in both eyes four times daily.Disp: 1 BottleRfl: 1 SURGICAL REQUEST - ELECTIVE [[id number]] Order #: [id number]: 1 SURGICAL REQUEST - ELECTIVE [[id number]] Order #: [id number]: 1Prescriptions as of 06/28/2017 Sig: CANAGLIFLOZIN 50 MG-METFORMIN* Take by mouth. ROSUVASTATIN 10 MG TABLET Take 10 mg by mouth once paola* LISINOPRIL 2.5 MG TABLET Take 2.5 mg by mouth once jono* METOPROLOL SUCCINATE ER 25 MG* Take 25 mg by mouth once paola* ASPIRIN 81 MG TABLET,DELAYED * Take 81 mg by mouth once paola* ROSUVASTATIN 10 MG TABLET Take 10 mg by mouth once paola* KETOROLAC 0.5 % EYE DROPS Use 1 Drop in both eyes four * PREDNISOLONE ACETATE 1 % EYE * Use 1 Drop in both eyes four *Problem List As Of Date 06/28/2017 Noted Resolved Presbyopia [H52.4] INVALID FOR* OPENED IN ERROR INVALID FOR* Cataract, nuclear sclerotic senile, left [H25.1*INVALID FOR* More... Cataract, nuclear sclerotic senile, right [H25.*INVALID FOR* More...Prescriptions ordered this encounter Disp Refills Start End KETOROLAC 0.5 % EYE DROPS 1 Emre* 1 06/28/2017 Route: BOTH EYES Sig: Use 1 Drop in both eyes four times daily. Cosign accepted by SHI JACK[[id number]] on 06/28/2017 3:44 PM PREDNISOLONE ACETATE 1 % EYE DROPS,S* 1 Emre* 1 06/28/2017 Route: BOTH EYES Sig: Use 1 Drop in both eyes four times daily. Cosign accepted by SHI JACK[[id number]] on 06/28/2017 3:44 PMDisposition: Return for IOL Measurements.Follow-up and Disposition History RecordedEncounter Number: [id number] Status:Closed by SHI JACK on 07/03/17 [facility] Patient:Kia Mendez EMRN: Height:5' 10 (1.778 m)Weight:200 lb (90.719 kg)Outpatient Medications as of 08/08/17:Omeprazole 40 mg capsulecanagliflozin-metfo rmin (INVOKAMET) 50-1,000 mg tabrosuvastatin (CRESTOR) 10 mg tabletlisinopril 2.5 mg tabletmetoprolol succinate ER (TOPROL XL) 25 mg 24 hr tabletaspirin, enteric coated (ASPIRIN, ENTERIC COATED) 81 mg EC tabletketorolac (ACULAR) 0.5 % ophthalmic solutionprednisoLONE acetate (PRED FORTE, ECONOPRED PLUS) 1 % ophthalmic suspensionAdmission/Clinic Administered Medications as of 08/08/17:NaCl 0.9% iv infusionlidocaine 2 % (XYLOCAINE)cyclopentolate 1 % 1 Drop (CYCLOGYL)Problem List:OPENED IN ERROR []Cataract, nuclear sclerotic senile, right [H25.11]Essential hypertension [I10]Other hyperlipidemia [E78.4]Uncontrolled type 2 diabetes mellitus without complication, without long-termcurrent use of insulin (HCC) [E11.65]Allergies:CodeineD ate Verified: 08/08/17Lab ValuesNo results within the last 30 days for the following basenames: K,HCTProgress Notes ([facility]):Leesa Lai, OD 08/02/2017 11:34 AM Signed(Z96.1) Presence of intraocular lens (primary encounter diagnosis)(H25.11) Cataract, nuclear sclerotic senile, rightPost-op week #1 status-post cataract extraction with intraocular lens insertionleft eye: Doing well. The patient was instructed to continue to follow the post-op drop checklist:Use Prednisolone Acetate and ketorolac for a total of 10 days after surgery andthen taper off of it over the next 15 days by decreasing by 1 drop every 5 daysaccording to the drop schedule.The patient was reminded to wear the eye shield at night over the operative eyewhile sleeping, refrain from rubbing or touching the eye, wear dark sunglasseswhile outside, not get any water in the eye, not wear any eye makeup (ifapplicable), and refrain from heavy lifting for a total of 10 days after surgeryThe signs and symptoms of a retinal tear/detachment (flashes, floaters, orchange in peripheral vision) were reviewed with the patient as well as the signsand symptoms of infection (decreased vision, red eye, painful eye, or eyelidswelling). The patient understands to call or return to our office immediatelyif any of these symptoms are present.Return to clinic if signs or symptoms change.Patient scheduled for cataract surgery Right eye aim Jalil Joelle, ODOctober 2016 11:33 AMI have confirmed and edited as necessary the relevant ophthalmic history, ROS,and the neuro exam findings as obtained by others. I have seen and examinedKia Good Vanessa.I have discussed the case and the management of this patient's care with theResident/Fellow, if applicable. I also have reviewed and agree with theassessment and plan as stated above and agree with all of its relevantcomponents.Progres s Notes ([facility]):Radha Phelps, OD 07/26/2017 9:25 AM SignedPost-op day #1 status-post cataract extraction with intraocular lens insertion,left eye. Doing well. Aim juan manuelo.Written instructions detailing the following given:Prednisolone Acetate 1% 1 drop four times a dayKetorolac 1 drop four times a day- Eye shield at bedtime for 1 week- Signs and symptoms of retinal detachment and infection reviewed- Follow up in 7-10 days as scheduledI have interviewed and examined Kia Mendez. I have confirmed and edited asnecessary the chief complaint, history of present illness, past medical history,medications, family history, social history, review of systems, and examfindings as obtained by others. I agree with the assessment and plan as statedabove.Radha Phelps, ODOctober 2016 9:18 AM Normal [facility] Patient:Kia Mendez EMRN: Height:5' 10 (1.778 m)Weight:200 lb (90.719 kg)Outpatient Medications as of 07/25/17:Omeprazole 40 mg capsulecanagliflozin-metfo rmin (INVOKAMET) 50-1,000 mg tabrosuvastatin (CRESTOR) 10 mg tabletlisinopril 2.5 mg tabletmetoprolol succinate ER (TOPROL XL) 25 mg 24 hr tabletaspirin, enteric coated (ASPIRIN, ENTERIC COATED) 81 mg EC tabletketorolac (ACULAR) 0.5 % ophthalmic solutionprednisoLONE acetate (PRED FORTE, ECONOPRED PLUS) 1 % ophthalmic suspensionAdmission/Clinic Administered Medications as of 07/25/17:NaCl 0.9% iv infusionlidocaine 2 % (XYLOCAINE)cyclopentolate 1 % 1 Drop (CYCLOGYL)Problem List:Presbyopia [H52.4]OPENED IN ERROR []Cataract, nuclear sclerotic senile, left [H25.12]Cataract, nuclear sclerotic senile, right [H25.11]Essential hypertension [I10]Other hyperlipidemia [E78.4]Uncontrolled type 2 diabetes mellitus without complication, without long-termcurrent use of insulin (HCC) [E11.65]Allergies:CodeineD ate Verified: 07/25/17Lab ValuesNo results within the last 30 days for the following basenames: K,HCTProgress Notes ([facility]):DONG Argueta 07/16/2017 10:14 AM SignedCONFIRM AIM PLANO BOTH EYES. PATIENT NOT A TORIC CANDIDATE.NAOMI ArguetaProgrjossy Notes ([facility]):Shi JACK MD 07/03/2017 10:12 AM SignedThe documentation for this note was completed by Judy Latham COA acting as ascribe for Shi JACK MD. 06/28/2017 2:55 PM.ASSESSMENT / PLAN:1. Combined cataract, both eyes- Offered cataract extraction by phacoemulsification and intraocular lensimplant with Dr. Jack, both eyes, left eye first- Aim: Swatara Both eyes (confirm at U/S visit)- Flomax/alpha-nicolas? No- Toric candidate: Insufficient data - repeat catarina at U/S visit; patientinterested if candidate- Anesthesia: Topical with MAC- Diabetes Mellitus Yes- Contact lens use No- Perioperative eyedrops E-scribed Yes- Discussed twice daily eyelid scrubs for one week prior to surgeryCataract Presurgical DocumentationCataract: Both eyes (OU)Patient reported symptoms:Associated symptomsPositive for: Decreased Vision, floaters, difficulty with reading, glareCurrent Visual Acuity:Right Eye Distance CC 20/30Left Eye Distance CC 20/25Best Corrected Vision Right Eye 20/20Best Corrected Vision Left Eye 20/20Glare Testing:Right Eye Medium 20/60Right Eye High 20/80Left Eye Medium 20/50Left Eye High 20/60Visual Function: Kia Mendez states that the decline in vision from thecataract impedes the ability to drive as well as other activities of dailyliving.Kia Mendez has confirmed that he is no longer able to function adequately clair day-to-day basis because of his current visual condition.Further, it is my medical opinion that the cataract is the primary cause, or atleast a significantly contributory cause of his visual dysfunction. Withuncomplicated cataract surgery and lens implantation, it is my expectation thathis visual function and quality of life will improve, significantly.The risks, benefits, alternatives, personnel and complications of cataractsurgery with lens implantation were discussed with Kia Mendez in detail. heappeared to understand and asked that I proceed with plans for surgery. Patientacknowledges possible need for glasses after procedure. Informed consent formsigned by physician and patient.Literature regarding cataract and cataract extraction by phacoemulsificationoffered .Return for preadmission testing, biometry AND intraocular lens calculations priorto surgery.2. Astigmtaism, presbyopia Both eyesAimee Luann JACK MDThe documentation recorded by the scribe accurately reflects the service Ipersonally performed and the decisions made by me. I have confirmed and editedas necessary the relevant ophthalmic history, ROS, and the exam findings asobtained by others. I have seen and examined Kia Mendez. I also havereviewed and agree with the assessment and plan as stated above and agree withall of its relevant components.CHANTE Gonzalezeptember 2016 2:55 PM Normal [facility] PROGRESSon 06-28-2017 PROGRESS HNO ID: [id number] thor: Shi Jack VService: (none)Author Type: PhysicianType: Progress NotesFiled: 07/03/2017 10:12 AMNote Text:The documentation for this note was completed by NAOMI Strongas a scribe for Shi JACK MD. 06/28/2017 2:55 PM.ASSESSMENT / PLAN:1. Combined cataract, both eyes- Offered cataract extraction by phacoemulsification and intraocular lensimplant with Dr. Jack, both eyes, left eye first- Aim: Swatara Both eyes (confirm at U/S visit)- Flomax/alpha-nicolas? No- Toric candidate: Insufficient data - repeat catarina at U/S visit; patientinterested if candidate- Anesthesia: Topical with MAC- Diabetes Mellitus Yes- Contact lens use No- Perioperative eyedrops E-scribed Yes- Discussed twice daily eyelid scrubs for one week prior to surgeryCataract Presurgical DocumentationCataract: Both eyes (OU)Patient reported symptoms:Associated symptomsPositive for: Decreased Vision, floaters, difficulty with reading, glareCurrent Visual Acuity:Right Eye Distance CC 20/30Left Eye Distance CC 20/25Best Corrected Vision Right Eye 20/20Best Corrected Vision Left Eye 20/20Glare Testing:Right Eye Medium 20/60Right Eye High 20/80Left Eye Medium 20/50Left Eye High 20/60Visual Function: Kia Mendez states that the decline in vision from thecataract impedes the ability to drive as well as other activities of dailyliving.Kia Mendez has confirmed that he is no longer able to functionadequately on a day-to-day basis because of his current visual condition.Further, it is my medical opinion that the cataract is the primary cause,or at least a significantly contributory cause of his visual dysfunction.With uncomplicated cataract surgery and lens implantation, it is myexpectation that his visual function and quality of life will improve,significantly.The risks, benefits, alternatives, personnel and complications of cataractsurgery with lens implantation were discussed with Kia Good Bryant chayito. he appeared to understand and asked that I proceed with plans forsurgery. Patient acknowledges possible need for glasses after procedure.Informed consent form signed by physician and patient.Literature regarding cataract and cataract extraction byphacoemulsification offered.Return for preadmission testing, biometry AND intraocular lens calculationsprior to surgery.2. Astigmtaism, presbyopia Both eyesAimee Luann JACK MDThe documentation recorded by the scribe accurately reflects the service Ipersonally performed and the decisions made by me. I have confirmed andedited as necessary the relevant ophthalmic history, ROS, and the examfindings as obtained by others. I have seen and examined Kia Good Vanessa.I also have reviewed and agree with the assessment and plan as statedabove and agree with all of its relevant components.CHANTE Gonzalezeptember 2016 2:55 PM Normal [facility] PROGRESSon 06-27-2017 PROGRESS HNO ID: [id number] Author: Franchesca Rowell Service: (none) Author Type: Physician Type: Progress Notes Filed: 06/27/2017 10:09 AM Note Text: OPENED IN ERROR (primary encounter diagnosis) OPENED IN ERROR (primary encounter diagnosis) (H52.4) Presbyopia Normal [facility] HOSPon 06-22-2017 HOSP Office Visit OPHT (OPHTLN) KIA MENDEZ ([id number]) 1950 MDate Time Provider Department06/22/17 8:00 AM FRANCHESCA ROWELL During your visit today, we recorded the following information about you:Franchesca Rowell OD 06/27/2017 10:09 AM SignedOPENED IN ERROR (primary encounter diagnosis)OPENED IN ERROR (primary encounter diagnosis)(H52.4) PresbyopiaReferring Provider: SELF [[id number]]Allergies As of Date: 06/22/2017(Not on File)Date Reviewed: Never ReviewedReason for Visit:Reason For Visit History RecordedPrimary Visit Diagnosis:OPENED IN ERROR Other Visit Diagnosis:Presbyopia [H52.4]Problem List As Of Date: 06/22/2017(None) Status:Closed by FRANCHESCA ROWELL OD on 06/27/17 Normal [facility] Vital Signs Date Time Vital Sign Value Performing Clinician Facility 03-04-2024 10:44-0400 Diastolic blood pressure 64 mm[Hg] Lacey Pretty MD Work Phone: [facility] 03-04-2024 10:44-0400 Systolic blood pressure 138 mm[Hg] Lacey Pretty MD Work Phone: [facility] 03-04-2024 10:17-0400 Body height 177.8 cm Lacey Pretty MD Work Phone: [facility] 03-04-2024 10:17-0400 Body mass index (BMI) [Ratio] 28.3 kg/m2 Lacey Pretty MD Work Phone: [facility] 03-04-2024 10:17-0400 Body weight 89.45 kg Lacey Pretty MD Work Phone: [facility] 03-04-2024 10:17-0400 Heart rate 60 /min Lacey Pretty MD Work Phone: [facility] 09-27-2023 15:20-0500 Body height 179.07 cm Hali Alexander Other [employer] Other 09-27-2023 15:20-0500 Body mass index (BMI) [Ratio] 29.19 kg/m2 Hali Alexander Other [employer] Other 09-27-2023 15:20-0500 Body temperature 98.6 [degF] Hali Alexander Other [employer] Other 09-27-2023 15:20-0500 Body weight 93.62 kg Hali Alexanedr Other [employer] Other 09-27-2023 15:20-0500 Respiratory rate 18 /min Hali Alexander Other [employer] Other 09-27-2023 15:20-0500 SaO2% (BldA) [Mass fraction] 96 % Hali Alexander Other [employer] Other 06-01-2023 10:12-0400 Body height 177.8 cm Sebas Miguel Work Phone: [facility] [address] DO Work Phone: 06-01-2023 10:12-0400 Body mass index (BMI) [Ratio] 26.4 kg/m2 Sebasrosalio Miguel Work Phone: [facility] [employer] 600 DO Work Phone: 06-01-2023 10:12-0400 Body surface area Derived from formula 2.01 m2 Sebas Miguel Work Phone: [facility] [employer] 600 DO Work Phone: 06-01-2023 10:12-0400 Body weight 83.46 kg Sebasrosalio Miguel Work Phone: [facility] [employer] 600 DO Work Phone: 06-01-2023 10:12-0400 Diastolic blood pressure 62 mm[Hg] Sebas Seven Miguel Work Phone: [facility] [employer] [address] DO Work Phone: 06-01-2023 10:12-0400 Heart rate 74 /min Sebasrosalio Miguel Work Phone: [facility] [employer] [address] DO Work Phone: 06-01-2023 10:12-0400 Systolic blood pressure 134 mm[Hg] Sebasrosalio Miguel Work Phone: [facility] [employer] 600 DO Work Phone: 05-08-2023 03:53-0400 Diastolic blood pressure 72 mm[Hg] II Sebasrosalio Miguel Work Phone: [facility] 05-08-2023 03:53-0400 Heart rate 92 /min II Sebasrosalio Miguel Work Phone: [facility] 05-08-2023 03:53-0400 Respiratory rate 18 /min II Sebas Lamont Work Phone: [facility] 05-08-2023 03:53-0400 SaO2% (BldA) [Mass fraction] 95 % II Sebas Lamont Work Phone: [facility] 05-08-2023 03:53-0400 Systolic blood pressure 158 mm[Hg] II Sebas Miguel Work Phone: [facility] 05-07-2023 22:30-0400 Body height 177.8 cm II Sebas Miguel Work Phone: [facility] 05-07-2023 22:30-0400 Body temperature 97.5 [degF] II Sebas Miguel Work Phone: [facility] 05-07-2023 22:30-0400 Body weight 79.37 kg II Sebas Miguel Work Phone: [facility] 04-26-2023 14:15-0400 Body height 179.07 cm Imad Asaad Other [employer] [email or web address] Other 04-26-2023 14:15-0400 Body mass index (BMI) [Ratio] 26.17 kg/m2 Imad Asaad Other [employer] Other 04-26-2023 14:15-0400 Body weight 83.92 kg Imad Asaad Other [employer] Other 04-26-2023 14:15-0400 Diastolic blood pressure 70 mm[Hg] Imad Asaad Other [employer] Other 04-26-2023 14:15-0400 Systolic blood pressure 123 mm[Hg] Imad Asaad Other [employer] Other 04-13-2023 14:54-0400 Body temperature 98 [degF] II Sebas Miguel Work Phone: [facility] 04-13-2023 14:54-0400 Diastolic blood pressure 73 mm[Hg] II Sebas Miguel Work Phone: [facility] 04-13-2023 14:54-0400 Heart rate 73 /min II Sebas Miguel Work Phone: [facility] 04-13-2023 14:54-0400 Respiratory rate 18 /min II Sebas Miguel Work Phone: [facility] 04-13-2023 14:54-0400 SaO2% (BldA) [Mass fraction] 96 % II Sebas Miguel Work Phone: [facility] 04-13-2023 14:54-0400 Systolic blood pressure 122 mm[Hg] II Sebas Miguel Work Phone: [facility] 04-13-2023 03:59-0400 Body height 177.8 cm II Sebas Miguel Work Phone: [facility] 04-13-2023 03:59-0400 Body weight 85.6 kg II Sebas Miguel Work Phone: [facility] 04-06-2023 15:28-0400 Diastolic blood pressure 70 mm[Hg] II Sebas Miguel Work Phone: [facility] 04-06-2023 15:28-0400 Heart rate 74 /min II Sebas Miguel Work Phone: [facility] 04-06-2023 15:28-0400 Respiratory rate 16 /min II Sebas Miguel Work Phone: [facility] 04-06-2023 15:28-0400 SaO2% (BldA) [Mass fraction] 98 % II Sebas Miguel Work Phone: [facility] 04-06-2023 15:28-0400 Systolic blood pressure 153 mm[Hg] II Sebas Miguel Work Phone: [facility] 04-06-2023 14:35-0400 Body height 177.8 cm II Sebas Miguel Work Phone: [facility] 04-06-2023 14:35-0400 Body temperature 97.5 [degF] II Sebas Miguel Work Phone: [facility] 04-06-2023 14:35-0400 Body weight 88.45 kg II Sebas Miguel Work Phone: [facility] 03-15-2023 15:07-0400 Body height 177.8 cm Sebasrosalio Miguel Work Phone: [facility] [address] DO Work Phone: 03-15-2023 15:07-0400 Body mass index (BMI) [Ratio] 28.7 kg/m2 Sebasrosalio Miguel Work Phone: [facility] 250 DO Work Phone: 03-15-2023 15:07-0400 Body surface area Derived from formula 2.09 m2 Sebasrosalio Miguel Work Phone: [facility] [address] DO Work Phone: 03-15-2023 15:07-0400 Body weight 90.72 kg Sebas Seven Miguel Work Phone: [facility] [address] DO Work Phone: 03-15-2023 15:07-0400 Diastolic blood pressure 68 mm[Hg] Sebasrosalio Miguel Work Phone: [facility] [address] DO Work Phone: 03-15-2023 15:07-0400 Heart rate 65 /min Sebasrosalio Miguel Work Phone: [facility] [address] DO Work Phone: 03-15-2023 15:07-0400 Systolic blood pressure 132 mm[Hg] Sebas Amezcua Lamont Work Phone: [facility] [address] DO Work Phone: 07-28-2022 12:17-0400 Body height 177.8 cm [id number] NO [id number] TESTING TECH 1 Work Phone: [facility] [facility] DO Work Phone: 07-28-2022 12:17-0400 Body mass index (BMI) [Ratio] 27.84 kg/m2 [id number] NO [id number] TESTING TECH 1 Work Phone: [facility] [address] DO Work Phone: 07-28-2022 12:17-0400 Body surface area Derived from formula 2.06 m2 [id number] NO [id number] TESTING TECH 1 Work Phone: [facility] [address] DO Work Phone: 07-28-2022 12:17-0400 Body weight 88 kg [id number] NO [id number] TESTING TECH 1 Work Phone: [facility] [address] DO Work Phone: 07-28-2022 12:17-0400 Diastolic blood pressure 52 mm[Hg] [id number] NO [id number] TESTING TECH 1 Work Phone: [facility] [address] DO Work Phone: 07-28-2022 12:17-0400 Heart rate 60 /min [id number] NO [id number] TESTING TECH 1 Work Phone: [facility] [address] DO Work Phone: 07-28-2022 12:17-0400 Systolic blood pressure 150 mm[Hg] [id number] NO [id number] TESTING TECH 1 Work Phone: [facility] [address] DO Work Phone: 05-18-2022 13:00-0400 Body height 177.8 cm [id number] NO [id number] TESTING TECH 1 Work Phone: [facility] [address] DO Work Phone: 05-18-2022 13:00-0400 Body mass index (BMI) [Ratio] 28.27 kg/m2 [id number] NO [id number] TESTING TECH 1 Work Phone: [facility] [address] DO Work Phone: 05-18-2022 13:00-0400 Body surface area Derived from formula 2.07 m2 [id number] NO [id number] TESTING TECH 1 Work Phone: [facility] [address] DO Work Phone: 05-18-2022 13:00-0400 Body weight 89.36 kg [id number] NO [id number] TESTING TECH 1 Work Phone: [facility] [address] DO Work Phone: 05-18-2022 13:00-0400 Diastolic blood pressure 64 mm[Hg] [id number] NO [id number] TESTING TECH 1 Work Phone: [facility] [address] DO Work Phone: 05-18-2022 13:00-0400 Heart rate 61 /min [id number] NO OEZUSMCM23 TESTING TECH 1 Work Phone: [facility] [address] DO Work Phone: 05-18-2022 13:00-0400 Systolic blood pressure 136 mm[Hg] [id number] NO [id number] TESTING TECH 1 Work Phone: [facility] [address] DO Work Phone: 04-15-2022 11:35-0400 Body height 179.07 cm Alka Phillips Other [employer] Other 04-15-2022 11:35-0400 Body mass index (BMI) [Ratio] 27.3 kg/m2 Alka Phillips Other [employer] Other 04-15-2022 11:35-0400 Body temperature 97.1 [degF] Alka Phillips Other [employer] Other 04-15-2022 11:35-0400 Body weight 87.54 kg Alka Phillips Other [employer] Other 04-15-2022 11:35-0400 Respiratory rate 18 /min Alka Phillips Other [employer] Other 04-15-2022 11:35-0400 SaO2% (BldA) [Mass fraction] 97 % Alka Phillips Other [employer] Other 03-15-2022 14:26-0400 Body height 177.8 cm Lacey Pretty MD Work Phone: [facility] [employer] 250 DO Work Phone: 03-15-2022 14:26-0400 Body mass index (BMI) [Ratio] 27.98 kg/m2 Lacey Pretty MD Work Phone: [facility] [employer] 250 DO Work Phone: 03-15-2022 14:26-0400 Body surface area Derived from formula 2.06 m2 Lacey Pretty MD Work Phone: [facility] [employer] 250 DO Work Phone: 03-15-2022 14:26-0400 Body weight 88.45 kg Lacey Pretty MD Work Phone: [employer] 250 DO Work Phone: 03-15-2022 14:26-0400 Diastolic blood pressure 60 mm[Hg] Lacey Pretty MD Work Phone: [facility] [employer] 250 DO Work Phone: 03-15-2022 14:26-0400 Heart rate 72 /min Lacey Pretty MD Work Phone: [facility] 250 DO Work Phone: 03-15-2022 14:26-0400 Systolic blood pressure 132 mm[Hg] L[facility]: [facility] Work Phone: 03-02-2022 18:00-0400 Diastolic blood pressure 80 mm[Hg] II Sebas Miguel Work Phone: [facility] 03-02-2022 18:00-0400 Heart rate 68 /min II Sebas Miguel Work Phone: [facility] 03-02-2022 18:00-0400 Respiratory rate 18 /min II Sebas Miguel Work Phone: [facility] 03-02-2022 18:00-0400 SaO2% (BldA) [Mass fraction] 96 % II Sebas Miguel Work Phone: [facility] 03-02-2022 18:00-0400 Systolic blood pressure 181 mm[Hg] II Sebas Miguel Work Phone: [facility] 03-02-2022 11:42-0400 Body height 177.8 cm II Sebas Miguel Work Phone: [facility] 03-02-2022 11:42-0400 Body mass index (BMI) [Ratio] 27.9 kg/m2 II Sebas Miguel Work Phone: [facility] 03-02-2022 11:42-0400 Body temperature 97.6 [degF] II Sebas Miguel Work Phone: [facility] 03-02-2022 11:42-0400 Body weight 88.45 kg II Sebas Miguel Work Phone: [facility] 09-13-2021 13:44-0500 Body height 179.07 cm Lacey Pretty MD Work Phone: [facility] [address] DO Work Phone: 09-13-2021 13:44-0500 Body mass index (BMI) [Ratio] 29 kg/m2 Lacey Pretty MD Work Phone: [facility] [address] DO Work Phone: 09-13-2021 13:44-0500 Body surface area Derived from formula 2.12 m2 Lacey Pretty MD Work Phone: [facility] [address] DO Work Phone: 09-13-2021 13:44-0500 Body weight 92.99 kg Lacey Pretty MD Work Phone: [facility] [address] DO Work Phone: 09-13-2021 13:44-0500 Diastolic blood pressure 74 mm[Hg] Lacey Pretty MD Work Phone: [facility] [address] DO Work Phone: 09-13-2021 13:44-0500 Heart rate 66 /min Lacey Pretty MD Work Phone: [facility] [address] DO Work Phone: 09-13-2021 13:44-0500 Systolic blood pressure 136 mm[Hg] Lacey Pretty MD Work Phone: [facility] DO Work Phone: Encounters Encounter Date Encounter Type Care Provider Facility Start: 03-04-2024 End: 03-04-2024 ambulatory AGUSTINA LUIS Not Available Start: 03-04-2024 End: 03-04-2024 ambulatory [facility] Start: 03-04-2024 End: 03-04-2024 Office outpatient visit 25 minutes Lacey Pretty MD Work Phone: [facility] Comment on above: CAD, multiple vessel (Primary Dx); Benign essential hypertension; Chest pain, unspecified type; Mixed hyperlipidemia; Paroxysmal supraventricular tachycardia ([facility]); Other fatigue; BMI 28.0-28.9,adult Start: 02-26-2024 End: 02-26-2024 ambulatory HILARIO GARCIA Not Available Start: 09-27-2023 End: 09-27-2023 ambulatory Hali Alexander Other [email or web address] Other Start: 09-27-2023 Office outpatient vi sit 25 minutes Hali Alexander [facility] [place] Start: 06-01-[address] Lacey Pretty Facility: Start: 06-01-2023 Office outpatient vi sit 25 minutes Sebas Miguel Work Phone: [facility] [address] DO Work Phone: Start: 05-28-2023 End: 05-28-2023 [facility] Start: 05-09-2023 End: 05-09-2023 ambulatory Amauri Carrera Facility:[facility] Start: 05-09-2023 End: 05-09-2023 ambulatory II Sebas Miguel Work Phone: [facility] Work Phone: Start: 05-09-2023 End: 05-09-2023 Patient encounter procedure II Sebas Miguel Work Phone: [facility] Work Phone: Start: 05-08-2023 End: 05-08-2023 Emergency department patient visit Katty Pierre Jr Facility:[facility] Start: 05-07-2023 End: 05-08-2023 Emergency department patient visit II Sebas Miguel Work Phone: [facility] Work Phone: Start: 04-26-2023 End: 04-26-2023 ambulatory [facility]ad As[facility]ad Other [email or web address] Other Start: 04-26-2023 Office outpatient ne w 45 minutes Imad Asaad [facility] Start: 04-20-[address] Lacey Pretty Facility:[id number] Start: 04-17-2023 Rx Renewal Sebas Miguel Work Phone: -[facility] [address] DO Work Phone: Start: 04-13-2023 Message Sebas Miguel Work Phone: -[facility] [address] DO Work Phone: Start: 04-13-2023 End: 04-13-[address] Sebas Miguel II Facility:[id number] Start: 04-13-2023 End: 04-13-2023 Evaluation and management of inpatient II Sebas Miguel Work Phone: [facility] Work Phone: Start: 04-13-2023 End: 04-13-2023 observation encounter II Sebas Miguel Work Phone: [facility] Work Phone: Start: 04-06-2023 End: 04-06-2023 Emergency department patient visit Guanako Plummer Facility:[facility] Start: 04-06-2023 End: 04-06-2023 Emergency department patient visit II Sebas Miguel Work Phone: [facility] Work Phone: Start: 03-15-[address] Sebas Miguel II Facility: Start: 02-15-2023 End: 02-15-2023 ambulatory LONG RODRIGUEZ Facility:H1 Start: 07-28-2022 Patient encounter procedure [id number] NOH [id number] TESTING TECH 1 Work Phone: [facility] [address] DO Work Phone: Start: 07-28-[address] Sebas Miguel II Facility: Start: 05-18-2022 Patient encounter procedure [id number] NO [id number] TESTING TECH 1 Work Phone: [facility] [address] DO Work Phone: Start: 05-16-2022 End: 05-17-[address] SEBAS MIGUEL Facility:H1 Start: 05-10-2022 End: 05-10-[address] SEBAS MIGUEL Facility:H1 Start: 04-17-2022 Rx Renewal Lacey cooney MD Work Phone: [facility] [address] DO Work Phone: Start: 04-15-2022 End: 04-15-2022 ambulatory Alka Phillips Other [employer] Other Start: 04-15-2022 Office outpatient vi sit 15 minutes Alka Phillips [facility] Start: 03-30-2022 End: 03-31-2022 ambulatory HILARIO GARCIA Facility:H1 Start: 03-15-2022 Office outpatient vi sit 25 minutes Lacey Pretty MD Work Phone: [facility] [address] DO Work Phone: Start: 03-13-2022 End: 03-13-2022 Patient encounter procedure II Sebas Miguel Work Phone: [facility] [place] Start: 03-09-2022 End: 03-10-[address] SEBAS MIGUEL Facility:H1 Start: 03-02-2022 End: 03-02-2022 Emergency department patient visit II Sebas Miguel Work Phone: [facility]-Emergency Room Start: 09-13-2021 Office outpatient vi sit 25 minutes Lacey Pretty MD Work Phone: [facility] [address] DO Work Phone: Start: 08-12-2018 Patient encounter procedure LACEY PRETTY Facility:[id number] Start: 09-13-2017 End: 09-13-2017 Ambulatory LEESA (OD) [facility] Start: 08-16-2017 End: 08-20-2017 [facility] Start: 08-09-2017 End: 08-10-2017 Ambulatory SHI JACK [facility] Start: 08-08-2017 End: 08-08-2017 [facility]: 08-02-2017 End: 08-02-2017 Ambulatory LEESA (OD) [facility] Start: 07-26-2017 End: 07-26-2017 [facility] Start[facility] 07-25-2017 End: 07-25-2017 [address] [facility] Start: 07-16-2017 End: 07-16-2017 Ambulatory [address] [facility] Start: 06-28-2017 End: 06-28-2017 Amb[address] [facility] Start: 06-22-2017 Ambulatory FRANCHESCA Ferreira [facility] Patient encounter status Sebas Miguel Work Phone: [address] Work Phone: Procedures Date Procedure Procedure Detail Performing Clinician Start: 05-08-2023 Computed tomography of abdomen and pelvis with contrast II Sebas Miguel Work Phone: Start: 04-06-2023 Computed tomography of abdomen and pelvis with contrast II Sebas Miguel Work Phone: Start: 04-06-2023 Blood culture for bacteria, including anaerobic screen II Sebas Miguel Work Phone: Start: 03-13-2022 Ultrasonography of bilateral kidneys II Sebas Miguel Work Phone: Start: 03-02-2022 Duplex scan of lower limb veins II Sebas Miguel Work Phone: Start: 03-02-2022 Plain chest X-ray II Dayron Miguel Work Phone: Cardiac catheterization Edison Pretty MD Work Phone: History of placement of stent for coronary artery disease H/O heart artery stent II Sebas Miguel Work Phone: Leg repair Lacey mix MD Work Phone: Percutaneous translu serafin coronary angioplasty Lacey Pretty MD Work Phone: Surgical procedure Lacey locke MD Work Phone: Comment on above: skin cancer removal; Surgical procedure o n eye proper Lacey Pretty MD Work Phone: Surgical repair Lacey lan MD Work Phone: Comment on above: Leg Repair; Surgical repair of u pper extremity Lacey Pretty MD Work Phone: Comment on above: Arm Excisionleft / r emoval of melanoma; Total colonoscopy Lacey otoole MD Work Phone: Comment on above: Procedue Date: 2018unsure of dr; Plan of Treatment Date Care Activity Detail Author Start: 08-22-2024 End: 08-22-2024 Patient encounter procedure 08/22/2024 10:30 AM EST Office Visit [address] [place] [address] Lacey Pretty MD [address]03 [facility] 2, [facility] [address] [place] [address] [facility] Start: 03-04-2024 FUV, Provider: Lacey Pretty, Status: Pen, Time: 10:10 AM FUV, Provider: aLcey Pretty, Status: Pen, Time: 10:10 AM [facility] 600 DO Work Phone: Start: 02-19-2024 FUV, Provider: Lacey Pretty, Status: Pen, Time: 3:00 PM FUV, Provider: Lacey Pretty, Status: Pen, Time: 3:00 PM [facility] [employer] 250 DO Work Phone: Start: 01-24-2024 COVID-19 Vaccine ( season) COVID-19 Vaccine ( season) [facility] Start: 06-01-2023 FUV, Provider: Lacey Pretty, Status: Pen, Time: 9:40 AM FUV, Provider: Lacey Pretty, Status: Pen, Time: 9:40 AM [facility] [employer] [facility] 250 DO Work Phone: Start: 05-08-2023 Computed tomography of abdomen and pelvis with contrast CT abdomen pelvis w con [facility] Start: 05-08-2023 CT Abdomen and Pelvis W contrast IV [facility] Start: 04-20-2023 STRESS NUC, Provider: STEVEN HHVI NUCLEAR 01,[id number], Status: Pen, Time: 8:00 AM STRESS NUC, Provider: STEVEN HHVI NUCLEAR 01,[id number], Status: Pen, Time: 8:00 AM [facility] [employer] [facility] 250 DO Work Phone: Start: 04-14-2023 End: 04-14-2023 [facility] Start: 04-14-2023 Blood chemistry [facility] Start: 04-13-2023 [facility] Start: 04-13-2023 Hospital admission [facility] Start: 04-13-2023 [facility] Start: 04-06-2023 Bacteria identified in Blood by Culture Blood Culture [facility] Start: 09-22-2022 FUV, Provider: Lacey Pretty, Status: Pen, Time: 11:00 AM FUV, Provider: Lacey Pretty, Status: Pen, Time: 11:00 AM [facility] 250 DO Work Phone: Start: 03-15-2022 FUV, Provider: Lacey Pretty, Status: Pen, Time: 2:40 PM FUV, Provider: Lacey Pretty, Status: Pen, Time: 2:40 PM [facility] 250 DO Work Phone: Start: 03-09-2017 Pneumococcal Vaccine: 65+ Years (2 of 2 - PPSV23 or PCV20) Pneumococcal Vaccine: 65+ Years (2 of 2 - PPSV23 or PCV20) [facility] Start: 2008 RSV patients and/or patients aged 60+ years (1 - 1-dose 60+ series) RSV patients and/or patients aged 60+ years (1 - 1-dose 60+ series) [facility] Start: 1998 Zoster Vaccines (1 of 2) Zoster Vaccines (1 of 2) [facility] Start: 1970 DTaP/Tdap/Td Vaccines (1 - Tdap) DTaP/Tdap/Td Vaccines (1 - Tdap) [facility] Start: 1967 Urine screening for protein Diabetes: Urine Protein Screening [facility] Start: 1966 Hepatitis C screening Hepatitis C Screening [facility] Start: 1958 Diabetic foot examination Diabetes: Foot Exam [facility] Start: 1958 Glaucoma screening Diabetes: Retinopathy Screening [facility] Start: 1948 Hemoglobin A1c measurement Diabetes: Hemoglobin A1C [facility] Start: 1948 Lipid panel Lipid Panel [facility] Start: 1948 Medicare Annual Wellness Visit Medicare Annual Wellness Visit (AWV) [facility] Start: 1948 Screening for malignant neoplasm of colon [facility] Patient Education [facility] Work Phone: Patient referral [facility] Work Phone: Immunizations Immunization Date Immunization Notes Care Provider Fa raoul 09-27-2022 COVID-19 mRNA Bivale nt Booster (Pfizer) II Sebas Miguel Work Phone: [facility] 11-08-2021 Moderna COVID-19 Vaccine 100 MCG/0.5ML Intramuscular Suspension Lacey Pretty MD Work Phone: [facility] 12-18-2020 Fredrick COVID-19 Vaccine 0.5 ML Intramuscular Suspension Lacey Pretty MD Work Phone: [facility] 12-16-2020 COVID-19 Ad26.COV2.S (Fredrick) II Sebas Miguel Work Phone: [facility] 07-24-2017 seasonal influenza, intradermal, preservative free Lacey Pretty MD Work Phone: [facility] 250 DO Work Phone: 01-12-2017 pneumococcal conjuga te vaccine, 13 valent Lacey Pretty MD Work Phone: [facility] 250 DO Work Phone: 05-14-2007 influenza virus vaccine, unspecified formulation Lacey Pretty MD Work Phone: [facility] 250 DO Work Phone: NEGATED: Highlighted row has not occurred!08-19-2019 influenza, high dose seasonal, preservative-free II Sebas Miguel Work Phone: [facility] Payers Date Payer Category Payer Self-pay [id number] 2017 Medicare [id number] 1959 Medicare [id number] 1959 Unknown [id number] 1948 Unknown [id number] [id number]5 1948 Unknown [id number] 2.16.840.1.918251.3.579.2.593 1948 Unknown [id number] 2.16.840.1.652358.3.579.2.593 1948 Unknown [id number] 2.16.840.1.675970.3.579.2.593 1948 Unknown [id number] 2.16.840.1.615419.3.579.2.593 1948 Unknown [id number] 2.16.840.1.565290.3.579.2.593 1948 Unknown [id number] 2.16840.1.861748.3.579.2.1068 1948 Unknown [id number] 2.16840.1.191794.3.579.2.356 1948 Unknown [id number] 2.840.1.785608.3.579.2.356 1948 Unknown [id number] 2.16840.1.623363.3.579.2.356 1948 Unknown [id number] 2.840.1.753665.3.579.2.356 1948 Unknown [id number] 2.16840.1.878603.3.579.2.356 1948 Unknown [id number] 2.840.1.578077.3.579.2.1244 1948 Unknown [id number] 2.16840.1.337505.3.579.2.1259 1948 Unknown [id number] 2.840.1.615198.3.579.2.1259 Medicare [id number] Private Health Insurance [employer] [id number] Unknown [id number] Unknown Unknown [id number] 2.840.1.050258.3.579.2.531 Unknown [id number] 2.16.840.1.551190.3.579.2.531 Unknown [id number] 2.16.840.1.332242.3.579.2.531 Unknown [id number] 2.16.840.1.455561.3.579.2.531 Unknown [id number] 2.16.840.1.825521.3.579.2.531 Social History Date Type Detail Facility Start: 03-04-2024 No alcohol use No alcohol use [facility] 250 DO Work Phone: Comment on above: Coffee 1-2 cups paola y; Start: 03-02-2022 End: 03-04-2024 Tobacco smoking status NHIS Never smoked tobacco (finding) [facility] Start: 1950 Sex Assigned At Male F [facility] Start: 03-04-2024 Sex Assigned At N [facility] [employer] Other Start: 03-04-2024 Tobacco use and exposure Smokeless tobacco non-user [facility] Work Phone: Start: 03-04-2024 Alcoholic beverage intake Lifetime non-drinker (finding) [facility] Work Phone: Start: 1950 [facility] Start: 02-23-2024 End: 03-04-2024 Exposure to SARS-CoV-2 (event) Not sure [facility] Medical Equipment Procedure Code Equipment Code Equipment Original Text Equipment Identifier Dates CL STENT MAGI 5.[address] art: 06-09-2018 CL STENT MAGI 5.[address] art: 06-09-2018 [id number] FDA Start: 08-19-2019 CL STENT MAGI 5.[address] art: 06-09-2018 CL STENT MAGI 5.[address] art: 06-09-2018 [id number] FDA Start: 08-19-2019 CL STENT MAGI 5.[address] art: 06-09-2018 CL STENT MAGI 5.[address] art: 06-09-2018 [id number] FDA Start: 08-19-2019 CL STENT MAGI 5.[address] art: 06-09-2018 CL STENT MAGI 5.[address] art: 06-09-2018 [id number] FDA Start: 08-19-2019 CL STENT MAGI 5.[address] art: 06-09-2018 CL STENT MAGI 5.[address] art: 06-09-2018 [id number] FDA Start: 08-19-2019 Goals Date Patient Goal Desired Activity /State Functional Status Date Assessment Result Facility 04-13-2023 Functional status Patient at Baseline [facility] Work Phone: Mental Status Date Assessment Result Facility 04-13-2023 Cognitive function Cognitive Sta tus Patient at Baseline [facility] Work Phone: Clinical Notes 03-09-2022 to 03-04-2024 Lacey Pretty MD - 03/04/2024 10:10 AM EDTPatient Instructions Note Date & Type Note Facility 03-04-2024 History of Present illness Narrative Subjective Kia Mendez is a 73 y.o. male Chief Complaint Follow-up HPI Patient is here for follow-up continue management for coronary artery disease prior PCI to the right coronary artery and LAD and diagonal, hyperlipidemia and obesity. Since last time I saw him he denies lightheadedness, dizziness or syncope. He denies shortness of breath. He reported brief episode of nonexertional chest pain described as burning in his throat. He took nitroglycerin without improvement. In the past I have advised him to try Maalox as his symptoms appear GI in nature. He described functional class I. He remains very active. And seems to have stopped his lisinopril for reason unclear to me ASSESSMENT: 1. Coronary artery disease with prior PCI to the right coronary artery previously and PCI to the LAD/diagonal. Describe intermittent atypical chest pain I suspect GI possibly due to gastroesophageal reflux disease and recent gallbladder disease. Repeat cardiac catheterization showed only minimal small marginal disease and medical therapy was recommended. recent stress test also was negative for ischemia 2. Previous symptoms of orthostatic hypotension, completely resolved after adjusting his beta-nicolas dose. 3. Remote history of supraventricular tachycardia, with no recurrence. 4. Hyperlipidemia on atorvastatin 5. Mildly overweight. 6. Patient described nitro induced headache. Resolved 7. Classic symptoms of sleep apnea including loud snoring, frequent awakening and daily nap. Recent outpatient sleep study was borderline abnormal. Recommendation was made to see the sleep clinic. He unfortunately did not follow through due to passing away of his 8. Social stress due to the of his 's terminal illness 9. Patient request preoperative risk assessment for knee surgery RECOMMENDATION: 1. The patient was advised to continue present medical therapy. I renewed his nitroglycerin and I provided him with a prescription for lisinopril 2.5 mg daily for vascular protection I also advised him to try Maalox if he develop any chest pain 2. I suggested losing weight, exercise, and risk factor adjustment. 3. I will see him back in the office in 6-month and recent diagnostic testing including stress test 4. I advised the patient that he can proceed with knee surgery if needed 5. I advised him to try some [id number] Maalox if develop chest pain Review of Systems Cardiovascular: Positive for chest pain. All other systems reviewed and are negative. Vitals: 03/04/24 1017 03/04/24 1044 BP: 142/66 138/64 BP Location: Left arm Left arm Patient Position: Sitting Sitting Pulse: 60 Weight: 89.4 kg (197 lb 3.2 oz) Height: 1.778 m (5' 10 ) Objective Physical Exam Constitutional: Appearance: Normal appearance. HENT: Nose: Nose normal. Neck: Vascular: No carotid bruit. Cardiovascular: Rate and Rhythm: Normal rate. Pulses: Normal pulses. Heart sounds: Normal heart sounds. Pulmonary: Effort: Pulmonary effort is normal. Abdominal: General: Bowel sounds are normal. Palpations: Abdomen is soft. Musculoskeletal: General: Normal range of motion. Cervical back: Normal range of motion. Right lower leg: No edema. Left lower leg: No edema. Skin: General: Skin is warm and dry. Neurological: General: No focal deficit present. Mental Status: He is alert. Psychiatric: Mood and Affect: Mood normal. Behavior: Behavior normal. Thought Content: Thought content normal. Judgment: Judgment normal. Allergies Patient has no known allergies. Current Medications Current Outpatient Medications: aspirin 81 mg EC tablet, Take 1 tablet (81 mg) by mouth once daily., Disp: , Rfl: clopidogrel (Plavix) 75 mg tablet, Take 1 tablet (75 mg) by mouth once daily., Disp: , Rfl: docusate sodium (Colace) 50 mg capsule, Take 1 capsule (50 mg) by mouth 2 times a day as needed for constipation., Disp: , Rfl: famotidine (Pepcid) 20 mg tablet, Take 1 tablet (20 mg) by mouth once daily., Disp: , Rfl: metFORMIN (Glucophage) 1,000 mg tablet, Take 1 tablet (1,000 mg) by mouth 2 times a day after meals., Disp: , Rfl: metoprolol tartrate (Lopressor) 25 mg tablet, Take 1 tablet (25 mg) by mouth twice a day., Disp: , Rfl: omeprazole (PriLOSEC) [address] capsule, Take 1 capsule (40 mg) by mouth once daily in the morning. Take before meals., Disp: , Rfl: oxyCODONE-acetaminophen (Percocet) 10-325 mg tablet, Take 1 tablet by mouth every 6 hours if needed for severe pain (7 - 10)., Disp: , Rfl: primidone (Mysoline) 50 mg tablet, once daily., Disp: , Rfl: tamsulosin (Flomax) 0.4 mg 24 hr capsule, Take 1 capsule (0.4 mg) by mouth once daily., Disp: , Rfl: lisinopril 2.5 mg tablet, Take 1 tablet (2.5 mg) by mouth once daily., Disp: 90 tablet, Rfl: 3 nitroglycerin (Nitrostat) 0.4 mg SL tablet, Place 1 tablet (0.4 mg) under the tongue every 5 minutes if needed for chest pain., Disp: 90 tablet, Rfl: 3 Assessment/Plan 1. CAD, multiple vessel nitroglycerin (Nitrostat) 0.4 mg SL tablet Follow Up In Cardiology 2. Benign essential hypertension Follow Up In Cardiology lisinopril 2.5 mg tablet 3. Chest pain, unspecified type Follow Up In Cardiology 4. Mixed hyperlipidemia Follow Up In Cardiology 5. Paroxysmal supraventricular tachycardia (CMS-HCC) Follow Up In Cardiology 6. Other fatigue Follow Up In Cardiology 7. BMI 28.0-28.9,adult Follow Up In Cardiology Scribe Attestation By signing my name below, I, Ana Eden LPN , Scribe attest that this documentation has been prepared under the direction and in the presence of Lacey Pretty MD. Provider Attestation - Scribe documentation All medical record entries made by the Scribe were at my direction and personally dictated by me. I have reviewed the chart and agree that the record accurately reflects my personal performance of the history, physical exam, discussion and plan. documented in this encounter [facility] Work Phone: 03-04-2024 Instructions Braydon Solomon MA - 03/04/2024 10:10 AM EDT Please bring all medicines, vitamins, and herbal supplements with you when you come to the office. Prescriptions will not be filled unless you are compliant with your follow up appointments or have a follow up appointment scheduled as per instruction of your physician. Refills should be requested at the time of your visit. documented in this encounter [facility] Work Phone: 09-27-2023 Evaluation note Encounter Date Diagnosis Assessment Notes Sep, Suspected COVID-19 virus infection (ICD-10 - Z20.822) Sep, Influenza A (ICD-10 - J10.1) Advised patient that rapid Influenza A test was positive, rapid Influenza B/COVID test negative. Encouraged supportive care, Tamiflu as directed, Ringling as directed, Tylenol OTC as needed for body aches/fever. Increase fluids and rest. Encouraged use of cool mist humidifier. Advised patient that he needs to stay home from work/school/activi ties until fever free for 24 hours without use of antipyretics. Follow-up with PCP for further management if needed. Immediate eval for SOB, difficulty, chest pain, fevers that do not break with antipyretic or any other concerning symptoms as reviewed on patient education handout. Patient verbalizes understanding and is agreeable to treatment plan. Patient left in stable condition Sep, Sore throat (ICD-10 - J02.9) Rapid Strep test negative, follow above treatment plan recommendations Sep, Back strain, initial encounter (ICD-10 - S39.012A) Discussed diagnosis with patient today in office. Will send in Rx of naproxen and cyclobenzaprine to use as directed as needed. Encouraged use of OTC lidocaine patches. Patient to follow-up with PCP if symptoms do not improve with medication. Encouraged supportive care. Follow above treatment plan recommendations. [employer] Other 07-20-2023 Evaluation note* Encounter Date Diagnosis Assessment Notes Treatment Notes Treatment Clinical Notes Apr, Pancreatitis (ICD-10 - K85.90) Apr, Cholecystitis (ICD-1 0 - K81.9) [email or web address] Other 07-07-2023 Consult note Author Edmund Saha [facility] April 13, 2023 11:59am Note Date/Time April 13, 2023 11:53 am [facility] [address] [place] [address] Cardiology Consult Note Signed Patient: Kia Mendez MR#: [id number] : 1950 Acct:[id number] Age/Sex: 72 / M Adm Date: 3 Loc: Room: [address] [place] [address] Type: ADM INOo Attending Dr: Moses Velez MD Copies to: MD Sebas Smith II, MD W Scott Sheldon, DO~ Cardiology HPI History of Present Illness Consult Date: 04/13/23 Reason for Consult: Angina pectoris, ASHD, remote PCI's HPI: Mr. Mendez is a 72 year old male seen in interventional cardiology consultation atthe request of the hospitalist and patient who presents with throat discomfort with arm and wrist radiation, lightheadedness. He spent the entire day yesterday fishing, got up to go inside and started having discomfort in his throat and tingling in his left wrist. He took a nitro after he arrived home, this improved, he was lightheaded did not like the way he felt and asked his sonto take him to the hospital. He is otherwise been doing well, golfing on a regular basis fishing on a regularbasis, this past fall and winter hunting, without any exertional symptomatology. Since arriving in the hospital a single troponin is mildly elevated at 32, ECG is sinus rhythm with prior inferior Q wave infarction pattern, intraventricular conduction delay and 1 PVC; unchanged from the past. Patient does have a history of ASHD, remote inferior NH with revascularization of the RCA with 1 episode of stent thrombosis with repeat intervention. Subsequent intervention of the proximal/mid LAD in 2018, at that time the RCA was widely patent with preserved LV function. [facility] proximal/mid LAD and RCA stents, pinched diagonal and obtuse marginal branches on the order of 75 to 80% (small vessels) and no need of revascularization, with mild LV dysfunction angiographically. Since 2019 the patient has been doing well he is followed with Dr. Pretty, he has had no stress testing and is on appropriate guideline directed medical therapies including DAPT His past medical histories are otherwise noted for diabetes, hyperlipidemia, hypertension, mild obesity, the above-mentioned inferior NH and revascularization procedures Impression/recommendations: Anginal episode with isolated troponin of 32, no further clinical episodes of angina and ECG is unchanged from the past, with known small branch vessel coronary disease. There is no evidence of stent thrombosis clinically. Recommendations: Continue current therapies, discharged today with follow-up stress testing and office visit with Dr. Pretty [facility] Vaccinated for COVID-19?: Yes Medical History (Updated 04/13/23 @ 04:33 by Ana Mcknight RN) CAD (coronary artery disease) Diabetes Difficulty urinating Heart attack X 2 - 2014, 2017 High cholesterol Hypertension Melanoma Occasional tremors Positive colorectal cancer screening using Cologuard test Right shoulder pain OCCASSIONALLY Wears partial dentures Surgical History (Updated 04/13/23 @ 11:59 by Edmund Saha DO) H/O heart artery stent x4 History of cancer surgery MELANOMA REMOVED ARM History of orthopedic surgery meniscus repair Family History (Updated 04/13/23 @ 04:33 by Ana Mcknight RN) Father Tremors of nervous system Son Tremors of nervous system Other No significant family history Social History Smoking Status: Never smoker Substance Use Type: None Meds Medications and Allergies Allergies codeine Allergy (Verified 04/06/23 14:35) Confusion oxycodone Allergy (Verified 04/06/23 14:35) Hives Home Medications aspirin 81 mg chewable tablet (Aspirin Childrens) 81 mg PO DAILY 06/09/18 [History Confirmed 04/13/23] lisinopril 2.5 mg tablet (Zestril) 2.5 mg PO DAILY 06/09/18 [History Confirmed 04/13/23] metoprolol tartrate 25 mg tablet 25 mg PO BID 06/09/18 [History Confirmed 04/13/23] omeprazole 20 mg capsule,delayed release 40 mg PO DAILY 06/09/18 [History Confirmed 04/13/23] tamsulosin 0.4 mg capsule 0.4 mg PO BID 06/11/19 [History Confirmed 04/13/23] metformin 1,000 mg tablet 1,000 mg PO BID 08/18/19 [History Confirmed 04/13/23] clopidogrel 75 mg tablet 75 mg PO DAILY 30 days #30 tabs 08/19/19 [Rx Confirmed 04/13/23] nitroglycerin 0.4 mg sublingual tablet 0.4 mg sublingual Q5M PRN Chest Pain 30 days #25 tabs 08/19/19 [Rx Confirmed 04/13/23] atorvastatin 20 mg tablet 40 mg PO DAILY 04/06/23 [History Confirmed 04/13/23] famotidine 20 mg tablet 20 mg PO QAM 04/13/23 [History Confirmed 04/13/23] primidone 50 mg tablet 50 mg PO DAILY 04/13/23 [History Confirmed 04/13/23] semaglutide 0.25 mg or 0.5 mg (2 mg/3 mL) subcutaneous pen injector (Ozempic) 0.5 mg subcut QWEEK 04/13/23 [History Confirmed 04/13/23] Exam Physical Exam Vital Signs: Temp Pulse Resp BP Pulse Ox O2 Del Method 97.8 F 67 16 147/73 H 96 Room Air 04/13/23 08:00 04/13/23 08:00 04/13/23 08:00 04/13/23 08:00 04/13/23 08:00 04/13/23 08:00 Const General: cooperative, healthy appearing, comfortable, no acute distress and welldeveloped Nutritional Appearance: average body habitus Orientation: alert, awake and oriented x3 HEENT Head: normal to inspection Eyes General: appearance normal, both eyes and all related structures Neck Neck: normal visual inspection Chest Chest palpation & inspection: normal inspection of the chest Resp Effort & Inspection: normal respiratory effort Auscultation: clear to auscultation bilaterally Cardio Palpation: normal PMI Rate: regular rate Rhythm: regular rhythm Heart Sounds: S1 normal, S2 normal and no murmurs Pulses: radial pulses present GI Palpation: soft and nontender Skin General: no rashes or lesions noted Neuro General: patient alert, patient awake and patient oriented x3 Cognition: normal cognition Speech: speech normal Extrem General: no clubbing, cyanosis or edema MOOK Risk Score MOOK Risk Score Predictor Historical: Age > 65 Years Old, 3 or more Risk Factors: FHx,HTN,elevated cholesterol,DM,active smoker, Known CAD Stenosis >/=50% and ASA use in Past 7 Days Presentation: Recent (>/=24hr) Angina and Increased Cardiac Marker Score Risk Score (0-7): 6 Results: 6 Results Labs 04/13/23 05:53 04/13/23 05:53 Lab results: Lipids 04/13/23 Range/Units 05:53 Triglycerides 83 (0-149) mg/dL Cholesterol 88 L (140-200) mg/dL HDL Cholesterol 25 (23-92) mg/dL Cholesterol/HDL Ratio 3.5 (<5.0) CBC 04/13/23 Range/Units 05:53 RBC 4.22 (3.90-5.60) X10E6/uL Hgb 12.9 L (13.0-17.0) g/dL Hct 38.6 L (38.8-50.0) % Plt Count 209 (150-450) x10E3/uL Neut # (Auto) 3.2 (1.8-7.7) x10E3/uL Lymph # (Auto) 1.3 (1.00-4.8) x10E3/uL [place] # (Auto) 0.6 (0.0-0.8) x10E3/uL Eos # (Auto) 0.5 H (0.0-0.45) x10E3/uL Baso # (Auto) 0.1 (0.0-0.2) x10E3/uL Comprehensive Metabolic Panel 04/13/23 Range/Units 05:53 Sodium 140 (136-145) mmol/L Potassium 3.9 (3.5-5.1) mmol/L Chloride 109 H (98-107) mmol/L Carbon Dioxide 26.2 (21.0-31.0) mmol/L BUN 20 (7-25) mg/dL Creatinine 1.22 (0.70-1.30) mg/dL Glucose 131 H (70-100) mg/dL Calcium 8.8 (8.6-10.3) mg/dL Intake and Output 04/12/23 04/13/23 04/13/23 23:59 07:59 15:59 Other: # Unmeasured Voids 1 Weight 85.6 kg Date of Last Bowel Movement 04/12/23 Patient Weight 04/13/23 23:59 Weight 85.6 kg EKG Interpretations EKG EKG results cardiology: sinus rhythm NH, pacemaker, normal Myocardial infarction: inferior NH (old age indeterminate) A&P - Cardiology (1) Angina at rest: Code(s): I20.8 - Other forms of angina pectoris (2) Hyperlipidemia: Code(s): E78.5 - Hyperlipidemia, unspecified (3) Hypertension: Code(s): I10 - Essential (primary) hypertension (4) Diabetes: Code(s): E11.9 - Type 2 diabetes mellitus without complications (5) CAD (coronary artery disease): Code(s): I25.10 - Atherosclerotic heart disease of [place] coronary artery without angina pectoris (6) H/O heart artery stent: Code(s): Z95.5 - Presence of coronary angioplasty implant and graft Documented By: Edmund Saha DO 04/13/23 1151 Signed By: <Electronically signed by Edmund Saha DO> 04/13/23 1159 [facility] Work Phone: 1(403) 751-119007-07-2023 History and physical note Author Grey Neff [facility] April 13, 2023 4:47am Note Date/Time April 13, 2023 4:02a m [facility] [address] [place] [address] Hospitalist H&P Signed Patient: Kia Mendez MR#: [id number] : 1950 Acct:[id number] Age/Sex: 72 / M Adm Date: 3 Loc: 3T Room: 6O4496-4 Type: ADM INOo Attending Dr: Grey Neff DO Copies to: MD Ruth Hernandez II, JENNIFER Neff, DO~ HPI DATE OF EXAMINATION: 04/13/23 CHIEF COMPLAINT: shortness of breath, light headedness HISTORY OF PRESENT ILLNESS: Mr. Mendez is a 72-year-old male with PMH of T2DM, HTN, heart cath with 4 stents, GERD, HLD, BPH that was transferred from [facility]. Patient seen and evaluated at bedside, resting in bed quietly. Patient reports he developed lightheadedness and shortness of breath today while he was sitting and fishing. He also had some tingling to his left forearm. His son had to drive home. He went home and showered and felt a little better and as he was sitting he startedto feel worse. He reports midsternal chest pain and neck pain. He took a nitrowhich did not seem to help, 5 minutes later he took another nitro. He states that he only had substernal sharp chest pain for a couple of seconds and it wentaway. With the lightheadedness and shortness of breath he thought he was going to pass out. He states it lasted about an hour and a half. He currently complains of a headache, rates the pain a 3/10. Denies chest pain, shortness ofbreath at this time. He states he had a right knee scope a couple weeks ago which showed a torn meniscus. 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 Chest x-ray was performed?results report no acute process. CBC with an H&H of 13.9/40.9, otherwise unremarkable. BMP with a BUN of 22, creatinine 1.47, glucose 176. Initial troponin 14.5, repeat 25.2. NT?pro?B 871, which is normal on their scale. EKG shows normal sinus rhythm with occasional PVCs, widened QRS at 0.102. Patient received no medications. He was transferred to [facility] under the care of the [facility] for further evaluation and treatment. Review of Systems Review of Systems Review of systems: A 10 point review of systems was obtained, negative unless noted in the HPI or below. PMFSH Vaccinated for COVID-19?: Yes Medical History (Updated 04/13/23 @ 04:33 by Ana Mcknight RN) CAD (coronary artery disease) Diabetes Difficulty urinating Heart attack X 2 - 2014, 2017 High cholesterol Hypertension Melanoma Occasional tremors Positive colorectal cancer screening using Cologuard test Right shoulder pain OCCASSIONALLY Wears partial dentures Surgical History (Updated 04/13/23 @ 04:33 by Ana Mcknight RN) H/O heart artery stent x4 History of cancer surgery MELANOMA REMOVED ARM History of orthopedic surgery meniscus repair Family History (Updated 04/13/23 @ 04:33 by Ana Mcknight RN) Father Tremors of nervous system Son Tremors of nervous system Other No significant family history Social History Smoking Status: Never smoker Substance Use Type: None Meds Medications and Allergies Allergies codeine Allergy (Verified 04/06/23 14:35) Confusion oxycodone Allergy (Verified 04/06/23 14:35) Hives Home Medications aspirin 81 mg chewable tablet (Aspirin Childrens) 81 mg PO DAILY 06/09/18 [History Confirmed 04/13/23] lisinopril 2.5 mg tablet (Zestril) 2.5 mg PO DAILY 06/09/18 [History Confirmed 04/13/23] metoprolol tartrate 25 mg tablet 25 mg PO BID 06/09/18 [History Confirmed 04/13/23] omeprazole 20 mg capsule,delayed release 40 mg PO DAILY 06/09/18 [History Confirmed 04/13/23] tamsulosin 0.4 mg capsule 0.4 mg PO BID 06/11/19 [History Confirmed 04/13/23] metformin 1,000 mg tablet 1,000 mg PO BID 08/18/19 [History Confirmed 04/13/23] clopidogrel 75 mg tablet 75 mg PO DAILY 30 days #30 tabs 08/19/19 [Rx Confirmed 04/13/23] nitroglycerin 0.4 mg sublingual tablet 0.4 mg sublingual Q5M PRN Chest Pain 30 days #25 tabs 08/19/19 [Rx Confirmed 04/13/23] atorvastatin 20 mg tablet 40 mg PO DAILY 04/06/23 [History Confirmed 04/13/23] famotidine 20 mg tablet 20 mg PO QAM 04/13/23 [History Confirmed 04/13/23] primidone 50 mg tablet 50 mg PO DAILY 04/13/23 [History Confirmed 04/13/23] semaglutide 0.25 mg or 0.5 mg (2 mg/3 mL) subcutaneous pen injector (Ozempic) 0.5 mg subcut QWEEK 04/13/23 [History Confirmed 04/13/23] Exam Physical Exam Vital Signs: Temp Pulse Resp BP Pulse Ox O2 Del Method 97.6 F 63 16 164/77 H 97 Room Air 04/13/23 03:59 04/13/23 03:59 04/13/23 03:59 04/13/23 03:59 04/13/23 03:59 04/13/23 03:59 Narrative: CONST- Appears well -developed and well nourished. HEAD - Normocephalic and atraumatic EENT-Sclera nonicteric, conjunctive are non-erythemic, moist oral mucosa, pharynx clear NECK-Supple, no cervical lymphadenopathy CARDIAC-normal rate, regular rhythm, S1 & S2. PULM-diminished without wheeze or rhonchi, RA, no accessory muscle use or cough noted ABD - Soft. Bowel sounds are normal. No distention. No tenderness EXTREM-no edema BLE calves, nontender SKIN- W/D good turgor MS- MAEX4 spontaneously with equal with equal strength NEURO- A&Ox3 speech clear and tongue midline, equal facial symmetry, no focal motor deficits PSYCH-Mood, affect, and behavior appropriate Assessment & Plan Assessment/Plan (1) Chest pain: (2) Hypertension: (3) Hyperlipidemia: (4) Diabetes: Plan Chest pain r/o ACS?previous troponin 14.5, 25.5 ? CBC, BMP, mag, troponin in a.m. ? Echo in a.m. ? Orthostatic blood pressures and pulses every 8 hours Chronic conditions HTN?monitor, resume home meds when confirmed-metoprolol, lisinopril HLD?lipid profile in a.m., resume home meds-atorvastatin T2DM?fingersticks ACHS, resume home meds, A1c in a.m. DVT PPx-SCDs, enoxaparin Diet order-1800 ADA, 2 g sodium, heart healthy CODE STATUS-full code as discussed with patient I personally saw this patient on the day of the encounter, reviewed the history,performed the mitchell elements of the exam, formulated the plan of care and confirmed the Nurse Practitioner's assessment and plan. - Grey Neff DO IP vs OBS Justification Based on differential dx, clinical care plan, and risk of adverse events, if untreated, in my clinical judgement this patient requires an acute care setting as: OBSERVATION because of an expectation of an under 2 midnight stay. Estimated length of stay (# of days): 2 Documented By: Ruth Hogue APRN 04/13/23 0402 Signed By: <Electronically signed by JENNIFER Hogue> 04/13/23 0422 <Electronically signed by Grey Neff DO> 04/13/23 0447 [facility] Work Phone: 1(933) 449-831307-09-2022 Evaluation note* Encounter Date Diagnosis Assessment Notes Treatment Notes Treatment Clinical Notes Apr, Contact with and (suspected) exposure to covid-19 (ICD-10 - Z20.822) Apr, Viral pharyngitis (ICD-10 - J02.9) Pharyngitis/tonsill opharyngitis: adult home care material was printed Drink plenty fluids, get plenty of rest. Take Tylenol or Motrin for aches pains or fevers. Gargle with warm salt water for comfort. Consider drinking warm tea with honey for comfort as well. Follow-up with your family physician if no improvement in 2 to 3 days. Apr, Other Additional time spent conducting pre-visit phone call, screening for symptoms, instructions on social distancing, application and removal of PPE, and cleaning of examination room, equipment and supplies was performed. Patient education given for testing methodology and results. Patient care instructions given in writing by [facility] Care At Home document. [employer] Other 06-02-2022 NotePROCEDURE: XR KNEE RT 3V HISTORY: Pain of joint of knee ; acute medial knee pain, no known injury COMPARISON: None. FINDINGS: BONES:No fracture, acute abnormality, or significant arthropathy. SOFT TISSUES:No visible soft tissue swelling. EFFUSION:None visible. OTHER: Negative. IMPRESSION: 1. No acute bone abnormality or significant degenerative joint disease. Electronically authenticated by: MEME VILLANUEVA Date: 2022-03-09 18:19[facility]Evaluation noteNo assessment information availableMari[facility] Work Phone: Evaluation note* Diagnosis Onset Date Resolution Status Angina at rest acute CAD (coronary artery disease) acute Chest pain acute H/O heart artery stent acute Diabetes chronic Hyperlipidemia chronic Hypertension chronic [facility] Work Phone: Evaluation note* Diagnosis CAD, multiple vessel- Primary Benign essential hypertension Essential hypertension, benign Chest pain, unspecified type Mixed hyperlipidemia Paroxysmal supraventricular tachycardia ([facility]) Paroxysmal supraventricular tachycardia Other fatigue BMI 28.0-28.9,adult documented in this encounter [facility] Work Phone: History general Narrative - Reported* Type Description Date Medical History hypertension Medical History hypercholesterolemia Medical History prostatism Medical History diabetes mellitus Surgical History heart catheterization Surgical History heart stent Surgical History melanoma removed form left arm Hospitalization History see above [employer] Other Hisibdw general Narrative - Reported* Type Description Date Medical History hypertension Medical History hypercholesterolemia Medical History prostatism Medical History diabetes mellitus Medical History stroke Medical History diabetes mallitus Surgical History heart catheterization Surgical History heart stent Surgical History melanoma removed form left arm Surgical History knee arthroscopy Hospitalization History see above Hospitalization History stroke-mini Hospitalization History shortness of breath/ lig htheaded [employer] Other History of Present illness Narrative* Patient is here for follow-up and management for coronary disease prior multivessel PCI, Kamla, suspicion of sleep apnea and previous complaint of orthostatic hypotension. Since last time I saw him he reported his been under a lot of social stress due to the passing away of his best friend. He denieshowever complaint chest pain, palpitation, lightheadedness, dizziness or syncope. He remains fairly active. He reports his lab work done through his PCP. * ASSESSMENT: * 1. Coronary artery disease with prior PCI to the right coronary artery previously and PCI to the LAD/diagonal. Presented recently with chest pain cardiac catheterization showed disease of small marginal medical therapy was recommended. Did not tolerate long-acting nitrate and Ranexa was too expensiv e. Denies any recent chest pain or angina * 2. Previous symptoms of orthostatic hypotension, completely resolved after adjusting his beta-nicolas dose. * 3. Remote history of supraventricular tachycardia, with no recurrence. * 4. Hyperlipidemia report was controlled based on recent lab at his PCP * 5. Mildly overweight. Recent mild weight gain * 6. Patient described nitro induced headache. Resolved * 7. Classic symptoms of sleep apnea including loud snoring, frequent awakening and daily nap. Recentoutpatient sleep study was borderline abnormal. Recommendation was made to see the sleep clinic. Sadi did not follow through due to the recent event of his best friend passing away * 8. Social stress due to the of his best friend * RECOMMENDATION: * 1. The patient was advised to continue present medical therapy * 2. I suggested losing weight, exercise, and risk factor adjustment. * 3. I will see him back in the office before you go back to [place] in the winter * 4. Try to retrieve his recent lab * 5. I advised him to follow-up with sleep clinic. However he requested to wait until he came back from [facility] [employer] [employer] DO Work Phone: History of Present illness Narrative* Patient is here for follow-up and management for coronary arteries prior PCI to the LAD and diagonal, hyperlipidemia, and sleep apnea. Since last time I saw him he reports he is under tremendous amount of stress. He reports his is terminal with glioblastoma. She is in the hospital now. He reports he had a visit to the emergency room for chest pain. He was evaluated and released. His post PCIcath showed small marginal disease and medical therapy was recommended. I was able to retrieve and review the results of his recent hospitalization record and ER visit. * ASSESSMENT: * 1. Coronary artery disease with prior PCI to the right coronary artery previously and PCI to the LAD/diagonal. Presented recently with chest pain cardiac catheterization showed disease of small marginal medical therapy was recommended. Did not tolerate long-acting nitrate * 2. Previous symptoms of orthostatic hypotension, completely resolved after adjusting his beta-nicolas dose. * 3. Remote history of supraventricular tachycardia, with no recurrence. * 4. Hyperlipidemia report was controlled based on recent lab at his PCP * 5. Mildly overweight. * 6. Patient described nitro induced headache. Resolved * 7. Classic symptoms of sleep apnea including loud snoring, frequent awakening and daily nap. Recentoutpatient sleep study was borderline abnormal. Recommendation was made to see the sleep clinic. Sadi did not follow through due to the illness of his * 8. Social stress due to the of his 's terminal illness * RECOMMENDATION: * 1. The patient was advised to continue present medical therapy I recommended trial of Ranexa 500 mgtwice daily * 2. I suggested losing weight, exercise, and risk factor adjustment. * 3. I will see him back in the office in 6 months * 4. I have reviewed his recent hospitalization record and lab with him * 5. We will consider referring him to sleep study after current issues resolved [facility] 250 DO Work Phone: History of Present illness Narrative* Patient is here for follow-up continue management for coronary artery disease with prior PCI of theright coronary artery, hyperlipidemia and recent evaluation for chest pain. He underwent PCI to theRCA remotely. Following that he underwent heart cath which showed no residual stenosis. Recent stress test showed inferior NH but no ischemia. He recently underwent cholecystectomy. He has lost about18 pounds. He feels better but continues to complain of intermittent atypical chest pain. * ASSESSMENT: * 1. Coronary artery disease with prior PCI to the right coronary artery previously and PCI to the LAD/diagonal. Describe intermittent atypical chest pain I suspect GI possibly due to gastroesophageal reflux disease and recent gallbladder disease. Repeat cardiac catheterization showed only minimal small marginal disease and medical therapy was recommended. recent stress test also was negative for ischemia * 2. Previous symptoms of orthostatic hypotension, completely resolved after adjusting his beta-nicolas dose. * 3. Remote history of supraventricular tachycardia, with no recurrence. * 4. Hyperlipidemia on atorvastatin * 5. Mildly overweight. * 6. Patient described nitro induced headache. Resolved * 7. Classic symptoms of sleep apnea including loud snoring, frequent awakening and daily nap. Recentoutpatient sleep study was borderline abnormal. Recommendation was made to see the sleep clinic. Sadi did not follow through due to passing away of his * 8. Social stress due to the of his 's terminal illness * 9. Recent cholecystectomy without any cardiac issues or complication * RECOMMENDATION: * 1. The patient was advised to continue present medical therapy * 2. I suggested losing weight, exercise, and risk factor adjustment. * 3. I will see him back in the office in 6-month and recent diagnostic testing including stress test * 4. I have reviewed his recent hospitalization record and lab with him * 5. Advised him to follow-up with the sleep clinic * 6. I advised him to try some [id number] Maalox if develop chest pain -[facility] 600 DO Work Phone: [facility] Dis[facility] instructions[facility] Work Phone: Hospital Discharge instructions Additional Instructions You are scheduled for an outpatient EXERCISE MYOCARDIAL PERFUSION STRESS TEST at [facility] Office on 04/20/2023 at 8:00am - see instructionsLouis Stokes [facility] Center Work Phone: Hospital Discharge instructions Additional Instructions As we discussed, your gallbladder looks fine tonight. You are constipated and I have prescribed you a laxative. Please follow-up with your doctor. Follow-up with Dr. Carrera as scheduled as well. If you have any further problems or concerns, certainly if anything is worsening, we are happy to see you at any time.[facility] Work Phone: Reason for referral (narrative)* Consultation (Routine) - Authorized Specialty Diagnoses / Procedures Referred By Tierney raymond Referred To Contact Cardiology Diagnoses CAD, multiple vessel Benign essential hypertension Chest pain, unspecified type Mixed hyperlipidemia Paroxysmal supraventricular tachycardia (CMS-HCC) Other fatigue BMI 28.0-28.9,adult Procedures Follow Up In Cardiology Lacey Pretty MD [address] [place] [address], [address] [address] Lacey Pretty MD [address] [place] [address] 2, [address] [address] Referral ID Status Reason Start Date Expiration Date V isits Requested Visits Authorized [id number] Authorized 03/04/2024 03/04/[address] [facility] Work Phone: Summary Purpose Family History No Family History Records FoundUnknown Family Member Name Dates Details Family history of emphysema: Mother(V17.6, Z82.5) Status:Active Unknown Family Member Name Dates Details Family history of emphysema: Mother(V17.6, Z82.5) Status:Active Relationship Condition Age at Onset Recorded Date/T oliverio Not Specified No pertinent family history Unknown Unknown Family Member Name Dates Details Family history of emphysema: Mother(V17.6, Z82.5) Status:Active Unknown Family Member Name Dates Details Family history of emphysema: Mother(V17.6, Z82.5) Status:Active Unknown Family Member Name Dates Details Family history of emphysema: Mother(V17.6, Z82.5) Status:Active Unknown Family Member Name Dates Details Family history of emphysema: Mother(V17.6, Z82.5) Status:Active Relationship Condition Age at Onset Recorded Date/T oliverio Not Specified No pertinent family history Unknown father Tremor Unknown natural son Tremor Unknown Unknown Family Member Name Dates Details Family history of emphysema: Mother(V17.6, Z82.5) Status:Active Unknown Family Member Name Dates Details Family history of emphysema: Mother(V17.6, Z82.5) Status:Active Relationship Condition Age at Onset Recorded Date/T oliverio father Tremor Unknown natural son Tremor Unknown Not Specified Pulmonary emphysema Unknown brother Tremor Unknown Unknown Family Member Name Dates Details Family history of emphysema: Mother(V17.6, Z82.5) Status:Active Advance Directives No Advanced Directives Records Found Advance Directive Response Recorded Date/ Time Advance Directives No September 10, 2017 11:55am Chief Complaint KIA MENDEZ is being seen for a 6 month follow-up of.KIA MENDEZ is being seen for a 6 month follow-up of.KIA MENDEZ is being seen for a 6 month follow-up of.Patient here for EKG ordered by Dr. Lacey Pretty MD due to Paroxysmal Supraventricular Tachycardia. Dr. Lacey Pretty MD in suite. patient has mobile ekg device and was getting reading of hr 140-200 with shortness or breathe, family thought patient was in AFIB. Medication list updated verbally. Patient states does feel shortness of breath and chest pressure. expressed that his in march and has been feeling depressed. patient also has tremors which could explain the inaccurate reading on device. EKG reviewed by Allegra Mazariegos and Dr. Lacey Pretty MD prior to discharge. to Dr. Lacey Pretty MD for signature.KIA MENDEZ is being seen for [facility] and stress test results. Chief Complaint and Reason for Visit Chief Complaint chest pain,lt arm nu mbness n13.30 r10.9 n40.1 r35.1 r10.2 n13.5 Chief Complaint n/v/d Chief Complaint n/v/d Chest Pain Reason for Visit Angina at rest CAD (coronary artery disease) Chest pain H/O heart artery stent Diabetes Hyperlipidemia Hypertension Chief Complaint n/v/d Chest Pain stomach pain Reason for Visit Angina at rest CAD (coronary artery disease) Chest pain H/O heart artery stent Diabetes Hyperlipidemia Hypertension Chief Complaint n/v/d Chest Pain stomach pain Hx of Gallstones, Pancreatitis Reason for Visit Angina at rest CAD (coronary artery disease) Chest pain H/O heart artery stent Diabetes Hyperlipidemia Hypertension Reason for Referral Reason Eval and Treat Diagnosis 1 Cholecystitis (K81.9 ) Diagnosis 2 Pancreatitis (K85.90 ) Referral Organization [facility] Referring Provider First Name Imad Referring Provider Last Name Asaad Referring Provider Specialty Gastroenter ology Referred Organization [facility] Referred Provider Amauri Carrera Referred Address ,[place], [place],[address] Referred Provider Specialty Surgery Referral Priority Routine Additional Source Comments (unrecognized sect ion and content) No Status Records FoundNo Status Records FoundNo Status Records FoundNo Status Records FoundNo Status Records FoundNo Status Records FoundNo Status Records FoundNo Status Records FoundNo Status Records FoundNo Status Records Found INFORMATION SOURCE (unrecogn ized section and content) DATE CREATED AUTHOR 04/02/2018 [facility] DATE CREATED AUTHOR AUTHOR'S ORGANIZ ATION 09/15/2018 [facility] DATE CREATED AUTHOR AUTHOR'S ORGANIZ ATION 04/27/2022 [facility] DATE CREATED AUTHOR AUTHOR'S ORGANIZ ATION 02/19/2023 [facility] DATE CREATED AUTHOR AUTHOR'S ORGANIZ ATION 04/21/2023 [facility] DATE CREATED AUTHOR AUTHOR'S ORGANIZ ATION 06/02/2023 [facility] DATE CREATED AUTHOR AUTHOR'S ORGANIZ ATION 06/02/2023 [employer] [facility] [employer] DATE CREATED AUTHOR AUTHOR'S ORGANIZ ATION 06/04/2023 [facility] DATE CREATED AUTHOR AUTHOR'S ORGANIZ ATION 03/04/2024 [facility] DATE CREATED AUTHOR AUTHOR'S ORGANIZ ATION 03/05/2024 [facility] [employer] Care Teams (unrecognized sec tion and content) Team Status: Inactive Member Role Status Dates Sebas Miguel II MD Primary Care Provider Active Yifan Caldwell DO Emergency Provider Active Team Status: Inactive Member Role Status Dates Sebas Miguel II MD Primary Care Provider Active Alec Hogue Jr, MD Attending Provider Active Team Status: Active Member Role Status Dates Sebas Miguel II MD Primary Care Provider Active Team Status: Inactive Member Role Status Dates Sebas Miguel II MD Primary Care Provider Active Guanako Plummer DO Emergency Provider Active Team Status: Inactive Member Role Status Dates Sebas Miguel II MD Primary Care Provider Active Grey Neff DO Admit Provider Active Moses Velez MD Attending Provider Active Team Status: Inactive Member Role Status Dates Sebas Miguel II MD Primary Care Provider Active Katty Pierre Jr, MD Emergency Provider Active Team Status: Inactive Member Role Status Dates Sebas Miguel II MD Primary Care Provider Active Amauri Carrera DO Attending Provider Active Table Setter Relationship Specialty Start Date End Date Sebas Miguel MD [address] [place] [address] PCP - General 03/15/23 Goals (unrecognized section and content) Goals may be documented in a n alternate sectionNo InformationGoals may be documented in an alternate sectionNo InformationNo Information REASON FOR VISIT (unrecogniz ed section and content) Reason Comments Follow-up 6 month FOR RECORDS PERTAINING TO PATIENTS WHO ARE OR HAVE BEEN ENROLLED IN A CHEMICAL DEPENDENCY/SUBSTANCEABUSE PROGRAM, SOME INFORMATION MAY BE OMITTED. This clinical summary was aggregated from multiple sources. Caution should be exercised in using it in the provision of clinical care. This summary normalizes information from multiple sources, and as a consequence, information in this document may materially change the coding, format and clinical context of patient data. In addition, data may be omitted in some cases. CLINICAL DECISIONS SHOULD BE BASED ON THE PRIMARY CLINICAL RECORDS. [employer] provides no warranty or guarantee of the accuracy or completeness of information in this document.
[2024-03-10] MEDS: lidocaine HCL 15 ML, MAG HYDROX/ALUMINUM HYD/SIMETH 30 ML, HYOSCYAMINE SULFATE 0.25 MG PO (06:46)
[2024-03-10 08:24] LABS: Troponin I High Sensitivity 15.8 pg/mL (4.0-76.1)
== END 2024-03-10 08:48 | disposition home or self-care (01) ==
PROVIDERS: Emergency Medicine; Emergency Provider Emergency Medicine Emergency Medical Services; PCP Internal Medicine
DX: R07.89 Other chest pain (principal); I25.10 Atherosclerotic heart disease of native coronary artery without angina pectoris; Z95.5 Presence of coronary angioplasty implant and graft
CPT/HCPCS: 36415; 71045; 80048; 84484; 85025; 93005; 99285

== ENCOUNTER 2024-06-14 08:38 | Outpatient (OUT) | payer MEDICARE, OTHER, SELFPAY ==
--- NOTE | 2024-06-14 | CT_ITS ---
[address] [address] Patient Name: KIA MENDEZ MRN: [facility]:[id number] date: 1950 Sex: M Assigned Patient Location: CT Current Patient Location: [facility] Accession/Order Number: [id number] Exam Date: 06/14/2024 08:50 Report Date: 06/14/2024 09:34 At the request of: HILARIO GARCIA Procedure: CT head/brain wo con EXAMINATION: CT head/brain wo con HISTORY: EPISODIC MEMORY LOSS R41.3 NEW ONSET HEADACHES R51.9 COMPARISON: MRI brain 04/02/2023 TECHNIQUE: CT head without contrast. Dose reduction techniques were achieved by using: automated exposure control and/or adjustment of mA and /or kV according to patient size and/or use of iterative reconstruction technique. FINDINGS: Mild generalized cerebral atrophy. No hydrocephalus. There is no evidence for acute intracranial hemorrhage. There are no foci of abnormal parenchymal attenuation. There is no mass effect or midline shift. There are no abnormal extraaxial fluid collections. Mucosal thickening at the right frontal and ethmoid sinuses with air-fluid levels. CT/CT head/brain wo con IMPRESSION: Negative for acute intracranial hemorrhage or acute intracranial process. Mild generalized cerebral atrophy. No evidence for communicating hydrocephalus. Right frontal and ethmoid sinusitis. Electronically authenticated by: ANJUM GOLD Date: 06/14/2024 09:34
--- OUTSIDE RECORDS SUMMARY | 2024-06-14 08:41 | XMS_ITS | CCD ---
Author Organization [facility] Care Team Providers Care Vamp Maker Name Role Phone MARIA DE JESUS LACEY Unavailable Unavailable SEBAS MIGUEL Unavailable Unavailable Unavailable Unavailable AMRANDA Miguel Primary Care Provider DO Yifan Caldwell Emergency Provider [phone] MD Alec Hogue Jr Attending Provider Alka Phillips Unavailable LONG RODRIGUEZ Consulting Unavailable DR SEBAS MIGUEL Primary Care Unavailable PARTHA Ahuja, MAUREEN Attending Unavailable PARTHA ., MAUREEN Admitting Unavailable JUAN STEWART Consulting Unavailable DR SEBAS MIGUEL Primary Care Unavailable DOV, RALPH Consulting Unavailable RALPH MONAE Attending Unavailable RALPH MONAE Admitting Unavailable BARBARA TIAN Consulting Unavailable DR SEBAS MIGUEL Primary Care Unavailable RICH, DR MEME Shabazz Consulting Unavailable TENA BOWLING Attending Unavailable TENA BOWLING Admitting Unavailable MARKER ., DR TORRES Consulting Unavailable TENA BOWLING Consulting Unavailable JOSE, RUBY Admitting Unavailable DR SEBAS MIGUEL Primary Care Unavailable RICH, DR MEME Shabazz Consulting Unavailable RUBY GARCIA Attending Unavailable JOSE, RUBY Consulting Unavailable DR SEBAS MIGUEL Primary Care Unavailable ZIEBMILVIA, DR MEME Shabazz Consulting Unavailable JOSE, RUBY Attending Unavailable JOSE, RUBY Admitting Unavailable JOSE, RUBY Consulting Unavailable MARANDA Miguel Primary Care Provider DO Guanako Plummer Emergency Provider DO Grey Neff Admit Provider [phone] MD Moses Velez Attending Provider Sebas Miguel Unavailable Maria De Jesus, Dr. Gupta Attending Unavaila ble Miguel II, Dr. Sebas Manzo Primary Care Aranza vailable Asaad, Imad Unavailable MD Katty Pierre Jr Emergency Provider DO Amauri Carrera Attending Provider [phone] Lamont II, Dr. Sebas Manzo Primary Care Aranza vailable Traboulssi, Dr. Gupta Referring Unavaila ble Traboulssi, Dr. Gupta Attending Unavaila ble Miguel II, Dr. Sebas Manzo Primary Care Aranza vailable Miguel II, Dr. Sebas Manzo Primary Care Aranza vailable Traboulssi, Dr. Gupta Attending Unavaila ble Miguel II, Dr. Sebas Manzo Primary Care Aranza vailable Traboulssi, Dr. Gupta Referring Unavaila ble Miguel II, Dr. Sebas Manzo Primary Care Aranza vailable Traboulssi, Dr. Gupta Referring Unavaila ble Traboulssi, Dr. Gupta Attending Unavaila ble Tupa, Guanako Blount Admitting Unavailable Guanako Plummer Attending Unavailable Sebas Miguel Primary Care Unavailable Amauri Carrera Admitting Unavailable Amauri Carrera Attending Unavailable Sebas Miguel Primary Care Unavailable Alaniraj Alapatsy Attending Unavailable Grey Neff Admitting Unavailable Belia Hart Consulting Unavailable Sebas Miguel Primary Care Unavailable Edmund Saha Consulting Unavailable Shelley Torres Consulting Unavailable Marco Seymour Consulting Unavail able Lacey Pretty Consulting Unavailable Cosmo Hameed Consulting Unavailab Franca Bueno Consulting Unavailable Dia Mead Consulting Unavailable Adelso, Belen Namabeleb Consulting Unavailab Lynsey Oneal Consulting Unavailable Giovanna Alberto Consulting Unavailable Susan Mauricio Consulting Unavailable Amauri Carrera Admitting Unavailable Amauri Carrera Attending Unavailable Sebas Miguel Primary Care Unavailable Katty Pierre Jr Admitting Unavailable Katty Pierre Jr Attending Unavailable Sebas Miguel Primary Care Unavailable Hali Alexander Unavailable Sebas Miguel MD Primary Care Provider [phone] Lamont LOW MD, Daniel B Primary Care Provider Lamont LOW MD, Daniel B Unavailable [phone] Ruby Garcia CNP Unavailable LACEY PRETTY Attending Unavailable SEBAS MIGUEL Primary Care Unavailable SEBAS MIGUEL II Primary Care Unavailable SUSAN SKELTON Attending Unavailable JOS ARMSTRONG Referring Unavailable SEBAS MIGUEL II Primary Care Unavailable JOS ARMSTRONG Referring Unavailable SHAYNE LAM Attending Unavailable SEBAS MIGUEL II Primary Care Unavailable JOS ARMSTRONG Attending Unavailable SEBAS MIGUEL II Primary Care Unavailable JOS ARMSTRONG Referring Unavailable SUSAN SKELTON Attending Unavailable RUBY GARCIA Attending Unavailable AGUSTINA LUIS Attending Unavailable YAN GAUTAM Attending Unavailable RUBY GARCIA Referring Unavailable RUBY GARCIA Attending Unavailable PHILIP HUGGINS Attending Unavailable AGUSTINA LUIS Attending Unavailable RUBY GARCIA Attending Unavailable Allergies Allergy Classification Reported Allergen(s) Allergy Type Date of Onset Reaction(s) Facility (14 sources) Codeine; Translations: [Codeine Derivatives] Drug Allergy 7 Itching [facility] (8 sources) Codeine; Translations: [Codeine] Drug Allergy 6 Confusion, Itching [facility] (6 sources) oxyCODONE; Translations: [oxycodone] Drug Allergy 2 [facility] (3 sources) Codeine Drug Allergy itching [facility] Other (1 source) Acetaminophen / oxyCODONE Drug Allergy 4 [facility] (5 sources) Acetaminophen / oxyCODONE; Translations: [OXYCODONE-ACETAM INOPHEN] Drug Allergy 4 Itching [facility] Medications Current Medications Medication Drug Class(es) Dates Sig (Normalized) Sig (Original) acetaminophen 325 mg oral tablet (5 sources) take 2 tablets by mouth every six hours as needed acetaminophen (TYLENOL) 325 mg tablet Take 650 mg by mouth every 6 hours as needed. 0 Active take 2 tablets by mo [facility] every eight hours Acetaminophen ER 650 MG Oral Tablet Exte nded Release TAKE 2 TABLET Every 8 hours as needed Quantity: 0 Refills: 0 Ordered: 01-Jun-2023 DO Active Aspir-81 (1 source) Aspir-81 Active aspirin 81 mg chewable tablet (20 sources) Platelet Aggregation Inhibitor, Nonsteroidal Anti-inflammatory Drug Start: 06-09-2018 End: 05-09-2023 take 81 mg by mouth once daily in the morning Aspirin Active 81 MG PO Every morning May 09, 2023 12:00am take 1 tablet by mouth once paola y aspirin, enteric coated (ASPIRIN, ENTERIC COATED) 81 mg EC tablet Take 81 mg by mouth once daily. 0 Active atorvastatin 20 mg oral tablet (20 [...] Sep, Active dapagliflozin 10 mg oral tablet (3 sources) Sodium-Glucose Cotransporter 2 Inhibitor Start: 05-12-2024 take 1 tablet by mouth once daily at breakfast dapagliflozin propanediol (FARXIGA) 10 mg tablet Take 1 tablet by mouth daily with breakfast. 0 05/12/2024 Active End: 03-04-2024 take 1 tablet by mouth once daily dapagliflozin propanediol (Farxiga) 10 mg Take 1 tablet (10 mg) by mouth once daily. 03/04/2024 Discontinued (Therapy completed) dextromethorphan hydrobromide 1.5 mg/ml / pyrilamine maleate 1.5 mg/ml oral solution (1 source) Uncompetitive G-bfkrxq-P-aspartate Receptor Antagonist, Sigma-1 Agonist Start: 09-27-2023 take 10 mL by mouth every eight hours [place] DM 7.5-7.5 MG/5ML 10 mL Orally every 8 hours for 5 days Sep, Active docusate sodium 50 mg oral capsule (6 sources) take 1 capsule by mouth twice daily docusate sodium (STOOL SOFTENER) 50 mg capsule Take 50 mg by mouth two times a day. 0 Active take 1 capsule by mo uth twice daily as needed Colace 100 MG Oral Capsule TAKE 1 CAPSUL E TWICE DAILY NEEDED. Quantity: 0 Refills: 0 Ordered: 01-Jun-2023 DO Active docusate sodium 50 mg / sennosides, snf 8.6 mg oral tablet (2 sources) Start: 05-08-2023 take 2 tablets by mouth once daily at bedtime Sennosides-Docusate Sodium (Senna Plus) 8.6-50 mg tablet Active 2 TAB PO Daily at bedtime May 08, 2023 12:00am iv contrast (will be provided with radiology test) (1 source) Start: 03-31-2024 End: 04-01-2024 inject 1 dose intravenously once iv contrast (will be provided with radiology test) Indications: Essential tremor MRI Brain Inject, intravenously, once for 1 dose.No IV access, insert saline lock prior to beginning of sedation, infusion, injection of imaging exam.Discontinue saline lock post exam. If Pt. has a central line or IVAD, may access for administration according to line specific nursing protocol.Once exam is complete flush line and de-access according to line specific nursing protocol in the MR contrast administration guidelines link 1 Each 0 03/31/2024 04/01/2024 Active lisinopril 2.5 mg oral tablet (20 sources) Angiotensin Converting Enzyme Inhibitor Start: 06-09-2018 End: 03-04-2025 take 1 tablet by mouth once daily lisinopril 2.5 mg tablet Indications: Benign essential hypertension Take 1 tablet (2.5 mg) by mouth once daily. 90 tablet 3 03/04/2024 03/04/2025 Active Lisinopril Activ e metFORMIN hydrochloride 1000 mg oral tablet (20 sources) Biguanide Start: 08-18-2019 take 1 tablet by mouth twice daily after mealtime metFORMIN (Glucophage) 1,000 mg tablet Take 1 tablet (1,000 mg) by mouth 2 times a day after meals. 01/07/2023 Active End: 05-12-2024 take 1 tablet by mouth once daily at breakfast metFORMIN (GLUCOPHAGE) 1,000 mg tablet Take 1,000 mg by mouth daily with breakfast. 0 05/12/2024 Discontinued metFORMIN HCl Ac tive metoprolol tartrate 25 mg oral tablet (20 sources) beta-Adrenergic Nicolas Start: 06-09-2018 take 1 tablet by mouth twice daily metoprolol tartrate (Lopressor) 25 mg tablet Take 1 tablet (25 mg) by mouth twice a day. 03/20/2023 Active take 1 tablet by mouth once paola y metoprolol succinate ER (TOPROL XL) 25 mg 24 hr tablet Take 25 mg by mouth once daily. 0 Active Metoprolol Tartr ate Active naproxen 500 mg oral tablet (1 source) Nonsteroidal Anti-inflammatory Drug Start: 09-27-2023 take 1 tablet by mouth every twelve hours at mealtime as needed Naproxen 500 MG 1 tablet with food or milk as needed Orally every 12 hrs for 7 days Sep, Active nitroglycerin 0.4 mg sublingual tablet (20 sources) Nitrate Vasodilator Start: 08-19-2019 End: 03-04-2025 nitroglycerin (Nitrostat) 0.4 mg SL tablet Indications: CAD, multiple vessel Place 1 tablet (0.4 mg) under the tongue every 5 minutes if needed for chest pain. 90 tablet 3 03/04/2024 03/04/2025 Active Nitroglycerin Ac tive omeprazole 40 mg delayed release oral capsule (20 sources) Proton Pump Inhibitor Start: 10-18-2020 take [...] Ozempic Active primidone 50 mg oral tablet (20 sources) Anti-epileptic Agent Start: 02-22-2022 End: 04-13-2023 primidone (Mysoline) 50 mg tablet once daily. 03/20/2023 Active take 1 tablet by mouth four time s daily primidone (MYSOLINE) 50 mg tablet Take 50 mg by mouth four times daily. 0 Active Semaglutide (3 sources) Start: 04-13-2023 Semaglutide (O zempic) 0.25 mg or 0.5 mg (2 mg/3 mL) pen injector Active 0.5 MG SUBCUT every week April 13, 2023 12:00am semaglutide (OZEMPIC) 0.25 mg or 0.5 mg (2 mg/3 mL) pen (1 source) Start: 05-12-2024 semaglutide (O ZEMPIC) 0.25 mg or 0.5 mg (2 mg/3 mL) pen Inject 0.25 mg subcutaneously one time a week. 0 05/12/2024 Active traMADol hydrochloride 50 mg oral tablet (2 sources) Opioid Agonist End: 03-04-2024 traMADol (Ultram) 50 mg tablet Take by mouth. As needed. 03/04/2024 Discontinued (Therapy completed) Completed/Discontinued Medications Medication Drug Class(es) Dates Sig (Normalized) Sig (Original) acetaminophen 500 mg / chlorpheniramine maleate 2 mg / dextromethorphan hydrobromide 15 mg / pseudoephedrine hydrochloride 30 mg oral tablet (1 source) alpha-Adrenergic Agonist, Histamine-1 Receptor Antagonist, Uncompetitive T-lkouuo-I-aspartat e Receptor Antagonist, Sigma-1 Agonist Cold Relief TABS TAKE 1 TABLET ONCE DAILY. Quantity: 0 Refills: 0 Ordered: 01-Jun-2023 DO Active acetaminophen 325 mg / HYDROcodone bitartrate 5 mg oral tablet (5 sources) Opioid Agonist End: 05-12-2024 take 1 tablet by mouth every eight hours as needed HYDROcodone-aceta minophen (NORCO) 5-325 mg per tablet Take 1 tablet by mouth every 8 hours as needed for pain. 0 05/12/2024 Discontinued End: 03-04-2024 HYDROcodone-acetaminophen (N orco) 5-325 mg tablet Take by mouth. As needed/directed 03/04/2024 Discontinued (Therapy completed) acetaminophen 325 mg / oxyCODONE hydrochloride 10 mg oral tablet (4 sources) Opioid Agonist End: 05-12-2024 take 1 tablet by mouth every twelve hours as needed oxyCODONE-acetaminophen (PERCOCET 10) 10-325 mg tablet Take 1 tablet by mouth every 12 hours as needed for pain. 0 05/12/2024 Discontinued take 1 tablet by suraj th every six hours as needed oxyCODONE-acetaminophen (Percocet) 10-32 5 mg tablet Take 1 tablet by mouth every 6 hours if needed for severe pain (7 - 10). Active amoxicillin 500 mg oral capsule (1 source) Penicillin-class Antibacterial take 1 capsule by mouth every six hours Amoxicillin 500 MG Oral Capsule TAKE 1 CAPSULE Every 6 hours Quantity: 0 Refills: 0 Ordered: 01-Jun-2023 DO Active canagliflozin 150 mg / metFORMIN hydrochloride 1000 mg oral tablet (8 sources) Biguanide, Sodium-Glucose Cotransporter 2 Inhibitor Start: End: take 150-1000 mg by mouth twice daily Canagliflozin-Metfo rmin (Invokamet) 150-1,000 mg Tablet Discontinued 1 TAB PO Twice daily June 09, 2018 12:00am June 11, 2019 1:29pm End: 05-12-2024 canagliflozin-metformin (INV OKAMET) 50-1,000 mg tab Take by mouth. 0 05/12/2024 Discontinued doxycycline hyclate 100 mg oral capsule (1 source) Tetracycline-class Drug take 1 capsule by mouth every twelve hours Doxycycline Hyclate 100 MG Oral Capsule TAKE 1 CAPSULE EVERY 12 HOURS UNTIL GONE. Quantity: 0 Refills: 0 Ordered: 01-Jun-2023 DO Active famotidine 20 mg oral tablet (8 sources) Histamine-2 Receptor Antagonist Start: 023 End: 024 take 20 mg by mouth once daily in the morning Famotidine Discontinued 20 MG PO Every morning April 13, 2023 12:00am May 09, 2023 11:47am End: 05-12-2024 take 1 tablet by mouth twice daily famotidine (PEPCID) 20 mg tablet Take 20 mg by mouth two times a day. 0 05/12/2024 Discontinued fexofenadine hydrochloride 180 mg oral tablet (16 sources) Histamine-1 Receptor Antagonist Start: 08-18-2019 End: 02-02-2020 Fexofenadine (Lizeth Allergy) 180 mg Tablet Discontinued 0 MG PO Daily August 18, 2019 1:00am February 02, 2020 3:33pm UNABLE TO CONFIRM WITH PHARMACY OR PATIENT take 1 tablet by mouth once paola y fexofenadine (LIZETH) 60 mg tablet Take 60 mg by mouth once daily. 0 Active Lizeth Active 24 hr isosorbide mononitrate 30 [...] Active rosuvastatin calcium 10 mg oral tablet (13 sources) HMG-CoA Reductase Inhibitor Start: 06-09-2018 End: 05-12-2024 take 1 tablet by mouth once daily Rosuvastatin (Crestor) 10 mg Tablet Discontinued 10 MG PO Daily June 09, 2018 12:00am August 19, 2019 7:46pm sennosides, snf 8.6 mg oral capsule (1 source) Senna [...] Active tamsulosin hydrochloride 0.4 mg oral capsule (20 sources) alpha-Adrenergic Nicolas Start: 12-06-2020 take 1 [...] Discontinued 90 MG PO Twice daily 60 June 11, 2018 12:00am August 18, 2019 6:29pm Problems Active Problems Problem Classification Problem Date Documented Da te Episodic/Chronic Abdominal pain (3 sources) Abdominal pain; Translations: [Unspecified abdominal pain] Onset: 01-2023 Episodic Acute myocardial infarction (5 sources) Acute ST segment elevation myocardial infarction; Translations: [ST elevation (STEMI) myocardial infarction of unspecified site] 06-09-2018 Chronic Biliary tract disease (4 sources) Cholecystitis; Translations: [Cholecystitis, unspecified] Onset: 3 Episodic Cardiac dysrhythmias (12 sources) Paroxysmal supraventricular tachycardia; Translations: [Paroxysmal supraventricular tachycardia] Onset: 4 03-04-2024 Chronic Conditions associated with dizziness or vertigo (9 sources) Dizziness; Translations: [Dizziness and giddiness] Episodic Coronary atherosclerosis and other heart disease (20 sources) Atherosclerotic heart disease of [place] coronary artery without angina pectoris; Translations: [Multi [...] 2 08-23-2019 Episodic Other aftercare (1 source) prison (current) use of aspirin; Translations: [[employer] 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 USE OF ASPIRIN] Onset: 3 Episodic Other aftercare (1 source) 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; Translations: [GROUP HOME USE ORAL HYPOGLYCEMIC DX] Onset: 3 Episodic Other aftercare (1 source) Other snf (current) drug therapy; Translations: [OTH [employer] FACULTY ASSISTANT CURRENT DRUG THERAPY] Onset: 3 Episodic Other gastrointestinal disorders (5 sources) Stool DNA-based colorectal cancer screening positive; Translations: [Other fecal abnormalities] 06-12-2019 Episodic Other gastrointestinal disorders (2 sources) Constipation; Translations: [Constipation, unspecified] 05-08-2023 Episodic Other gastrointestinal disorders (1 source) Diarrhea, unspecified; Translations: [Diarrhea, unspecified] Onset: 3 Episodic Other hereditary and degenerative nervous system conditions (3 sources) Essential tremor; Translations: [Essential tremor] 03-31-2024 Chronic Other hereditary and degenerative nervous system conditions (1 source) Essential tremor; Translations: [Essential tremor] Onset: 4 Chronic Other lower respiratory disease (1 source) Snoring; [...] Unclassified (2 sources) Athscl heart disease of [place] coronary artery w/o ang pctrs / I25.10(ICD-9) Onset: 8 Unclassified (1 source) Chest pain, unspecified / R07.9(ICD-9) Onset: 8 Unclassified (1 source) CONTACT W/AND (SUSP) EXPOS COVID-19; Translations: [CONTACT W/AND (SUSP) EXPOS COVID-19] Onset: 2 Unclassified (4 sources) OPENED IN ERROR Onset: 7 06-27-2017 Unclassified (4 sources) Type 2 diabetes mellitus without complication; Translations: [Uncontrolled type 2 diabetes mellitus without complication, without long-term current use of insulin] Onset: 7 07-16-2017 Unclassified (1 source) Supraventricular tachycardia, unspecified (CMS-HCC); Translations: [Supraventricular tachycardia, unspecified (CMS-HCC)] Onset: 4 Past or Other Problems Problem Classification Problem Date Documented Date Episodic/Chronic Blindness and vision defects (4 sources) Presbyopia; Translations: [Presbyopia] Onset: 06-27-2017 Resolved: 08-02-2017 08-02-2017 Episodic Cardiac dysrhythmias (1 source) Tachycardia, unspecified; Translations: [TACHYCARDIA UNSPECIFIED] Onset: 05-18-2022 Episodic Cataract (8 sources) Nuclear senile cataract; Translations: [Age-related nuclear cataract, left eye] Onset: 06-28-2017 Resolved: 09-13-2017 08-02-2017 Chronic Other lower respiratory disease (3 sources) Shortness [...] Test Name Value Interpretation Reference Range Facility CNOV 05-12-2024 CNOV Office Visit (NREUS2 ) ----- KIA MENDEZ ([id number]) 1950 M Date Time Provider Department 05/12/24 10:00 AM SUSAN SKELTON NREUS2 During your visit today, we recorded the following information about you: Susan Skelton PA-C 05/12/2024 11:01 AM Signed Name: Kia Funk Vanessa CCF#: [id number] Date of Service: May 12, 2024 Age: [age] year old Sex: male Primary Neurologist: Dr. Armstrong Hand Dominant: Right HPI: Kia is 74, right handed , with tremors in both hands. He has seen Dr. Armstrong one time. No new meds added at that visit. he is taking Primidone 100 BID. He has some sleepiness, and not doing much to improve tremor. He had a friend in [place] that told him about HIFUS and he spoke with his PCP and was then referred here for procedure. He has difficulty eating, carrying things, writing. 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 GOALS for HIFUS improve tremor in the right hand tremor score 25 PMH cardiac stents x4 - Plavix and ASA DM most recent A1c 8.9 HTN- 2 meds PSH multiple cardiac stents. - multiple heart attacks - last one 3-4 years ago bilateral cataract cryo therapy for BCC on the head excision melanoma on the left arm. Past Surgical History: PAST SURGICAL HISTORY 01/07/2016: CC PTCA STENT No date: PAST SURGICAL HISTORY OF Comment: surgery on right calf for stitches, No date: PAST SURGICAL HISTORY OF Comment: Melanoma removed 07/2017: PAST SURGICAL HISTORY OF Comment: melanoma on head 07/25/2017: XCAPSL CTRC RMVL INSJ IO LENS PROSTH W/O ECP; Left Comment: Cataract Extraction with PC IOL 08/08/2017: XCAPSL CTRC RMVL INSJ IO LENS PROSTH W/O ECP; Right Comment: Cataract Extraction with PC IOL by Past Medical History: PAST MEDICAL HISTORY No date: CAD (coronary artery disease) No date: GERD (gastroesophageal reflux disease) No date: HLD (hyperlipidemia) No date: HTN (hypertension) No date: Pseudophakia of both eyes No date: Type 2 diabetes mellitus (HCC) Current Medications: Current Outpatient Medications Medication Sig metFORMIN (GLUCOPHAGE) 1,000 mg tablet Take 1,000 mg by mouth daily with breakfast. tamsulosin (FLOMAX) 0.4 mg Take 0.4 mg by mouth once daily. famotidine (PEPCID) 20 mg tablet Take 20 mg by mouth two times a day. acetaminophen (TYLENOL) 325 mg tablet Take 650 mg by mouth every 6 hours as needed. HYDROcodone-acetaminophen (NORCO) 5-325 mg per tablet Take 1 tablet by mouth every 8 hours as needed for pain. fexofenadine (LIZETH) 60 mg tablet Take 60 mg by mouth once daily. nitroglycerin sublingual (NITROQUICK) 0.4 mg SL tablet Dissolve 0.4 mg under the tongue every 5 minutes as needed for chest pain. primidone (MYSOLINE) 50 mg tablet Take 50 mg by mouth four times daily. oxyCODONE-acetaminophen (PERCOCET 10) 10-325 mg tablet Take 1 tablet by mouth every 12 hours as needed for pain. docusate sodium (STOOL SOFTENER) 50 mg capsule Take 50 mg by mouth two times a day. clopidogrel (PLAVIX) 75 mg tablet Take 75 mg by mouth once daily. Omeprazole 40 mg capsule Take 40 mg by mouth once daily. canagliflozin-metformin (INVOKAMET) 50-1,000 mg tab Take by mouth. rosuvastatin (CRESTOR) 10 mg tablet Take 10 mg by mouth once daily. lisinopril 2.5 mg tablet Take 2.5 mg by mouth once daily. metoprolol succinate ER (TOPROL XL) 25 mg 24 hr tablet Take 25 mg by mouth once daily. aspirin, enteric coated (ASPIRIN, ENTERIC COATED) 81 mg EC tablet Take 81 mg by mouth once daily. No current facility-administered medications for this visit. Allergies: Codeine and Oxycodone-Acetaminophen Major Trauma or Injuries: None Social History: Social History Tobacco Use Smoking status: Never Smokeless tobacco: Never Substance Use Topics Alcohol use: No Drug use: No Family History: FAMILY HISTORY Problem Relation Age of Onset Heart Father No Ocular Disease Father Essential Tremor Father No Ocular Disease Mother Essential Tremor Brother Essential Tremor Son REVIEW OF SYSTEMS: Constitutional: No recent fever or weight loss Skin: Denies itching, rashes,conditions Eyes: Denies complaints of blurred vision and diplopia, Does not use glasses or contact lenses ENMT: Denies dysphagia, tinnitis, vertigo and hearing loss, Endocrine: Denies history of Thyroid disease CV: Denies history of palpitations, heart failure, murmurs,, circulatory problems, leg swelling Respiratory: Denies history of paroxymal nocturnal dyspnea, recent cough, orthopnea, shortness of breath, COPD, emphysema, asthma Gastrointestinal: moderate nausea due to medications Denies history of diarrhea, constipation, abdominal pain Genitourinary: Denies hematuria, dysuria, incontinence, kidney disease Musculoskeletal: Denies complaint of arm / leg weakness, gout Neurological: Denies history of syncope, memory changes, or disori (more content not included)... Normal [facility] CNOV Office Visit (NREUS2 ) ----- KIA MENDEZ ([id number]) 1950 M Date Time Provider Department 05/12/24 9:00 AM SUSAN SKELTON NREUS2 During your visit today, we recorded the following information about you: Pulse Blood pressure Weight Height 68/minute 119/64 88.5 kg 1.554 m Susan Skelton PA-C 05/12/2024 10:49 AM Signed CC: pt here for video portion of the HIFUS evaluation HPI: Kia is 74, right handed , with tremors in both hands. He has seen Dr. Armstrong one time. No new meds added at that visit. he is taking Primidone 100 BID. He has some sleepiness, and not doing much to improve tremor. He had a friend in [place] that told him about HIFUS and he spoke with his PCP and was then referred here for procedure. He has difficulty eating, carrying things, writing. 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 GOALS for HIFUS improve tremor in the right hand tremor score 25 took Primidone this morning 100 mg Susan Skelton PA-C Allergies As of Date: 05/12/2024 Noted Allergy Reaction CODEINE 06/28/2017 9 - Itching OXYCODONE-ACETAMINOPHEN 09/23/2014 9 - Itching Date Reviewed: 03/31/2024 Reviewed by: Christie Palmer OCCA - Fully Assessed Primary Visit Diagnosis:Essential tremor [G25.0] Prescriptions as of 05/12/2024 - tamsulosin (FLOMAX) 0.4 mg Take 0.4 mg by mouth once daily. - acetaminophen (TYLENOL) 325 mg tablet Take 650 mg by mouth every 6 hours as needed. - fexofenadine (LIZETH) 60 mg tablet Take 60 mg by mouth once daily. - nitroglycerin sublingual (NITROQUICK) 0.4 mg SL tablet Dissolve 0.4 mg under the tongue every 5 minutes as needed for chest pain. - primidone (MYSOLINE) 50 mg tablet Take 50 mg by mouth four times daily. - docusate sodium (STOOL SOFTENER) 50 mg capsule Take 50 mg by mouth two times a day. - clopidogrel (PLAVIX) 75 mg tablet Take 75 mg by mouth once daily. - Omeprazole 40 mg capsule Take 40 mg by mouth once daily. - lisinopril 2.5 mg tablet Take 2.5 mg by mouth once daily. - metoprolol succinate ER (TOPROL XL) 25 mg 24 hr tablet Take 25 mg by mouth once daily. - aspirin, enteric coated (ASPIRIN, ENTERIC COATED) 81 mg EC tablet Take 81 mg by mouth once daily. Problem List As Of Date 05/12/2024 Noted Resolved Presbyopia [H52.4] 06/27/2017 08/02/2017 OPENED IN ERROR 06/27/2017 Cataract, nuclear sclerotic senile, left [H25.1*06/28/2017 08/02/2017 Cataract, nuclear sclerotic senile, right [H25.*06/28/2017 09/13/2017 Essential hypertension [I10] 07/16/2017 Other hyperlipidemia [E78.49] 07/16/2017 Uncontrolled type 2 diabetes mellitus without c*07/16/2017 Encounter Status:Closed by SUSAN SKELTON on 05/12/24 [facility] (NREUS2 ) ----- KIA MENDEZ ([id number]) 1950 M Date Time Provider Department 03/31/24 10:00 AM JOS ARMSTRONG NRVENICES2 During your visit today, we recorded the following information about you: Pulse Blood pressure 59/minute 115/54 Jos Armstrong MD 03/31/2024 11:23 AM Signed March 31, 2024 Jos Armstrong MD [facility] [address] [place] [address] PCP: Sebas Miguel II, MD [address] [facility] [address] [place] [address] Referring Physician: Ruby Garcia NP [address] [facility] 110 [facility] [address] Kia Mendez : 1950 History of Present Illness: Kia Mendez is a 73 year old right-handed man who is seen in consultation for evaluation of Essential Tremor and the possibility of a high frequency ultrasound thalamotomy. My final recommendations will be communicated back to the requesting physician by way of shared medical record or via letter. The patient is seen with a [id number]. Mr. Mendez reports shakiness present in his hands, getting worse over the past five years. It is difficult to see if it is actually still getting worse now. This interferes with doing various tasks including writing, eating, drinking (he fills the cup only residential now), and other fine motor tasks. Lifting heavy things brings the shakiness out. The shakiness is present almost solely in the hands, possibly worse in the left. He denies shaking in the voice or head. He denies stiffness. He denies micrographia. He has severe knee arthritis that seems to be the thing that is affecting his walking. There is no trouble with swallowing. There is occasional dizziness upon arising. There is no anosmia. He always has constipation (possibly related to prior GI issues- and he see a GI doctor). He does not act out his dreams. He does not drink alcohol much; he tried once and did not see much benefit on the tremor from it. He may have some forgetfulness sometimes. He takes primidone, 100 mg bid, with no benefit. He takes Toprol 25 mg and currently, his DBP is low and so is his HR. He denies using topiramate or clonazepam. He acknowledges that he is more easily tired - he can doze off more easily. He denies exposure to antiarrhythmics and antipsychotics. He may have briefly been on antiemetics, and he did briefly take antidepressants (the latter was when his ). Past Medical History includes has a past medical history of CAD (coronary artery disease), GERD (gastroesophageal reflux disease), HLD (hyperlipidemia), HTN (hypertension), Pseudophakia of both eyes, and Type 2 diabetes mellitus (HCC). Past Surgical History includes has a past surgical history that includes past surgical history of; cc ptca stent (01/07/2016); past surgical history of; past surgical history of (07/2017); xcapsl ctrc rmvl insj io lens prosth w/o ecp (Left, 07/25/2017); and xcapsl ctrc rmvl insj io lens prosth w/o ecp (Right, 08/08/2017). Allergies: ALLERGIES Allergen Reactions Codeine Itching Oxycodone-Acetamino* Itching Current Medications: metFORMIN (GLUCOPHAGE) 1,000 mg tablet Take 1,000 mg by mouth daily with breakfast. tamsulosin (FLOMAX) 0.4 mg Take 0.4 mg by mouth once daily. famotidine (PEPCID) 20 mg tablet Take 20 mg by mouth two times a day. acetaminophen (TYLENOL) 325 mg tablet Take 650 mg by mouth every 6 hours as needed. HYDROcodone-acetaminophen (NORCO) 5-325 mg per tablet Take 1 tablet by mouth every 8 hours as needed for pain. fexofenadine (LIZETH) 60 mg tablet Take 60 mg by mouth once daily. nitroglycerin sublingual (NITROQUICK) 0.4 mg SL tablet Dissolve 0.4 mg under the tongue every 5 minutes as needed for chest pain. primidone (MYSOLINE) 50 mg tablet Take 50 mg by mouth four times daily. oxyCODONE-acetaminophen (PERCOCET 10) 10-325 mg tablet Take 1 tablet by mouth every 12 hours as needed for pain. docusate sodium (STOOL SOFTENER) 50 mg capsule Take 50 mg by mouth two times a day. clopidogrel (PLAVIX) 75 mg tablet Take 75 mg by mouth once daily. Omeprazole 40 mg capsule Take 40 mg by mouth once daily. lisinopril 2.5 mg tablet Take 2.5 mg by mouth once daily. metoprolol succinate ER (TOPROL XL) 25 mg 24 hr tablet Take 25 mg by mouth once daily. aspirin, enteric coated (ASPIRIN, ENTERIC COATED) 81 mg EC tablet Take 81 mg by mouth once daily. canagliflozin-metformin (INVOKAMET) 50-1,000 mg tab Take by mouth. (Patient not taking: Reported on 03/31/2024) rosuvastatin (CRESTOR) 10 mg tablet Take 10 mg by mouth once daily. (Patient not taking: Reported on 03/31/2024) Social History: Patient is . He reports that he has never smoked. He has never used smokeless tobacco. He reports that he does (more content not included)... Normal [facility] COVID + FLU Quick Testingon 09-27-2023 SARS-CoV-2 (COVID-19) RNA BISI+probe Ql (Unsp spec) Negative [employer] Other COVID + FLU Quick Testing Positive [employer] Other COVID + FLU Quick Testing Negative [employer] Other Quick Strepon 09-27-2023 S. pyogenes Org specific cx Ql (Throat) Negative [employer] Other Quick Strep [employer] Other Office Visit (Cardiology)on 06-01-2023 Follow-up visit [...] Weight Tips; Status:Complete - Retrospective Authorization; Done: [id number] Some eating tips that can help you lose weight.; Status:Complete - Retrospective Authorization; Done: [id number] SocHx: Never a smoker Tobacco Use Screening; Status:Complete; Done: [id number] Patient Instructions Please bring all medicines, vitamins, [...] Complaint KIA MENDEZ is being seen for [facility] and stress test results. History of Present Illness Patient is here for follow-up continue management for coronary artery disease with prior PCI of the right coronary artery, hyperlipidemia and recent evaluation for chest pain. He underwent PCI to the RCA remotely. Following that he underwent heart cath which showed no residual stenosis. Recent stress test showed inferior OR but no ischemia. He recently underwent cholecystectomy. [...] 6. I advised him to try some [id number] Maalox if develop chest pain Surgical History [...] FOR CHEST PAIN.CALL 911 IF PAIN PERSISTS. Hague 5-325 MG TABSone ta (more content not included)... Normal [employer] Tobacco Screening.on 023 Fall risk assessment a) No falls within the last year [facility] 600 DO Work Phone: Tobacco use status CP b) No [facility] 600 DO Work Phone: Alkaline Phosphataseon 05-28 ALP [Catalytic activity/Vol] 62 U/L Normal 34-104 [facility] Comment on above: Performed By: #### A DDONUAPLUS #### [address] Amylaseon 05-28-2023 Amylase [Catalytic activity/Vol] 38 U/L Normal 29-103 [facility] Comment on above: Performed By: #### A DDONUAPLUS #### [facility] [address] Aspartate Amino Transferaseo n 05-28-2023 AST [Catalytic activity/Vol] 10 U/L Low 13-39 [facility] Comment on above: Performed By: #### A DDONUAPLUS #### [facility] [address] Bilirubin, Total and Directo n 05-28-2023 Bilirubin [Mass/Vol] 0.7 mg/dL Normal 0.3-1.0 [facility] Comment on above: Performed By: #### A DDONUAPLUS #### [facility] [address] Bilirubin,Indirect 0.5 mg/dL Normal [facility] Comment on above: Performed By: #### A DDONUAPLUS #### [facility] [address] [place] [address] Bilirubin.indirect [Mass/Vol] 0.20 mg/dL High 0.03-0.18 [facility] Comment on above: Performed By: #### A DDONUAPLUS #### [facility] [address] [place] [address] Glucose Poct Glucometerson 0 05-28-2023 Commemt1 Glu2: Cleaned Meter [facility] Comment on above: Result Comment: PERF ORMED BY: [place] [address] PATHOLOGIST HOSPITALITY MANAGER VANESSA VASQUEZ M.D. Performed By: #### G LULS #### Point of Care testing , Glucose [Mass/Vol] 216 mg/dL Normal [facility] Comment on above: Result Comment: [facility] Glucose Reference Range is dependent on time and content of last meal. Glucose of more than 200 mg/dL in a nonstressed, ambulatory subject supports the diagnosis of Diabetes Mellitus. Performed By: #### G LULS #### Point of Care testing , Commemt1 Glu2: Cleaned Meter [facility] Comment on above: Result Comment: PERF ORMED BY: [facility] [address] [facility] [place] [id number] PATHOLOGIST HOSPITALITY MANAGER VANESSA VASQUEZ M.D. Performed By: #### A DDONUAPLUS #### [facility] [address] Glucose [Mass/Vol] 127 mg/dL Normal [facility] Comment on above: Result Comment: [facility] Glucose Reference Range is dependent on time and content of last meal. Glucose of more than 200 mg/dL in a nonstressed, ambulatory subject supports the diagnosis of Diabetes Mellitus. Performed By: #### A DDONUAPLUS #### [facility] [address] Raul 05-28-2023 L ----- Specimen: [id number] Received: 05/28/23 Status: MACK Ruiz Num: [id number] Spec Type: Surgical Subm Dr: Amauri Carrera DO Tissues: A Gallbladder (GALLBLADDER) Procedures: Trace ISIDRO/Alber L3 Age/ Patient Sex Location Account Attending Physician Kia Mendez Good 73/M [place] [id number] Amauri Carrera DO SPEC NUM: [id number] RECD: 05/28/23 STATUS: MACK RUIZ NUM: [id number] EDWAR: 05/28/23- DR: Amauri Carrera DO ENTERED: 05/28/[address] [facility] DR: CHACORTA TYPE: Surgical DEPT: S ORDERED: HE, Gross/Micro [...] diameter patent cystic duct margin is inked. Part Time Receptionist sections are submitted in one cassette labeled A1. Microscopic Description One H E slide reviewed. The microscopic examination confirms the diagnosis. Specimen: [id number] Received: 05/28/23 Status: MACK Ruiz Num: [id number] Spec Type: Surgical Subm Dr: Amauri Carrera DO Tissues: A Gallbladder (GALLBLADDER) Procedures: Trace ISIDRO/Alber Valenzuela Patient: Kia Mendez [id number] (Continued) Specimen: [id number] Received: 05/28/23 (Continued) Signed (signature on file) Olive Browne MD 05/29/23 1652 Specimen: [id number] Received: 05/28/23 Status: MACK Ruiz Num: [id number] Spec Type: Surgical Subm Dr: Amauri Carrera DO Tissues: A Gallbladder (GALLBLADDER) Procedures: Cheo ISIDRO L3 Patient: Kia Mendez [id number] (Continued) Specimen: [id number] Received: 05/28/23 (Continued) CPT Codes 00919 Specimen: [id number] Received: 05/28/23 Status: MACK Ruiz Num: [id number] Spec Type: Surgical Subm Dr: Amauri Carrera DO Tissues: A Gallbladder (GALLBLADDER) Procedures: Trace ISIDRO/Alber L3 Patient: Kia Mendez [id number] (Continued) Signed (signature on file) Chin-Mihir Browne MD 05/29/23 1652 Normal [facility] Lipaseon 05-28-2023 Lipase [Catalytic activity/Vol] 48.0 U/L Normal 11.0-82.0 [facility] Comment on above: Result Comment: PERF ORMED BY: [place] [address] PATHOLOGIST HOSPITALITY MANAGER VANESSA VASQUEZ M.D. Performed By: #### A DDONUAPLUS #### [address] Activated partial thrombopla stin time (aPTT) in platelet poor plasma by coagulation aOrdered By: Katty Pierre on 05-08-2023 aPTT Coag (PPP) [Time] 31.3 s 25.1-36.5 [facility] Alanine aminotransferase [En zymatic activity/volume] in Serum or PlasmaOrdered By: Katty Pierre on 05-08-2023 ALT [Catalytic activity/Vol] 9 U/L 7-52 [facility] Albumin [Mass/volume] in Ser um or Plasma by Bromocresol green (BCG) dye binding methoOrdered By: Katty Pierre on 05-08-2023 Albumin BCG dye [Mass/Vol] 3.9 g/dL 3.5-5.7 [facility] Alkaline phosphatase [Enzyma tic activity/volume] in Serum or PlasmaOrdered By: Katty Pierre on 05-08-2023 ALP [Catalytic activity/Vol] 71 U/L 34-104 [facility] Aspartate aminotransferase [ Enzymatic activity/volume] in Serum or PlasmaOrdered By: Katty Pierre on 05-08-2023 AST [Catalytic activity/Vol] 12 U/L 13-39 [facility] Automated erythrocytes count in urine sediment (number/area)Ordered By: Katty Pierre on 05-08-2023 RBC Auto (Urine sed) [#/Area] 0-1 [HPF] 0-4 [facility] Automated leukocytes count i n urine sediment (number/area)Ordered By: Katty Pierre on 05-08-2023 WBC Auto (Urine sed) [#/Area] 0-1 [HPF] 0-4 [facility] Basophils Auto (Bld) [#/Vol] Ordered By: Katty Pierre on 05-08-2023 Basophils (Bld) [#/Vol] 0.0 10*3/uL 0.0-0.2 [facility] Basophils/100 WBC Auto (Bld) Ordered By: Katty Pirere on 05-08-2023 Basophils/100 WBC (Bld) 0.2 % . [facility] Bilirubin Test strip Ql (U)O rdered By: Katty Pierre on 05-08-2023 Bilirubin Ql (U) Negative Negative [facility] Bilirubin.total [Mass/volume ] in Serum or PlasmaOrdered By: Katty Pierre on 05-08-2023 Bilirubin [Mass/Vol] 1.1 mg/dL 0.3-1.0 [facility] CT abdomen pelvis w conon CT abdomen pelvis w con [facility] [address] CT Scan Report Signed Patient: Kia Mendez MR#: [id number] 98 : 1950 Acct:[id number] Age/Sex: 73 / M ADM Date: 05/07/23 Loc: ER Room: Type: [facility] ER Attending Dr: Copies to: Katty Pierre Jr, MD Ordering Provider: Katty Pierre [...] Aj Tabor M.D.05/08/2023 10:21 AM Dictation Location: [place] [address] Transcribed By: [facility] 05/08/23 1021 Dictated By: Aj Tabor DO 05/08/23 1017 Signed By: 05/08/23 1021 Normal [facility] Calcium [Mass/volume] in Ser um or PlasmaOrdered By: Katty Pierre on 05-08-2023 Calcium [Mass/Vol] 8.7 mg/dL 8.6-10.3 [facility] Carbon dioxide, total [Moles /volume] in Serum or PlasmaOrdered By: Katty Pierre on 05-08-2023 CO2 [Moles/Vol] 25.4 mmol/L 21.0-31.0 [facility] Chloride [Moles/volume] in S arvin or PlasmaOrdered By: Katty Pierre on 05-08-2023 Chloride [Moles/Vol] 105 mmol/L 98-107 [facility] Color Auto (U)Ordered By: Samia Pierre on 05-08-2023 Color (U) Yellow Yellow [facility] Complete Blood Count Auto Di ffon 05-08-2023 Basophils (Bld) [#/Vol] 0.0 10*3/uL Normal 0.0-0.2 [facility] Comment on above: Result Comment: PERF ORMED BY: [facility] [place] [address] PATHOLOGIST HOSPITALITY MANAGER VANESSA VASQUEZ M.D. Performed By: #### G LULS #### Point of Care testing , Basophils/100 WBC (Bld) 0.2 % Normal . [facility] Comment on above: Performed By: #### G LULS #### Point of Care testing , Eosinophils (Bld) [#/Vol] 0.3 10*3/uL Normal 0.0-0.45 [facility] Comment on above: Performed By: #### G LULS #### Point of Care testing , Eosinophils/100 WBC (Bld) 5.5 % Normal . [facility] Comment on above: Performed By: #### G LULS #### Point of Care testing , Erythrocyte distribution width (RBC) [Ratio] 14.0 % Normal 12.0-14.8 [facility] Comment on above: Performed By: #### G LULS #### Point of Care testing , Hematocrit (Bld) [Volume fraction] 42.2 % Normal 38.8-50.0 [facility] Comment on above: Performed By: #### G LULS #### Point of Care testing , Hemoglobin (Bld) [Mass/Vol] 14.4 g/dL Normal 13.0-17.0 [facility] Comment on above: Performed By: #### G LULS #### Point of Care testing , Lymphocytes (Bld) [#/Vol] 0.7 10*3/uL Low 1.00-4.8 [facility] Comment on above: Performed By: #### G LULS #### Point of Care testing , Lymphocytes/100 WBC (Bld) 12.0 % Normal . [facility] Comment on above: Performed By: #### G LULS #### Point of Care testing , MCH (RBC) [Entitic mass] 31.1 pg Normal 27.5-35.2 [facility] Comment on above: Performed By: #### Robert MCCORDLS #### Point of Care testing , MCV (RBC) [Entitic vol] 91.0 fL Normal 83.5-101 [facility] Comment on above: Performed By: #### Robert MCCORDLS #### Point of Care testing , Mean Corpuscular HGB Conc 34.1 g/dL Normal 32.5-35.6 [facility] Comment on above: Performed By: #### Robert MCCORDLS #### Point of Care testing , Monocytes (Bld) [#/Vol] 0.8 10*3/uL Normal 0.0-0.8 [facility] Comment on above: Performed By: #### Robert CORREA #### Point of Care testing , Monocytes/100 WBC (Bld) 19.36 % Normal 0.00-20.00 [facility] Comment on above: Performed By: #### Robert CORREA #### Point of Care testing , Monocytes/100 WBC (Bld) 12.9 % Normal . [facility] Comment on above: Performed By: #### Robert CORREA #### Point of Care testing , Neutrophils (Bld) [#/Vol] 4.2 10*3/uL Normal 1.8-7.7 [facility] Comment on above: Performed By: #### Robert CORREA #### Point of Care testing , Neutrophils/100 WBC (Bld) 69.4 % Normal . [facility] Comment on above: Performed By: #### Robert CORREA #### Point of Care testing , NRBC% 0.0 /100{WBC} Normal 0-0.5 [facility] Comment on above: Performed By: #### Robert MCCORDLS #### Point of Care testing , Platelet mean volume (Bld) [Entitic vol] 8.1 fL Normal 6.6-10.1 [facility] Comment on above: Performed By: #### Robert CORREA #### Point of Care testing , Platelets (Bld) [#/Vol] 203 10*3/uL Normal 150-450 [facility] Comment on above: Performed By: #### G SUNNY #### Point of Care testing , RBC (Bld) [#/Vol] 4.63 10*6/uL Normal 3.90-5.60 [facility] Comment on above: Performed By: #### G SUNYN #### Point of Care testing , WBC (Bld) [#/Vol] 6.0 10*3/uL Normal 4.1-10.5 [facility] Comment on above: Performed By: #### G SUNNY #### Point of Care testing , Comprehensive Metabolic Pane raul 05-08-2023 Albumin [Mass/Vol] 3.9 g/dL Normal 3.5-5.7 [facility] Comment on above: Performed By: #### P T, PTT, CMP #### [facility] [address] Albumin/Globulin [Mass ratio] 1.3 {ratio} Normal [facility] Comment on above: Performed By: #### P T, PTT, CMP #### [facility] [address] [place] [address] [place] ALP [Catalytic activity/Vol] 71 U/L Normal 34-104 [facility] Comment on above: Performed By: #### P T, PTT, CMP #### [facility] [address] [place] [id number] [place] ALT [Catalytic activity/Vol] 9 U/L Normal 7-52 [facility] Comment on above: Performed By: #### P T, PTT, CMP #### [facility] [address] [place] [address] [place] Anion gap [Moles/Vol] 6.9 mmol/L Normal 6.0-15.0 [facility] Comment on above: Performed By: #### P T, PTT, CMP #### [facility] [address] [place] [id number] [place] AST [Catalytic activity/Vol] 12 U/L Low 13-39 [facility] Comment on above: Performed By: #### P T, PTT, CMP #### [facility] [address] Bilirubin [Mass/Vol] 1.1 mg/dL High 0.3-1.0 [facility] Comment on above: Performed By: #### P T, PTT, CMP #### [facility] [address] Calcium [Mass/Vol] 8.7 mg/dL Normal 8.6-10.3 [facility] Comment on above: Performed By: #### P T, PTT, CMP #### [facility] [address] Chloride [Moles/Vol] 105 mmol/L Normal 98-107 [facility] Comment on above: Performed By: #### P T, PTT, CMP #### [address] CO2 [Moles/Vol] 25.4 mmol/L Normal 21.0-31.0 [facility] Comment on above: Performed By: #### P T, PTT, CMP #### [address] Creatinine [Mass/Vol] 1.17 mg/dL Normal 0.70-1.30 [facility] Comment on above: Performed By: #### P T, PTT, CMP #### [facility] [address] [place] [address] [place] Creatinine Clr Calc Pharmacy 56.[address] [facility] Comment on above: Result Comment: PERF ORMED BY: [place] [address] PATHOLOGIST HOSPITALITY MANAGER VANESSA VASQUEZ M.D. Performed By: #### P T, PTT, CMP #### [place] [address] [place] GFR/1.73 sq M.predicted MDRD (S/P/Bld) [Vol rate/Area] mL/min/{1.73_m2} [facility] Comment on above: Performed By: #### P T, PTT, CMP #### [facility] [address] Globulin (S) [Mass/Vol] 3.0 g/dL Normal [facility] Comment on above: Performed By: #### P T, PTT, CMP #### [address] Glucose [Mass/Vol] 106 mg/dL High 70-100 [facility] Comment on above: Result Comment: [facility] Glucose Reference Range is dependent on time and content of last meal. Glucose of more than 200 mg/dL in a nonstressed, ambulatory subject supports the diagnosis of Diabetes Mellitus. ADA recommended reference range Performed By: #### P T, PTT, CMP #### [address] Potassium [Moles/Vol] 4.3 mmol/L Normal 3.5-5.1 [facility] Comment on above: Performed By: #### P T, PTT, CMP #### [address] Protein [Mass/Vol] 6.9 g/dL Normal 6.4-8.9 [facility] Comment on above: Performed By: #### P T, PTT, CMP #### [address] Sodium [Moles/Vol] 133 mmol/L Low 136-145 [facility] Comment on above: Performed By: #### P T, PTT, CMP #### [address] Urea nitrogen [Mass/Vol] 26 mg/dL High 7-25 [facility] Comment on above: Performed By: #### P T, PTT, CMP #### [place] [address] [place] Creatinine [Mass/volume] in Serum or PlasmaOrdered By: Katty Pierre on 05-08-2023 Creatinine [Mass/Vol] 1.17 mg/dL 0.70-1.30 [facility] Dipstick and Microscopicon 0 05-08-2023 Appearance (U) Clear Normal Clear [facility] Comment on above: Order Comment: Name Collection Type:: Clean-Voided Midstream Performed By: #### A DDONUAPLUS #### [facility] [address] [place] [address] [place] Bacteria,Urine None Seen Normal None Seen [facility] Comment on above: Order Comment: Name Collection Type:: Clean-Voided Midstream Performed By: #### A DDONUAPLUS #### [facility] 30 [place] [address] [place] Bilirubin,Urine Negative Normal Negative [facility] Comment on above: Order Comment: Name Collection Type:: Clean-Voided Midstream Performed By: #### A DDONUAPLUS #### [facility] [address] [place] [address] Color (U) Yellow Normal Yellow [facility] Comment on above: Order Comment: Name Collection Type:: Clean-Voided Midstream Performed By: #### A DDONUAPLUS #### [facility] [address] [place] [address] [place] Glucose Ql (U) >=1000 High Normal [facility] Comment on above: Order Comment: Name Collection Type:: Clean-Voided Midstream Performed By: #### A DDONUAPLUS #### [facility] [address] [place] [address] [place] Hyaline Casts,Urine 0-8 Normal 0-8 [facility] Comment on above: Order Comment: Name Collection Type:: Clean-Voided Midstream Result Comment: PERF ORMED BY: [place] [address] PATHOLOGIST HOSPITALITY MANAGER VANESSA VASQUEZ M.D. Performed By: #### A DDONUAPLUS #### [facility] [address] [place] [address] [place] Ketones Ql (U) 1+ High Negative [facility] Comment on above: Order Comment: Name Collection Type:: Clean-Voided Midstream Performed By: #### A DDONUAPLUS #### [facility] [address] [place] [address] [place] Leukocyte esterase Test strip Ql (U) 1+ High Negative [facility] Comment on above: Order Comment: Name Collection Type:: Clean-Voided Midstream Performed By: #### A DDONUAPLUS #### [place] [address] [place] Nitrite,Urine Negative Normal Negative [facility] Comment on above: Order Comment: Name Collection Type:: Clean-Voided Midstream Performed By: #### A DDONUAPLUS #### [place] [address] [place] Occult Blood,Urine Negative Normal Negative [facility] Comment on above: Order Comment: Name Collection Type:: Clean-Voided Midstream Result Comment: PERF ORMED BY: [place] [address] PATHOLOGIST HOSPITALITY MANAGER VANESSA VASQUEZ M.D. Performed By: #### A DDONUAPLUS #### [address] pH (U) 5.5 [pH] Normal 5.0-9.0 [facility] Comment on above: Order Comment: Name Collection Type:: Clean-Voided Midstream Performed By: #### A DDONUAPLUS #### [place] [address] [place] Protein,Urine Trace High Negative [facility] Comment on above: Order Comment: Name Collection Type:: Clean-Voided Midstream Performed By: #### A DDONUAPLUS #### [place] [address] [place] RBC LM.HPF (Urine sed) [#/Area] 0 /[HPF] Normal 0-4 [facility] Comment on above: Order Comment: Name Collection Type:: Clean-Voided Midstream Performed By: #### A DDONUAPLUS #### [place] [address] [place] Specificy [place],Urine 1.020 Normal 1.001-1.03 0 [facility] Comment on above: Order Comment: Name Collection Type:: Clean-Voided Midstream Performed By: #### A DDONUAPLUS #### [address] [place] [address] [place] Squamous Epithelial Cell,Urine None Seen Normal 0-2 [facility] Comment on above: Order Comment: Name Collection Type:: Clean-Voided Midstream Performed By: #### A DDONUAPLUS #### [address] Urobilinogen,Urine Normal Normal Normal [facility] Comment on above: Order Comment: Name Collection Type:: Clean-Voided Midstream Performed By: #### A DDONUAPLUS #### [address] WBC LM.HPF (Urine sed) [#/Area] 0 /[HPF] Normal 0-4 [facility] Comment on above: Order Comment: Name Collection Type:: Clean-Voided Midstream Performed By: #### A DDONUAPLUS #### [address] ECG 12 lead ECGon 05-08-2023 ECG 12 lead ECG [facility] [place] [address] [place] [address] Electrocardiograph Report Signed Patient: Kia Mendez MR#: [id number] [birth year] : 1950 Acct:[id number] Age/Sex: 73 / M ADM Date: 05/07/23 Loc: ER Room: Type: [facility] ER Attending Dr: Ordering Provider: Katty [...] was found Confirmed by KATTY PIERRE MD ([id number]) on 05/08/2023 3:00:05 AM Referred By: Electronically Signed By:KATTY PIERRE MD Transcribed By: MUS Signed By Katty Pierre Jr, [place] 0300 Normal [facility] Eosinophils Auto (Bld) [#/Vo l]Ordered By: Katty Pierre on 05-08-2023 Eosinophils (Bld) [#/Vol] 0.3 10*3/uL 0.0-0.45 [facility] Eosinophils/100 WBC Auto (Bl d)Ordered By: Katty Pierre on 05-08-2023 Eosinophils/100 WBC (Bld) 5.5 % . [facility] Erythrocyte distribution wid th Auto (RBC) [Ratio]Ordered By: Katty Pierre on 05-08-2023 Erythrocyte distribution width (RBC) [Ratio] 14.0 % 12.0-14.8 [facility] Globulin Calc (S) [Mass/Vol] Ordered By: Katty Pierre on 05-08-2023 Globulin (S) [Mass/Vol] 3.0 g/dL [facility] Glucose [Mass/volume] in Ser um or PlasmaOrdered By: Katty Pierre on 05-08-2023 Glucose [Mass/Vol] 106 mg/dL 70-100 [facility] Comment on above: ADA recommended refe rence rangeRandom Glucose Reference Range is dependent on time and content of last meal. Glucose of more than 200 mg/dL in a nonstressed, ambulatory subject supports the diagnosis of Diabetes Mellitus. Hematocrit Auto (Bld) [Volum e fraction]Ordered By: Katty Pierre on 05-08-2023 Hematocrit (Bld) [Volume fraction] 42.2 % 38.8-50.0 [facility] Hemoglobin [Mass/volume] in BloodOrdered By: Katty Pierre on 05-08-2023 Hemoglobin (Bld) [Mass/Vol] 14.4 g/dL 13.0-17.0 [facility] Ketones Auto test strip (U) [Mass/Vol]Ordered By: Katty Pierre on 05-08-2023 Ketones (U) [Mass/Vol] 1+ Negative [facility] Laboratory - CoagulationOrde red By: Katty Pierre on 05-08-2023 PT Coag (PPP) [Time] 12.5 s 9.0-12.9 [facility] Laboratory - UrinalysisOrder ed By: Katty Pierre on 05-08-2023 Hyaline casts LM Ql (Urine sed) 0-8 [LPF] 0-8 [facility] Leukocytes [#/volume] correc wyatt for nucleated erythrocytes in Blood by Automated counOrdered By: Katty Pierre on 05-08-2023 WBC corrected for nucl RBC Auto (Bld) [#/Vol] 6.0 10*3/uL 4.1-10.5 [facility] Lipaseon 05-08-2023 Lipase [Catalytic activity/Vol] 43.0 U/L Normal 11.0-82.0 [facility] Comment on above: Result Comment: PERF ORMED BY: [facility] [address] [place] [address] PATHOLOGIST HOSPITALITY MANAGER VANESSA VASQUEZ M.D. Performed By: #### G LULS #### Point of Care testing , Lipase [Enzymatic activity/v olume] in Serum or PlasmaOrdered By: Katty Pierre on 05-08-2023 Lipase [Catalytic activity/Vol] 43.0 U/L 11.0-82.0 [facility] Lymphocytes Auto (Bld) [#/Vo l]Ordered By: Katty Pierre on 05-08-2023 Lymphocytes (Bld) [#/Vol] 0.7 10*3/uL 1.00-4.8 [facility] Lymphocytes/100 WBC Auto (Bl d)Ordered By: Katty Pierre on 05-08-2023 Lymphocytes/100 WBC (Bld) 12.0 % . [facility] MCH Auto (RBC) [Entitic mass ]Ordered By: Katty Pierre on 05-08-2023 MCH (RBC) [Entitic mass] 31.1 pg 27.5-35.2 [facility] MCHC Auto (RBC) [Mass/Vol]Or dered By: Katty Pierre on 05-08-2023 MCHC (RBC) [Mass/Vol] 34.1 g/dL 32.5-35.6 [facility] MCV Auto (RBC) [Entitic vol] Ordered By: Katty Pierre on 05-08-2023 MCV (RBC) [Entitic vol] 91.0 fL 83.5-101 [facility] Monocyte distribution width [Entitic volume] in Blood by AutomatedOrdered By: Katty Pierre on 05-08-2023 Monocyte distribution width Auto (Bld) [Entitic vol] 19.36 % 0.00-20.00 [facility] Monocytes Auto (Bld) [#/Vol] Ordered By: Katty Pierre on 05-08-2023 Monocytes (Bld) [#/Vol] 0.8 10*3/uL 0.0-0.8 [facility] Monocytes/100 WBC Auto (Bld) Ordered By: Katty Pierre on 05-08-2023 Monocytes/100 WBC (Bld) 12.9 % . [facility] Neutrophils Auto (Bld) [#/Vo l]Ordered By: Katty Pierre on 05-08-2023 Neutrophils (Bld) [#/Vol] 4.2 10*3/uL 1.8-7.7 [facility] Neutrophils/100 WBC Auto (Bl d)Ordered By: Katty Pierre on 05-08-2023 Neutrophils/100 WBC (Bld) 69.4 % . [facility] Nitrite Test strip Ql (U)Ord ered By: Katty Pierre on 05-08-2023 Nitrite Ql (U) Negative Negative [facility] No Panel InformationOrdered By: Katty Pierre on 05-08-2023 Estimated GFR (CKD-EPI) > 60.0 mL/Min [facility] Creatinine Clearance (Chem 56.33 [facility] Nucleated erythrocytes [Pres ence] in Blood by Automated countOrdered By: Katty Pierre on 05-08-2023 Nucleated RBC Auto Ql (Bld) 0.0 /100{WBC} 0-0.5 [facility] Partial Thromboplastin Timeo n 05-08-2023 aPTT Coag (Bld) [Time] 31.3 s Normal 25.1-36.5 [facility] Comment on above: Result Comment: PERF ORMED BY: [place] [address] PATHOLOGIST HOSPITALITY MANAGER VANESSA VASQUEZ M.D. Performed By: #### P T, PTT, CMP #### [facility] [address] [place] [address] Platelet mean volume Auto (B ld) [Entitic vol]Ordered By: Katty Pierre on 05-08-2023 Platelet mean volume (Bld) [Entitic vol] 8.1 fL 6.6-10.1 [facility] Platelet poor plasma interna tional normalized ratio (INR) by coagulation assay (relatOrdered By: Katty Pierre on 05-08-2023 INR Coag (PPP) [Relative time] 1.1 {INR} [facility] Comment on above: INR Therapeutic [...] 05-08-2023 Platelets (Bld) [#/Vol] 203 10*3/uL 150-450 [facility] Potassium [Moles/volume] in Serum or PlasmaOrdered By: Katty Pierre on 05-08-2023 Potassium [Moles/Vol] 4.3 mmol/L 3.5-5.1 [facility] Protein Auto test strip (U) [Mass/Vol]Ordered By: Katty Pierre on 05-08-2023 Protein (U) [Mass/Vol] Trace mg/dL Negative [facility] Protein [Mass/volume] in Ser um or PlasmaOrdered By: Katty Pierre on 05-08-2023 Protein [Mass/Vol] 6.9 g/dL 6.4-8.9 [facility] Prothrombin Time INRon 05-08 INR Coag (PPP) [Relative time] 1.1 {INR} Normal [facility] Comment on above: Result Comment: [...] By: #### P T, PTT, CMP #### [facility] [address] PT Coag (PPP) [Time] 12.5 s Normal 9.0-12.9 [facility] Comment on above: Performed By: #### P T, PTT, CMP #### [facility] [address] RBC Auto (Bld) [#/Vol]Ordere d By: Katty Pierre on 05-08-2023 RBC (Bld) [#/Vol] 4.63 10*6/uL 3.90-5.60 [facility] Serum or plasma albumin/glob ulin mass ratioOrdered By: Katty Pierre on 05-08-2023 Albumin/Globulin [Mass ratio] 1.3 {ratio} [facility] Serum or plasma anion gap de terminationOrdered By: Katty Pierre on 05-08-2023 Anion gap [Moles/Vol] 6.9 mmol/L 6.0-15.0 [facility] Sodium [Moles/volume] in Ser um or PlasmaOrdered By: Katty Pierre on 05-08-2023 Sodium [Moles/Vol] 133 mmol/L 136-145 [facility] Specific gravity Auto test s trip (U) [Rel density]Ordered By: Katty Pierre on 05-08-2023 Specific gravity (U) [Rel density] 1.020 1.001-1.03 0 [facility] Squamous epithelial cells de tection in urine sediment by light microscopyOrdered By: Katty Pierre on 05-08-2023 Epithelial cells.squamous LM Ql (Urine sed) None seen [HPF] 0-2 [facility] Urea nitrogen [Mass/volume] in Serum or PlasmaOrdered By: Katty Pierre on 05-08-2023 Urea nitrogen [Mass/Vol] 26 mg/dL 7-25 [facility] Urine bacteria detection by automated methodOrdered By: Katty Pierre on 05-08-2023 Bacteria Auto Ql (U) None seen None Seen [facility] Urine clarity by refractomet ry automatedOrdered By: Katty Pierre on 05-08-2023 Clarity Refractometry automated (U) Clear Clear [facility] Urine glucose measurement by automated test strip (mass/volume)Ordered By: Katty Pierre on 05-08-2023 Glucose Auto test strip (U) [Mass/Vol] >=1000 mg/dL Normal [facility] Urine hemoglobin detection b y automated test stripOrdered By: Katty Pierre on 05-08-2023 Hemoglobin Auto test strip Ql (U) Negative Negative [facility] Urine leukocyte esterase det ection by automated test stripOrdered By: Katty Pierre on 05-08-2023 Leukocyte esterase Auto test strip Ql (U) 1+ Negative [facility] Urobilinogen Auto test strip (U) [Mass/Vol]Ordered By: Katty Pierre on 05-08-2023 Urobilinogen (U) [Mass/Vol] Normal mg/dL Normal [facility] WBC Auto (Bld) [#/Vol]Ordere d By: Katty Pierre on 05-08-2023 WBC (Bld) [#/Vol] 6.0 10*3/uL 4.1-10.5 [facility] pH Auto test strip (U)Ordere d By: Katty Pierre on 05-08-2023 pH (U) 5.5 [pH] 5.0-9.0 [facility] CARDIAC STRESS/REST INJE CTIONon 04-20-2023 [facility] CARDIAC STRESS/REST INJECTION Patient Name: KIA MENDEZ STUDY: MYOCARDIAL PERFUSION STRESS TEST WITH EXERCISE Performing facility: [facility], [address] [place] [address] Provider: Pastor Saha DO, [facility] PCP: Dr. Allegra Miguel Supervising provider: Lacey Pretty MD INDICATION: Chest Pain; HISTORY: Gender: M; Age: 72 y/o ; Height: 0 cm; Weight: 85.4299014 kg. CAD; High Cholesterol; Diabetes; HTN; Arrhythmias; Chest Pain; Fatigue; Denies smoking. Cardiac catheterization on 2007, 2015, 2017, 2018, 2019. PTCA on 2015, 2017, 2018. COMPARISON: No comparison. ACCESSION NUMBER(S): [id number]; [id number]; [id number] ORDERING CLINICIAN: MARCO SAHA TECHNIQUE: ONE DAY [...] revealed normal sinus rhythm with old inferior OR. The patient had no significant ECG changes [...] Electronically signed by: LACEY PRETTY MD Normal [facility] A1C with Estimated Average G [facility] 04-13-2023 Glucose [Mass/Vol] 183 mg/dL Normal [facility] Comment on above: Result Comment: PERF ORMED BY: [place] [address] PATHOLOGIST HOSPITALITY MANAGER VANESSA VASQUEZ M.D. Performed By: #### A AQUILINO #### [address] HbA1c (Bld) [Mass fraction] 8.0 % High 4.3-5.6 [facility] Comment on above: Result Comment: Incr eased risk for diabetes: 5.7 - 6.4 diabetes: >6.4 glycemic control for adults with diabetes: <7.0 Performed By: #### A DDONUAPLUS #### [address] Basic Metabolic Panelon 07-0 Anion gap [Moles/Vol] 8.7 mmol/L Normal 6.0-15.0 [facility] Comment on above: Performed By: #### A 1C WTH eA, MG, BMP, CBC, HS TROP, LIPID #### [address] Calcium [Mass/Vol] 8.8 mg/dL Normal 8.6-10.3 [facility] Comment on above: Performed By: #### A 1C WTH eA, MG, BMP, CBC, HS TROP, LIPID #### [facility] [address] [place] [address] Chloride [Moles/Vol] 109 mmol/L High 98-107 [facility] Comment on above: Performed By: #### A 1C WTH eA, MG, BMP, CBC, HS TROP, LIPID #### [address] CO2 [Moles/Vol] 26.2 mmol/L Normal 21.0-31.0 [facility] Comment on above: Performed By: #### A 1C WTH eA, MG, BMP, CBC, HS TROP, LIPID #### [facility] [address] [place] [address] Creatinine [Mass/Vol] 1.22 mg/dL Normal 0.70-1.30 [facility] Comment on above: Performed By: #### A 1C WTH eA, MG, BMP, CBC, HS TROP, LIPID #### [address] Creatinine Clr Calc Pharmacy 54.[address] [facility] Comment on above: Performed By: #### A 1C WTH eA, MG, BMP, CBC, HS TROP, LIPID #### [place] [address] [place] GFR/1.73 sq M.predicted MDRD (S/P/Bld) [Vol rate/Area] mL/min/{1.73_m2} Normal [facility] Comment on above: Performed By: #### A 1C WTH eA, MG, BMP, CBC, HS TROP, LIPID #### [facility] [address] Glucose [Mass/Vol] 131 mg/dL High 70-100 [facility] Comment on above: Result Comment: [facility] Glucose Reference Range is dependent on time and content of last meal. Glucose of more than 200 mg/dL in a nonstressed, ambulatory subject supports the diagnosis of Diabetes Mellitus. ADA recommended reference range Performed By: #### A 1C WTH eA, MG, BMP, CBC, HS TROP, LIPID #### [facility] [address] Potassium [Moles/Vol] 3.9 mmol/L Normal 3.5-5.1 [facility] Comment on above: Performed By: #### A 1C WTH eA, MG, BMP, CBC, HS TROP, LIPID #### [facility] [address] [place] [address] [place] Sodium [Moles/Vol] 140 mmol/L Normal 136-145 [facility] Comment on above: Performed By: #### A 1C WTH eA, MG, BMP, CBC, HS TROP, LIPID #### [facility] [address] [place] [address] [place] Urea nitrogen [Mass/Vol] 20 mg/dL Normal 7-25 [facility] Comment on above: Performed By: #### A 1C WTH eA, MG, BMP, CBC, HS TROP, LIPID #### [facility] [address] [place] [address] [place] Basophils Auto (Bld) [#/Vol] Ordered By: Ruth Hogue on 04-13-2023 Basophils (Bld) [#/Vol] 0.1 10*3/uL 0.0-0.2 [facility] Basophils/100 WBC Auto (Bld) Ordered By: Ruth Hogue on 04-13-2023 Basophils/100 WBC (Bld) 1.0 % . [facility] Calcium [Mass/volume] in Ser um or PlasmaOrdered By: Ruth Hogue on 04-13-2023 Calcium [Mass/Vol] 8.8 mg/dL 8.6-10.3 [facility] Carbon dioxide, total [Moles /volume] in Serum or PlasmaOrdered By: Ruth Hogue on 04-13-2023 CO2 [Moles/Vol] 26.2 mmol/L 21.0-31.0 [facility] Chloride [Moles/volume] in S arvin or PlasmaOrdered By: Ruth Hogue on 04-13-2023 Chloride [Moles/Vol] 109 mmol/L 98-107 [facility] Cholesterol [Mass/volume] in Serum or PlasmaOrdered By: Ruth Hogue on 04-13-2023 Cholesterol [Mass/Vol] 88 mg/dL 140-200 [facility] Comment on above: Chol less than 200 m g/dl low riskChol 201-239 mg/dl borderline riskChol 240 mg/dl and greater high risk Cholesterol in LDL Calc [Mas s/Vol]Ordered By: Ruth Hogue on 04-13-2023 Cholesterol in LDL [Mass/Vol] 46 mg/dL 0-100 [facility] Comment on above: LDL ATP III CLASSIFI CATIONLDL less than 100 mg/dL OptimalLDL 100-129 mg/dL Near or above optimalLDL 130-159 mg/dL Borderline highLDL 160-189 mg/dL HighLDL greater than 189 mg/dL Very high Cholesterol in VLDL Calc [Ma ss/Vol]Ordered By: Ruth Hogue on 04-13-2023 Cholesterol in VLDL [Mass/Vol] 16 mg/dL [facility] Complete Blood Count Auto Di ffon 04-13-2023 Basophils (Bld) [#/Vol] 0.1 10*3/uL Normal 0.0-0.2 [facility] Comment on above: Result Comment: PERF ORMED BY: [facility] [address] [place] [address] PATHOLOGIST HOSPITALITY MANAGER VANESSA VASQUEZ M.D. Performed By: #### A 1C WTH eA, MG, BMP, CBC, HS TROP, LIPID #### [facility] [address] Basophils/100 WBC (Bld) 1.0 % Normal . [facility] Comment on above: Performed By: #### A 1C WTH eA, MG, BMP, CBC, HS TROP, LIPID #### [address] Eosinophils (Bld) [#/Vol] 0.5 10*3/uL High 0.0-0.45 [facility] Comment on above: Performed By: #### A 1C WTH eA, MG, BMP, CBC, HS TROP, LIPID #### [address] Eosinophils/100 WBC (Bld) 8.9 % Normal . [facility] Comment on above: Performed By: #### A 1C WTH eA, MG, BMP, CBC, HS TROP, LIPID #### [address] Erythrocyte distribution width (RBC) [Ratio] 14.0 % Normal 12.0-14.8 [facility] Comment on above: Performed By: #### A 1C WTH eA, MG, BMP, CBC, HS TROP, LIPID #### [address] Hematocrit (Bld) [Volume fraction] 38.6 % Low 38.8-50.0 [facility] Comment on above: Performed By: #### A 1C WTH eA, MG, BMP, CBC, HS TROP, LIPID #### [address] Hemoglobin (Bld) [Mass/Vol] 12.9 g/dL Low 13.0-17.0 [facility] Comment on above: Performed By: #### A 1C WTH eA, MG, BMP, CBC, HS TROP, LIPID #### [address] Lymphocytes (Bld) [#/Vol] 1.3 10*3/uL Normal 1.00-4.8 [facility] Comment on above: Performed By: #### A 1C WTH eA, MG, BMP, CBC, HS TROP, LIPID #### [facility] [address] Lymphocytes/100 WBC (Bld) 22.5 % Normal . [facility] Comment on above: Performed By: #### A 1C WTH eA, MG, BMP, CBC, HS TROP, LIPID #### [address] MCH (RBC) [Entitic mass] 30.7 pg Normal 27.5-35.2 [facility] Comment on above: Performed By: #### A 1C WT eA, MG, BMP, CBC, HS TROP, LIPID #### [address] MCV (RBC) [Entitic vol] 91.5 fL Normal 83.5-101 [facility] Comment on above: Performed By: #### A 1C WT eA, MG, BMP, CBC, HS TROP, LIPID #### [address] Mean Corpuscular HGB Conc 33.5 g/dL Normal 32.5-35.6 [facility] Comment on above: Performed By: #### A 1C WT eA, MG, BMP, CBC, HS TROP, LIPID #### [address] Monocytes (Bld) [#/Vol] 0.6 10*3/uL Normal 0.0-0.8 [facility] Comment on above: Performed By: #### A 1C WT eA, MG, BMP, CBC, HS TROP, LIPID #### [address] Monocytes/100 WBC (Bld) 10.5 % Normal . [facility] Comment on above: Performed By: #### A 1C WTH eA, MG, BMP, CBC, HS TROP, LIPID #### [address] Neutrophils (Bld) [#/Vol] 3.2 10*3/uL Normal 1.8-7.7 [facility] Comment on above: Performed By: #### A 1C WTH eA, MG, BMP, CBC, HS TROP, LIPID #### [facility] [address] Neutrophils/100 WBC (Bld) 57.1 % Normal . [facility] Comment on above: Performed By: #### A 1C WTH eA, MG, BMP, CBC, HS TROP, LIPID #### [facility] [address] NRBC% 0.5 /100{WBC} Normal 0-0.5 [facility] Comment on above: Performed By: #### A 1C WTH eA, MG, BMP, CBC, HS TROP, LIPID #### [facility] [address] Platelet mean volume (Bld) [Entitic vol] 8.8 fL Normal 6.6-10.1 [facility] Comment on above: Performed By: #### A 1C WTH eA, MG, BMP, CBC, HS TROP, LIPID #### [facility] [address] Platelets (Bld) [#/Vol] 209 10*3/uL Normal 150-450 [facility] Comment on above: Performed By: #### A 1C WTH eA, MG, BMP, CBC, HS TROP, LIPID #### [address] RBC (Bld) [#/Vol] 4.22 10*6/uL Normal 3.90-5.60 [facility] Comment on above: Performed By: #### A 1C WTH eA, MG, BMP, CBC, HS TROP, LIPID #### [facility] [address] WBC (Bld) [#/Vol] 5.6 10*3/uL Normal 4.1-10.5 [facility] Comment on above: Performed By: #### A 1C WTH eA, MG, BMP, CBC, HS TROP, LIPID #### [facility] [address] Creatinine [Mass/volume] in Serum or PlasmaOrdered By: Ruth Hogue on 04-13-2023 Creatinine [Mass/Vol] 1.22 mg/dL 0.70-1.30 [facility] D-Dimer High Sensitivityon 0 04-13-2023 D-Dimer High Sensitivity < 200 Normal 0-243 [facility] [facility] Comment on above: Result Comment: [...] patients due to co-morbid conditions. PERFORMED BY: [place] [address] PATHOLOGIST HOSPITALITY MANAGER VANESSA VASQUEZ M.D. Performed By: #### A DDONUAPLUS #### [address] ECG 12 lead ECGon 04-13-2023 ECG 12 lead ECG [facility] Main [place] [address] [place] [address] Electrocardiograph Report Signed Patient: Kia Mendez MR#: [id number] [birth year] : 1950 Acct:[id number] Age/Sex: 72 / M ADM Date: 04/13/23 Loc: Room: [address] [place] [address] Type: ADM INOo Attending Dr: Moses Velez [...] By Aj Olivo DO 04/13 1257 Normal [facility] echo transthoracicon [facility] echo transthoracic [facility] [place] [address] Echocardiogram Signed Patient: Kia Mendez MR#: [id number] [birth year] : 1950 Acct:[id number] Age/Sex: 72 / M ADM Date: 04/13/23 Loc: Room: [address] [place] [address] Type: ADM INOo Attending Dr: Moses Velez MD Ordering Provider: Ruth Hogue APRN Date of Service: 04/13/2304/29/500 [facility] echo transthoracic: chest pain Copies to: Shelley Torres MD, [facility] Ruth Hogue, JENNIFER BSA: 2.0 m2 BP: 165/73 mmHg HR: 59 Reason For Study: chest pain History: CAD, DM, OR, Hyperlipidemia, stent Interpretation Summary Mild to moderate [...] max P.6 mmHg RAP systole: 5.0 mmHg ___ Transcribed By: SCV Performed At: 04/13/23 0900 Signed By: Shelley Torres MD, [facility] 04/13/23 1152 Normal [facility] Eosinophils Auto (Bld) [#/Vo l]Ordered By: Ruth Hogue on 04-13-2023 Eosinophils (Bld) [#/Vol] 0.5 10*3/uL 0.0-0.45 [facility] Eosinophils/100 WBC Auto (Bl d)Ordered By: Ruth Hogue on 04-13-2023 Eosinophils/100 WBC (Bld) 8.9 % . [facility] Erythrocyte distribution wid th Auto (RBC) [Ratio]Ordered By: Ruth Hogue on 04-13-2023 Erythrocyte distribution width (RBC) [Ratio] 14.0 % 12.0-14.8 [facility] Glucose Glucometer (BldC) [M ass/Vol]Ordered By: Moses Velez on 04-13-2023 Glucose [Mass/Vol] 128 mg/dL [facility] Comment on above: Random Glucose Refer ence Range is dependent on time and content of last meal. Glucose of more than 200 mg/dL in a nonstressed, ambulatory subject supports the diagnosis of Diabetes Mellitus. Glucose Poct Glucometerson 0 04-13-2023 Glucose [Mass/Vol] 128 mg/dL Normal [facility] Comment on above: Result Comment: Louann om Glucose Reference Range is dependent on time and content of last meal. Glucose of more than 200 mg/dL in a nonstressed, ambulatory subject supports the diagnosis of Diabetes Mellitus. PERFORMED BY: [place] [address] PATHOLOGIST HOSPITALITY MANAGER VANESSA VASQUEZ M.D. Performed By: #### G LULS #### Point of Care testing , Glucose [Mass/Vol] 134 mg/dL Normal [facility] Comment on above: Result Comment: Louann om Glucose Reference Range is dependent on time and content of last meal. Glucose of more than 200 mg/dL in a nonstressed, ambulatory subject supports the diagnosis of Diabetes Mellitus. PERFORMED BY: [place] [address] PATHOLOGIST HOSPITALITY MANAGER VANESSA VASQUEZ M.D. Performed By: #### A DDONUAPLUS #### [address] Glucose [Mass/volume] in Ser um or PlasmaOrdered By: Ruth Hogue on 04-13-2023 Glucose [Mass/Vol] 131 mg/dL 70-100 [facility] Comment on above: ADA recommended refe rence rangeRandom Glucose Reference Range is dependent on time and content of last meal. Glucose of more than 200 mg/dL in a nonstressed, ambulatory subject supports the diagnosis of Diabetes Mellitus. Glucose mean value [Mass/vol ume] in Blood Estimated from glycated hemoglobinOrdered By: Ruth Hogue on 04-13-2023 Average glucose Estimated from glycated hemoglobin (Bld) [Mass/Vol] 183 mg/dL [facility] Hematocrit Auto (Bld) [Volum e fraction]Ordered By: Ruth Hogue on 04-13-2023 Hematocrit (Bld) [Volume fraction] 38.6 % 38.8-50.0 [facility] Hemoglobin A1c percentageOrd ered By: Ruth Hogue on 04-13-2023 HbA1c (Bld) [Mass fraction] 8.0 % 4.3-5.6 [facility] Comment on above: Increased risk for d iabetes: 5.7 - 6.4diabetes: >6.4glycemic control for adults with diabetes: <7.0 Hemoglobin [Mass/volume] in BloodOrdered By: Ruth Hogue on 04-13-2023 Hemoglobin (Bld) [Mass/Vol] 12.9 g/dL 13.0-17.0 [facility] Leukocytes [#/volume] correc wyatt for nucleated erythrocytes in Blood by Automated counOrdered By: Ruth Hogue on 04-13-2023 WBC corrected for nucl RBC Auto (Bld) [#/Vol] 5.6 10*3/uL 4.1-10.5 [facility] Lipid Panelon 04-13-2023 Cholesterol [Mass/Vol] 88 mg/dL Low 140-200 [facility] Comment on above: Result Comment: Chol less than 200 mg/dl low risk Chol 201-239 mg/dl borderline risk Chol 240 mg/dl and greater high risk Performed By: #### A DDONUAPLUS #### [facility] [address] [place] [address] Cholesterol in HDL [Mass/Vol] 25 mg/dL Normal 23-92 [facility] Comment on above: Result Comment: HDL CHOL ATP-III CLASSIFICATION Cardiovascular Risk HDL > or equal to 60 mg/dL LOW HDL < 40 mg/dL HIGH Performed By: #### A DDONUAPLUS #### [facility] [address] Cholesterol.total/Chol esterol in HDL [Mass ratio] 3.5 {ratio} Normal <5.0 [facility] Comment on above: Result Comment: PERF ORMED BY: [place] [address] PATHOLOGIST HOSPITALITY MANAGER VANESSA VASQUEZ M.D. Performed By: #### A DDONUAPLUS #### [facility] [address] [place] [address] LDL Cholesterol,Calculated 46 mg/dL Normal 0-100 [facility] Comment on above: Result Comment: LDL ATP III CLASSIFICATION LDL less than 100 mg/dL Optimal LDL 100-129 mg/dL Near or above optimal LDL 130-159 mg/dL Borderline high LDL 160-189 mg/dL High LDL greater than 189 mg/dL Very high Performed By: #### A DDONUAPLUS #### [facility] [address] Triglyceride w/Reflex 83 mg/dL Normal 0-149 [facility] Comment on above: Result Comment: TRIG ATP III CLASSIFICATION TRIG less than 150 mg/dL Normal TRIG 150-199 mg/dL Borderline high TRIG 200-500 mg/dL High TRIG greater than 500 mg/dL Very high Standard traceable to the Center for Disease Conrtrol and Prevention (CDC) test method. Performed By: #### A DDONUAPLUS #### [facility] [address] [place] [address] VLDL CHOLESTEROL 16 mg/dL Normal [facility] Comment on above: Performed By: #### A DDONUAPLUS #### [facility] [address] [place] [address] Lymphocytes Auto (Bld) [#/Vo l]Ordered By: Ruth Hogue on 04-13-2023 Lymphocytes (Bld) [#/Vol] 1.3 10*3/uL 1.00-4.8 [facility] Lymphocytes/100 WBC Auto (Bl d)Ordered By: Ruth Hogue on 04-13-2023 Lymphocytes/100 WBC (Bld) 22.5 % . [facility] MCH Auto (RBC) [Entitic mass ]Ordered By: Ruth Hogue on 04-13-2023 MCH (RBC) [Entitic mass] 30.7 pg 27.5-35.2 [facility] MCHC Auto (RBC) [Mass/Vol]Or dered By: Ruth Hogue on 04-13-2023 MCHC (RBC) [Mass/Vol] 33.5 g/dL 32.5-35.6 [facility] MCV Auto (RBC) [Entitic vol] Ordered By: Ruth Hogue on 04-13-2023 MCV (RBC) [Entitic vol] 91.5 fL 83.5-101 [facility] Magnesiumon 04-13-2023 Magnesium [Mass/Vol] 1.4 mg/dL Low 1.9-2.7 [facility] Comment on above: Performed By: #### A 1C WT eA, MG, BMP, CBC, HS TROP, LIPID #### [facility] [address] Magnesium [Mass/volume] in S arvin or PlasmaOrdered By: Ruth Hogue on 04-13-2023 Magnesium [Mass/Vol] 1.4 mg/dL 1.9-2.7 [facility] Monocytes Auto (Bld) [#/Vol] Ordered By: Ruth Hogue on 04-13-2023 Monocytes (Bld) [#/Vol] 0.6 10*3/uL 0.0-0.8 [facility] Monocytes/100 WBC Auto (Bld) Ordered By: Ruth Hogue on 04-13-2023 Monocytes/100 WBC (Bld) 10.5 % . [facility] Neutrophils Auto (Bld) [#/Vo l]Ordered By: Ruth Hogue on 04-13-2023 Neutrophils (Bld) [#/Vol] 3.2 10*3/uL 1.8-7.7 [facility] Neutrophils/100 WBC Auto (Bl d)Ordered By: Ruth Hogue on 04-13-2023 Neutrophils/100 WBC (Bld) 57.1 % . [facility] No Panel InformationOrdered By: Katerine Clark on 04-13-2023 D-Dimer Quantitative (PE/DVT) < 200 ng/mL 0-243 [facility] Comment on above: The reference [...] 04-13-2023 Estimated GFR (CKD-EPI) > 60.0 mL/Min [facility] Creatinine Clearance (Chem 54.85 [facility] Nucleated erythrocytes [Pres ence] in Blood by Automated countOrdered By: Ruth Hogue on 04-13-2023 Nucleated RBC Auto Ql (Bld) 0.5 /100{WBC} 0-0.5 [facility] Platelet mean volume Auto (B ld) [Entitic vol]Ordered By: Ruth Hogue on 04-13-2023 Platelet mean volume (Bld) [Entitic vol] 8.8 fL 6.6-10.1 [facility] Platelets Auto (Bld) [#/Vol] Ordered By: Ruth Hogue on 04-13-2023 Platelets (Bld) [#/Vol] 209 10*3/uL 150-450 [facility] Potassium [Moles/volume] in Serum or PlasmaOrdered By: Ruth Hogue on 04-13-2023 Potassium [Moles/Vol] 3.9 mmol/L 3.5-5.1 [facility] RBC Auto (Bld) [#/Vol]Ordere d By: Ruth Hogue on 04-13-2023 RBC (Bld) [#/Vol] 4.22 10*6/uL 3.90-5.60 [facility] Serum or plasma anion gap de terminationOrdered By: Ruth Hogue on 04-13-2023 Anion gap [Moles/Vol] 8.7 mmol/L 6.0-15.0 [facility] Serum or plasma high density lipoprotein (HDL) cholesterol measurementOrdered By: Ruth Hogue on 04-13-2023 Cholesterol in HDL [Mass/Vol] 25 mg/dL 23-92 [facility] Comment on above: HDL CHOL ATP-III CLA SSIFICATION Cardiovascular RiskHDL > or equal to 60 mg/dL LOWHDL < 40 mg/dL HIGH Serum or plasma total choles terol/high density lipoprotein (HDL) cholesterol mass ratOrdered By: Ruth Hogue on 04-13-2023 Cholesterol.total/Chol esterol in HDL [Mass ratio] 3.5 {ratio} <5.0 [facility] Sodium [Moles/volume] in Ser um or PlasmaOrdered By: Ruth Hogue on 04-13-2023 Sodium [Moles/Vol] 140 mmol/L 136-145 [facility] Triglyceride [Mass/volume] i n Serum or PlasmaOrdered By: Ruth Hogue on 04-13-2023 Triglyceride [Mass/Vol] 83 mg/dL 0-149 [facility] Comment on above: TRIG ATP III CLASSIF ICATIONTRIG less than 150 mg/dL NormalTRIG 150-199 mg/dL Borderline highTRIG 200-500 mg/dL High TRIG greater than 500 mg/dL Very highStandard traceable to the Center for Disease Conrtrol and Prevention (CDC) test method. Troponin I High Sensitivityo n 04-13-2023 Troponin I High Sensitivity 32.1 pg/mL High 0.0-20.0 [facility] Comment on above: Result Comment: PERF ORMED BY: [place] [address] PATHOLOGIST HOSPITALITY MANAGER VANESSA VASQUEZ M.D. Performed By: #### A DDONUAPLUS #### [address] Troponin I.cardiac [Mass/vol ume] in Serum or Plasma by Detection limit <= 0.01 ng/Ordered By: Ruth Hogue on 04-13-2023 Troponin I.cardiac DL <= 0.01 ng/mL [Mass/Vol] 32.1 pg/mL 0.0-20.0 [facility] Urea nitrogen [Mass/volume] in Serum or PlasmaOrdered By: Ruth Hogue on 04-13-2023 Urea nitrogen [Mass/Vol] 20 mg/dL 7- [facility] WBC Auto (Bld) [#/Vol]Ordere d By: Ruth Hogue on 04-13-2023 WBC (Bld) [#/Vol] 5.6 10*3/uL 4.1-10.5 [facility] Alanine aminotransferase [En zymatic activity/volume] in Serum or PlasmaOrdered By: Guanako Plummer on 04-06-2023 ALT [Catalytic activity/Vol] 14 U/L 7-52 [facility] Albumin [Mass/volume] in Ser um or Plasma by Bromocresol green (BCG) dye binding methoOrdered By: Guanako Plummer on 04-06-2023 Albumin BCG dye [Mass/Vol] 4.2 g/dL 3.5-5.7 [facility] Alkaline phosphatase [Enzyma tic activity/volume] in Serum or PlasmaOrdered By: Guanako Plummer on 04-06-2023 ALP [Catalytic activity/Vol] 68 U/L 34-104 [facility] Aspartate aminotransferase [ Enzymatic activity/volume] in Serum or PlasmaOrdered By: Guanako Plummer on 04-06-2023 AST [Catalytic activity/Vol] 11 U/L 13-39 [facility] Automated erythrocytes count in urine sediment (number/area)Ordered By: Guanako Plummer on 04-06-2023 RBC Auto (Urine sed) [#/Area] 0-1 [HPF] 0-4 [facility] Automated leukocytes count i n urine sediment (number/area)Ordered By: Guanako Plummer on 04-06-2023 WBC Auto (Urine sed) [#/Area] 0-1 [HPF] 0-4 [facility] Bacterial blood cultureOrder ed By: Guanako Plummer on 04-06-2023 Bacteria identified Cx Nom (Bld) NO GROWTH 5 DAYS [facility] Basophils Auto (Bld) [#/Vol] Ordered By: Guanako Plummer on 04-06-2023 Basophils (Bld) [#/Vol] 0.0 10*3/uL 0.0-0.2 [facility] Basophils/100 WBC Auto (Bld) Ordered By: Guanako Plummer on 04-06-2023 Basophils/100 WBC (Bld) 0.2 % . [facility] Bilirubin Test strip Ql (U)O rdered By: Guanako Plummer on 04-06-2023 Bilirubin Ql (U) Negative Negative [facility] Bilirubin.total [Mass/volume ] in Serum or PlasmaOrdered By: Guanako Plummer on 04-06-2023 Bilirubin [Mass/Vol] 1.1 mg/dL 0.3-1.0 [facility] Blood Cultureon 04-06-2023 Bacteria identified Cx Nom (Bld) NO GROWTH 5 DAYS PERFORMED BY: [place] [address] PATHOLOGIST HOSPITALITY MANAGER VANESSA VASQUEZ M.D. [facility] Comment on above: Performed By: #### A DDONUAPLUS #### [facility] [address] [place] [address] Bacteria identified Cx Nom (Bld) NO GROWTH 5 DAYS PERFORMED BY: [place] [address] PATHOLOGIST HOSPITALITY MANAGER VANESSA VASQUEZ M.D. [facility] Comment on above: Performed By: #### A DDONUAPLUS #### [facility] [address] [place] [address] CT abdomen pelvis w conon CT abdomen pelvis w [facility] [place] [address] [place] [address] CT Scan Report Signed Patient: Kia Mendez MR#: [id number] 98 : 1950 Acct:[id number] Age/Sex: 72 / M ADM Date: 04/06/23 Loc: ER Room: Type: [facility] ER Attending Dr: Copies to: Guanako [...] Sen Otero M.D.04/06/2023 4:55 PM Dictation Location: [place] [address] Transcribed By: [facility] 04/06/23 165 Dictated By: Sen Otero II, MD 04/06/23 1648 Signed By: 04/06/23 165 Normal [facility] Calcium [Mass/volume] in Ser um or PlasmaOrdered By: Guanako Plummer on 04-06-2023 Calcium [Mass/Vol] 8.8 mg/dL 8.6-10.3 [facility] Carbon dioxide, total [Moles /volume] in Serum or PlasmaOrdered By: Guanako Plummer on 04-06-2023 CO2 [Moles/Vol] 25.2 mmol/L 21.0-31.0 [facility] Chloride [Moles/volume] in S arvin or PlasmaOrdered By: Guanako Plummer on 04-06-2023 Chloride [Moles/Vol] 106 mmol/L 98-107 [facility] Color Auto (U)Ordered By: Ry Plummer on 04-06-2023 Color (U) Yellow Yellow [facility] Complete Blood Count Auto Di ffon 04-06-2023 Basophils (Bld) [#/Vol] 0.0 10*3/uL Normal 0.0-0.2 [facility] Comment on above: Result Comment: PERF ORMED BY: [facility] [place] [address] PATHOLOGIST HOSPITALITY MANAGER VANESSA VASQUEZ M.D. Performed By: #### G LULS #### Point of Care testing , Basophils/100 WBC (Bld) 0.2 % Normal . [facility] Comment on above: Performed By: #### G LULS #### Point of Care testing , Eosinophils (Bld) [#/Vol] 0.2 10*3/uL Normal 0.0-0.45 [facility] Comment on above: Performed By: #### G LULS #### Point of Care testing , Eosinophils/100 WBC (Bld) 4.4 % Normal . [facility] Comment on above: Performed By: #### G LULS #### Point of Care testing , Erythrocyte distribution width (RBC) [Ratio] 14.0 % Normal 12.0-14.8 [facility] Comment on above: Performed By: #### G LULS #### Point of Care testing , Hematocrit (Bld) [Volume fraction] 41.1 % Normal 38.8-50.0 [facility] Comment on above: Performed By: #### G LULS #### Point of Care testing , Hemoglobin (Bld) [Mass/Vol] 13.8 g/dL Normal 13.0-17.0 [facility] Comment on above: Performed By: #### G LULS #### Point of Care testing , Lymphocytes (Bld) [#/Vol] 0.4 10*3/uL Low 1.00-4.8 [facility] Comment on above: Performed By: #### G LULS #### Point of Care testing , Lymphocytes/100 WBC (Bld) 8.4 % Normal . [facility] Comment on above: Performed By: #### G LULS #### Point of Care testing , MCH (RBC) [Entitic mass] 30.9 pg Normal 27.5-35.2 [facility] Comment on above: Performed By: #### G LULS #### Point of Care testing , MCV (RBC) [Entitic vol] 91.8 fL Normal 83.5-101 [facility] Comment on above: Performed By: #### Robert CORREA #### Point of Care testing , Mean Corpuscular HGB Conc 33.6 g/dL Normal 32.5-35.6 [facility] Comment on above: Performed By: #### Robert CORREA #### Point of Care testing , Monocytes (Bld) [#/Vol] 0.6 10*3/uL Normal 0.0-0.8 [facility] Comment on above: Performed By: #### Robert CORREA #### Point of Care testing , Monocytes/100 WBC (Bld) 17.74 % Normal 0.00-20.00 [facility] Comment on above: Performed By: #### Robert CORREA #### Point of Care testing , Monocytes/100 WBC (Bld) 11.5 % Normal . [facility] Comment on above: Performed By: #### Robert CORREA #### Point of Care testing , Neutrophils (Bld) [#/Vol] 3.7 10*3/uL Normal 1.8-7.7 [facility] Comment on above: Performed By: #### Robert CORREA #### Point of Care testing , Neutrophils/100 WBC (Bld) 75.5 % Normal . [facility] Comment on above: Performed By: #### Robert CORREA #### Point of Care testing , NRBC% 0.0 /100{WBC} Normal 0-0.5 [facility] Comment on above: Performed By: #### Robert CORREA #### Point of Care testing , Platelet mean volume (Bld) [Entitic vol] 8.5 fL Normal 6.6-10.1 [facility] Comment on above: Performed By: #### Robert CORREA #### Point of Care testing , Platelets (Bld) [#/Vol] 210 10*3/uL Normal 150-450 [facility] Comment on above: Performed By: #### Robert CORREA #### Point of Care testing , RBC (Bld) [#/Vol] 4.48 10*6/uL Normal 3.90-5.60 [facility] Comment on above: Performed By: #### Robert CORREA #### Point of Care testing , WBC (Bld) [#/Vol] 4.9 10*3/uL Normal 4.1-10.5 [facility] Comment on above: Performed By: #### Robert CORREA #### Point of Care testing , Comprehensive Metabolic Pane raul 04-06-2023 Albumin [Mass/Vol] 4.2 g/dL Normal 3.5-5.7 [facility] Comment on above: Performed By: #### Robert CORREA #### Point of Care testing , Albumin/Globulin [Mass ratio] 1.6 {ratio} Normal [facility] Comment on above: Performed By: #### Robert CORREA #### Point of Care testing , ALP [Catalytic activity/Vol] 68 U/L Normal 34-104 [facility] Comment on above: Performed By: #### Robert CORREA #### Point of Care testing , ALT [Catalytic activity/Vol] 14 U/L Normal 7-52 [facility] Comment on above: Performed By: #### Robert CORREA #### Point of Care testing , Anion gap [Moles/Vol] 10.2 mmol/L Normal 6.0-15.0 [facility] Comment on above: Performed By: #### Robert CORREA #### Point of Care testing , AST [Catalytic activity/Vol] 11 U/L Low 13-39 [facility] Comment on above: Performed By: #### Robert CORREA #### Point of Care testing , Bilirubin [Mass/Vol] 1.1 mg/dL High 0.3-1.0 [facility] Comment on above: Performed By: #### Robert CORREA #### Point of Care testing , Calcium [Mass/Vol] 8.8 mg/dL Normal 8.6-10.3 [facility] Comment on above: Performed By: #### Robert CORREA #### Point of Care testing , Chloride [Moles/Vol] 106 mmol/L Normal 98-107 [facility] Comment on above: Performed By: #### G FLEXLS #### Point of Care testing , CO2 [Moles/Vol] 25.2 mmol/L Normal 21.0-31.0 [facility] Comment on above: Performed By: #### G LULS #### Point of Care testing , Creatinine [Mass/Vol] 1.41 mg/dL High 0.70-1.30 [facility] Comment on above: Performed By: #### G LULS #### Point of Care testing , Creatinine Clr Calc Pharmacy 51.[address] [facility] Comment on above: Performed By: #### G FLEXLS #### Point of Care testing , GFR/1.73 sq M.predicted MDRD (S/P/Bld) [Vol rate/Area] 52.293 mL/min/{1.73_m2} [facility] Comment on above: Performed By: #### G FLEXLS #### Point of Care testing , Globulin (S) [Mass/Vol] 2.7 g/dL [facility] Comment on above: Performed By: #### G FLEXLS #### Point of Care testing , Glucose [Mass/Vol] 197 mg/dL High 70-100 [facility] Comment on above: Result Comment: Louann Glucose Reference Range is dependent on time and content of last meal. Glucose of more than 200 mg/dL in a nonstressed, ambulatory subject supports the diagnosis of Diabetes Mellitus. ADA recommended reference range Performed By: #### G FLEXLS #### Point of Care testing , Potassium [Moles/Vol] 4.4 mmol/L Normal 3.5-5.1 [facility] Comment on above: Performed By: #### G FLEXLS #### Point of Care testing , Protein [Mass/Vol] 6.9 g/dL Normal 6.4-8.9 [facility] Comment on above: Performed By: #### G FLEXLS #### Point of Care testing , Sodium [Moles/Vol] 137 mmol/L Normal 136-145 [facility] Comment on above: Performed By: #### G LULS #### Point of Care testing , Urea nitrogen [Mass/Vol] 26 mg/dL High 05-01 [facility] Comment on above: Performed By: #### G SUNNY #### Point of Care testing , Creatinine [Mass/volume] in Serum or PlasmaOrdered By: Guanako Plummer on 04-06-2023 Creatinine [Mass/Vol] 1.41 mg/dL 0.70-1.30 [facility] Dipstick and Microscopicon 0 04-06-2023 Appearance (U) Clear Normal Clear [facility] Comment on above: Order Comment: Name Collection Type:: Clean-Voided Midstream Performed By: #### A DDONUAPLUS #### [facility] [address] [place] [address] Bacteria,Urine None Seen Normal None Seen [facility] Comment on above: Order Comment: Name Collection Type:: Clean-Voided Midstream Performed By: #### A DDONUAPLUS #### [facility] [address] [place] [address] [place] Bilirubin,Urine Negative Normal Negative [facility] Comment on above: Order Comment: Name Collection Type:: Clean-Voided Midstream Performed By: #### A DDONUAPLUS #### [facility] [address] [place] [address] [place] Color (U) Yellow Normal Yellow [facility] Comment on above: Order Comment: Name Collection Type:: Clean-Voided Midstream Performed By: #### A DDONUAPLUS #### [facility] [address] [place] [address] [place] Glucose Ql (U) 100 mg/dL High Normal [facility] Comment on above: Order Comment: Name Collection Type:: Clean-Voided Midstream Performed By: #### A DDONUAPLUS #### [facility] [address] [place] [address] [place] Hyaline Casts,Urine None Seen Normal 0-8 [facility] Comment on above: Order Comment: Name Collection Type:: Clean-Voided Midstream Result Comment: PERF ORMED BY: [place] [address] PATHOLOGIST HOSPITALITY MANAGER VANESSA VASQUEZ M.D. Performed By: #### A DDONUAPLUS #### [address] Ketones Ql (U) Negative Normal Negative [facility] Comment on above: Order Comment: Name Collection Type:: Clean-Voided Midstream Performed By: #### A DDONUAPLUS #### [address] Leukocyte esterase Test strip Ql (U) Negative Normal Negative [facility] Comment on above: Order Comment: Name Collection Type:: Clean-Voided Midstream Performed By: #### A DDONUAPLUS #### [address] Nitrite,Urine Negative Normal Negative [facility] Comment on above: Order Comment: Name Collection Type:: Clean-Voided Midstream Performed By: #### A DDONUAPLUS #### [address] Occult Blood,Urine Negative Normal Negative [facility] Comment on above: Order Comment: Name Collection Type:: Clean-Voided Midstream Result Comment: PERF ORMED BY: [place] [address] PATHOLOGIST HOSPITALITY MANAGER VANESSA VASQUEZ M.D. Performed By: #### A DDONUAPLUS #### [address] pH (U) 5.5 [pH] Normal 5.0-9.0 [facility] Comment on above: Order Comment: Name Collection Type:: Clean-Voided Midstream Performed By: #### A DDONUAPLUS #### [place] [address] [place] Protein (U) [Mass/Vol] 30 mg/dL High Negative [facility] Comment on above: Order Comment: Name Collection Type:: Clean-Voided Midstream Performed By: #### A DDONUAPLUS #### [place] [address] [place] RBC LM.HPF (Urine sed) [#/Area] 0 /[HPF] Normal 0-4 [facility] Comment on above: Order Comment: Name Collection Type:: Clean-Voided Midstream Performed By: #### A DDONUAPLUS #### [address] Specificy [place],Urine 1.034 High 1.001-1.03 0 [facility] Comment on above: Order Comment: Name Collection Type:: Clean-Voided Midstream Performed By: #### A DDONUAPLUS #### [address] Squamous Epithelial Cell,Urine None Seen Normal 0-2 [facility] Comment on above: Order Comment: Name Collection Type:: Clean-Voided Midstream Performed By: #### A DDONUAPLUS #### [address] Urobilinogen,Urine Normal Normal Normal [facility] Comment on above: Order Comment: Name Collection Type:: Clean-Voided Midstream Performed By: #### A DDONUAPLUS #### [address] WBC LM.HPF (Urine sed) [#/Area] 0 /[HPF] Normal 0-4 [facility] Comment on above: Order Comment: Name Collection Type:: Clean-Voided Midstream Performed By: #### A DDONUAPLUS #### [place] [address] [place] Eosinophils Auto (Bld) [#/Vo l]Ordered By: Guanako Plummer on 04-06-2023 Eosinophils (Bld) [#/Vol] 0.2 10*3/uL 0.0-0.45 [facility] Eosinophils/100 WBC Auto (Bl d)Ordered By: Guanako Plummer on 04-06-2023 Eosinophils/100 WBC (Bld) 4.4 % . [facility] Erythrocyte distribution wid th Auto (RBC) [Ratio]Ordered By: Guanako Plummer on 04-06-2023 Erythrocyte distribution width (RBC) [Ratio] 14.0 % 12.0-14.8 [facility] Globulin Calc (S) [Mass/Vol] Ordered By: Guanako Plummer on 04-06-2023 Globulin (S) [Mass/Vol] 2.7 g/dL [facility] Glucose [Mass/volume] in Ser um or PlasmaOrdered By: Guanako lPummer on 04-06-2023 Glucose [Mass/Vol] 197 mg/dL 70-100 [facility] Comment on above: ADA recommended refe rence rangeRandom Glucose Reference Range is dependent on time and content of last meal. Glucose of more than 200 mg/dL in a nonstressed, ambulatory subject supports the diagnosis of Diabetes Mellitus. Hematocrit Auto (Bld) [Volum e fraction]Ordered By: Guanako Plummer on 04-06-2023 Hematocrit (Bld) [Volume fraction] 41.1 % 38.8-50.0 [facility] Hemoglobin [Mass/volume] in BloodOrdered By: Guanako Plummer on 04-06-2023 Hemoglobin (Bld) [Mass/Vol] 13.8 g/dL 13.0-17.0 [facility] Ketones Auto test strip (U) [Mass/Vol]Ordered By: Guanako Plummer on 04-06-2023 Ketones (U) [Mass/Vol] Negative Negative [facility] Laboratory - UrinalysisOrder ed By: Guanako Plummer on 04-06-2023 Hyaline casts LM Ql (Urine sed) None seen [LPF] 0-8 [facility] Leukocytes [#/volume] correc wyatt for nucleated erythrocytes in Blood by Automated counOrdered By: Guanako Plummer on 04-06-2023 WBC corrected for nucl RBC Auto (Bld) [#/Vol] 4.9 10*3/uL 4.1-10.5 [facility] Lipaseon 04-06-2023 Lipase [Catalytic activity/Vol] 40.0 U/L Normal 11.0-82.0 [facility] Comment on above: Result Comment: PERF ORMED BY: [facility] [address] [place] [address] PATHOLOGIST HOSPITALITY MANAGER VANESSA VASQUEZ M.D. Performed By: #### G LULS #### Point of Care testing , Lipase [Enzymatic activity/v olume] in Serum or PlasmaOrdered By: Guanako Plummer on 04-06-2023 Lipase [Catalytic activity/Vol] 40.0 U/L 11.0-82.0 [facility] Lymphocytes Auto (Bld) [#/Vo l]Ordered By: Guanako Plummer on 04-06-2023 Lymphocytes (Bld) [#/Vol] 0.4 10*3/uL 1.00-4.8 [facility] Lymphocytes/100 WBC Auto (Bl d)Ordered By: Guanako Plummer on 04-06-2023 Lymphocytes/100 WBC (Bld) 8.4 % . [facility] MCH Auto (RBC) [Entitic mass ]Ordered By: Guanako Plummer on 04-06-2023 MCH (RBC) [Entitic mass] 30.9 pg 27.5-35.2 [facility] MCHC Auto (RBC) [Mass/Vol]Or dered By: Guanako Plummer on 04-06-2023 MCHC (RBC) [Mass/Vol] 33.6 g/dL 32.5-35.6 [facility] MCV Auto (RBC) [Entitic vol] Ordered By: Guanako Plummer on 04-06-2023 MCV (RBC) [Entitic vol] 91.8 fL 83.5-101 [facility] Monocyte distribution width [Entitic volume] in Blood by AutomatedOrdered By: Guanako Plummer on 04-06-2023 Monocyte distribution width Auto (Bld) [Entitic vol] 17.74 % 0.00-20.00 [facility] Monocytes Auto (Bld) [#/Vol] Ordered By: Guanako Plummer on 04-06-2023 Monocytes (Bld) [#/Vol] 0.6 10*3/uL 0.0-0.8 [facility] Monocytes/100 WBC Auto (Bld) Ordered By: Guanako Plummer on 04-06-2023 Monocytes/100 WBC (Bld) 11.5 % . [facility] Neutrophils Auto (Bld) [#/Vo l]Ordered By: Guanako Plummer on 04-06-2023 Neutrophils (Bld) [#/Vol] 3.7 10*3/uL 1.8-7.7 [facility] Neutrophils/100 WBC Auto (Bl d)Ordered By: Guanako Plummer on 04-06-2023 Neutrophils/100 WBC (Bld) 75.5 % . [facility] Nitrite Test strip Ql (U)Ord ered By: Guanako Plummer on 04-06-2023 Nitrite Ql (U) Negative Negative [facility] No Panel InformationOrdered By: Guanako Plummer on 04-06-2023 Estimated GFR (CKD-EPI) 52.293 mL/Min [facility] Creatinine Clearance (Chem 51.48 [facility] Nucleated erythrocytes [Pres ence] in Blood by Automated countOrdered By: Guanako Plummer on 04-06-2023 Nucleated RBC Auto Ql (Bld) 0.0 /100{WBC} 0-0.5 [facility] Platelet mean volume Auto (B ld) [Entitic vol]Ordered By: Guanako Plummer on 04-06-2023 Platelet mean volume (Bld) [Entitic vol] 8.5 fL 6.6-10.1 [facility] Platelets Auto (Bld) [#/Vol] Ordered By: Guanako Plummer on 04-06-2023 Platelets (Bld) [#/Vol] 210 10*3/uL 150-450 [facility] Potassium [Moles/volume] in Serum or PlasmaOrdered By: Guanako Plummer on 04-06-2023 Potassium [Moles/Vol] 4.4 mmol/L 3.5-5.1 [facility] Protein Auto test strip (U) [Mass/Vol]Ordered By: Guanako Plummer on 04-06-2023 Protein (U) [Mass/Vol] 30 mg/dL Negative [facility] Protein [Mass/volume] in Ser um or PlasmaOrdered By: Guanako Plummer on 04-06-2023 Protein [Mass/Vol] 6.9 g/dL 6.4-8.9 [facility] RBC Auto (Bld) [#/Vol]Ordere d By: Guanako Plummer on 04-06-2023 RBC (Bld) [#/Vol] 4.48 10*6/uL 3.90-5.60 [facility] Serum or plasma albumin/glob ulin mass ratioOrdered By: Guanako Plummer on 04-06-2023 Albumin/Globulin [Mass ratio] 1.6 {ratio} [facility] Serum or plasma anion gap de terminationOrdered By: Guanako Plummer on 04-06-2023 Anion gap [Moles/Vol] 10.2 mmol/L 6.0-15.0 [facility] Sodium [Moles/volume] in Ser um or PlasmaOrdered By: Guanaok lPummer on 04-06-2023 Sodium [Moles/Vol] 137 mmol/L 136-145 [facility] Specific gravity Auto test s trip (U) [Rel density]Ordered By: Guanako Plummer on 04-06-2023 Specific gravity (U) [Rel density] 1.034 1.001-1.03 0 [facility] Squamous epithelial cells de tection in urine sediment by light microscopyOrdered By: Guanako Plummer on 04-06-2023 Epithelial cells.squamous LM Ql (Urine sed) None seen [HPF] 0-2 [facility] Urea nitrogen [Mass/volume] in Serum or PlasmaOrdered By: Guanako Plumemr on 04-06-2023 Urea nitrogen [Mass/Vol] 26 mg/dL 7-25 [facility] Urine bacteria detection by automated methodOrdered By: Guanako Plummer on 04-06-2023 Bacteria Auto Ql (U) None seen None Seen [facility] Urine clarity by refractomet ry automatedOrdered By: Guanako Plummer on 04-06-2023 Clarity Refractometry automated (U) Clear Clear [facility] Urine glucose measurement by automated test strip (mass/volume)Ordered By: Guanako Plummer on 04-06-2023 Glucose Auto test strip (U) [Mass/Vol] 100 mg/dL Normal [facility] Urine hemoglobin detection b y automated test stripOrdered By: Guanako Plummer on 04-06-2023 Hemoglobin Auto test strip Ql (U) Negative Negative [facility] Urine leukocyte esterase det ection by automated test stripOrdered By: Guanako Plummer on 04-06-2023 Leukocyte esterase Auto test strip Ql (U) Negative Negative [facility] Urobilinogen Auto test strip (U) [Mass/Vol]Ordered By: Guanako Plummer on 04-06-2023 Urobilinogen (U) [Mass/Vol] Normal mg/dL Normal [facility] WBC Auto (Bld) [#/Vol]Ordere d By: Guanako Plummer on 04-06-2023 WBC (Bld) [#/Vol] 4.9 10*3/uL 4.1-10.5 [facility] pH Auto test strip (U)Ordere d By: Guanako lPummer on 04-06-2023 pH (U) 5.5 [pH] 5.0-9.0 [facility] Office Visit (Cardiology)on 03-15-2023 Follow-up [...] a smoker Tobacco Use Screening; Status:Complete; Done: 15Mar2023 Patient Instructions Please bring all medicines, vitamins, [...] Oral Capsu (more content not included)... Normal [employer] Tobacco Screening.on 023 Fall risk assessment b) One or more fall s in the last year [facility] [employer] 250 DO Work Phone: Tobacco use status [facility] b) No [facility] [employer] 250 DO Work Phone: Tobacco Screening. Yes [facility] [employer] 250 DO Work Phone: XR KNEE RT [...] by: JUAN STEWART Date: 2023-02-15 18:57 Normal [facility] Falls Screening (Age 18+)on 07-28-2022 Fall risk assessment a) No falls within the last year [facility] [employer] 250 DO Work Phone: Falls Screening (Age 18+)on 05-18-2022 Fall risk assessment a) No falls within the last year [facility] 250 DO Work Phone: CARDIAC SEN 3-6on 2 CK [Catalytic activity/Vol] 68 U/L Normal 39-308 [facility] Comment on above: Performed By: #### C MREP #### [facility] [address] [address] [address] Vern Browne CK.MB [Mass/Vol] 1.29 ng/mL Normal <=3.60 [facility] Comment on above: Performed By: #### C MREP #### [facility] [address] [address] [address] Vern Browne HSTROP 24.2 pg/mL Normal 4.0-76.1 [facility] Comment on above: Result Comment: CUT- OFF POINTS HAVE BEEN ESTABLISHED BASED ON THE FOURTH UNIVERSAL DEFINITIONS OF MYOCARDIAL INFARCTION. THE UPPER REFERENCE LIMIT (URL) OF TROPONIN, DEFINED THE 99TH PERCENTILE OF cTnI DISTRIBUTION IN A REFERENCE POPULATION, HAS BEEN CONFIRMED THE DECISION THRESHOLD FOR OR DIAGNOSIS. Performed By: #### C MREP #### [facility] [address] [address] [address] Vern Browne LACTATE/LACTIC ACIDon 2021 Lactate [Moles/Vol] 1.3 mmol/L Normal 0.4-1.9 [facility] Comment on above: Performed By: #### L ACT #### [facility] [address] [address] [address] Vern Browne XR CHEST 1 Von [...] BARBARA TIAN Date: 2022-05-16 22:45 Normal [facility] CARDIAC SEN ADMITon 022 CK [Catalytic activity/Vol] 88 U/L Normal 39-308 [facility] Comment on above: Performed By: #### B MP, HSTROPN #### [facility] [address] [address] [address] Vern Browne CK.MB [Mass/Vol] 1.74 ng/mL Normal <=3.60 [facility] Comment on above: Performed By: #### B MP, HSTROPN #### [facility] [address] [place] [address] Dr. Vern Browne HSTROP 18.8 pg/mL Normal 4.0-76.1 [facility] Comment on above: Result Comment: CUT- OFF POINTS HAVE BEEN ESTABLISHED BASED ON THE FOURTH UNIVERSAL DEFINITIONS OF MYOCARDIAL INFARCTION. THE UPPER REFERENCE LIMIT (URL) OF TROPONIN, DEFINED THE 99TH PERCENTILE OF cTnI DISTRIBUTION IN A REFERENCE POPULATION, HAS BEEN CONFIRMED THE DECISION THRESHOLD FOR OR DIAGNOSIS. Performed By: #### B MP, HSTROPN #### [facility] [address] [place] [address] Dr. Vern Browne PHIL 125 ng/mL Critically high 16-96 [facility] Comment on above: Performed By: #### B MP, HSTROPN #### [facility] [address] [place] [address] Dr. Vern Browne CBC AUTO DIFFon 05-16-2022 BASO # 0.0 103/ul Normal 0.0-0.1 [facility] Comment on above: Performed By: #### B MP, HSTROPN #### [facility] [address] [place] [address] Dr. Vern Browne Basophils/100 WBC (Bld) 0.5 % Normal 0.2-2.0 [facility] Comment on above: Performed By: #### B MP, HSTROPN #### [facility] [address] [place] [address] Dr. Vern Browne EO # 0.4 103/ul Normal 0.0-0.7 [facility] Comment on above: Performed By: #### B MP, HSTROPN #### [facility] [address] [place] [address] Dr. Vern Browne Eosinophils/100 WBC (Bld) 5.5 % Normal 0.9-7.0 [facility] Comment on above: Performed By: #### B HANG, HSTROPN #### [facility] [address] [place] [address] Dr. Vern Browne Erythrocyte distribution width (RBC) [Ratio] 13.2 % Normal 11.0-15.0 [facility] Comment on above: Performed By: #### B HANG, HSTROPN #### [facility] [address] [place] [address] Dr. Vern Browne Hematocrit (Bld) [Volume fraction] 39.5 % Critically low 42.0-54.0 [facility] Comment on above: Performed By: #### B HANG, HSTROPN #### [facility] [address] [place] [address] Dr. Vern Browne Hemoglobin (Bld) [Mass/Vol] 13.2 g/dL Critically low 14.0-18.0 [facility] Comment on above: Performed By: #### B HANG, HSTROPN #### [facility] [address] [place] [address] Dr. Vern Browne IG # 0.03 10e3/ul Normal 0.00-0.03 [facility] Comment on above: Performed By: #### B HANG, HSTROPN #### [facility] [address] [place] [address] Dr. Vern Browne IG % 0.4 % Normal 0.0-0.5 [facility] Comment on above: Performed By: #### B HANG, HSTROPN #### [facility] [address] [place] [address] Dr. Vern Browne LYMPH # 1.5 103/ul Normal 1.2-3.8 [facility] Comment on above: Performed By: #### B HANG, HSTROPN #### [facility] [address] [place] [address] Dr. Vern Browne Lymphocytes/100 WBC (Bld) 20.5 % Normal 20.5-60.0 [facility] Comment on above: Performed By: #### B MP, HSTROPN #### [facility] [address] [place] [address] Dr. Vern Browne MANUAL DIFF REQ NO Normal [facility] Comment on above: Performed By: #### B MP, HSTROPN #### [facility] [address] [place] [address] Dr. Vern Browne MCH (RBC) [Entitic mass] 29.9 pg Normal 25.9-34.0 [facility] Comment on above: Performed By: #### B MP, HSTROPN #### [facility] [address] [place] [address] Dr. Vern Browne MCHC (RBC) [Mass/Vol] 33.4 g/dL Normal 29.9-35.2 [facility] Comment on above: Performed By: #### B MP, HSTROPN #### [facility] [address] [place] [address] Dr. Vern Browne MCV (RBC) [Entitic vol] 89.6 fL Normal 80.0-94.0 [facility] Comment on above: Performed By: #### B MP, HSTROPN #### [facility] [address] [place] [address] Dr. Vern Browne MONO # 0.6 103/ul Normal 0.3-0.8 [facility] Comment on above: Performed By: #### B MP, HSTROPN #### [facility] [address] [place] [address] Dr. Vern Browne Monocytes/100 WBC (Bld) 8.2 % Normal 1.7-12.0 [facility] Comment on above: Performed By: #### B MP, HSTROPN #### [facility] [address] [place] [address] Dr. Vern Browne NEUT # 4.9 103/ul Normal 1.4-6.5 [facility] Comment on above: Performed By: #### B MP, HSTROPN #### [facility] [address] [place] [address] Dr. Vern Browne Neutrophils/100 WBC (Bld) 64.9 % Normal 43.0-75.0 [facility] Comment on above: Performed By: #### B HANG, HSTROPN #### [facility] [address] [place] [address] Dr. Vern Browne Platelet mean volume (Bld) [Entitic vol] 10.6 fL Normal 9.5-13.5 [facility] Comment on above: Performed By: #### B HANG, HSTROPN #### [facility] [address] [place] [address] Dr. Vern Browne PLT 176 103/ul Normal 150-450 [facility] Comment on above: Performed By: #### B HANG, HSTROPN #### [facility] [address] [place] [address] Dr. Vern Browne RBC 4.41 106/ul Critically low 4.70-6.10 [facility] Comment on above: Performed By: #### B HANG, HSTROPN #### [facility] [address] [place] [address] Dr. Vern Browne WBC 7.5 103/ul Normal 4.0-11.0 [facility] Comment on above: Performed By: #### B HANG, HSTROPN #### [facility] [address] [place] [address] Dr. Vern Browne [facility]on SARS-CoV-2 (COVID-19) RNA BISI+probe Ql (Unsp spec) Not detected Normal NOT DETECTED [facility] Comment on above: Result Comment: When [...] for this test is supported by the [employer] of [employer] and Human Service's declaration that [...] used). Performed By: #### C VDTBH #### [facility] [address] [place] [address] Dr. Vern Browne LACTATE/LACTIC ACIDon 2021 Lactate [Moles/Vol] 2.1 mmol/L Critically high 0.4-1.9 [facility] Comment on above: Performed By: #### L ACT #### [facility] [address] [place] [address] Dr. Vern Browne PROF CHEM 8 (BAS METB)on Anion gap [Moles/Vol] 13.2 mmol/L Normal [facility] Comment on above: Performed By: #### B HANG, HSTROPN #### [facility] [address] [place] [address] Dr. Vern Browne Calcium [Mass/Vol] 8.6 mg/dL Normal 8.5-10.1 [facility] Comment on above: Performed By: #### B HANG, HSTROPN #### [facility] [address] [place] [address] Dr. Vern Browne Chloride [Moles/Vol] 102 mmol/L Normal 98-107 [facility] Comment on above: Performed By: #### B HANG, HSTROPN #### [facility] [address] [place] [address] Dr. Vern Browne CO2 [Moles/Vol] 25.3 mmol/L Normal 21.0-32.0 [facility] Comment on above: Performed By: #### B HANG, HSTROPN #### [facility] [address] [place] [address] Dr. Vern Browne Creatinine [Mass/Vol] 1.39 mg/dL Critically high 0.70-1.30 [facility] Comment on above: Performed By: #### B HANG, HSTROPN #### [facility] [address] [address] [address] Vern Browne EGFR-AF TRINIDADIAN >60 Normal >=60 [facility] Comment on above: Performed By: #### B MP, HSTROPN #### [facility] [address] [address] [address] Vern Browne EGFR-NON AF TRINIDADIAN 50 mL/min/1.73m2 Critically low >=60 [facility] Comment on above: Performed By: #### B MP, HSTROPN #### [facility] [address] [address] [address] Vern Browne Glucose [Mass/Vol] 312 mg/dL Critically high 74-106 [facility] Comment on above: Performed By: #### B MP, HSTROPN #### [facility] [address] [place] [address] Dr. Vern Browne Potassium [Moles/Vol] 4.5 mmol/L Normal 3.5-5.1 [facility] Comment on above: Performed By: #### B MP, HSTROPN #### [facility] [address] [address] [address] Vern Browne Sodium [Moles/Vol] 136 mmol/L Normal 136-145 [facility] Comment on above: Performed By: #### B MP, HSTROPN #### [facility] [address] [address] [address] Vern Browne Urea nitrogen [Mass/Vol] 24.0 mg/dL Critically high 7.0-18.0 [facility] Comment on above: Performed By: #### B MP, HSTROPN #### [facility] [address] [address] [address] Vern Browne Urea nitrogen/Creatinine [Mass ratio] 17.3 mg/mg Normal [facility] Comment on above: Performed By: #### B MP, HSTROPN #### [facility] [address] [address] [address] Vern Browne CBC AUTO DIFFon 05-10-2022 BASO # 0.1 103/ul Normal 0.0-0.1 [facility] Comment on above: Performed By: #### C BC #### [facility] [facility] [address] [place] [address] Dr. Vern Browne Basophils/100 WBC (Bld) 0.8 % Normal 0.2-2.0 [facility] [place] [facility] Comment on above: Performed By: #### C BC #### [facility] [address] [place] [address] Dr. Vern Browne EO # 0.4 103/ul Normal 0.0-0.7 [facility] [place] [facility] Comment on above: Performed By: #### C BC #### [facility] [address] [place] [address] Dr. Vern Browne Eosinophils/100 WBC (Bld) 4.7 % Normal 0.9-7.0 [facility] [place] [facility] Comment on above: Performed By: #### C BC #### [facility] [address] [place] [address] Dr. Vern Browne Erythrocyte distribution width (RBC) [Ratio] 13.1 % Normal 11.0-15.0 [facility] [place] [facility] Comment on above: Performed By: #### C BC #### [facility] [address] [place] [address] Dr. Vern Browne Hematocrit (Bld) [Volume fraction] 40.9 % Critically low 42.0-54.0 [facility] [place] [facility] Comment on above: Performed By: #### C BC #### [facility] [address] [place] [address] Dr. Vern Browne Hemoglobin (Bld) [Mass/Vol] 13.9 g/dL Critically low 14.0-18.0 [facility] [place] [facility] Comment on above: Performed By: #### C BC #### [facility] [address] [place] [address] Dr. Vern Browne IG # 0.05 10e3/ul Critically high 0.00-0.03 [facility] Comment on above: Performed By: #### C BC #### [facility] [address] [place] [address] Dr. Vern Browne IG % 0.6 % Critically high 0.0-0.5 [facility] Comment on above: Performed By: #### C BC #### [facility] [address] [place] [address] Dr. Vern Browne LYMPH # 1.4 103/ul Normal 1.2-3.8 [facility] [place] [facility] Comment on above: Performed By: #### C BC #### [facility] [address] [place] [address] Dr. Vern Browne Lymphocytes/100 WBC (Bld) 14.9 % Critically low 20.5-60.0 [facility] [place] [facility] Comment on above: Performed By: #### C BC #### [facility] [address] [place] [address] Dr. Vern Browne MANUAL DIFF REQ NO Normal [facility] Comment on above: Performed By: #### C BC #### [facility] [address] [place] [address] Dr. Vern Browne MCH (RBC) [Entitic mass] 30.3 pg Normal 25.9-34.0 [facility] [place] [facility] Comment on above: Performed By: #### C BC #### [facility] [address] [place] [address] Dr. Vern Browne MCHC (RBC) [Mass/Vol] 34.0 g/dL Normal 29.9-35.2 [facility] [place] [facility] Comment on above: Performed By: #### C BC #### [facility] [address] [place] [address] Dr. Vern Browne MCV (RBC) [Entitic vol] 89.1 fL Normal 80.0-94.0 [facility] [place] [facility] Comment on above: Performed By: #### C BC #### [facility] [address] [place] [address] Dr. Vern Browne MONO # 0.8 103/ul Normal 0.3-0.8 [facility] [place] [facility] Comment on above: Performed By: #### C BC #### [facility] [address] [place] [address] Dr. Vern Browne Monocytes/100 WBC (Bld) 8.7 % Normal 1.7-12.0 [facility] [place] [facility] Comment on above: Performed By: #### C BC #### [facility] [address] [address] [address] Vern Browne NEUT # 6.4 103/ul Normal 1.4-6.5 [facility] [place] [facility] Comment on above: Performed By: #### C BC #### [facility] [address] [address] [address] Vern Browne Neutrophils/100 WBC (Bld) 70.3 % Normal 43.0-75.0 [facility] [place] [facility] Comment on above: Performed By: #### C BC #### [facility] [address] [address] [address] Vern Browne Platelet mean volume (Bld) [Entitic vol] 10.9 fL Normal 9.5-13.5 [facility] [place] [facility] Comment on above: Performed By: #### C BC #### [facility] [address] [place] [address] Dr. Vern Browne PLT 199 103/ul Normal 150-450 [facility] Comment on above: Performed By: #### C BC #### [facility] [address] [address] [address] Vern Browne RBC 4.59 106/ul Critically low 4.70-6.10 [facility] Comment on above: Performed By: #### C BC #### [facility] [address] [place] [address] Dr. Vern Browne WBC 9.1 103/ul Normal 4.0-11.0 [facility] [place] [facility] Comment on above: Performed By: #### C BC #### [facility] [address] [place] [address] Dr. Vern Browne D-DIMERon 05-10-2022 D-DIMER 0.38 mg/L FEU Normal <=0.[address] [facility] Comment on above: Performed By: #### D DIM #### [facility] [address] [place] [address] Dr. Vern Browne D-DIMER COMMENTS SEE BELOW Normal [facility] Comment on above: Result Comment: Incr eases [...] hospitalization. Performed By: #### D DIM #### [facility] [address] [place] [address] Dr. Vern Browne PROF CHEM 8 (BAS METB)on Anion gap [Moles/Vol] 15.9 mmol/L Normal [facility] Comment on above: Performed By: #### B HANG, HSTROPN #### [facility] [address] [place] [address] Dr. Vern Browne Calcium [Mass/Vol] 8.3 mg/dL Critically low 8.5-10.1 [facility] Comment on above: Performed By: #### B MP, HSTROPN #### [facility] [address] [place] [address] Dr. Vern Browne Chloride [Moles/Vol] 103 mmol/L Normal 98-107 [facility] [place] [facility] Comment on above: Performed By: #### B MP, HSTROPN #### [facility] [address] [place] [address] Dr. Vern Browne CO2 [Moles/Vol] 23.8 mmol/L Normal 21.0-32.0 [facility] Comment on above: Performed By: #### B MP, HSTROPN #### [facility] [address] [place] [address] Dr. Vern Browne Creatinine [Mass/Vol] 1.30 mg/dL Normal 0.70-1.30 [facility] [place] [facility] Comment on above: Performed By: #### B MP, HSTROPN #### [facility] [address] [place] [address] Dr. Vern Browne EGFR-AF TRINIDADIAN >60 Normal >=60 [facility] Comment on above: Performed By: #### B MP, HSTROPN #### [facility] [address] [address] [address] Vern Browne EGFR-NON AF TRINIDADIAN 54 mL/min/1.73m2 Critically low >=60 [facility] [place] [facility] Comment on above: Performed By: #### B MP, HSTROPN #### [facility] [address] [address] [address] Vern Browne Glucose [Mass/Vol] 310 mg/dL Critically high 74-106 [facility] Comment on above: Performed By: #### B MP, HSTROPN #### [facility] [address] [address] [address] Vern Browne Potassium [Moles/Vol] 4.7 mmol/L Normal 3.5-5.1 [facility] [place] [facility] Comment on above: Performed By: #### B MP, HSTROPN #### [facility] [address] [place] [address] Dr. Vern Browne Sodium [Moles/Vol] 138 mmol/L Normal 136-145 [facility] Comment on above: Performed By: #### B MP, HSTROPN #### [facility] [address] [place] [address] Dr. Vern Browne Urea nitrogen [Mass/Vol] 17.0 mg/dL Normal 7.0-18.0 [facility] [place] [facility] Comment on above: Performed By: #### B MP, HSTROPN #### [facility] [address] [place] [address] Dr. Vern Browne Urea nitrogen/Creatinine [Mass ratio] 13.1 mg/mg Normal [facility] [place] [facility] Comment on above: Performed By: #### B MP, HSTROPN #### [facility] [address] [place] [address] Dr. Vern Browne TROPONIN, HIGH SENSITIVITYon 05-10-2022 HSTROP 15.7 pg/mL Normal 4.0-76.1 [facility] [place] [facility] Comment on above: Result Comment: CUT- OFF POINTS HAVE BEEN ESTABLISHED BASED ON THE FOURTH UNIVERSAL DEFINITIONS OF MYOCARDIAL INFARCTION. THE UPPER REFERENCE LIMIT (URL) OF TROPONIN, DEFINED THE 99TH PERCENTILE OF cTnI DISTRIBUTION IN A REFERENCE POPULATION, HAS BEEN CONFIRMED THE DECISION THRESHOLD FOR OR DIAGNOSIS. Performed By: #### H STROPN #### [facility] [address] [place], [place] [address] Dr. Vern Browne HSTROP 15.1 pg/mL Normal 4.0-76.1 [facility] [place] [facility] Comment on above: Result Comment: CUT- OFF POINTS HAVE BEEN ESTABLISHED BASED ON THE FOURTH UNIVERSAL DEFINITIONS OF MYOCARDIAL INFARCTION. THE UPPER REFERENCE LIMIT (URL) OF TROPONIN, DEFINED THE 99TH PERCENTILE OF cTnI DISTRIBUTION IN A REFERENCE POPULATION, HAS BEEN CONFIRMED THE DECISION THRESHOLD FOR OR DIAGNOSIS. Performed By: #### B MP, HSTROPN #### [facility] [address] [id number] Vern Browne XR CHEST 1 Von [...] by: MEME VILLANUEVA Date: 2022-05-10 17:27 Normal [facility] COVID Quick Testingon 2021 Result Negative [employer] Other Quick Strepon 04-15-2022 S. pyogenes Org specific cx Ql (Throat) Negative [employer] Other Quick Strep [employer] Other MRI KNEE RT WO CONon 022 [...] by: MEME VILLANUEVA Date: 2022-03-31 09:05 Normal [facility] [place] [facility] XR FOREIGN BODY EYEon 2021 XR FOREIGN BODY EYE EXAMINATION: XR FORE IGN BODY EYE HISTORY: Foreign body in eye COMPARISON: No relevant comparison available. FINDINGS: ORBITS: Negative for a metallic foreign body. OTHER: Negative. IMPRESSION: 1. No metallic foreign body within the orbits. Electronically authenticated by: MEME VILLANUEVA Date: 2022-03-30 16:02 Normal [facility] [place] [facility] Tobacco Screening.on 022 Adult depression screening assessment No [facility] [address] DO Work Phone: Fall risk assessment a) No falls within the last year [facility] [address] DO Work Phone: Tobacco use status CPHS b) No [facility] DO Work Phone: RAD - Ultrasound Reporton RAD - Ultrasound Report [id number] Normal [facility] Activated partial thrombopla stin time (aPTT) in platelet poor plasma by coagulation aOrdered By: Yifan Caldwell on 03-02-2022 aPTT Coag (PPP) [Time] 33.4 s 25.1-36.5 [facility] Basophils Auto (Bld) [#/Vol] Ordered By: Yifan Caldwell on 03-02-2022 Basophils (Bld) [#/Vol] 0.0 10*3/uL 0.0-0.2 [facility] Basophils/100 WBC Auto (Bld) Ordered By: Yifan Caldwell on 03-02-2022 Basophils/100 WBC (Bld) 0.8 % [facility] Blood hemoglobin measurement (mass/volume)Ordered By: Yifan Caldwell on 03-02-2022 Hemoglobin (Bld) [Mass/Vol] 13.6 g/dL 13.0-17.0 [facility] Blood leukocytes automated c ount (number/volume)Ordered By: Yifan Caldwell on 03-02-2022 WBC (Bld) [#/Vol] 5.8 10*3/uL 4.5-11.0 [facility] Creatine kinase [Enzymatic a ctivity/volume] in Serum or PlasmaOrdered By: Yifan Caldwell on 03-02-2022 CK [Catalytic activity/Vol] 94 U/L 22-269 [facility] Creatinine and Glomerular fi ltration rate.predicted panel (S/P/Bld)Ordered By: Yifan Caldwell on 03-02-2022 Creatinine [Mass/Vol] 1.15 mg/dL 0.64-1.27 [facility] Eosinophils Auto (Bld) [#/Vo l]Ordered By: Yifan Caldwell on 03-02-2022 Eosinophils (Bld) [#/Vol] 0.6 10*3/uL 0.0-0.45 [facility] Eosinophils/100 WBC Auto (Bl d)Ordered By: Yifan Caldwell on 03-02-2022 Eosinophils/100 WBC (Bld) 9.8 % [facility] Erythrocyte distribution wid th Auto (RBC) [Ratio]Ordered By: Yifan Caldwell on 03-02-2022 Erythrocyte distribution width (RBC) [Ratio] 13.3 % 12.0-14.8 [facility] Estimated glomerular filtrat ion rate (GFR) non- AmericanOrdered By: Yifan Caldwell on 03-02-2022 GFR/1.73 sq M.predicted among non-blacks MDRD (S/P/Bld) [Vol rate/Area] > 60 mL/Min [facility] Hematocrit Auto (Bld) [Volum e fraction]Ordered By: Yifan Caldwell on 03-02-2022 Hematocrit (Bld) [Volume fraction] 40.3 % 38.8-50.0 [facility] Laboratory - Chemistry and C hemistry - challengeOrdered By: Yifan Caldwell on 03-02-2022 Natriuretic peptide B (Bld) [Mass/Vol] 115.0 pg/mL 5-100 [facility] Laboratory - CoagulationOrde red By: Yifan Caldwell on 03-02-2022 PT Coag (PPP) [Time] 11.5 s 9.0-12.9 [facility] - Hematology and Cell countsOrdered By: Yifan Caldwell on 03-02-2022 Nucleated RBC/100 WBC (Bld) [Ratio] 0.0 % 0-0.5 [facility] Lymphocytes Auto (Bld) [#/Vo l]Ordered By: Yifan Caldwell on 03-02-2022 Lymphocytes (Bld) [#/Vol] 0.8 10*3/uL 1.00-4.8 [facility] Lymphocytes/100 WBC Auto (Bl d)Ordered By: Yifan Caldwell on 03-02-2022 Lymphocytes/100 WBC (Bld) 14.3 % [facility] MCH Auto (RBC) [Entitic mass ]Ordered By: Yifan Caldwell on 03-02-2022 MCH (RBC) [Entitic mass] 30.7 pg 27.5-35.2 [facility] MCHC Auto (RBC) [Mass/Vol]Or dered By: Yifan Caldwell on 03-02-2022 MCHC (RBC) [Mass/Vol] 33.7 g/dL 32.5-35.6 [facility] MCV Auto (RBC) [Entitic vol] Ordered By: Yifan Caldwell on 03-02-2022 MCV (RBC) [Entitic vol] 91.0 fL 83.5-101 [facility] Monocytes Auto (Bld) [#/Vol] Ordered By: Yifan Caldwell on 03-02-2022 Monocytes (Bld) [#/Vol] 0.6 10*3/uL 0.0-0.8 [facility] Monocytes/100 WBC Auto (Bld) Ordered By: Yifan Caldwell on 03-02-2022 Monocytes/100 WBC (Bld) 10.8 % [facility] Neutrophils Auto (Bld) [#/Vo l]Ordered By: Yifan Caldwell on 03-02-2022 Neutrophils (Bld) [#/Vol] 3.7 10*3/uL 1.8-7.7 [facility] Neutrophils/100 WBC Auto (Bl d)Ordered By: Yifan Caldwell on 03-02-2022 Neutrophils/100 WBC (Bld) 64.3 % [facility] No Panel InformationOrdered By: Yifan Caldwell on 03-02-2022 Estimated GFR () > 60 mL/Min [facility] Comment on above: GFR estimated refere nce range: According to KDOQI guidelines, <60 ml/min/1.73m2 is sufficient to diagnose a patient with chronic kidney disease. Pharmacy Creatinine Clearance (Chem 64.07 [facility] Platelet mean volume Auto (B ld) [Entitic vol]Ordered By: Yifan Caldwell on 03-02-2022 Platelet mean volume (Bld) [Entitic vol] 8.8 fL 6.6-10.1 [facility] Platelet poor plasma interna tional normalized ratio (INR) by coagulation assay (relatOrdered By: Yifan Caldwell on 03-02-2022 INR Coag (PPP) [Relative time] 1.0 {INR} [facility] Comment on above: INR Therapeutic [...] 03-02-2022 Platelets (Bld) [#/Vol] 186 10*3/uL 150-450 [facility] RBC Auto (Bld) [#/Vol]Ordere d By: Yifan Caldwell on 03-02-2022 RBC (Bld) [#/Vol] 4.43 10*6/uL 3.90-5.60 [facility] Serum or plasma calcium loe urement (mass/volume)Ordered By: Yifan Caldwell on 03-02-2022 Calcium [Mass/Vol] 8.6 mg/dL 8.2-10.2 [facility] Serum or plasma chloride angel surement (moles/volume)Ordered By: Yifan Caldwell on 03-02-2022 Chloride [Moles/Vol] 99 mmol/L 95-114 [facility] Serum or plasma creatine kin ase MB (CKMB)/total creatine kinase (CK) ratio by calculaOrdered By: Yifan Caldwell on 03-02-2022 CK.MB Calc [Catalytic fraction] 2.4 % 0.00-2.50 [facility] Serum or plasma creatine kin ase MB measurement (mass/volume)Ordered By: Yifan Caldwell on 03-02-2022 CK.MB [Mass/Vol] 2.3 ng/mL 0.6-6.3 [facility] Serum or plasma glucose leo urement (mass/volume)Ordered By: Yifan Caldwell on 03-02-2022 Glucose [Mass/Vol] 332 mg/dL 70-100 [facility] Comment on above: ADA recommended refe rence range Random Glucose Reference Range is dependent on time and content of last meal. Glucose of more than 200 mg/dL in a nonstressed, ambulatory subject supports the diagnosis of Diabetes Mellitus. Serum or plasma potassium me asurement (moles/volume)Ordered By: Yifan Caldwell on 03-02-2022 Potassium [Moles/Vol] 4.8 mmol/L 3.5-5.1 [facility] Serum or plasma sodium measu rement (moles/volume)Ordered By: Yifan Caldwell on 03-02-2022 Sodium [Moles/Vol] 131 mmol/L 136-146 [facility] Serum or plasma total carbon dioxide measurement (moles/volume)Ordered By: Yifan Caldwell on 03-02-2022 CO2 [Moles/Vol] 22.1 mmol/L 22.0-30.0 [facility] Serum or plasma urea nitroge n measurement (mass/volume)Ordered By: Yifan Caldwell on 03-02-2022 Urea nitrogen [Mass/Vol] 25 mg/dL 9- [facility] Troponin I.cardiac [Mass/vol ume] in Serum or Plasma by High sensitivity methodOrdered By: Yifan Caldwell on 03-02-2022 Troponin I.cardiac High sensitivity method [Mass/Vol] 10 pg/mL 0-20 [facility] Tobacco Screening.on 021 Fall risk assessment a) No falls within the last year [facility] [address] DO Work Phone: Tobacco use status CP b) No [facility] [address] DO Work Phone: Vital Signs Date Time Vital Sign Value Performing Clinician Facility 05-12-2024 08:43-0400 Body height 155.4 cm Susan Skelton PA-C Work Phone: [facility] 05-12-2024 08:43-0400 Body mass index (BMI) [Ratio] 36.6 kg/m2 Susan Wellsgs PA-C Work Phone: [facility] 05-12-2024 08:43-0400 Body weight 88.45 kg Suasn Skelton PA-C Work Phone: [facility] 05-12-2024 08:43-0400 Diastolic blood pressure 64 mm[Hg] Susan Russellgs PA-C Work Phone: [facility] 05-12-2024 08:43-0400 Heart rate 68 /min Susan Wellsgs PA-C Work Phone: [facility] 05-12-2024 08:43-0400 Systolic blood pressure 119 mm[Hg] Susan Skelton PA-C Work Phone: [facility] 03-31-2024 09:50-0400 Diastolic blood pressure 54 mm[Hg] Jos Armstrong MD Work Phone: [facility] 03-31-2024 09:50-0400 Heart rate 59 /min Jos Armstrong MD Work Phone: [facility] 03-31-2024 09:50-0400 SaO2% (BldA) [Mass fraction] 98 % Jos Armstrong MD Work Phone: [facility] 03-31-2024 09:50-0400 Systolic blood pressure 115 mm[Hg] Jos Armstrong MD Work Phone: [facility] 03-04-2024 10:44-0400 Diastolic blood pressure 64 mm[Hg] Lacey rPetty MD Work Phone: [facility] 03-04-2024 10:44-0400 Systolic blood pressure 138 mm[Hg] Lacey Pretty MD Work Phone: [facility] 03-04-2024 10:17-0400 Body height 177.8 cm Lacey Pretty MD Work Phone: [facility] 03-04-2024 10:17-0400 Body mass index (BMI) [Ratio] 28.3 kg/m2 Lacey Pretty MD Work Phone: [facility] 03-04-2024 10:17-0400 Body weight 89.45 kg Lacey Pretty MD Work Phone: [facility] 03-04-2024 10:17-0400 Heart rate 60 /min Lacey Pretty MD Work Phone: [facility] 09-27-2023 15:20-0500 Body height 179.07 cm Hali Alexander Other [employer] Other 09-27-2023 15:20-0500 Body mass index (BMI) [Ratio] 29.19 kg/m2 Hali Alexander Other [employer] Other 09-27-2023 15:20-0500 Body temperature 98.6 [degF] Hali Alexander Other [employer] Other 09-27-2023 15:20-0500 Body weight 93.62 kg Hali Alexander Other [employer] Other 09-27-2023 15:20-0500 Respiratory rate 18 /min Hali Alexander Other [employer] Other 09-27-2023 15:20-0500 SaO2% (BldA) [Mass fraction] 96 % Hali Alexander Other [employer] Other 06-01-2023 10:12-0400 Body height 177.8 cm Sebas Amezcua Miguel Work Phone: [facility] [employer] 600 DO Work Phone: 06-01-2023 10:12-0400 Body mass index (BMI) [Ratio] 26.4 kg/m2 Sebas Amezcua Miguel Work Phone: [facility] [employer] 600 DO Work Phone: 06-01-2023 10:12-0400 Body surface area Derived from formula 2.01 m2 Sebas Miguel Work Phone: [facility] [employer] 600 DO Work Phone: 06-01-2023 10:12-0400 Body weight 83.46 kg Sebas Miguel Work Phone: [facility] [employer] [address] DO Work Phone: 06-01-2023 10:12-0400 Diastolic blood pressure 62 mm[Hg] Sebas Miguel Work Phone: [facility] 600 DO Work Phone: 06-01-2023 10:12-0400 Heart rate 74 /min Sebas Miguel Work Phone: [facility] 600 DO Work Phone: 06-01-2023 10:12-0400 Systolic blood pressure 134 mm[Hg] Sebas Miguel Work Phone: [facility] 600 DO Work Phone: 05-08-2023 03:53-0400 Diastolic blood pressure 72 mm[Hg] II Sebas Miguel Work Phone: [facility] 05-08-2023 03:53-0400 Heart rate 92 /min II Sebas Miguel Work Phone: [facility] 05-08-2023 03:53-0400 Respiratory rate 18 /min II Sebas Miguel Work Phone: [facility] 05-08-2023 03:53-0400 SaO2% (BldA) [Mass fraction] 95 % II Sebas Miguel Work Phone: [facility] 05-08-2023 03:53-0400 Systolic blood pressure 158 mm[Hg] II Sebas Miguel Work Phone: [facility] 05-07-2023 22:30-0400 Body height 177.8 cm II Sebas Miguel Work Phone: [facility] 05-07-2023 22:30-0400 Body temperature 97.5 [degF] II Sebas Miguel Work Phone: [facility] 05-07-2023 22:30-0400 Body weight 79.37 kg II Sebas Miguel Work Phone: [facility] 04-26-2023 14:15-0400 Body height 179.07 cm Imad Asaad Other [facility] [employer] Other 04-26-2023 14:15-0400 Body mass index (BMI) [Ratio] 26.17 kg/m2 Imad Asaad Other [facility] [employer] Other 04-26-2023 14:15-0400 Body weight 83.92 kg Imad Asaad Other [facility] [employer] Other 04-26-2023 14:15-0400 Diastolic blood pressure 70 mm[Hg] Imad Asaad Other [facility] [employer] Other 04-26-2023 14:15-0400 Systolic blood pressure 123 mm[Hg] Imad Asaad Other [facility] [employer] Other 04-13-2023 14:54-0400 Body temperature 98 [degF] II Sebas Miguel Work Phone: [facility] 04-13-2023 14:54-0400 Diastolic blood pressure 73 mm[Hg] II Sebas Miguel Work Phone: [facility] 04-13-2023 14:54-0400 Heart rate 73 /min II Sebas Miguel Work Phone: [facility] 04-13-2023 14:54-0400 Respiratory rate 18 /min II Sebas Miguel Work Phone: [facility] 04-13-2023 14:54-0400 SaO2% (BldA) [Mass fraction] 96 % II Sebas Miguel Work Phone: [facility] 04-13-2023 14:54-0400 Systolic blood pressure 122 mm[Hg] II Sebas Miguel Work Phone: [facility] 04-13-2023 03:59-0400 Body height 177.8 cm II Sebas Miguel Work Phone: [facility] 04-13-2023 03:59-0400 Body weight 85.6 kg II Sebas Miguel Work Phone: [facility] 04-06-2023 15:28-0400 Diastolic blood pressure 70 mm[Hg] II Sebas Miguel Work Phone: [facility] 04-06-2023 15:28-0400 Heart rate 74 /min II Sebas Miguel Work Phone: [facility] 04-06-2023 15:28-0400 Respiratory rate 16 /min II Sebas Miguel Work Phone: [facility] 04-06-2023 15:28-0400 SaO2% (BldA) [Mass fraction] 98 % II Sebas Miguel Work Phone: [facility] 04-06-2023 15:28-0400 Systolic blood pressure 153 mm[Hg] II Sebas Miguel Work Phone: [facility] 04-06-2023 14:35-0400 Body height 177.8 cm II Sebas Miguel Work Phone: [facility] 04-06-2023 14:35-0400 Body temperature 97.5 [degF] II Sebas Miguel Work Phone: [facility] 04-06-2023 14:35-0400 Body weight 88.45 kg II Sebas Miguel Work Phone: [facility] 03-15-2023 15:07-0400 Body height 177.8 cm Sebas Seven Lamont Work Phone: [facility] 250 DO Work Phone: 03-15-2023 15:07-0400 Body mass index (BMI) [Ratio] 28.7 kg/m2 Sebas Miguel Work Phone: [facility] 250 DO Work Phone: 03-15-2023 15:07-0400 Body surface area Derived from formula 2.09 m2 Sebas Miguel Work Phone: [facility] 250 DO Work Phone: 03-15-2023 15:07-0400 Body weight 90.72 kg Sebas Miguel Work Phone: [facility] 250 DO Work Phone: 03-15-2023 15:07-0400 Diastolic blood pressure 68 mm[Hg] Sebas Miguel Work Phone: [facility] DO Work Phone: 03-15-2023 15:07-0400 Heart rate 65 /min Sebas Miguel Work Phone: [facility] DO Work Phone: 03-15-2023 15:07-0400 Systolic blood pressure 132 mm[Hg] Sebas Miguel Work Phone: [facility] DO Work Phone: 07-28-2022 12:17-0400 Body height 177.8 cm [id number] MD UROLOGIST 1 Work Phone: [facility] 250 DO Work Phone: 07-28-2022 12:17-0400 Body mass index (BMI) [Ratio] 27.84 kg/m2 [id number] [id number] MD UROLOGIST 1 Work Phone: [facility] 250 DO Work Phone: 07-28-2022 12:17-0400 Body surface area Derived from formula 2.06 m2 [id number] NOH [id number] MD UROLOGIST 1 Work Phone: [facility] 250 DO Work Phone: 07-28-2022 12:17-0400 Body weight 88 kg [id number] [id number] MD UROLOGIST 1 Work Phone: [facility] 250 DO Work Phone: 07-28-2022 12:17-0400 Diastolic blood pressure 52 mm[Hg] [id number] MD UROLOGIST 1 Work Phone: [facility] DO Work Phone: 07-28-2022 12:17-0400 Heart rate 60 /min [id number] MD UROLOGIST 1 Work Phone: [facility] DO Work Phone: 07-28-2022 12:17-0400 Systolic blood pressure 150 mm[Hg] [id number] NO [id number] MD UROLOGIST 1 Work Phone: [facility] DO Work Phone: 05-18-2022 13:00-0400 Body height 177.8 cm [id number] MD UROLOGIST 1 Work Phone: [facility] 250 DO Work Phone: 05-18-2022 13:00-0400 Body mass index (BMI) [Ratio] 28.27 kg/m2 [id number] NO [id number] MD UROLOGIST 1 Work Phone: [facility] DO Work Phone: 05-18-2022 13:00-0400 Body surface area Derived from formula 2.07 m2 [id number] MD UROLOGIST 1 Work Phone: [facility] 250 DO Work Phone: 05-18-2022 13:00-0400 Body weight 89.36 kg [id number] NO [id number] MD UROLOGIST 1 Work Phone: [facility] 250 DO Work Phone: 05-18-2022 13:00-0400 Diastolic blood pressure 64 mm[Hg] [id number] NO [id number] MD UROLOGIST 1 Work Phone: [facility] 250 DO Work Phone: 05-18-2022 13:00-0400 Heart rate 61 /min [id number] [facility] [id number] MD UROLOGIST 1 Work Phone: [facility] DO Work Phone: 05-18-2022 13:00-0400 Systolic blood pressure 136 mm[Hg] [id number] [facility] [id number] MD UROLOGIST 1 Work Phone: [facility] DO Work Phone: 04-15-2022 11:35-0400 Body height 179.07 cm Alka Jacqueline Other [employer] Other 04-15-2022 11:35-0400 Body mass index (BMI) [Ratio] 27.3 kg/m2 Alka Jacqueline Other [employer] Other 04-15-2022 11:35-0400 Body temperature 97.1 [degF] Alka Jacqueline Other [employer] Other 04-15-2022 11:35-0400 Body weight 87.54 kg Alka Jacqueline Other [employer] Other 04-15-2022 11:35-0400 Respiratory rate 18 /min Alka Gudinomond Other [employer] Other 04-15-2022 11:35-0400 SaO2% (BldA) [Mass fraction] 97 % Alka Jacqueline Other [employer] Other 03-15-2022 14:26-0400 Body height 177.8 cm Lacey Pretty MD Work Phone: [facility] DO Work Phone: 03-15-2022 14:26-0400 Body mass index (BMI) [Ratio] 27.98 kg/m2 Lacey Pretty MD Work Phone: [facility] 250 DO Work Phone: 03-15-2022 14:26-0400 Body surface area Derived from formula 2.06 m2 Lacey Pretty MD Work Phone: [facility] 250 DO Work Phone: 03-15-2022 14:26-0400 Body weight 88.45 kg Lacey Pretty MD Work Phone: [facility] 250 DO Work Phone: 03-15-2022 14:26-0400 Diastolic blood pressure 60 mm[Hg] Lacey Pretty MD Work Phone: [facility] DO Work Phone: 03-15-2022 14:26-0400 Heart rate 72 /min Lacey Pretty MD Work Phone: [facility] 250 DO Work Phone: 03-15-2022 14:26-0400 Systolic blood pressure 132 mm[Hg] Lacey Pretty MD Work Phone: [facility] 250 DO Work Phone: 03-02-2022 18:00-0400 Diastolic blood pressure 80 mm[Hg] II Sebas Miguel Work Phone: [facility] 03-02-2022 18:00-0400 Heart rate 68 /min MARANDA Miguel Work Phone: [facility] 03-02-2022 18:00-0400 Respiratory rate 18 /min II Sebas Miguel Work Phone: [facility] 03-02-2022 18:00-0400 SaO2% (BldA) [Mass fraction] 96 % II Sebas Miguel Work Phone: [facility] 03-02-2022 18:00-0400 Systolic blood pressure 181 mm[Hg] II Sebas Miguel Work Phone: [facility] 03-02-2022 11:42-0400 Body height 177.8 cm II Sebas Miguel Work Phone: [facility] 03-02-2022 11:42-0400 Body mass index (BMI) [Ratio] 27.9 kg/m2 II Sebas Miguel Work Phone: [facility] 03-02-2022 11:42-0400 Body temperature 97.6 [degF] II Sebas Miguel Work Phone: [facility] 03-02-2022 11:42-0400 Body weight 88.45 kg II Sebas Miguel Work Phone: [facility] 09-13-2021 13:44-0500 Body height 179.07 cm Lacey Pretty MD Work Phone: [facility] 250 DO Work Phone: 09-13-2021 13:44-0500 Body mass index (BMI) [Ratio] 29 kg/m2 Lacey Pretty MD Work Phone: [facility] 250 DO Work Phone: 09-13-2021 13:44-0500 Body surface area Derived from formula 2.12 m2 Lacey Pretty MD Work Phone: [facility] 250 DO Work Phone: 09-13-2021 13:44-0500 Body weight 92.99 kg Lacey Pretty MD Work Phone: [facility] DO Work Phone: 09-13-2021 13:44-0500 Diastolic blood pressure 74 mm[Hg] Lcaey Pretty MD Work Phone: [facility] 250 DO Work Phone: 09-13-2021 13:44-0500 Heart rate 66 /min Lacey Pretty MD Work Phone: [facility] DO Work Phone: 09-13-2021 13:44-0500 Systolic blood pressure 136 mm[Hg] Lacey Pretty MD Work Phone: [facility] DO Work Phone: Encounters Encounter Date Encounter Type Care Provider Facility Start: 06-11-2024 End: 06-11-2024 ambulatory RUBY GARCIA Not Available Start: 05-27-2024 ambulatory SEBAS MIGUEL II Facil ity:[facility] Start: 05-13-2024 End: 05-13-2024 Subsequent hospital visit by physician Mri 3 Radio Main Q (I-Stat/1.5t/3t) Work Phone: MRI Q Start: 05-12-2024 End: 05-12-2024 ambulatory SEBAS MIGUEL II Facility:[facility] Start: 05-12-2024 End: 05-12-2024 Patient encounter procedure Susan Skelton PA-C Work Phone: [facility] Comment on above: Essential tremor (Pr imary Dx) Essential tremor Start: 05-06-2024 End: 05-06-2024 ambulatory AGUSTINA LUIS Not Available Start: 04-23-2024 End: 04-23-2024 ambulatory PHILIP HUGGINS Not Available Start: 04-03-2024 End: 04-03-2024 ambulatory RUBY GARCIA Not Available Start: 03-31-2024 End: 03-31-2024 ambulatory SEBAS MIGUEL II Facility:[facility] Start: 03-31-2024 End: 03-31-2024 Patient encounter procedure Jos Armstrong MD Work Phone: [facility] Comment on above: Essential tremor (Pr imary Dx) Start: 03-06-2024 End: 03-06-2024 ambulatory YANMy GAUTAM Not Available Start: 03-04-2024 End: 03-04-2024 ambulatory AGUSTINA Patsy LUIS Not Available Start: 03-04-2024 End: 03-04-2024 Office outpatient visit 25 minutes Lacey Pretty MD Work Phone: [facility] Comment on above: CAD, multiple vessel (Primary Dx); Benign essential hypertension; Chest pain, unspecified type; Mixed hyperlipidemia; Paroxysmal supraventricular tachycardia (CMS-HCC); Other fatigue; BMI 28.0-28.9,adult Start: 03-04-2024 End: 03-04-2024 ambulatory [facility] Ambulatory Start: 02-26-2024 End: 02-26-2024 ambulatory RUBY GARCIA Not Available Start: 09-27-2023 End: 09-27-2023 ambulatory Hali Alexander Other [employer] Other Start: 09-27-2023 Office outpatient vi sit 25 minutes Hali Alexander [facility] Start: 06-01-[address] Lacey Pretty Facility: Start: 06-01-2023 Office outpatient vi sit 25 minutes Sebas Miguel Work Phone: [facility] 600 DO Work Phone: Start: 05-28-2023 End: 05-28-2023 ambulatory Amauri Carrera Facility:[facility] Start: 05-09-2023 End: 05-09-2023 ambulatory Amauri Carrera Facility:[facility] Start: 05-09-2023 End: 05-09-2023 ambulatory II Sebas Miguel Work Phone: [facility] Work Phone: Start: 05-09-2023 End: 05-09-2023 Patient encounter procedure II Sebas Miguel Work Phone: [facility] [employer] Work Phone: Start: 05-08-2023 End: 05-08-2023 Emergency department patient visit Katty Pierre Jr Facility:[facility] Start: 05-07-2023 End: 05-08-2023 Emergency department patient visit II Sebas Miguel Work Phone: [facility] Work Phone: Start: 04-26-2023 End: 04-26-2023 ambulatory Imad Asaad Other [facility] [employer] Other Start: 04-26-2023 Office outpatient ne w 45 minutes Imad Asaad [facility] Start: 04-20-[address] Lacey Pretty Facility:[id number] Start: 04-17-2023 Rx Renewal Sebas Miguel Work Phone: -[facility] 250 DO Work Phone: Start: 04-13-2023 Message Sebsa Miguel Work Phone: -[facility] DO Work Phone: Start: 04-13-2023 End: 04-13-[address] Sebas Miguel II Facility:[id number] Start: 04-13-2023 End: 04-13-2023 Evaluation and management of inpatient II Sebas Miguel Work Phone: [facility] [place] [facility] Work Phone: Start: 04-13-2023 End: 04-13-2023 observation encounter II Sebas Miguel Work Phone: [facility] Work Phone: Start: 04-06-2023 End: 04-06-2023 Emergency department patient visit Guanako Plummer Facility:[facility] Start: 04-06-2023 End: 04-06-2023 Emergency department patient visit II Sebas Miguel Work Phone: [facility] Work Phone: Start: 03-15-[address] Sebas Miguel II Facility: Start: 02-15-2023 End: 02-15-2023 ambulatory LONG RODRIGUEZ Facility:[facility]1 Start: 07-28-2022 Patient encounter procedure [id number] MD UROLOGIST 1 Work Phone: [facility] DO Work Phone: Start: 07-28-[address] Sebas Miguel II Facility: Start: 05-18-2022 Patient encounter procedure [id number] MD UROLOGIST 1 Work Phone: [facility] 250 DO Work Phone: Start: 05-16-2022 End: 05-17-[address] SEBAS MIGUEL Facility:[facility]1 Start: 05-10-2022 End: 05-10-[address] SEBAS MIGUEL Facility:[facility]1 Start: 04-17-2022 Rx Renewal Lacey cooney MD Work Phone: [facility] 250 DO Work Phone: Start: 04-15-2022 End: 04-15-2022 ambulatory Alka Phillips Other [facility] [employer] Other Start: 04-15-2022 Office outpatient vi sit 15 minutes Alka Phillips [facility] Start: 03-30-2022 End: 03-31-2022 ambulatory RUBY GARCIA Facility:[facility]1 Start: 03-15-2022 Office outpatient vi sit 25 minutes Lacey Pretty MD Work Phone: [facility] 250 DO Work Phone: Start: 03-13-2022 End: 03-13-2022 Patient encounter procedure II Sebas Miguel Work Phone: [facility] [place] Start: 03-09-2022 End: 03-10-[address] GONZALEZEL LAMONT Facility:H1 Start: 03-02-2022 End: 03-02-2022 Emergency department patient visit II Sebas Miguel Work Phone: [facility] Start: 09-13-2021 Office outpatient vi sit 25 minutes Lacey [facility] MD [facility] Work Phone: Start: 08-12-2018 Patient encounter procedure LACEY PRETTY Facility:[id number] Patient encounter status Sebas Miguel Work Phone: [facility] 250 DO Work Phone: Procedures Date Procedure Procedure Detail Performing Clinician Start: 05-08-2023 Computed tomography of abdomen and pelvis with contrast II Sebasrosalio Miguel Work Phone: Start: 04-06-2023 Computed tomography of abdomen and pelvis with contrast II Sebas Miguel Work Phone: Start: 04-06-2023 Blood culture for bacteria, including anaerobic screen II Sebas Miguel Work Phone: Start: 03-13-2022 Ultrasonography of bilateral kidneys II Sebas Miguel Work Phone: Start: 03-02-2022 Duplex scan of lower limb veins II Sebasrosalio Miguel Work Phone: Start: 03-02-2022 Plain chest X-ray II Dayron Miguel Work Phone: Start: 06-12-2019 Colonoscopy Jos rebollar MD Work Phone: Cardiac catheterization Edison Pretty MD Work Phone: History of placement of stent for coronary artery disease H/O heart artery stent II Sebas Lamont Work Phone: Leg repair Lacey mix MD [...] Treatment Date Care Activity Detail Author Start: 05-12-2025 BP Controlled (<130/80) BP Con trolled (<130/80) [facility] Start: 03-31-2025 BP Controlled (<130/80) BP Con trolled (<130/80) [facility] Start: 08-22-2024 End: 08-22-2024 Patient encounter procedure 08/22/2024 10:30 AM EST Office Visit [facility] [address] [place] [address] Lacey Pretty MD [address] [facility] [address] [place] [address] [facility] Start: 06-27-2024 End: 06-27-2024 Patient encounter procedure [facility] Comment on above: DBS/ HIFU Eval - Con sult with Psychology For DBS/HIFU Eval Start: 06-08-2024 Influenza vaccination Influenza Vacc ine (#1) [facility] Start: 05-13-2024 End: 05-13-2024 Patient encounter procedure 05/13/2024 1:30 PM EDT Appointment Radiology [id number] Brain for DBS/HIFU Eval. Chago density ratio protocol. Radiology Comment on above: CT Brain for DBS/HIF U Eval. Chago density ratio protocol. Start: 05-13-2024 Subsequent hospital visit by physician 05/13/2024 7:00 AM EDT Hospital Encounter MRI Q [address] [id number] Essential tremor [G25.0] MRI Q Comment on above: Essential tremor [G2 5.0] Start: 03-20-2024 Shingrix Vaccine (2 of 2) Shingrix Vaccine (2 of 2) [facility] Start: 03-04-2024 FUV, Provider: Lacey Pretty, Status: Pen, Time: 10:10 AM FUV, Provider: Lacey Pretty, Status: Pen, [facility]: 10:10 [facility] Work [facility]: Start: 02-19-2024 FUV, Provider: Lacey Pretty, Status: Pen, Time: 3:00 PM FUV, Provider: Lacey Pretty, Status: Pen, Time: 3:00 PM [facility] Work Phone: Start: 01-24-2024 COVID-19 Vaccine ( season) COVID-19 Vaccine ( season) [facility] Start: 10-08-2023 Advance Directive Discussion Advance Directive Discussion [facility] Start: 06-01-2023 FUV, Provider: Lacey Pretty, Status: Pen, Time: 9:40 AM FUV, Provider: Lacey Pretty, Status: Pen, Time: 9:40 AM [facility] Work Phone: Start: 05-08-2023 Computed tomography of abdomen and pelvis with contrast CT abdomen pelvis w con [facility] Start: 05-08-2023 CT Abdomen and Pelvi s W contrast IV [facility] Start: 04-20-2023 STRESS NUC, Provider : STEVEN STEVENI NUCLEAR 01,[id number], Status: Pen, Time: 8:00 AM STRESS NUC, Provider: STEVEN HHVI NUCLEAR 01,[id number], Status: Pen, Time: 8:00 AM [facility] 250 DO Work Phone: Start: 04-14-2023 End: 04-14-2023 [facility] Start: 04-14-2023 Blood chemistry [facility] Start: 04-13-2023 [facility] Start: 04-13-2023 Hospital admission [facility] Start: 04-13-2023 [facility] Start: 04-06-2023 Bacteria identified in Blood by Culture Blood Culture [facility] Start: 09-22-2022 FUV, Provider: Lacey Pretty, Status: Pen, Time: 11:00 AM FUV, Provider: Lacey Pretty, Status: Pen, Time: 11:00 AM [facility] DO Work Phone: Start: 05-21-2022 Screening for malign ant neoplasm of colon [facility] Start: 03-15-2022 FUV, Provider: Lacey Pretty, Status: Pen, Time: 2:40 PM FUV, Provider: Lacey Pretty, Status: Pen, Time: 2:40 PM [facility] 250 DO Work Phone: Start: 06-12-2020 Screening for malign ant neoplasm of colon Colonoscopy [facility] Start: 06-28-2018 Glaucoma screening Dilated Retinal E xam [facility] Start: 03-09-2017 Pneumococcal Vaccine : 65+ (2 of 2 - PPSV23 or PCV20) Pneumococcal Vaccine: 65+ (2 of 2 - PPSV23 or PCV20) [facility] Start: 03-09-2017 Pneumococcal Vaccine : 65+ Years (2 of 2 - PPSV23 or PCV20) Pneumococcal Vaccine: 65+ Years (2 of 2 - PPSV23 or PCV20) [facility] Start: 2008 RSV patient s and/or patients aged 60+ years (1 - 1-dose 60+ series) RSV patients and/or patients aged 60+ years (1 - 1-dose 60+ series) [facility] Start: 2008 RSV Vaccine (1 - 1-d ose 60+ series) RSV Vaccine (1 - 1-dose 60+ series) [facility] Start: 1998 Zoster Vaccines (1 o f 2) Zoster Vaccines (1 of 2) [facility] Start: 1993 Screening for malign ant neoplasm of colon [facility] Start: 1970 DTaP/Tdap/Td Vaccine s (1 - Tdap) DTaP/Tdap/Td Vaccines (1 - Tdap) [facility] Start: 1967 Urine microalbumin profile DTaP,Tdap,Td Vaccine (1 - Tdap) [facility] Start: 1967 Urine screening for protein Diabetes: Urine Protein Screening [facility] Start: 1966 Annual PCP Team Pressure Supervisor manny Disease Visit Annual PCP Team Chronic Disease Visit [facility] Start: 1966 Anxiety Screening Anxiety Screening [facility] Start: 1966 Depression Screening Depression Scre ening [facility] Start: 1966 Hepatitis B surface antibody level LDL Cholesterol [facility] Start: 1966 Hepatitis C screening Hepatitis C Sc reening [facility] Start: 1958 Diabetic foot examination [facility] Start: 1958 Glaucoma screening Diabetes: R etinopathy Screening [facility] Start: 1958 Hepatitis B screening Urine Albumin:Creatinine Ratio [facility] Start: 1953 Hemoglobin A1c measurement HbA1C [facility] Start: 1948 Hemoglobin A1c measurement Diabetes: Hemoglobin A1C [facility] Start: 1948 Lipid panel Lipid Panel [facility] Start: 1948 Medicare Annual Wellness Visit Medicare Annual Wellness Visit (AWV) [facility] Start: 1948 Screening for malign ant neoplasm of colon [facility] End: 04-30-2025 MR Brain WO and W contrast IV MRI BRAIN WO/W IVCON Radiology Routine Essential tremor 1 Occurrences starting 03/31/2024 until 04/30/2025 [facility] Work Phone: Comment on above: 1 Occurrences starti ng 03/31/2024 until 04/30/[address] [facility] Work Phone: Patient referral [facility] Work Phone: Immunizations Immunization Date Immunization Notes Care Provider Trupti silveira 09-24-2023 influenza virus vaccine, unspecified formulation Susan Skelton PA-C Work Phone: [facility] 09-27-2022 COVID-19 mRNA Bivale nt Booster (Pfizer) MARANDA Miguel Work Phone: [facility] 11-08-2021 Moderna COVID-19 Vaccine 100 MCG/0.5ML Intramuscular Suspension Lacey Pretty MD Work Phone: [facility] 12-18-2020 Fredrick COVID-19 Vaccine 0.5 ML Intramuscular Suspension Lacey Pretty MD Work Phone: [facility] 12-16-2020 COVID-19 Ad26.COV2.S (Fredrick) MARANDA Miguel Work Phone: [facility] 07-24-2017 seasonal influenza, intradermal, preservative free Lacey Pretty MD Work Phone: [facility] 250 DO Work Phone: 01-12-2017 pneumococcal conjuga te vaccine, 13 valent Lacey Pretty MD Work Phone: [facility] 250 DO Work Phone: 05-14-2007 influenza virus vaccine, unspecified formulation Lacey Pretty MD Work Phone: [facility] 250 DO Work Phone: NEGATED: Highlighted row has not occurred!08-19-2019 influenza, high dose seasonal, preservative-free MARANDA Miguel Work Phone: [facility] Payers Date Payer Category Payer Self-pay [id number] 2021 Unknown 2013 Medicare [id number] 1959 Medicare [id number] 1959 Unknown [id number] 1948 Unknown [id number] 2.16.840.1.259780.3.579.2.355 1948 Unknown [id number] 2.16.840.1.196837.3.579.2.593 1948 Unknown [id number] 2.16.840.1.747392.3.579.2.593 1948 Unknown [id number] 2.16.840.1.264528.3.579.2.593 1948 Unknown [id number] 2.16.840.1.486715.3.579.2.593 1948 Unknown [id number] 2.16.840.1.800955.3.579.2.593 1948 Unknown [id number] 2.16.840.1.931093.3.579.2.1068 1948 Unknown [id number] 2.16.840.1.345338.3.579.2.356 1948 Unknown [id number] 2.16.840.1.846868.3.579.2.356 1948 Unknown [id number] 2.16.840.1.513387.3.579.2.356 1948 Unknown [id number] 2.16.840.1.636128.3.579.2.356 1948 Unknown [id number] 2.16.840.1.281782.3.579.2.356 1948 Unknown [id number] 2.16840.1.448359.3.579.2.1244 1948 Unknown [id number] 2.16840.1.203046.3.579.2.1258 1948 Unknown [id number] 2.16.840.1.270745.3.579.2.125 1948 Unknown [id number] 2.840.1.582269.3.579.2.1258 1948 Unknown [id number] 2.16840.1.119230.3.579.2.1258 1948 Unknown [id number] 2.840.1.737017.3.579.2.1258 1948 Unknown [id number] 2.840.1.490221.3.579.2.1258 1948 Unknown [id number] 2.840.1.217636.3.579.2.1259 Medicare [id number] Private Health Insurance [employer] [id number] Unknown [id number] Unknown [id number] 2.840.1.260830.3.579.2.531 Unknown [id number] 2.840.1.571253.3.579.2.531 Unknown [id number] 2.840.1.541199.3.579.2.531 Unknown [id number] 2.840.1.948181.3.579.2.531 Unknown [id number] 2.0.1.419112.3.579.2.531 Social History Date Type Detail Facility Start: 03-04-2024 End: 03-31-2024 No alcohol use No alcohol use [facility] Comment on above: Coffee 1-2 cups paola y; Start: 03-02-2022 End: 03-31-2024 Tobacco smoking status NHIS Never smoked tobacco (finding) [facility] Start: 1950 Sex Assigned At Male F [facility] Start: 03-04-2024 End: 03-31-2024 Sex Assigned At [facility] Start: 03-04-2024 End: 03-31-2024 Tobacco use and exposure Smokeless tobacco non-user [facility] Work Phone: Start: 03-04-2024 Alcoholic beverage intake Lifetime non-drinker (finding) [facility] Work Phone: Start: 1950 [facility] assigned at [facility] Phone: Start: 02-23-2024 End: 03-04-2024 Exposure to SARS-CoV-2 (event) Not sure [facility] Start: 03-31-2024 End: 05-12-2024 Alcohol intake Current non-drinker of alcohol (finding) [facility] Adult Depression Screening Assessment 0 [facility] Medical Equipment Procedure Code Equipment Code Equipment Original Text Equipment Identifier Dates CL STENT MAGI 5.[address] art: 06-09-2018 CL STENT MAGI 5.[address] art: 06-09-2018 [id number] FDA Start: 08-19-2019 CL STENT MAGI 5.[address] art: 06-09-2018 CL STENT MAGI 5.[address] art: 06-09-2018 [id number] FDA Start: 08-19-2019 CL STENT MAGI 5.[address] art: 06-09-2018 CL STENT MAGI 5.[address] art: 06-09-2018 [id number] FDA Start: 08-19-2019 CL STENT MAGI 5.[address] art: 06-09-2018 CL STENT MAGI 5.[address] art: 06-09-2018 [id number] FDA Start: 08-19-2019 CL STENT MAGI 5.[address] art: 06-09-2018 CL STENT MAGI 5.[address] art: 06-09-2018 [id number] FDA Start: 08-19-2019 Lens Acrysof Iq +18.5 Diopter Natural 0 D Biconvex Acrylic Methacrylate - [id number] Start: 07-25-2017 Lens Acrysof Iq +18 Diopter Natural 0 D Biconvex Acrylic Methacrylate - [id number] Start: 08-08-2017 Goals Date Patient Goal Desired Activity /State Functional Status Date Assessment Result Facility 04-13-2023 Functional status Patient at Baseline [facility] Work Phone: Mental Status Date Assessment Result Facility 04-13-2023 Cognitive function Cognitive Sta tus Patient at Baseline [facility] Work Phone: Clinical Notes 03-09-2022 to 05-12-2024 Susan Skelton PA-C - 05/12/2024 9:29 AM EDTHeSusan purcell PA-C - 05/12/2024 9:12 AM EDTPatient InstructionsJos Armstrong MD - 03/31/2024 10:27 AM EDTPatient Instructions Note Date & Type Note Facility 05-12-2024 Note HNO ID: [id number] Author: SUSAN SKELTON PA-C Service: ? Author Type: Physician Roller Coaster Engineer Type: Progress Notes Filed: 05/12/2024 11:01 Note Text: Name: Kia Mendez [facility]#: [id number] Date of Service: May 12, 2024 Age: [age] year old Sex: male Primary Neurologist: Dr. Armstrong Hand Dominant: Right HPI: Kia is 74, right handed , with tremors in both hands. He has seen Dr. Armstrong one time. No new meds added at that visit. he is taking Primidone 100 BID. He has some sleepiness, and not doing much to improve tremor. He had a friend in [place] that told him about HIFUS and he spoke with his PCP and was then referred here for procedure. He has difficulty eating, carrying things, writing. 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 GOALS for HIFUS improve tremor in the right hand tremor score 25 PMH cardiac stents x4 - Plavix and ASA DM most recent A1c 8.9 HTN- 2 meds PSH multiple cardiac stents. - multiple heart attacks - last one 3-4 years ago bilateral cataract cryo therapy for BCC on the head excision melanoma on the left arm. Past Surgical History: PAST SURGICAL HISTORY 01/07/2016: CC PTCA STENT No date: PAST SURGICAL HISTORY OF Comment: surgery on right calf for stitches, No date: PAST SURGICAL HISTORY OF Comment: Melanoma removed 07/2017: PAST SURGICAL HISTORY OF Comment: melanoma on head 07/25/2017: XCAPSL CTRC RMVL INSJ IO LENS PROSTH W/O ECP; Left Comment: Cataract Extraction with PC IOL 08/08/2017: XCAPSL CTRC RMVL INSJ IO LENS PROSTH W/O ECP; Right Comment: Cataract Extraction with PC IOL by Past Medical History: PAST MEDICAL HISTORY No date: CAD (coronary artery disease) No date: GERD (gastroesophageal reflux disease) No date: HLD (hyperlipidemia) No date: HTN (hypertension) No date: Pseudophakia of both eyes No date: Type 2 diabetes mellitus (HCC) Current Medications: Current Outpatient Medications Medication Sig metFORMIN (GLUCOPHAGE) 1,000 mg tablet Take 1,000 mg by mouth daily with breakfast. tamsulosin (FLOMAX) 0.4 mg Take 0.4 mg by mouth once daily. famotidine (PEPCID) 20 mg tablet Take 20 mg by mouth two times a day. acetaminophen (TYLENOL) 325 mg tablet Take 650 mg by mouth every 6 hours as needed. HYDROcodone-acetaminophen (NORCO) 5-325 mg per tablet Take 1 tablet by mouth every 8 hours as needed for pain. fexofenadine (LIZETH) 60 mg tablet Take 60 mg by mouth once daily. nitroglycerin sublingual (NITROQUICK) 0.4 mg SL tablet Dissolve 0.4 mg under the tongue every 5 minutes as needed for chest pain. primidone (MYSOLINE) 50 mg tablet Take 50 mg by mouth four times daily. oxyCODONE-acetaminophen (PERCOCET 10) 10-325 mg tablet Take 1 tablet by mouth every 12 hours as needed for pain. docusate sodium (STOOL SOFTENER) 50 mg capsule Take 50 mg by mouth two times a day. clopidogrel (PLAVIX) 75 mg tablet Take 75 mg by mouth once daily. Omeprazole 40 mg capsule Take 40 mg by mouth once daily. canagliflozin-metformin (INVOKAMET) 50-1,000 mg tab Take by mouth. rosuvastatin (CRESTOR) 10 mg tablet Take 10 mg by mouth once daily. lisinopril 2.5 mg tablet Take 2.5 mg by mouth once daily. metoprolol succinate ER (TOPROL XL) 25 mg 24 hr tablet Take 25 mg by mouth once daily. aspirin, enteric coated (ASPIRIN, ENTERIC COATED) 81 mg EC tablet Take 81 mg by mouth once daily. No current facility-administered medications for this visit. Allergies: Codeine and Oxycodone-Acetaminophen Major Trauma or Injuries: None Social History: Social History Tobacco Use Smoking status: Never Smokeless tobacco: Never Substance Use Topics Alcohol use: No Drug use: No Family History: FAMILY HISTORY Problem Relation Age of Onset Heart Father No Ocular Disease Father Essential Tremor Father No Ocular Disease Mother Essential Tremor Brother Essential Tremor Son REVIEW OF SYSTEMS: Constitutional: No recent fever or weight loss Skin: Denies itching, rashes,conditions Eyes: Denies complaints of blurred vision and diplopia, Does not use glasses or contact lenses ENMT: Denies dysphagia, tinnitis, vertigo and hearing loss, Endocrine: Denies history of Thyroid disease CV: Denies history of palpitations, heart failure, murmurs,, circulatory problems, leg swelling Respiratory: Denies history of paroxymal nocturnal dyspnea, recent cough, orthopnea, shortness of breath, COPD, emphysema, asthma Gastrointestinal: moderate nausea due to medications Denies history of diarrhea, constipation, abdominal pain Genitourinary: Denies hematuria, dysuria, incontinence, kidney disease Musculoskeletal: Denies complaint of arm / leg weakness, gout Neurological: Denies history of syncope, memory changes, or disorientation Denies complaint of headache Denies complaint of diplopia or decreased visual acuity Denies problem with limb coordination Denies history of seizures and strokes Ever (more content not included)... [facility] 05-12-2024 History of Present illness Narrative Name: Kia Mendez [facility]#: [id number] Date of Service: May 12, 2024 Age: [age] year old Sex: male Primary Neurologist: Dr. Armstrong Hand Dominant: Right HPI: Kia is 74, right handed , with tremors in both hands. He has seen Dr. Armstrong one time. No new meds added at that visit. he is taking Primidone 100 BID. He has some sleepiness, and not doing much to improve tremor. He had a friend in [place] that told him about HIFUS and he spoke with his PCP and was then referred here for procedure. He has difficulty eating, carrying things, writing. 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 GOALS for HIFUS improve tremor in the right hand tremor score 25 PMH cardiac stents x4 - Plavix and ASA DM most recent A1c 8.9 HTN- 2 meds PSH multiple cardiac stents. - multiple heart attacks - last one 3-4 years ago bilateral cataract cryo therapy for BCC on the head excision melanoma on the left arm. Past Surgical History: PAST SURGICAL HISTORY 01/07/2016: CC PTCA STENT No date: PAST SURGICAL HISTORY OF Comment: surgery on right calf for stitches, No date: PAST SURGICAL HISTORY OF Comment: Melanoma removed 07/2017: PAST SURGICAL HISTORY OF Comment: melanoma on head 07/25/2017: XCAPSL CTRC RMVL INSJ IO LENS PROSTH W/O ECP; Left Comment: Cataract Extraction with PC IOL 08/08/2017: XCAPSL CTRC RMVL INSJ IO LENS PROSTH W/O ECP; Right Comment: Cataract Extraction with PC IOL by Past Medical History: PAST MEDICAL HISTORY No date: CAD (coronary artery disease) No date: GERD (gastroesophageal reflux disease) No date: HLD (hyperlipidemia) No date: HTN (hypertension) No date: Pseudophakia of both eyes No date: Type 2 diabetes mellitus (HCC) Current Medications: Current Outpatient Medications Medication Sig metFORMIN (GLUCOPHAGE) 1,000 mg tablet Take 1,000 mg by mouth daily with breakfast. tamsulosin (FLOMAX) 0.4 mg Take 0.4 mg by mouth once daily. famotidine (PEPCID) 20 mg tablet Take 20 mg by mouth two times a day. acetaminophen (TYLENOL) 325 mg tablet Take 650 mg by mouth every 6 hours as needed. HYDROcodone-acetaminophen (NORCO) 5-325 mg per tablet Take 1 tablet by mouth every 8 hours as needed for pain. fexofenadine (LIZETH) 60 mg tablet Take 60 mg by mouth once daily. nitroglycerin sublingual (NITROQUICK) 0.4 mg SL tablet Dissolve 0.4 mg under the tongue every 5 minutes as needed for chest pain. primidone (MYSOLINE) 50 mg tablet Take 50 mg by mouth four times daily. oxyCODONE-acetaminophen (PERCOCET 10) 10-325 mg tablet Take 1 tablet by mouth every 12 hours as needed for pain. docusate sodium (STOOL SOFTENER) 50 mg capsule Take 50 mg by mouth two times a day. clopidogrel (PLAVIX) 75 mg tablet Take 75 mg by mouth once daily. Omeprazole 40 mg capsule Take 40 mg by mouth once daily. canagliflozin-metformin (INVOKAMET) 50-1,000 mg tab Take by mouth. rosuvastatin (CRESTOR) 10 mg tablet Take 10 mg by mouth once daily. lisinopril 2.5 mg tablet Take 2.5 mg by mouth once daily. metoprolol succinate ER (TOPROL XL) 25 mg 24 hr tablet Take 25 mg by mouth once daily. aspirin, enteric coated (ASPIRIN, ENTERIC COATED) 81 mg EC tablet Take 81 mg by mouth once daily. No current facility-administered medications for this visit. Allergies: Codeine and Oxycodone-Acetaminophen Major Trauma or Injuries: None Social History: Social History Tobacco Use Smoking status: Never Smokeless tobacco: Never Substance Use Topics Alcohol use: No Drug use: No Family History: FAMILY HISTORY Problem Relation Age of Onset Heart Father No Ocular Disease Father Essential Tremor Father No Ocular Disease Mother Essential Tremor Brother Essential Tremor Son REVIEW OF SYSTEMS: Constitutional: No recent fever or weight loss Skin: Denies itching, rashes,conditions Eyes: Denies complaints of blurred vision and diplopia, Does not use glasses or contact lenses ENMT: Denies dysphagia, tinnitis, vertigo and hearing loss, Endocrine: Denies history of Thyroid disease CV: Denies history of palpitations, heart failure, murmurs,, circulatory problems, leg swelling Respiratory: Denies history of paroxymal nocturnal dyspnea, recent cough, orthopnea, shortness of breath, COPD, emphysema, asthma Gastrointestinal: moderate nausea due to medications Denies history of diarrhea, constipation, abdominal pain Genitourinary: Denies hematuria, dysuria, incontinence, kidney disease Musculoskeletal: Denies complaint of arm / leg weakness, gout Neurological: Denies history of syncope, memory changes, or disorientation Denies complaint of headache Denies complaint of diplopia or decreased visual acuity Denies problem with limb coordination Denies history of seizures and strokes Denies loss of consciousness or other neurologic disease Psychiatric: Denies history of hallucinations, depression, anxiety, substance abuse PHYSICAL EXAMINATION: Vitals: There were no vitals taken for this visit. Constitutional: Well developed, well nourished Skin: [employer], warm, dry, no lesions or rashes Head, Face, Neck: Normocephalic/atraumatic Eyes: Clear conjunctiva FOCUSED NEUROLOGIC EXAM Higher integrative function: Oriented to person, place and time, speech clear and fluent, fundi of knowledge good, accurate naming of objects CN II: Visual oconnor full to confrontation CN III, IV, : full extraoccular movements, without nystagmus CN V: masseter 5/5 CN VII: Facial muscles symmetric and strong, No noted facial droop CN VIII: Hears finger rub well bilaterally CN IX: not assessed CN X: Palate elevates symmetrically CN XI: Full strength shoulder shrug bilaterally CN XII: Tongue protrusion full and midline Motor: muscle strength 5/5 both upper and lower extremities, arm swing normal, no drift present, muscle tone normal and without evidence of atrophy Cerebellar: antalgic gait Sensory: intact to light touch MEDICAL DECISION MAKING Data Review: [facility] records reviewed Diagnosis: Essential Tremor IMP: Kia is 74 with tremors in the B UE R>L. he is taking Primidone that makes him sleepy and he is unsure if there is much benefit. 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 He has 4 cardiac stents after several OR's. He is on ASA and Plavix. He has recently been placed on Ozembic to help lower his A1C. currently it is 8.9. he needs R knee replacement and was told his A1C needs to come down. The Ozembic is making him quite nauseous. He also take medications for HTN HIFUS reviewed and questions answered. He is requesting that his other HIFUS evaluation appointments be rescheduled. He feel so nauseated that he cannot continue. Level of service: New level 4 (45-59 min). Time spent 45 min on the day of service, which included [id number]-[id number] patient care, completing clinical documentation, performing a medically appropriate examination, and counseling and educating the patient/family/caregiver. Susan Skelton PA-C documented in this encounter [facility] 05-12-2024 Note HNO ID: [id number] Author: SUSAN SKELTON PA-C Service: ? Author Type: Physician Roller Coaster Engineer Type: Progress Notes Filed: 05/12/2024 10:49 Note Text: CC: pt here for video portion of the HIFUS evaluation HPI: Kia is 74, right handed , with tremors in both hands. He has seen Dr. Arsmtrong one time. No new meds added at that visit. he is taking Primidone 100 BID. He has some sleepiness, and not doing much to improve tremor. He had a friend in [place] that told him about HIFUS and he spoke with his PCP and was then referred here for procedure. He has difficulty eating, carrying things, writing. 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 GOALS for HIFUS improve tremor in the right hand tremor score 25 took Primidone this morning 100 mg Susan Skelton PA-C [facility] 05-12-2024 History of Present illness Narrative CC: pt here for video portion of the HIFUS evaluation HPI: Kia is 74, right handed , with tremors in both hands. He has seen Dr. Armstrong one time. No new meds added at that visit. he is taking Primidone 100 BID. He has some sleepiness, and not doing much to improve tremor. He had a friend in [place] that told him about HIFUS and he spoke with his PCP and was then referred here for procedure. He has difficulty eating, carrying things, writing. 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 GOALS for HIFUS improve tremor in the right hand tremor score 25 took Primidone this morning 100 mg Susan Skelton PA-C documented in this encounter [facility] 05-08-2024 Note HNO ID: [id number] Author: CALLI FRAZIER RN Service: ? Author Type: Registered Nurse Type: Progress Notes Filed: 05/08/2024 15:32 Note Text: RN added CT WO contrast for patient for skull density for DBS placement. Routed to provider for signature. Calli Frazier RN [facility] 03-31-2024 Instructions Jos Armstrong MD - 03/31/2024 10:59 AM EDT Primidone continued taper: AM PM March 31 2 pills 3 pills April 04 1 2 4 April 08-6 2 5 April 13 3 5 April 17- 4 5 April 15... 5 5 If your tremor is controlled at any given point, then stop increasing and instead continue on that dose. If you have side effects (such as sleepiness) then also stop increasing the dose - cut back to a previous dose - and continue at that level. Then call to let me know. Dr. Armstrong [phone] Can look into assistive devices [email or web address] Referral placed for the surgical assessment documented in this encounter [facility] 03-31-2024 Note HNO ID: [id number] Author: JOS ARMSTRONG MD Service: ? Author Type: Physician Type: Progress Notes Filed: 03/31/2024 11:23 Note Text: March 31, 2024 Jos Armstrong MD [facility] [address] [place] [address] PCP: Sebas Miguel II, MD [address] [address] Referring Physician: Ruby Garcia NP [address] [address] Kia Mendez : 1950 History of Present Illness: Kia Mendez is a 73 year old right-handed man who is seen in consultation for evaluation of Essential Tremor and the possibility of a high frequency ultrasound thalamotomy. My final recommendations will be communicated back to the requesting physician by way of shared medical record or via letter. The patient is seen with a [id number]. Mr. Mendez reports shakiness present in his hands, getting worse over the past five years. It is difficult to see if it is actually still getting worse now. This interferes with doing various tasks including writing, eating, drinking (he fills the cup only residential now), and other fine motor tasks. Lifting heavy things brings the shakiness out. The shakiness is present almost solely in the hands, possibly worse in the left. He denies shaking in the voice or head. He denies stiffness. He denies micrographia. He has severe knee arthritis that seems to be the thing that is affecting his walking. There is no trouble with swallowing. There is occasional dizziness upon arising. There is no anosmia. He always has constipation (possibly related to prior GI issues- and he see a GI doctor). He does not act out his dreams. He does not drink alcohol much; he tried once and did not see much benefit on the tremor from it. He may have some forgetfulness sometimes. He takes primidone, 100 mg bid, with no benefit. He takes Toprol 25 mg and currently, his DBP is low and so is his HR. He denies using topiramate or clonazepam. He acknowledges that he is more easily tired - he can doze off more easily. He denies exposure to antiarrhythmics and antipsychotics. He may have briefly been on antiemetics, and he did briefly take antidepressants (the latter was when his ). Past Medical History includes has a past medical history of CAD (coronary artery disease), GERD (gastroesophageal reflux disease), HLD (hyperlipidemia), HTN (hypertension), Pseudophakia of both eyes, and Type 2 diabetes mellitus (HCC). Past Surgical History includes has a past surgical history that includes past surgical history of; cc ptca stent (01/07/2016); past surgical history of; past surgical history of (07/2017); xcapsl ctrc rmvl insj io lens prosth w/o ecp (Left, 07/25/2017); and xcapsl ctrc rmvl insj io lens prosth w/o ecp (Right, 08/08/2017). Allergies: ALLERGIES Allergen Reactions Codeine Itching Oxycodone-Acetamino* Itching Current Medications: metFORMIN (GLUCOPHAGE) 1,000 mg tablet Take 1,000 mg by mouth daily with breakfast. tamsulosin (FLOMAX) 0.4 mg Take 0.4 mg by mouth once daily. famotidine (PEPCID) 20 mg tablet Take 20 mg by mouth two times a day. acetaminophen (TYLENOL) 325 mg tablet Take 650 mg by mouth every 6 hours as needed. HYDROcodone-acetaminophen (NORCO) 5-325 mg per tablet Take 1 tablet by mouth every 8 hours as needed for pain. fexofenadine (LIZETH) 60 mg tablet Take 60 mg by mouth once daily. nitroglycerin sublingual (NITROQUICK) 0.4 mg SL tablet Dissolve 0.4 mg under the tongue every 5 minutes as needed for chest pain. primidone (MYSOLINE) 50 mg tablet Take 50 mg by mouth four times daily. oxyCODONE-acetaminophen (PERCOCET 10) 10-325 mg tablet Take 1 tablet by mouth every 12 hours as needed for pain. docusate sodium (STOOL SOFTENER) 50 mg capsule Take 50 mg by mouth two times a day. clopidogrel (PLAVIX) 75 mg tablet Take 75 mg by mouth once daily. Omeprazole 40 mg capsule Take 40 mg by mouth once daily. lisinopril 2.5 mg tablet Take 2.5 mg by mouth once daily. metoprolol succinate ER (TOPROL XL) 25 mg 24 hr tablet Take 25 mg by mouth once daily. aspirin, enteric coated (ASPIRIN, ENTERIC COATED) 81 mg EC tablet Take 81 mg by mouth once daily. canagliflozin-metformin (INVOKAMET) 50-1,000 mg tab Take by mouth. (Patient not taking: Reported on 03/31/2024) rosuvastatin (CRESTOR) 10 mg tablet Take 10 mg by mouth once daily. (Patient not taking: Reported on 03/31/2024) Social History: Patient is . He reports that he has never smoked. He has never used smokeless tobacco. He reports that he does not drink alcohol and does not use drugs. Family History family history includes Essential Tremor in his brother, father, and son; Heart in his father; No Ocular Disease in his father and mother. Review of Systems: There is no CP, (more content not included)... [facility] 03-31-2024 History of Present illness Narrative March 31, 2024 Jos Armstrong MD [facility] [address] [place] [address] PCP: Sebas Miguel II, MD 112 [facility] [address] [place] [address] Referring Physician: Ruby Garcia NP 112 [facility] 110 [facility] [address] Kia Mendez : 1950 History of Present Illness: Kia Mendez is a 73 year old right-handed man who is seen in consultation for evaluation of Essential Tremor and the possibility of a high frequency ultrasound thalamotomy. My final recommendations will be communicated back to the requesting physician by way of shared medical record or via letter. The patient is seen with a ljchwwwl-dw-wij. Mr. Mendez reports shakiness present in his hands, getting worse over the past five years. It is difficult to see if it is actually still getting worse now. This interferes with doing various tasks including writing, eating, drinking (he fills the cup only residential now), and other fine motor tasks. Lifting heavy things brings the shakiness out. The shakiness is present almost solely in the hands, possibly worse in the left. He denies shaking in the voice or head. He denies stiffness. He denies micrographia. He has severe knee arthritis that seems to be the thing that is affecting his walking. There is no trouble with swallowing. There is occasional dizziness upon arising. There is no anosmia. He always has constipation (possibly related to prior GI issues- and he see a GI doctor). He does not act out his dreams. He does not drink alcohol much; he tried once and did not see much benefit on the tremor from it. He may have some forgetfulness sometimes. He takes primidone, 100 mg bid, with no benefit. He takes Toprol 25 mg and currently, his DBP is low and so is his HR. He denies using topiramate or clonazepam. He acknowledges that he is more easily tired - he can doze off more easily. He denies exposure to antiarrhythmics and antipsychotics. He may have briefly been on antiemetics, and he did briefly take antidepressants (the latter was when his ). Past Medical History includes has a past medical history of CAD (coronary artery disease), GERD (gastroesophageal reflux disease), HLD (hyperlipidemia), HTN (hypertension), Pseudophakia of both eyes, and Type 2 diabetes mellitus (HCC). Past Surgical History includes has a past surgical history that includes past surgical history of; cc ptca stent (01/07/2016); past surgical history of; past surgical history of (07/2017); xcapsl ctrc rmvl insj io lens prosth w/o ecp (Left, 07/25/2017); and xcapsl ctrc rmvl insj io lens prosth w/o ecp (Right, 08/08/2017). Allergies: ALLERGIES Allergen Reactions Codeine Itching Oxycodone-Acetamino* Itching Current Medications: metFORMIN (GLUCOPHAGE) 1,000 mg tablet Take 1,000 mg by mouth daily with breakfast. tamsulosin (FLOMAX) 0.4 mg Take 0.4 mg by mouth once daily. famotidine (PEPCID) 20 mg tablet Take 20 mg by mouth two times a day. acetaminophen (TYLENOL) 325 mg tablet Take 650 mg by mouth every 6 hours as needed. HYDROcodone-acetaminophen (NORCO) 5-325 mg per tablet Take 1 tablet by mouth every 8 hours as needed for pain. fexofenadine (LIZETH) 60 mg tablet Take 60 mg by mouth once daily. nitroglycerin sublingual (NITROQUICK) 0.4 mg SL tablet Dissolve 0.4 mg under the tongue every 5 minutes as needed for chest pain. primidone (MYSOLINE) 50 mg tablet Take 50 mg by mouth four times daily. oxyCODONE-acetaminophen (PERCOCET 10) 10-325 mg tablet Take 1 tablet by mouth every 12 hours as needed for pain. docusate sodium (STOOL SOFTENER) 50 mg capsule Take 50 mg by mouth two times a day. clopidogrel (PLAVIX) 75 mg tablet Take 75 mg by mouth once daily. Omeprazole 40 mg capsule Take 40 mg by mouth once daily. lisinopril 2.5 mg tablet Take 2.5 mg by mouth once daily. metoprolol succinate ER (TOPROL XL) 25 mg 24 hr tablet Take 25 mg by mouth once daily. aspirin, enteric coated (ASPIRIN, ENTERIC COATED) 81 mg EC tablet Take 81 mg by mouth once daily. canagliflozin-metformin (INVOKAMET) 50-1,000 mg tab Take by mouth. (Patient not taking: Reported on 03/31/2024) rosuvastatin (CRESTOR) 10 mg tablet Take 10 mg by mouth once daily. (Patient not taking: Reported on 03/31/2024) Social History: Patient is . He reports that he has never smoked. He has never used smokeless tobacco. He reports that he does not drink alcohol and does not use drugs. Family History family history includes Essential Tremor in his brother, father, and son; Heart in his father; No Ocular Disease in his father and mother. Review of Systems: There is no CP, SOB, N/V/C/D, urinary issues, headache, vision change, mood change, or skin issues No other medical issues Physical Examination: General Description of Patient: Well appearing, comfortable Blood pressure 115/54, pulse (!) 59, SpO2 98%. FOCUSED NEUROLOGIC EXAMINATION: Mental Status: Alert and Oriented to person, place, and date Cranial Nerves: EOMI, VF full, Face symmetric, Tongue and palate symmetric, V1-V3 sensation intact, SCM and trapezius strength normal; no shaking in the head or voice Motor: Normal bulk and strength; Rest tremor shows briefly and then evaporates when really rests; postural tremor shows instant tremor; no rigidity Sensory: Normal fine touch Coordination: Finger-to- nose-finger bilaterally shows mild action tremor Reflexes: DTRs normal throughout Gait: rises unassisted; Gait normal including posture, balance, stride length, and base; some decreased of RUE swing; Romberg normal Assessment: Mr. Mendez is a 73 year old man with essential tremor for about 5 years. There is no indication of parkinsonism. He tolerates low dose primidone, but he cannot take more beta nicolas. He can be tried on more primidone as well as be advised of assistive devices. Of course, increasing the medicine might worsen the sleepiness in the daytime. He is interested in an intervention, and given his age and cognition (starting to have forgetfulness), it may be time to turn to this rather than try more and more antiepileptic medicines. He is more interested in ultrasound thalamotomy. Plan: 1) First, try scaling up the primidone 2) Refer to the DBS/HiFU assessment 3) Discussed assistive devices Follow Up: Mr. Mendez will follow up in 4 months for an office visit. Diagnostic differential, prognosis, and treatment plan discussed with the patient and his adult rwzhtqdd-hz-ixe. Level of service: New level 4 (45-59 min). Time spent 45 min on the day of service, which included scou-vz-qdmd patient care, completing clinical documentation, obtaining and/or reviewing separately obtained history, performing a medically appropriate examination, counseling and educating the patient/family/caregiver, ordering medications, tests, or procedures, and communicating with other HCPs (not separately reported). Thank you for including me in the care of this interesting patient. Jos Armstrong MD Staff Neurologist [facility] Cc: documented in this encounter [facility] 03-04-2024 History of Present illness Narrative Subjective [...] 5. I advised him to try some jvyu-pxe-wegvwaa Maalox if develop chest pain Review of [...] Scribe Attestation By signing my name below, Ana Ely LPN , [place] attest that this documentation has been prepared [...] discussion and plan. documented in this encounter [facility] Work Phone: 03-04-2024 Instructions Braydon Solomon [...] of your visit. documented in this encounter [facility] Work Phone: 09-27-2023 Evaluation note Encounter Date Diagnosis Assessment Notes Sep, Suspected COVID-19 virus infection (ICD-10 - Z20.822) Sep, Influenza A (ICD-10 - J10.1) Advised patient that rapid Influenza A test was positive, rapid Influenza B/COVID test negative. Encouraged supportive care, Tamiflu as directed, [place] as directed, Tylenol OTC as needed for [...] supportive care. Follow above treatment plan recommendations. [employer] Other 07-20-2023 Evaluation note* Encounter Date Diagnosis Assessment Notes Treatment Notes Treatment Clinical Notes Apr, Pancreatitis (ICD-10 - K85.90) Apr, Cholecystitis (ICD-1 0 - K81.9) [facility] [employer] Other 07-07-2023 Consult note Author Edmund Saha [facility] April 13, 2023 11:59am Note Date/Time April 13, 2023 11:53 am [facility] [address] [place] [address] Cardiology Consult Note Signed Patient: Kia Mendez MR#: [id number] : 1950 Acct:[id number] Age/Sex: 72 / M Adm Date: 3 Loc: Room: [address] [place] [address] Type: ADM INOo Attending Dr: Moses Velez [...] have a history of ASHD, remote inferior OR with revascularization of the RCA with 1 episode of stent thrombosis with repeat intervention. Subsequent intervention of the proximal/mid LAD in 2018, at that time the RCA was widely patent with preserved LV function. [facility] proximal/mid LAD [...] hyperlipidemia, hypertension, mild obesity, the above-mentioned inferior OR and revascularization procedures Impression/recommendations: Anginal episode with isolated troponin of 32, no further clinical episodes of angina and ECG is unchanged from the past, with known small branch vessel coronary disease. There is no evidence of stent thrombosis clinically. Recommendations: Continue current therapies, discharged today with follow-up stress testing and office visit with Dr. Pretty [facility] Vaccinated for COVID-19?: Yes Medical History (Updated [...] x10E3/uL Lymph # (Auto) 1.3 (1.00-4.8) x10E3/uL [place] # (Auto) 0.6 (0.0-0.8) x10E3/uL Eos # [...] Interpretations EKG EKG results cardiology: sinus rhythm OR, pacemaker, normal Myocardial infarction: inferior OR (old age indeterminate) A&P - Cardiology (1) Angina at rest: Code(s): I20.8 - Other forms of angina pectoris (2) Hyperlipidemia: Code(s): E78.5 - Hyperlipidemia, unspecified (3) Hypertension: Code(s): I10 - Essential (primary) hypertension (4) Diabetes: Code(s): E11.9 - Type 2 diabetes mellitus without complications (5) CAD (coronary artery disease): Code(s): I25.10 - Atherosclerotic heart disease of [place] coronary artery without angina pectoris (6) H/O heart artery stent: Code(s): Z95.5 - Presence of coronary angioplasty implant and graft Documented By: Edmund Saha DO 04/13/23 1151 Signed By: <Electronically signed by Edmund Saha DO> 04/13/[address] [facility] Work Phone: 1(209) 693-103007-07-2023 History and physical note Author Grey Neff [facility] April 13, 2023 4:47am Note Date/Time April 13, 2023 4:02a m [facility] [address] [place] [address] Hospitalist H&P Signed Patient: Kia Mendez MR#: [id number] : 1950 Acct:[id number] Age/Sex: 72 / M Adm Date: 3 Loc: 3T Room: [address] [place] [address] Type: ADM INOo Attending Dr: Grey Neff DO Copies to: MD Ruth Hernandez II, INFORMATION SERVICES VICE PRESIDENT Grey Neff DO~ HPI DATE OF EXAMINATION: 04/13/23 CHIEF COMPLAINT: shortness of breath, light headedness HISTORY OF PRESENT ILLNESS: Mr. Mendez is a 72-year-old male with PMH of T2DM, HTN, heart cath with 4 stents, GERD, HLD, BPH that was transferred from [facility]. Patient seen and evaluated at bedside, [...] He states that Dr. Pretty is his esthetician spa Patient arrived to the [facility] emergency room with complaints of lightheadedness [...] received no medications. He was transferred [facility] evaluation and treatment. Review of Systems Review of Systems Review of systems: A 10 point review of systems was obtained, negative unless noted in the HPI or below. [facility] Vaccinated for COVID-19?: Yes Medical History (Updated 04/13/23 @ 04:33 by Ana Mcknight RN) CAD (coronary artery disease) Diabetes Difficulty urinating Heart attack X 2 - 2015, 2018 High cholesterol Hypertension Melanoma Occasional tremors Positive [...] Nurse Practitioner's assessment and plan. - Grey Neff, DO IP vs OBS Justification Based on [...] signed by Grey Neff DO> 04/13/[address] [facility] Work Phone: 1(569) 561-278807-09-2022 Evaluation note* Encounter Date Diagnosis Assessment Notes [...] Patient care instructions given in writing by [facility] document. [employer] Other 06-02-2022 NotePROCEDURE: XR KNEE RT 3V HISTORY: Pain of joint of knee ; acute medial knee pain, no known injury COMPARISON: None. FINDINGS: BONES:No fracture, acute abnormality, or significant arthropathy. SOFT TISSUES:No visible soft tissue swelling. EFFUSION:None visible. OTHER: Negative. IMPRESSION: 1. No acute bone abnormality or significant degenerative joint disease. Electronically authenticated by: MEME VILLANUEVA Date: 2022-03-09 18:19[facility] note[facility] assessment information availableSt. [facility] Work Phone: Evaluation note* Diagnosis Onset Date Resolution Status Angina at rest acute CAD (coronary artery disease) acute Chest pain acute H/O heart artery stent acute Diabetes chronic Hyperlipidemia chronic Hypertension chronic [facility] Work Phone: Evaluation note* Diagnosis CAD, multiple vessel- Primary Benign essential hypertension Essential hypertension, benign Chest pain, unspecified type Mixed hyperlipidemia Paroxysmal supraventricular tachycardia ([facility]) Paroxysmal supraventricular tachycardia Other fatigue BMI 28.0-28.9,adult documented in this encounter [facility] Work Phone: Evaluation note* Diagnosis Essential tremor- Primary Essential and other specified forms of tremor documented in this encounter [facility] note* Diagnosis Essential tremor- Primary Essential and other specified forms of tremor documented in this encounter [facility] note* Diagnosis Essential tremor Essential and other specified forms of tremor documented in this encounter [facility] general Narrative - Reported* Type Description Date Medical History hypertension Medical History hypercholesterolemia Medical History prostatism Medical History diabetes mellitus Surgical History heart catheterization Surgical History heart stent Surgical History melanoma removed form left arm Hospitalization History see above [employer] Other [facility] general Narrative - Reported* Type Description Date Medical History hypertension Medical History hypercholesterolemia Medical History prostatism Medical History diabetes mellitus Medical History stroke Medical History diabetes mallitus Surgical History heart catheterization Surgical History heart stent Surgical History melanoma removed form left arm Surgical History knee arthroscopy Hospitalization History see above Hospitalization History stroke-mini Hospitalization History shortness of breath/ lig htheaded [employer] Other History of Present illness Narrative* Patient [...] the office before you go back to [place] in the winter * 4. Try to retrieve his recent lab * 5. I advised him to follow-up with sleep clinic. However he requested to wait until he came back from [facility] Work Phone: History of Present illness Narrative* [...] to sleep study after current issues resolved [facility] DO Work Phone: History of Present illness Narrative* Patient is here for follow-up continue management for coronary artery disease with prior PCI of theright coronary artery, hyperlipidemia and recent evaluation for chest pain. He underwent PCI to theRCA remotely. Following that he underwent heart cath which showed no residual stenosis. Recent stress test showed inferior OR but no ischemia. He recently underwent cholecystectomy. [...] 6. I advised him to try some lapk-nnn-raxlhhk Maalox if develop chest pain -[facility] 600 DO Work Phone: [facility] Work Phone: Hospital Discharge instructions Additional Instructions You are scheduled for an outpatient EXERCISE MYOCARDIAL PERFUSION STRESS TEST at [facility] Office on 04/20/2023 at 8:00am - see [facility] Work Phone: Hospital Discharge instructions Additional Instructions As we discussed, your gallbladder looks fine tonight. You are constipated and I have prescribed you a laxative. Please follow-up with your doctor. Follow-up with Dr. Carrera as scheduled as well. If you have any further problems or concerns, certainly if anything is worsening, we are happy to see you at any time.[facility] Work Phone: Reason for referral (narrative)* Consultation (Routine) - Authorized Specialty Diagnoses / Procedures Referred By Tierney t Referred To Contact Cardiology Diagnoses CAD, multiple vessel Benign essential hypertension Chest pain, unspecified type Mixed hyperlipidemia Paroxysmal supraventricular tachycardia (CMS-HCC) Other fatigue BMI 28.0-28.9,adult Procedures Follow Up In Cardiology Lacey Pretty MD [address] [place] [address] [address], [address] [address] Lacey Pretty MD [address] [place] [address] [address], [address] [address] Referral ID Status Reason Start Date Expiration Date V isits Requested Visits Authorized [id number] Authorized 03/04/2024 03/04/2025 1 1 [facility] Work Phone: Summary Purpose Family History [...] seen for a 6 month follow-up of.KIA VANESSA is being seen for a 6 month [...] for signature.KIA MENDEZ is being seen for [facility] DC and stress test results. Chief Complaint and [...] stent Diabetes Hyperlipidemia Hypertension Reason for Referral Specialty Diagnoses / Procedures Referred By Contac t Referred To Contact Psychology Diagnoses Essential tremor Procedures CONSULT TO PSYCHOLOGY OFFICE/OUTPATIENT [facility] 60 MINUTES Jos Armstrong MD [facility] [place] [address] Referral ID Status Reason Start Date Expiration Date Visits Requested Visits Authorized [id number] Pending Review PCP Requested Referral 03/31/2024 03/31/2025 1 1 Specialty Diagnoses / Procedures Referred By Contac t Referred To Contact Diagnoses Essential tremor Procedures NEUROPSYCHOLOGICAL TESTING CONSULT NEUROBEHAVIORAL STATUS XM PHYS/QHP 1ST HOUR NEUROPSYCHOLOGICAL TST EVAL PHYS/QHP 1ST HOUR NEUROPSYCHOLOGICAL TST EVAL PHYS/QHP EA ADDL HR PSYCL/NRPSYCL TST TECH 2+ TST 1ST 30 MIN PSYCL/NRPSYCL TST TECH 2+ TST EA ADDL 30 MIN Jos Armstrong MD [address] [place] [address] Referral ID Status Reason Start Date Expiration Date Visits Requested Visits Authorized [id number] Pending Review PCP Requested Referral 03/31/2024 06/29/2024 1 3 Specialty Diagnoses / Procedures Referred By Contac t Referred To Contact Neurosurgery Diagnoses Essential tremor Procedures CONSULT TO NEUROSURGERY OFFICE/OUTPATIENT [facility] 60 MINUTES Jos Armstrong MD [address] [place] [address] Referral ID Status Reason Start Date Expiration Date Visits Requested Visits Authorized [id number] Authorized PCP Requested Referral 03/31/2024 03/31/2025 1 1 Specialty Diagnoses / Procedures Referred By Tierney raymond Referred To Contact MR IMAGING Diagnoses Essential tremor Procedures MRI BRAIN WO/W IVCON MRI BRAIN BRAIN STEM W/O W/CONTRAST MATERIAL Jos Armstrong MD [address] [place] [address] [place] [address] Referral ID Status Reason Start Date Expiration Date Visits Requested Visits Authorized [id number] Pending Review Auto-Generat ed Referral 03/31/2024 04/30/2025 1 1 Reason Eval and Treat Diagnosis 1 Cholecystitis (K81.9 ) Diagnosis 2 Pancreatitis (K85.90 ) Referral Organization [facility] Referring Provider First Name Imad Referring Provider Last Name Asaad Referring Provider Specialty Gastroenter ology Referred Organization [facility] Referred Provider Amauri Carrera Referred Address ,[place], [place],[address] Referred Provider Specialty Surgery Referral Priority Routine Additional Source Comments (unrecognized sect ion and content) No Status Records FoundNo Status Records FoundNo Status Records FoundNo Status Records FoundNo Status Records FoundNo Status Records FoundNo Status Records FoundNo Status Records FoundNo Status Records FoundNo Status Records Found INFORMATION SOURCE (unrecogn ized section and content) DATE CREATED AUTHOR 09/15/2018 [facility] DATE CREATED AUTHOR AUTHOR'S ORGANIZ ATION 04/27/2022 [facility] DATE CREATED AUTHOR AUTHOR'S ORGANIZ ATION 02/19/2023 [facility] DATE CREATED AUTHOR AUTHOR[facility]S ORGANIZ ATION [facility]/21[facility]2023 [facility] DATE CREATED AUTHOR AUTHOR'S ORGANIZ ATION 06/02/2023 [facility] DATE CREATED AUTHOR AUTHOR'S ORGANIZ ATION 06/02/2023 [facility] DATE CREATED AUTHOR AUTHOR'S ORGANIZ ATION 06/04/2023 [facility] DATE CREATED AUTHOR AUTHOR'S ORGANIZ ATION 04/08/2024 [facility] DATE CREATED AUTHOR AUTHOR'S ORGANIZ ATION 05/28/2024 [facility] DATE CREATED AUTHOR AUTHOR'S ORGANIZ ATION 06/12/2024 [facility] dical Specialists EPIC Care Teams (unrecognized sec [...] Active Amauri Carrera DO Attending Provider Active Vamp Maker Relationship Specialty Start Date End Date Sebas Miguel MD [address] [facility] [address] [place] [address] PCP - General 03/15/23 Vamp Maker Relationship Specialty Start Date End Date Sebas Miguel II, MD [address] [facility] [address] [place] [address] PCP - General Internal Medicine 05/10/17 Sebas Miguel II, MD [address] [facility] [address] [place] [address] Internal Medicine 05/10/17 Ruby Garcia CNP [address] [place] [address] Referring Family Medicine 02/29/24 Vamp Maker Relationship Specialty Start Date End Date Sebas Miguel II, MD [address] [address] [place] [address] PCP - General Internal Medicine 05/10/17 Sebas Miguel II, MD [address] [place] [address] Internal Medicine 05/10/17 Ruby Garcia CNP [address] [place] [address] Referring Family Medicine 02/29/24 Vamp Maker Relationship Specialty Start Date End Date Sebas Miguel II, MD [address] [place] [address] PCP - General Internal Medicine 05/10/17 Sebas iMguel II, MD [address] [place] [address] Internal Medicine 05/10/17 Ruby Garcia CNP [address] [place] [address] Referring Family Medicine 02/29/24 Vamp Maker Relationship Specialty Start Date End Date Sebas Miguel II, MD [address] [place] [address] PCP - General Internal Medicine 05/10/17 Sebas Miguel II, MD [address] [place] [address] Internal Medicine 05/10/17 Ruby Garcia CNP [address] [facility] [address] [place] [address] Referring Family Medicine 02/29/24 Goals (unrecognized section and content) Goals may be documented in a n alternate sectionNo InformationGoals may be documented in an alternate sectionNo InformationNo Information REASON FOR VISIT (unrecogniz ed section and content) Reason Comments Follow-up 6 month Reason Comments New Patient NEW DBS/HIFU - Inter ested in HIFU Essential Tremor Specialty Diagnoses / Procedures Referred By Contact Referred To Contact [facility]rology / [facility] Diagnoses Essential tremor Procedures OFFICE/OUTPATIENT [facility] MDM 60 MINUTES AMB REFERRAL TO NEUROLOGY Ruby Garcia CNP [address] [facility] [address] [place] [address] Jeffrey Burgos MD [address] [place] [address] Referral ID Status Reason Start Date Expiration Date V isits Requested Visits Authorized [id number] Outside PCP 02/26/2024 08/24/2024 1 1 Specialty Diagnoses / Procedures Referred By Contac t Referred To Contact Neurosurgery Diagnoses Essential tremor Procedures CONSULT TO NEUROSURGERY OFFICE/OUTPATIENT [facility] 60 MINUTES Jos Armstrong MD [address] [place] [address] Referral ID Status Reason Start Date Expiration Date V isits Requested Visits Authorized [id number] Closed PCP Requested Referral 03/31/2024 03/31/2025 1 1 Source Comments (unrecognize d section and content) In the event this informatio n is protected by the Federal Confidentiality of Alcohol and Drug Abuse Patient Records regulations: The Federal rules restrict any use of the information to criminally investigate or prosecute any alcohol or drug abuse patient.[facility] the event this information is protected by the Federal Confidentiality of Alcohol and Drug Abuse Patient Records regulations: The Federal rules restrict any use of the information to criminally investigate or prosecute any alcohol or drug abuse patient.[facility] Hospital[facility] the event this information is protected by the Federal Confidentiality of Alcohol and Drug Abuse Patient Records regulations: The Federal rules restrict any use of the information to criminally investigate or prosecute any alcohol or drug abuse patient.[facility] Hospital[facility] the event this information is protected by the Federal Confidentiality of Alcohol and Drug Abuse Patient Records regulations: The Federal rules restrict any use of the information to criminally investigate or prosecute any alcohol or drug abuse patient.[facility] FOR RECORDS PERTAINING TO PATIENTS WHO ARE [...] BE BASED ON THE PRIMARY CLINICAL RECORDS. [facility] [employer] [facility]. provides no warranty or guarantee of the accuracy or completeness of information in this document.
== END 2024-06-14 08:39 | disposition home or self-care (01) ==
LOC: CT 08:38
PROVIDERS: PCP Internal Medicine; Visit Provider Nurse Practitioner Family
DX: R41.3 Other amnesia (principal); R51.9 Headache, unspecified; J32.1 Chronic frontal sinusitis; J32.2 Chronic ethmoidal sinusitis; G31.9 Degenerative disease of nervous system, unspecified
CPT/HCPCS: 70450

== ENCOUNTER 2024-06-14 09:03 | Emergency (ER) | payer MEDICARE, OTHER, SELFPAY ==
[2024-06-14] VITALS (12 sets, daily range): BP systolic 164–186; BP diastolic 76–97; PULSE 60–84; TEMP 36.8; O2SAT 95–99; BMI 27.0
--- NOTE | 2024-06-14 09:08 | ECG_ITS ---
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
--- OUTSIDE RECORDS SUMMARY | 2024-06-14 09:15 | XMS_ITS | CCD ---
Author Organization [facility] Care Team Providers Care Channel Turner Name Role Phone MARIA DE JESUS LACEY Unavailable Unavailable SEBAS MIGUEL Unavailable Unavailable Unavailable Unavailable MARANDA Miguel Primary Care Provider DO Yifan Caldwell Emergency Provider MD Alec Hogue Jr Attending Provider Alka [...] Care Provider DO Guanako Plummer Emergency Provider [phone] DO Grey Neff Admit Provider MD Moses Velez Attending Provider Sebas Miguel Unavailable Maria De Jesus, Dr. Gupta Attending Unavaila ble Miguel II, Dr. Sebas Manzo Primary Care Aranza vailable Asaad, Imad Unavailable MD Katty Pierre Jr Emergency Provider DO Amauri Carrera Attending Provider Lamont II, Dr. Sebas Manzo Primary Care [...] Unavailable Sebas Miguel MD Primary Care Provider [phone] Lamont LOW MD, Daniel B Primary Care Provider Lamont LOW MD, Daniel B Unavailable Ruby Garcia CNP Unavailable LACEY PRETTY Attending [...] Translations: [Codeine Derivatives] Drug Allergy 7 Itching [facility] (8 sources) Codeine; Translations: [Codeine] Drug Allergy 6 Confusion, Itching [facility] (6 sources) oxyCODONE; Translations: [oxycodone] Drug Allergy 2 [facility] (3 sources) Codeine Drug Allergy itching [facility] Idea Device Other (1 source) Acetaminophen / oxyCODONE Drug Allergy 4 [facility] (5 sources) Acetaminophen / oxyCODONE; Translations: [OXYCODONE-ACETAM INOPHEN] Drug Allergy 4 Itching [facility] Medications Current Medications Medication Drug Class(es) Dates Sig (Normalized) Sig (Original) acetaminophen 325 mg oral tablet (5 sources) take 2 tablets by mouth every six hours as needed acetaminophen (TYLENOL) 325 mg tablet Take 650 mg by mouth every 6 hours as needed. 0 Active take 2 tablets by mo [facility] every eight hours Acetaminophen ER 650 [...] 1.5 mg/ml oral solution (1 source) Uncompetitive P-nzhtsz-X-aspartate Receptor Antagonist, Sigma-1 Agonist Start: 09-27-2023 take 10 mL by mouth every eight hours [place] DM 7.5-7.5 MG/5ML 10 mL Orally every [...] Active docusate sodium 50 mg / sennosides, intermediate 8.6 mg oral tablet (2 sources) Start: [...] source) alpha-Adrenergic Agonist, Histamine-1 Receptor Antagonist, Uncompetitive W-sxpscm-N-aspartat e Receptor Antagonist, Sigma-1 Agonist Cold Relief [...] 2018 12:00am August 19, 2019 7:46pm sennosides, intermediate 8.6 mg oral capsule (1 source) Senna [...] disease (20 sources) Atherosclerotic heart disease of alutiiq coronary artery without angina pectoris; Translations: [Multi [...] 2 08-23-2019 Episodic Other aftercare (1 source) USP (current) use of aspirin; 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] Onset: 3 Episodic Other aftercare (1 source) hog ringer (current) use of oral hypoglycemic drugs; Translations: [FCI USE ORAL HYPOGLYCEMIC DX] Onset: 3 Episodic Other aftercare (1 source) Other residential (current) drug therapy; Translations: [OTH EASEMENT WORKER CURRENT DRUG THERAPY] Onset: 3 Episodic Other [...] Unclassified (2 sources) Athscl heart disease of alutiiq coronary artery w/o ang pctrs / I25.10(ICD-9) [...] Office Visit (NREUS2 ) ----- KIA MENDEZ ([id number]) 1950 M Date Time Provider Department 05/12/24 10:00 AM SUSAN SKELTON NREUS2 During your visit today, we recorded the following information about you: Susan Skelton PA-C 05/12/2024 11:01 AM Signed Name: Kia Funk Vanessa CCF#: [id number] Date of Service: May 12, 2024 Age: [...] improve tremor. He had a friend in [place] that told him about HIFUS and he [...] or disori (more content not included)... Normal [facility] CNOV Office Visit (NREUS2 ) ----- KIA MENDEZ ([id number]) 1950 M Date Time Provider Department 05/12/24 [...] improve tremor. He had a friend in [place] that told him about HIFUS and he [...] Encounter Status:Closed by S[facility]AN [facility]NREUS2 ) ----- KIA MENDEZ ([id number]) 1950 M Date Time Provider Department 03/31/24 10:00 AM JOS ARMSTRONG NRVENICES2 During your visit today, we recorded the following information about you: Pulse Blood pressure 59/minute 115/54 Jos Armstrong MD 03/31/2024 11:23 AM Signed March 31, 2024 Jos Armstrong MD [facility] [address] [place] [address] PCP: Sebas Miguel II, MD [address] [facility] [address] [place] [address] Referring Physician: Ruby Garcia NP [address] [facility] 110 [facility] [address] Kia Mendez : 1950 History of Present Illness: Kia Mendez is a 73 year old right-handed man who is seen in consultation for evaluation of Essential Tremor and the possibility of a high frequency ultrasound thalamotomy. My final recommendations will be communicated back to the requesting physician by way of shared medical record or via letter. The patient is seen with a dttpbxjj-ss-otx. Mr. Mendez reports shakiness present in his hands, getting worse over the past five years. It is difficult to see if it is actually still getting worse now. This interferes with doing various tasks including writing, eating, drinking (he fills the cup only usp now), and other fine motor tasks. Lifting [...] he does (more content not included)... Normal [facility] COVID + FLU Quick Testingon 09-27-2023 SARS-CoV-2 (COVID-19) RNA BISI+probe Ql (Unsp spec) Negative [facility] Other COVID + FLU Quick Testing Positive [facility] Other COVID + FLU Quick Testing Negative [facility] Other Quick Strepon 09-27-2023 S. pyogenes Org specific cx Ql (Throat) Negative [facility] Other Quick Strep [facility] Other Office Visit (Cardiology)on 06-01-2023 Follow-up visit [...] Weight Tips; Status:Complete - Retrospective Authorization; Done: [id number] Some eating tips that can help you lose weight.; Status:Complete - Retrospective Authorization; Done: [id number] SocHx: Never a smoker Tobacco Use Screening; Status:Complete; Done: [id number] Patient Instructions Please bring all medicines, vitamins, [...] Complaint KIA MENDEZ is being seen for [facility] and stress test results. History of Present Illness Patient is here for follow-up continue management for coronary artery disease with prior PCI of the right coronary artery, hyperlipidemia and recent evaluation for chest pain. He underwent PCI to the RCA remotely. Following that he underwent heart cath which showed no residual stenosis. Recent stress test showed inferior MT but no ischemia. He recently underwent cholecystectomy. [...] 6. I advised him to try some nkmq-esl-xblzcrk Maalox if develop chest pain Surgical History [...] FOR CHEST PAIN.CALL 911 IF PAIN PERSISTS. [place] 5-325 MG TABSone ta (more content not included)... Normal [email or web address] Tobacco Screening.on 023 Fall risk assessment a) No falls within the last year [facility] 600 DO Work Phone: Tobacco use status CP b) No [facility] 600 DO Work Phone: Alkaline Phosphataseon 05-28 ALP [Catalytic activity/Vol] 62 U/L Normal 34-104 [facility] Comment on above: Performed By: #### A DDONUAPLUS #### [address] Amylaseon 05-28-2023 Amylase [Catalytic activity/Vol] 38 U/L Normal 29-103 [facility] Comment on above: Performed By: #### A DDONUAPLUS #### [facility] [address] Aspartate Amino Transferaseo n 05-28-2023 AST [Catalytic activity/Vol] 10 U/L Low 13-39 [facility] Comment on above: Performed By: #### A DDONUAPLUS #### [facility] [address] Bilirubin, Total and Directo n 05-28-2023 Bilirubin [Mass/Vol] 0.7 mg/dL Normal 0.3-1.0 [facility] Comment on above: Performed By: #### A DDONUAPLUS #### [facility] [address] Bilirubin,Indirect 0.5 mg/dL Normal [facility] Comment on above: Performed By: #### A DDONUAPLUS #### [facility] [address] [place] [address] Bilirubin.indirect [Mass/Vol] 0.20 mg/dL High 0.03-0.18 [facility] Comment on above: Performed By: #### A DDONUAPLUS #### [facility] [address] [place] [address] Glucose Poct Glucometerson 0 05-28-2023 Commemt1 Glu2: Cleaned Meter [facility] Comment on above: Result Comment: PERF ORMED BY: [place] [address] PATHOLOGIST ENVIRONMENTAL ISSUES INSTRUCTOR VANESSA VASQUEZ M.D. Performed By: #### G LULS #### Point of Care testing , Glucose [Mass/Vol] 216 mg/dL Normal [facility] Comment on above: Result Comment: [facility] Glucose Reference Range is dependent on time and content of last meal. Glucose of more than 200 mg/dL in a nonstressed, ambulatory subject supports the diagnosis of Diabetes Mellitus. Performed By: #### G LULS #### Point of Care testing , Commemt1 Glu2: Cleaned Meter [facility] Comment on above: Result Comment: PERF ORMED BY: [facility] [facility] [place] [id number] PATHOLOGIST ENVIRONMENTAL ISSUES INSTRUCTOR VANESSA VASQUEZ M.D. Performed By: #### A DDONUAPLUS #### [facility] [address] Glucose [Mass/Vol] 127 mg/dL Normal [facility] Comment on above: Result Comment: [facility] Glucose Reference Range is dependent on time and content of last meal. Glucose of more than 200 mg/dL in a nonstressed, ambulatory subject supports the diagnosis of Diabetes Mellitus. Performed By: #### A DDONUAPLUS #### [facility] [address] Raul 05-28-2023 L ----- Specimen: [id number] Received: 05/28/23 Status: MACK Ruiz Num: [id number] Spec Type: Surgical Subm Dr: Amauri Carrera DO Tissues: A Gallbladder (GALLBLADDER) Procedures: Trace ISIDRO/Alber L3 Age/ Patient Sex Location Account Attending Physician Kia Mendez Good 73/M CT [id number] Amauri Carrera DO SPEC NUM: [id number] RECD: 05/28/23 STATUS: MACK RUIZ NUM: [id number] EDWAR: 05/28/23- DR: Amauri Carrera DO ENTERED: 05/28/23 [facility] DR: CHACORTA TYPE: Surgical DEPT: S ORDERED: [...] diameter patent cystic duct margin is inked. Box Toe Cutter sections are submitted in one cassette labeled A1. Microscopic Description One H E slide reviewed. The microscopic examination confirms the diagnosis. Specimen: [id number] Received: 05/28/23 Status: MACK Ruiz Num: [id number] Spec Type: Surgical Subm Dr: Amauri Carrera DO Tissues: A Gallbladder (GALLBLADDER) Procedures: Trace ISIDRO/Alber Valenzuela Patient: Kia Mendez [id number] (Continued) Specimen: [id number] Received: 05/28/23 (Continued) Signed (signature on file) Olive Browne MD 05/29/23 1652 Specimen: [id number] Received: 05/28/23 Status: MACK Ruiz Num: [id number] Spec Type: Surgical Subm Dr: Amauri Carrera DO Tissues: A Gallbladder (GALLBLADDER) Procedures: Cheo ISIDRO L3 Patient: Kia Mendez [id number] (Continued) Specimen: [id number] Received: 05/28/23 (Continued) CPT Codes 19629 Specimen: [id number] Received: 05/28/23 Status: MACK Ruiz Num: [id number] Spec Type: Surgical Subm Dr: Amauri Carrera DO Tissues: A Gallbladder (GALLBLADDER) Procedures: Trace ISIDRO/Alber L3 Patient: Kia Mendez [id number] (Continued) Signed (signature on file) Chin-Mihir Browne MD 05/29/23 1652 Normal [facility] Lipaseon 05-28-2023 Lipase [Catalytic activity/Vol] 48.0 U/L Normal 11.0-82.0 [facility] Comment on above: Result Comment: PERF ORMED BY: [place] [address] PATHOLOGIST ENVIRONMENTAL ISSUES INSTRUCTOR VANESSA VASQUEZ M.D. Performed By: #### A DDONUAPLUS #### [address] Activated partial thrombopla stin time (aPTT) in platelet poor plasma by coagulation aOrdered By: Katty Pierre on 05-08-2023 aPTT Coag (PPP) [Time] 31.3 s 25.1-36.5 [facility] Alanine aminotransferase [En zymatic activity/volume] in Serum or PlasmaOrdered By: Katty Pierre on 05-08-2023 ALT [Catalytic activity/Vol] 9 U/L 7-52 [facility] Albumin [Mass/volume] in Ser um or Plasma by Bromocresol green (BCG) dye binding methoOrdered By: Katty Pierre on 05-08-2023 Albumin BCG dye [Mass/Vol] 3.9 g/dL 3.5-5.7 [facility] Alkaline phosphatase [Enzyma tic activity/volume] in Serum or PlasmaOrdered By: Katty Pierre on 05-08-2023 ALP [Catalytic activity/Vol] 71 U/L 34-104 [facility] Aspartate aminotransferase [ Enzymatic activity/volume] in Serum or PlasmaOrdered By: Katty Pierre on 05-08-2023 AST [Catalytic activity/Vol] 12 U/L 13-39 [facility] Automated erythrocytes count in urine sediment (number/area)Ordered By: Katty Pierre on 05-08-2023 RBC Auto (Urine sed) [#/Area] 0-1 [HPF] 0-4 [facility] Automated leukocytes count i n urine sediment (number/area)Ordered By: Katty Pierre on 05-08-2023 WBC Auto (Urine sed) [#/Area] 0-1 [HPF] 0-4 [facility] Basophils Auto (Bld) [#/Vol] Ordered By: Katty Pierre on 05-08-2023 Basophils (Bld) [#/Vol] 0.0 10*3/uL 0.0-0.2 [facility] Basophils/100 WBC Auto (Bld) Ordered By: Katty Pierre on 05-08-2023 Basophils/100 WBC (Bld) 0.2 % . [facility] Bilirubin Test strip Ql (U)O rdered By: Katty Pierre on 05-08-2023 Bilirubin Ql (U) Negative Negative [facility] Bilirubin.total [Mass/volume ] in Serum or PlasmaOrdered By: Katty Pierre on 05-08-2023 Bilirubin [Mass/Vol] 1.1 mg/dL 0.3-1.[address] [facility] [address] abdomen pelvis w conon CT abdomen pelvis w con [facility] [place] [address] CT Scan Report Signed Patient: Kia Mendez MR#: [id number] 98 : 1950 Acct:[id number] Age/Sex: 73 / M ADM Date: 05/07/23 Loc: ER Room: Type: [facility] ER Attending Dr: Copies to: Katty Pierre [...] Aj Tabor M.D.05/08/2023 10:21 AM Dictation Location: [place] [address] Transcribed By: [facility] 05/08/23 1021 Dictated By: Aj Tabor DO 05/08/23 1017 Signed By: 05/08/23 1021 Normal [facility] Calcium [Mass/volume] in Ser um or PlasmaOrdered By: Katty Pierre on 05-08-2023 Calcium [Mass/Vol] 8.7 mg/dL 8.6-10.[address] [facility] Carbon dioxide, total [Moles /volume] in Serum or PlasmaOrdered By: Katty Pierre on 05-08-2023 CO2 [Moles/Vol] 25.4 mmol/L 21.0-31.0 [facility] Chloride [Moles/volume] in S arvin or PlasmaOrdered By: Katty Pierre on 05-08-2023 Chloride [Moles/Vol] 105 mmol/L 98-107 [facility] Color Auto (U)Ordered By: Samia Pierre on 05-08-2023 Color (U) Yellow Yellow [facility] Complete Blood Count Auto Di ffon 05-08-2023 Basophils (Bld) [#/Vol] 0.0 10*3/uL Normal 0.0-0.2 [facility] Comment on above: Result Comment: PERF ORMED BY: [place] [id number] PATHOLOGIST ENVIRONMENTAL ISSUES INSTRUCTOR VANESSA VASQUEZ M.D. Performed By: #### G LULS #### Point of Care testing , Basophils/100 WBC (Bld) 0.2 % Normal . [facility] Comment on above: Performed By: #### G LULS #### Point of Care testing , Eosinophils (Bld) [#/Vol] 0.3 10*3/uL Normal 0.0-0.45 [facility] Comment on above: Performed By: #### G LULS #### Point of Care testing , Eosinophils/100 WBC (Bld) 5.5 % Normal . [facility] Comment on above: Performed By: #### G LULS #### Point of Care testing , Erythrocyte distribution width (RBC) [Ratio] 14.0 % Normal 12.0-14.8 [facility] Comment on above: Performed By: #### G LULS #### Point of Care testing , Hematocrit (Bld) [Volume fraction] 42.2 % Normal 38.8-50.0 [facility] Comment on above: Performed By: #### G LULS #### Point of Care testing , Hemoglobin (Bld) [Mass/Vol] 14.4 g/dL Normal 13.0-17.0 [facility] Comment on above: Performed By: #### G LULS #### Point of Care testing , Lymphocytes (Bld) [#/Vol] 0.7 10*3/uL Low 1.00-4.8 [facility] Comment on above: Performed By: #### G LULS #### Point of Care testing , Lymphocytes/100 WBC (Bld) 12.0 % Normal . [facility] Comment on above: Performed By: #### G LULS #### Point of Care testing , MCH (RBC) [Entitic mass] 31.1 pg Normal 27.5-35.2 [facility] Comment on above: Performed By: #### Robert MCCORDLS #### Point of Care testing , MCV (RBC) [Entitic vol] 91.0 fL Normal 83.5-101 [facility] Comment on above: Performed By: #### Robert MCCORDLS #### Point of Care testing , Mean Corpuscular HGB Conc 34.1 g/dL Normal 32.5-35.6 [facility] Comment on above: Performed By: #### Robert MCCORDLS #### Point of Care testing , Monocytes (Bld) [#/Vol] 0.8 10*3/uL Normal 0.0-0.8 [facility] Comment on above: Performed By: #### Robert CORREA #### Point of Care testing , Monocytes/100 WBC (Bld) 19.36 % Normal 0.00-20.00 [facility] Comment on above: Performed By: #### Robert CORREA #### Point of Care testing , Monocytes/100 WBC (Bld) 12.9 % Normal . [facility] Comment on above: Performed By: #### Robert CORREA #### Point of Care testing , Neutrophils (Bld) [#/Vol] 4.2 10*3/uL Normal 1.8-7.7 [facility] Comment on above: Performed By: #### Robert CORREA #### Point of Care testing , Neutrophils/100 WBC (Bld) 69.4 % Normal . [facility] Comment on above: Performed By: #### Robert CORREA #### Point of Care testing , NRBC% 0.0 /100{WBC} Normal 0-0.5 [facility] Comment on above: Performed By: #### Robert MCCORDLS #### Point of Care testing , Platelet mean volume (Bld) [Entitic vol] 8.1 fL Normal 6.6-10.1 [facility] Comment on above: Performed By: #### Robert CORREA #### Point of Care testing , Platelets (Bld) [#/Vol] 203 10*3/uL Normal 150-450 [facility] Comment on above: Performed By: #### G SUNNY #### Point of Care testing , RBC (Bld) [#/Vol] 4.63 10*6/uL Normal 3.90-5.60 [facility] Comment on above: Performed By: #### G SUNNY #### Point of Care testing , WBC (Bld) [#/Vol] 6.0 10*3/uL Normal 4.1-10.[address] [facility] Comment on above: Performed By: #### G SUNNY #### Point of Care testing , Comprehensive Metabolic Pane raul 05-08-2023 Albumin [Mass/Vol] 3.9 g/dL Normal 3.5-5.[address] [facility] Comment on above: Performed By: #### P T, PTT, CMP #### [facility] [address] Albumin/Globulin [Mass ratio] 1.3 {ratio} Normal [facility] Comment on above: Performed By: #### P T, PTT, CMP #### [facility] [address] [place] [address] [place] ALP [Catalytic activity/Vol] 71 U/L Normal 34-104 [facility] Comment on above: Performed By: #### P T, PTT, CMP #### [facility] [address] [place] [id number] [place] ALT [Catalytic activity/Vol] 9 U/L Normal 7-52 [facility] Comment on above: Performed By: #### P T, PTT, CMP #### [facility] [address] [place] [address] [place] Anion gap [Moles/Vol] 6.9 mmol/L Normal 6.0-15.0 [facility] Comment on above: Performed By: #### P T, PTT, CMP #### [facility] [address] [place] [id number] [place] AST [Catalytic activity/Vol] 12 U/L Low 13-39 [facility] Comment on above: Performed By: #### P T, PTT, CMP #### [facility] [address] Bilirubin [Mass/Vol] 1.1 mg/dL High 0.3-1.0 [facility] Comment on above: Performed By: #### P T, PTT, CMP #### [facility] [address] Calcium [Mass/Vol] 8.7 mg/dL Normal 8.6-10.[address] [facility] Comment on above: Performed By: #### P T, PTT, CMP #### [facility] [address] Chloride [Moles/Vol] 105 mmol/L Normal 98-107 [facility] Comment on above: Performed By: #### P T, PTT, CMP #### [address] CO2 [Moles/Vol] 25.4 mmol/L Normal 21.0-31.0 [facility] Comment on above: Performed By: #### P T, PTT, CMP #### [address] Creatinine [Mass/Vol] 1.17 mg/dL Normal 0.70-1.30 [facility] Comment on above: Performed By: #### P T, PTT, CMP #### [facility] [address] [place] [address] [place] Creatinine Clr Calc Pharmacy 56.33 [facility] Comment on above: Result Comment: PERF ORMED BY: [place] [address] PATHOLOGIST ENVIRONMENTAL ISSUES INSTRUCTOR VANESSA VASQUEZ M.D. Performed By: #### P T, PTT, CMP #### [place] [address] [place] GFR/1.73 sq M.predicted MDRD (S/P/Bld) [Vol rate/Area] mL/min/{1.73_m2} [facility] Comment on above: Performed By: #### P T, PTT, CMP #### [facility] [address] Globulin (S) [Mass/Vol] 3.0 g/dL Normal [facility] Comment on above: Performed By: #### P T, PTT, CMP #### [address] Glucose [Mass/Vol] 106 mg/dL High 70-[address] [facility] Comment on above: Result Comment: [place] Glucose Reference Range is dependent on time and content of last meal. Glucose of more than 200 mg/dL in a nonstressed, ambulatory subject supports the diagnosis of Diabetes Mellitus. ADA recommended reference range Performed By: #### P T, PTT, CMP #### [address] Potassium [Moles/Vol] 4.3 mmol/L Normal 3.5-5.1 [facility] Comment on above: Performed By: #### P T, PTT, CMP #### [address] Protein [Mass/Vol] 6.9 g/dL Normal 6.4-8.[address] [facility] Comment on above: Performed By: #### P T, PTT, CMP #### [address] Sodium [Moles/Vol] 133 mmol/L Low 136-[address] [facility] Comment on above: Performed By: #### P T, PTT, CMP #### [address] Urea nitrogen [Mass/Vol] 26 mg/dL High 7-25 [facility] Comment on above: Performed By: #### P T, PTT, CMP #### [place] [address] [place] Creatinine [Mass/volume] in Serum or PlasmaOrdered By: Katty Pierre on 05-08-2023 Creatinine [Mass/Vol] 1.17 mg/dL 0.70-1.30 [facility] Dipstick and Microscopicon 0 05-08-2023 Appearance (U) Clear Normal Clear [facility] Comment on above: Order Comment: Name Collection Type:: Clean-Voided Midstream Performed By: #### A DDONUAPLUS #### [facility] [address] [place] [address] [place] Bacteria,Urine None Seen Normal None Seen [facility] Comment on above: Order Comment: Name Collection Type:: Clean-Voided Midstream Performed By: #### A DDONUAPLUS #### [facility] [address] [place] [address] [place] Bilirubin,Urine Negative Normal Negative [facility] Comment on above: Order Comment: Name Collection Type:: Clean-Voided Midstream Performed By: #### A DDONUAPLUS #### [facility] [address] [place] [address] Color (U) Yellow Normal Yellow [facility] Comment on above: Order Comment: Name Collection Type:: Clean-Voided Midstream Performed By: #### A DDONUAPLUS #### [facility] [address] [place] [address] [place] Glucose Ql (U) >=1000 High Normal [facility] Comment on above: Order Comment: Name Collection Type:: Clean-Voided Midstream Performed By: #### A DDONUAPLUS #### [facility] [address] [place] [address] [place] Hyaline Casts,Urine 0-8 Normal 0-8 [facility] Comment on above: Order Comment: Name Collection Type:: Clean-Voided Midstream Result Comment: PERF ORMED BY: [place] [address] PATHOLOGIST ENVIRONMENTAL ISSUES INSTRUCTOR VANESSA VASQUEZ M.D. Performed By: #### A DDONUAPLUS #### [facility] [address] [place] [address] [place] Ketones Ql (U) 1+ High Negative [facility] Comment on above: Order Comment: Name Collection Type:: Clean-Voided Midstream Performed By: #### A DDONUAPLUS #### [facility] [address] [place] [address] [place] Leukocyte esterase Test strip Ql (U) 1+ High Negative [facility] Comment on above: Order Comment: Name Collection Type:: Clean-Voided Midstream Performed By: #### A DDONUAPLUS #### [place] [address] [place] Nitrite,Urine Negative Normal Negative [facility] Comment on above: Order Comment: Name Collection Type:: Clean-Voided Midstream Performed By: #### A DDONUAPLUS #### [place] [place] [address] [place] Occult Blood,Urine Negative Normal Negative [facility] Comment on above: Order Comment: Name Collection Type:: Clean-Voided Midstream Result Comment: PERF ORMED BY: [place] [address] PATHOLOGIST ENVIRONMENTAL ISSUES INSTRUCTOR VANESSA VASQUEZ M.D. Performed By: #### A DDONUAPLUS #### [address] pH (U) 5.5 [pH] Normal 5.0-9.0 [facility] Comment on above: Order Comment: Name Collection Type:: Clean-Voided Midstream Performed By: #### A DDONUAPLUS #### [place] [address] [place] Protein,Urine Trace High Negative [facility] Comment on above: Order Comment: Name Collection Type:: Clean-Voided Midstream Performed By: #### A DDONUAPLUS #### [place] [address] [place] RBC LM.HPF (Urine sed) [#/Area] 0 /[HPF] Normal 0-4 [facility] Comment on above: Order Comment: Name Collection Type:: Clean-Voided Midstream Performed By: #### A DDONUAPLUS #### [place] [address] [place] Specificy [place],Urine 1.020 Normal 1.001-1.03 0 [facility] Comment on above: Order Comment: Name Collection Type:: Clean-Voided Midstream Performed By: #### A DDONUAPLUS #### [address] [place] [address] [place] Squamous Epithelial Cell,Urine None Seen Normal 0-2 [facility] Comment on above: Order Comment: Name Collection Type:: Clean-Voided Midstream Performed By: #### A DDONUAPLUS #### [address] Urobilinogen,Urine Normal Normal Normal [facility] Comment on above: Order Comment: Name Collection Type:: Clean-Voided Midstream Performed By: #### A DDONUAPLUS #### [address] WBC LM.HPF (Urine sed) [#/Area] 0 /[HPF] Normal 0-4 [facility] Comment on above: Order Comment: Name Collection Type:: Clean-Voided Midstream Performed By: #### A DDONUAPLUS #### [address] ECG 12 lead ECGon 05-08-2023 ECG 12 lead ECG [facility] Main [place] [address] [place] [address] Electrocardiograph Report Signed Patient: Kia Mendez MR#: [id number] 98 : 1950 Acct:[id number] Age/Sex: 73 / M ADM Date: 05/07/23 Loc: ER Room: Type: [facility] ER Attending Dr: Ordering Provider: Katty [...] was found Confirmed by KATTY PIERRE MD ([id number]) on 05/08/2023 3:00:05 AM Referred By: Electronically Signed By:KATTY PIERRE MD Transcribed By: MUS Signed By Katty Pierre Jr, MD 0300 Normal [facility] Eosinophils Auto (Bld) [#/Vo l]Ordered By: Katty Pierre on 05-08-2023 Eosinophils (Bld) [#/Vol] 0.3 10*3/uL 0.0-0.45 [facility] Eosinophils/100 WBC Auto (Bl d)Ordered By: Katty Pierre on 05-08-2023 Eosinophils/100 WBC (Bld) 5.5 % . [facility] Erythrocyte distribution wid th Auto (RBC) [Ratio]Ordered By: Katty Pierre on 05-08-2023 Erythrocyte distribution width (RBC) [Ratio] 14.0 % 12.0-14.8 [facility] Globulin Calc (S) [Mass/Vol] Ordered By: Katty Pierre on 05-08-2023 Globulin (S) [Mass/Vol] 3.0 g/dL [facility] Glucose [Mass/volume] in Ser um or PlasmaOrdered By: Katty Pierre on 05-08-2023 Glucose [Mass/Vol] 106 mg/dL 70-[address] [facility] Comment on above: ADA recommended refe rence rangeRandom Glucose Reference Range is dependent on time and content of last meal. Glucose of more than 200 mg/dL in a nonstressed, ambulatory subject supports the diagnosis of Diabetes Mellitus. Hematocrit Auto (Bld) [Volum e fraction]Ordered By: Katty Pierre on 05-08-2023 Hematocrit (Bld) [Volume fraction] 42.2 % 38.8-50.0 [facility] Hemoglobin [Mass/volume] in BloodOrdered By: Katty Pierre on 05-08-2023 Hemoglobin (Bld) [Mass/Vol] 14.4 g/dL 13.0-17.0 [facility] Ketones Auto test strip (U) [Mass/Vol]Ordered By: Katty Pierre on 05-08-2023 Ketones (U) [Mass/Vol] 1+ Negative Fi [facility] Laboratory - CoagulationOrde red By: Katty Pierre on 05-08-2023 PT Coag (PPP) [Time] 12.5 s 9.0-12.9 [facility] Laboratory - UrinalysisOrder ed By: Katty Pierre on 05-08-2023 Hyaline casts LM Ql (Urine sed) 0-8 [LPF] 0-8 [facility] Leukocytes [#/volume] correc wyatt for nucleated erythrocytes in Blood by Automated counOrdered By: Katty Pierre on 05-08-2023 WBC corrected for nucl RBC Auto (Bld) [#/Vol] 6.0 10*3/uL 4.1-10.5 [facility] Lipaseon 05-08-2023 Lipase [Catalytic activity/Vol] 43.0 U/L Normal 11.0-82.0 [facility] Comment on above: Result Comment: PERF ORMED BY: [facility] [address] [place] [address] PATHOLOGIST ENVIRONMENTAL ISSUES INSTRUCTOR VANESSA VASQUEZ M.D. Performed By: #### G LULS #### Point of Care testing , Lipase [Enzymatic activity/v olume] in Serum or PlasmaOrdered By: Katty Pierre on 05-08-2023 Lipase [Catalytic activity/Vol] 43.0 U/L 11.0-82.0 [facility] Lymphocytes Auto (Bld) [#/Vo l]Ordered By: Katty Pierre on 05-08-2023 Lymphocytes (Bld) [#/Vol] 0.7 10*3/uL 1.00-4.8 [facility] Lymphocytes/100 WBC Auto (Bl d)Ordered By: Katty Pierre on 05-08-2023 Lymphocytes/100 WBC (Bld) 12.0 % . [facility] MCH Auto (RBC) [Entitic mass ]Ordered By: Katty Pierre on 05-08-2023 MCH (RBC) [Entitic mass] 31.1 pg 27.5-35.2 [facility] MCHC Auto (RBC) [Mass/Vol]Or dered By: Katty Pierre on 05-08-2023 MCHC (RBC) [Mass/Vol] 34.1 g/dL 32.5-35.6 [facility] MCV Auto (RBC) [Entitic vol] Ordered By: Katty Pierre on 05-08-2023 MCV (RBC) [Entitic vol] 91.0 fL 83.5-101 [facility] Monocyte distribution width [Entitic volume] in Blood by AutomatedOrdered By: Katty Pierre on 05-08-2023 Monocyte distribution width Auto (Bld) [Entitic vol] 19.36 % 0.00-20.00 [facility] Monocytes Auto (Bld) [#/Vol] Ordered By: Katty Pierre on 05-08-2023 Monocytes (Bld) [#/Vol] 0.8 10*3/uL 0.0-0.8 [facility] Monocytes/100 WBC Auto (Bld) Ordered By: Katty Pierre on 05-08-2023 Monocytes/100 WBC (Bld) 12.9 % . [facility] Neutrophils Auto (Bld) [#/Vo l]Ordered By: Katty Pierre on 05-08-2023 Neutrophils (Bld) [#/Vol] 4.2 10*3/uL 1.8-7.7 [facility] Neutrophils/100 WBC Auto (Bl d)Ordered By: Katty Pierre on 05-08-2023 Neutrophils/100 WBC (Bld) 69.4 % . [facility] Nitrite Test strip Ql (U)Ord ered By: Katty Pierre on 05-08-2023 Nitrite Ql (U) Negative Negative [facility] No Panel InformationOrdered By: Katty Pierre on 05-08-2023 Estimated GFR (CKD-EPI) > 60.0 mL/Min [facility] Creatinine Clearance (Chem 56.33 [facility] Nucleated erythrocytes [Pres ence] in Blood by Automated countOrdered By: Katty Pierre on 05-08-2023 Nucleated RBC Auto Ql (Bld) 0.0 /100{WBC} 0-0.5 [facility] Partial Thromboplastin Timeo n 05-08-2023 aPTT Coag (Bld) [Time] 31.3 s Normal 25.1-36.5 [facility] Comment on above: Result Comment: PERF ORMED BY: [place] [address] PATHOLOGIST ENVIRONMENTAL ISSUES INSTRUCTOR VANESSA VASQUEZ M.D. Performed By: #### P T, PTT, CMP #### [facility] [address] [place] [address] Platelet mean volume Auto (B ld) [Entitic vol]Ordered By: Katty Pierre on 05-08-2023 Platelet mean volume (Bld) [Entitic vol] 8.1 fL 6.6-10.1 [facility] Platelet poor plasma interna tional normalized ratio (INR) by coagulation assay (relatOrdered By: Katty Pierre on 05-08-2023 INR Coag (PPP) [Relative time] 1.1 {INR} [facility] Comment on above: INR Therapeutic Rang e [...] 05-08-2023 Platelets (Bld) [#/Vol] 203 10*3/uL 150-450 [facility] Potassium [Moles/volume] in Serum or PlasmaOrdered By: Katty Pierre on 05-08-2023 Potassium [Moles/Vol] 4.3 mmol/L 3.5-5.1 [facility] Protein Auto test strip (U) [Mass/Vol]Ordered By: Katty Pierre on 05-08-2023 Protein (U) [Mass/Vol] Trace mg/dL Negative [facility] Protein [Mass/volume] in Ser um or PlasmaOrdered By: Katty Pierre on 05-08-2023 Protein [Mass/Vol] 6.9 g/dL 6.4-8.[address] [facility] Prothrombin Time INRon 05-08 INR Coag (PPP) [Relative time] 1.1 {INR} Normal [facility] Comment on above: Result Comment: INR Therapeutic [...] By: #### P T, PTT, CMP #### [facility] [address] PT Coag (PPP) [Time] 12.5 s Normal 9.0-12.9 [facility] Comment on above: Performed By: #### P T, PTT, CMP #### [facility] [address] RBC Auto (Bld) [#/Vol]Ordere d By: Katty Pierre on 05-08-2023 RBC (Bld) [#/Vol] 4.63 10*6/uL 3.90-5.60 [facility] Serum or plasma albumin/glob ulin mass ratioOrdered By: Katty Pierre on 05-08-2023 Albumin/Globulin [Mass ratio] 1.3 {ratio} [facility] Serum or plasma anion gap de terminationOrdered By: Katty Pierre on 05-08-2023 Anion gap [Moles/Vol] 6.9 mmol/L 6.0-15.0 [facility] Sodium [Moles/volume] in Ser um or PlasmaOrdered By: Katty Pierre on 05-08-2023 Sodium [Moles/Vol] 133 mmol/L 136-[address] [facility] Specific gravity Auto test s trip (U) [Rel density]Ordered By: Katty Pierre on 05-08-2023 Specific gravity (U) [Rel density] 1.020 1.001-1.03 0 [facility] Squamous epithelial cells de tection in urine sediment by light microscopyOrdered By: Katty Pierre on 05-08-2023 Epithelial cells.squamous LM Ql (Urine sed) None seen [HPF] 0-2 [facility] Urea nitrogen [Mass/volume] in Serum or PlasmaOrdered By: Katty Pierre on 05-08-2023 Urea nitrogen [Mass/Vol] 26 mg/dL 7-25 [facility] Urine bacteria detection by automated methodOrdered By: Katty Pierre on 05-08-2023 Bacteria Auto Ql (U) None seen None Seen [facility] Urine clarity by refractomet ry automatedOrdered By: Katty Pierre on 05-08-2023 Clarity Refractometry automated (U) Clear Clear [facility] Urine glucose measurement by automated test strip (mass/volume)Ordered By: Katty Pierre on 05-08-2023 Glucose Auto test strip (U) [Mass/Vol] >=1000 mg/dL Normal [facility] Urine hemoglobin detection b y automated test stripOrdered By: Katty Pierre on 05-08-2023 Hemoglobin Auto test strip Ql (U) Negative Negative [facility] Urine leukocyte esterase det ection by automated test stripOrdered By: Katty Pierre on 05-08-2023 Leukocyte esterase Auto test strip Ql (U) 1+ Negative [facility] Urobilinogen Auto test strip (U) [Mass/Vol]Ordered By: Katty Pierre on 05-08-2023 Urobilinogen (U) [Mass/Vol] Normal mg/dL Normal [facility] WBC Auto (Bld) [#/Vol]Ordere d By: Katty Pierre on 05-08-2023 WBC (Bld) [#/Vol] 6.0 10*3/uL 4.1-10.[address] [facility] pH Auto test strip (U)Ordere d By: Katty Pierre on 05-08-2023 pH (U) 5.5 [pH] 5.0-9.0 [facility] CARDIAC STRESS/REST INJE CTIONon 04-20-2023 [facility] CARDIAC STRESS/REST INJECTION Patient Name: KIA MENDEZ STUDY: MYOCARDIAL PERFUSION STRESS TEST WITH EXERCISE Performing facility: [facility], [address] [place] [address] Provider: Pastor Saha DO, [facility] PCP: Dr. Allegra Miguel Supervising provider: Lacey Pretty MD INDICATION: Chest Pain; HISTORY: Gender: M; Age: 72 y/o ; Height: 0 cm; Weight: 85.3337185 kg. CAD; High Cholesterol; Diabetes; HTN; Arrhythmias; Chest Pain; Fatigue; Denies smoking. Cardiac catheterization on 2007, 2015, 2017, 2018, 2019. PTCA on 2015, 2017, 2018. COMPARISON: No comparison. ACCESSION NUMBER(S): [id number]; [id number]; [id number] ORDERING CLINICIAN: MARCO SAHA TECHNIQUE: ONE DAY [...] revealed normal sinus rhythm with old inferior MT. The patient had no significant ECG changes [...] Electronically signed by: LACEY PRETTY MD Normal [facility] A1C with Estimated Average G [facility] 04-13-2023 Glucose [Mass/Vol] 183 mg/dL Normal [facility] Comment on above: Result Comment: PERF ORMED BY: [place] [address] PATHOLOGIST ENVIRONMENTAL ISSUES INSTRUCTOR VANESSA VASQUEZ M.D. Performed By: #### A AQUILINO #### [address] HbA1c (Bld) [Mass fraction] 8.0 % High 4.3-5.6 [facility] Comment on above: Result Comment: Incr eased risk for diabetes: 5.7 - 6.4 diabetes: >6.4 glycemic control for adults with diabetes: <7.0 Performed By: #### A DDONUAPLUS #### [address] Basic Metabolic Panelon 07-0 Anion gap [Moles/Vol] 8.7 mmol/L Normal 6.0-15.0 [facility] Comment on above: Performed By: #### A 1C WTH eA, MG, BMP, CBC, HS TROP, LIPID #### [address] Calcium [Mass/Vol] 8.8 mg/dL Normal 8.6-10.[address] [facility] Comment on above: Performed By: #### A 1C WTH eA, MG, BMP, CBC, HS TROP, LIPID #### [facility] [address] [place] [address] Chloride [Moles/Vol] 109 mmol/L High 98-107 [facility] Comment on above: Performed By: #### A 1C WTH eA, MG, BMP, CBC, HS TROP, LIPID #### [address] CO2 [Moles/Vol] 26.2 mmol/L Normal 21.0-31.0 [facility] Comment on above: Performed By: #### A 1C WTH eA, MG, BMP, CBC, HS TROP, LIPID #### [facility] [address] [place] [address] Creatinine [Mass/Vol] 1.22 mg/dL Normal 0.70-1.30 [facility] Comment on above: Performed By: #### A 1C WTH eA, MG, BMP, CBC, HS TROP, LIPID #### [address] Creatinine Clr Calc Pharmacy 54.85 [facility] Comment on above: Performed By: #### A 1C WTH eA, MG, BMP, CBC, HS TROP, LIPID #### [place] [address] [place] GFR/1.73 sq M.predicted MDRD (S/P/Bld) [Vol rate/Area] mL/min/{1.73_m2} Normal [facility] Comment on above: Performed By: #### A 1C WTH eA, MG, BMP, CBC, HS TROP, LIPID #### [facility] [address] Glucose [Mass/Vol] 131 mg/dL High 70-[address] [facility] Comment on above: Result Comment: [facility] Glucose Reference Range is dependent on time and content of last meal. Glucose of more than 200 mg/dL in a nonstressed, ambulatory subject supports the diagnosis of Diabetes Mellitus. ADA recommended reference range Performed By: #### A 1C WTH eA, MG, BMP, CBC, HS TROP, LIPID #### [facility] [address] Potassium [Moles/Vol] 3.9 mmol/L Normal 3.5-5.1 [facility] Comment on above: Performed By: #### A 1C WTH eA, MG, BMP, CBC, HS TROP, LIPID #### [facility] [address] [place] [address] [place] Sodium [Moles/Vol] 140 mmol/L Normal 136-[address] [facility] Comment on above: Performed By: #### A 1C WTH eA, MG, BMP, CBC, HS TROP, LIPID #### [facility] [address] [place] [address] [place] Urea nitrogen [Mass/Vol] 20 mg/dL Normal 7-25 [facility] Comment on above: Performed By: #### A 1C WTH eA, MG, BMP, CBC, HS TROP, LIPID #### [facility] [address] [place] [address] [place] Basophils Auto (Bld) [#/Vol] Ordered By: Ruth Hogue on 04-13-2023 Basophils (Bld) [#/Vol] 0.1 10*3/uL 0.0-0.2 [facility] Basophils/100 WBC Auto (Bld) Ordered By: Ruth Hogue on 04-13-2023 Basophils/100 WBC (Bld) 1.0 % . [facility] Calcium [Mass/volume] in Ser um or PlasmaOrdered By: Ruth Hogue on 04-13-2023 Calcium [Mass/Vol] 8.8 mg/dL 8.6-10.[address] [facility] Carbon dioxide, total [Moles /volume] in Serum or PlasmaOrdered By: Ruth Hogue on 04-13-2023 CO2 [Moles/Vol] 26.2 mmol/L 21.0-31.0 [facility] Chloride [Moles/volume] in S arvin or PlasmaOrdered By: Ruth Hogue on 04-13-2023 Chloride [Moles/Vol] 109 mmol/L 98-107 [facility] Cholesterol [Mass/volume] in Serum or PlasmaOrdered By: Ruth Hogue on 04-13-2023 Cholesterol [Mass/Vol] 88 mg/dL 140-200 [facility] Comment on above: Chol less than 200 m g/dl low riskChol 201-239 mg/dl borderline riskChol 240 mg/dl and greater high risk Cholesterol in LDL Calc [Mas s/Vol]Ordered By: Ruth Hogue on 04-13-2023 Cholesterol in LDL [Mass/Vol] 46 mg/dL 0-100 [facility] Comment on above: LDL ATP III CLASSIFI CATIONLDL less than 100 mg/dL OptimalLDL 100-129 mg/dL Near or above optimalLDL 130-159 mg/dL Borderline highLDL 160-189 mg/dL HighLDL greater than 189 mg/dL Very high Cholesterol in VLDL Calc [Ma ss/Vol]Ordered By: Ruth Hogue on 04-13-2023 Cholesterol in VLDL [Mass/Vol] 16 mg/dL [facility] Complete Blood Count Auto Di ffon 04-13-2023 Basophils (Bld) [#/Vol] 0.1 10*3/uL Normal 0.0-0.2 [facility] Comment on above: Result Comment: PERF ORMED BY: [facility] [address] [place] [address] PATHOLOGIST ENVIRONMENTAL ISSUES INSTRUCTOR VANESSA VASQUEZ M.D. Performed By: #### A 1C WTH eA, MG, BMP, CBC, HS TROP, LIPID #### [facility] [address] Basophils/100 WBC (Bld) 1.0 % Normal . [facility] Comment on above: Performed By: #### A 1C WTH eA, MG, BMP, CBC, HS TROP, LIPID #### [address] Eosinophils (Bld) [#/Vol] 0.5 10*3/uL High 0.0-0.45 [facility] Comment on above: Performed By: #### A 1C WTH eA, MG, BMP, CBC, HS TROP, LIPID #### [address] Eosinophils/100 WBC (Bld) 8.9 % Normal . [facility] Comment on above: Performed By: #### A 1C WTH eA, MG, BMP, CBC, HS TROP, LIPID #### [address] Erythrocyte distribution width (RBC) [Ratio] 14.0 % Normal 12.0-14.8 [facility] Comment on above: Performed By: #### A 1C WTH eA, MG, BMP, CBC, HS TROP, LIPID #### [address] Hematocrit (Bld) [Volume fraction] 38.6 % Low 38.8-50.0 [facility] Comment on above: Performed By: #### A 1C WTH eA, MG, BMP, CBC, HS TROP, LIPID #### [address] Hemoglobin (Bld) [Mass/Vol] 12.9 g/dL Low 13.0-17.0 [facility] Comment on above: Performed By: #### A 1C WTH eA, MG, BMP, CBC, HS TROP, LIPID #### [address] Lymphocytes (Bld) [#/Vol] 1.3 10*3/uL Normal 1.00-4.8 [facility] Comment on above: Performed By: #### A 1C WTH eA, MG, BMP, CBC, HS TROP, LIPID #### [facility] [address] Lymphocytes/100 WBC (Bld) 22.5 % Normal . [facility] Comment on above: Performed By: #### A 1C WTH eA, MG, BMP, CBC, HS TROP, LIPID #### [address] MCH (RBC) [Entitic mass] 30.7 pg Normal 27.5-35.2 [facility] Comment on above: Performed By: #### A 1C WT eA, MG, BMP, CBC, HS TROP, LIPID #### [address] MCV (RBC) [Entitic vol] 91.5 fL Normal 83.5-101 [facility] Comment on above: Performed By: #### A 1C WT eA, MG, BMP, CBC, HS TROP, LIPID #### [address] Mean Corpuscular HGB Conc 33.5 g/dL Normal 32.5-35.6 [facility] Comment on above: Performed By: #### A 1C WT eA, MG, BMP, CBC, HS TROP, LIPID #### [address] Monocytes (Bld) [#/Vol] 0.6 10*3/uL Normal 0.0-0.8 [facility] Comment on above: Performed By: #### A 1C WT eA, MG, BMP, CBC, HS TROP, LIPID #### [address] Monocytes/100 WBC (Bld) 10.5 % Normal . [facility] Comment on above: Performed By: #### A 1C WTH eA, MG, BMP, CBC, HS TROP, LIPID #### [address] Neutrophils (Bld) [#/Vol] 3.2 10*3/uL Normal 1.8-7.7 [facility] Comment on above: Performed By: #### A 1C WTH eA, MG, BMP, CBC, HS TROP, LIPID #### [facility] [address] Neutrophils/100 WBC (Bld) 57.1 % Normal . [facility] Comment on above: Performed By: #### A 1C WTH eA, MG, BMP, CBC, HS TROP, LIPID #### [facility] [address] NRBC% 0.5 /100{WBC} Normal 0-0.5 [facility] Comment on above: Performed By: #### A 1C WTH eA, MG, BMP, CBC, HS TROP, LIPID #### [facility] [address] Platelet mean volume (Bld) [Entitic vol] 8.8 fL Normal 6.6-10.1 [facility] Comment on above: Performed By: #### A 1C WTH eA, MG, BMP, CBC, HS TROP, LIPID #### [facility] [address] Platelets (Bld) [#/Vol] 209 10*3/uL Normal 150-450 [facility] Comment on above: Performed By: #### A 1C WTH eA, MG, BMP, CBC, HS TROP, LIPID #### [address] RBC (Bld) [#/Vol] 4.22 10*6/uL Normal 3.90-5.60 [facility] Comment on above: Performed By: #### A 1C WTH eA, MG, BMP, CBC, HS TROP, LIPID #### [facility] [address] WBC (Bld) [#/Vol] 5.6 10*3/uL Normal 4.1-10.[address] [facility] Comment on above: Performed By: #### A 1C WTH eA, MG, BMP, CBC, HS TROP, LIPID #### [facility] [address] Creatinine [Mass/volume] in Serum or PlasmaOrdered By: Ruth Hogue on 04-13-2023 Creatinine [Mass/Vol] 1.22 mg/dL 0.70-1.30 [facility] D-Dimer High Sensitivityon 0 04-13-2023 D-Dimer High Sensitivity < 200 Normal 0-243 [facility] Comment on above: Result Comment: The reference [...] patients due to co-morbid conditions. PERFORMED BY: [place] [address] PATHOLOGIST ENVIRONMENTAL ISSUES INSTRUCTOR VANESSA VASQUEZ M.D. Performed By: #### A DDONUAPLUS #### [address] ECG 12 lead ECGon 04-13-2023 ECG 12 lead ECG [facility] [place] [address] [place] [address] Electrocardiograph Report Signed Patient: Kia Mendez MR#: [id number] [birth year] : 1950 Acct:[id number] Age/Sex: 72 / M ADM Date: 04/13/23 Loc: Room: [address] [place] [address] Type: ADM INOo Attending Dr: Moses Velez [...] 04/13/2023 12:57:13 PM Referred By: Electronically Signed By:JA OLIVO DO Transcribed By: MUS Signed By Aj Olivo DO 04/13 1257 Normal [facility] echo transthoracicon [facility] echo transthoracic [facility] [place] [address] Echocardiogram Signed Patient: Kia Mendez MR#: [id number] [birth year] : 1950 Acct:[id number] Age/Sex: 72 / M ADM Date: 04/13/23 Loc: Room: [address] [place] [address] Type: ADM INOo Attending Dr: Moses Velez MD Ordering Provider: Ruth Hogue APRN Date of Service: 04/13/2304/29/500 [facility] echo transthoracic: chest pain Copies to: Shelley Torres MD, [facility] Ruth Hogue, JENNIFER BSA: 2.0 m2 BP: 165/73 mmHg HR: 59 Reason For Study: chest pain History: CAD, DM, MT, Hyperlipidemia, stent Interpretation Summary Mild to moderate [...] P.6 mmHg RAP systole: 5.0 mmHg ___ Electronically signed by: SHELLEY TORRES MD, [facility] on 04/13/2023 11:52 AM Transcribed By: SCV Performed At: 04/13/23 0900 Signed By: Shelley Torres MD, [facility] 04/13/23 1152 Normal [facility] Eosinophils Auto (Bld) [#/Vo l]Ordered By: Ruth Hogue on 04-13-2023 Eosinophils (Bld) [#/Vol] 0.5 10*3/uL 0.0-0.45 [facility] Eosinophils/100 WBC Auto (Bl d)Ordered By: Ruth Hogue on 04-13-2023 Eosinophils/100 WBC (Bld) 8.9 % . [facility] Erythrocyte distribution wid th Auto (RBC) [Ratio]Ordered By: Ruth Hogue on 04-13-2023 Erythrocyte distribution width (RBC) [Ratio] 14.0 % 12.0-14.8 [facility] Glucose Glucometer (BldC) [M ass/Vol]Ordered By: Moses Velez on 04-13-2023 Glucose [Mass/Vol] 128 mg/dL [facility] Comment on above: Random Glucose Refer ence Range is dependent on time and content of last meal. Glucose of more than 200 mg/dL in a nonstressed, ambulatory subject supports the diagnosis of Diabetes Mellitus. Glucose Poct Glucometerson 0 04-13-2023 Glucose [Mass/Vol] 128 mg/dL Normal [facility] Comment on above: Result Comment: [place] [facility] Glucose Reference Range is dependent on time and content of last meal. Glucose of more than 200 mg/dL in a nonstressed, ambulatory subject supports the diagnosis of Diabetes Mellitus. PERFORMED BY: [place] [address] PATHOLOGIST ENVIRONMENTAL ISSUES INSTRUCTOR VANESSA VASQUEZ M.D. Performed By: #### G LULS #### Point of Care testing , Glucose [Mass/Vol] 134 mg/dL Normal [facility] Comment on above: Result Comment: [place] [facility] Glucose Reference Range is dependent on time and content of last meal. Glucose of more than 200 mg/dL in a nonstressed, ambulatory subject supports the diagnosis of Diabetes Mellitus. PERFORMED BY: [place] [address] PATHOLOGIST ENVIRONMENTAL ISSUES INSTRUCTOR VANESSA VASQUEZ M.D. Performed By: #### A DDONUAPLUS #### [address] [address] Glucose [Mass/volume] in Ser um or PlasmaOrdered By: Ruth Hogue on 04-13-2023 Glucose [Mass/Vol] 131 mg/dL 70-[address] [facility] Comment on above: ADA recommended refe [...] from glycated hemoglobin (Bld) [Mass/Vol] 183 mg/dL [facility] Hematocrit Auto (Bld) [Volum e fraction]Ordered By: Ruth Hogue on 04-13-2023 Hematocrit (Bld) [Volume fraction] 38.6 % 38.8-50.0 [facility] Hemoglobin A1c percentageOrd ered By: Ruth Hogue on 04-13-2023 HbA1c (Bld) [Mass fraction] 8.0 % 4.3-5.6 [facility] Comment on above: Increased risk for d iabetes: 5.7 - 6.4diabetes: >6.4glycemic control for adults with diabetes: <7.0 Hemoglobin [Mass/volume] in BloodOrdered By: Ruth Hogue on 04-13-2023 Hemoglobin (Bld) [Mass/Vol] 12.9 g/dL 13.0-17.0 [facility] Leukocytes [#/volume] correc wyatt for nucleated erythrocytes in Blood by Automated counOrdered By: Ruth Hogue on 04-13-2023 WBC corrected for nucl RBC Auto (Bld) [#/Vol] 5.6 10*3/uL 4.1-10.5 [facility] Lipid Panelon 04-13-2023 Cholesterol [Mass/Vol] 88 mg/dL Low 140-200 [facility] Comment on above: Result Comment: Chol less than 200 mg/dl low risk Chol 201-239 mg/dl borderline risk Chol 240 mg/dl and greater high risk Performed By: #### A DDONUAPLUS #### [facility] [address] [place] [address] Cholesterol in HDL [Mass/Vol] 25 mg/dL Normal 23-92 [facility] Comment on above: Result Comment: HDL CHOL ATP-III CLASSIFICATION Cardiovascular Risk HDL > or equal to 60 mg/dL LOW HDL < 40 mg/dL HIGH Performed By: #### A DDONUAPLUS #### [facility] [address] Cholesterol.total/Chol esterol in HDL [Mass ratio] 3.5 {ratio} Normal <5.0 [facility] Comment on above: Result Comment: PERF ORMED BY: [place] [address] PATHOLOGIST ENVIRONMENTAL ISSUES INSTRUCTOR VANESSA VASQUEZ M.D. Performed By: #### A DDONUAPLUS #### [facility] [address] [place] [address] LDL Cholesterol,Calculated 46 mg/dL Normal 0-100 [facility] Comment on above: Result Comment: LDL ATP III CLASSIFICATION LDL less than 100 mg/dL Optimal LDL 100-129 mg/dL Near or above optimal LDL 130-159 mg/dL Borderline high LDL 160-189 mg/dL High LDL greater than 189 mg/dL Very high Performed By: #### A DDONUAPLUS #### [facility] [address] Triglyceride w/Reflex 83 mg/dL Normal 0-149 [facility] Comment on above: Result Comment: TRIG ATP III CLASSIFICATION TRIG less than 150 mg/dL Normal TRIG 150-199 mg/dL Borderline high TRIG 200-500 mg/dL High TRIG greater than 500 mg/dL Very high Standard traceable to the Center for Disease Conrtrol and Prevention (CDC) test method. Performed By: #### A DDONUAPLUS #### [facility] [address] [place] [address] VLDL CHOLESTEROL 16 mg/dL Normal [facility] Comment on above: Performed By: #### A DDONUAPLUS #### [facility] [address] [place] [address] Lymphocytes Auto (Bld) [#/Vo l]Ordered By: Ruth Hogue on 04-13-2023 Lymphocytes (Bld) [#/Vol] 1.3 10*3/uL 1.00-4.8 [facility] Lymphocytes/100 WBC Auto (Bl d)Ordered By: Ruth Hogue on 04-13-2023 Lymphocytes/100 WBC (Bld) 22.5 % . [facility] MCH Auto (RBC) [Entitic mass ]Ordered By: Ruth Hogue on 04-13-2023 MCH (RBC) [Entitic mass] 30.7 pg 27.5-35.2 [facility] MCHC Auto (RBC) [Mass/Vol]Or dered By: Ruth Hogue on 04-13-2023 MCHC (RBC) [Mass/Vol] 33.5 g/dL 32.5-35.6 [facility] MCV Auto (RBC) [Entitic vol] Ordered By: Ruth Hogue on 04-13-2023 MCV (RBC) [Entitic vol] 91.5 fL 83.5-101 [facility] Magnesiumon 04-13-2023 Magnesium [Mass/Vol] 1.4 mg/dL Low 1.9-2.7 [facility] Comment on above: Performed By: #### A 1C WT eA, MG, BMP, CBC, HS TROP, LIPID #### [facility] [address] Magnesium [Mass/volume] in S arvin or PlasmaOrdered By: Ruth Hogue on 04-13-2023 Magnesium [Mass/Vol] 1.4 mg/dL 1.9-2.7 [facility] Monocytes Auto (Bld) [#/Vol] Ordered By: Ruth Hogue on 04-13-2023 Monocytes (Bld) [#/Vol] 0.6 10*3/uL 0.0-0.8 [facility] Monocytes/100 WBC Auto (Bld) Ordered By: Ruth Hogue on 04-13-2023 Monocytes/100 WBC (Bld) 10.5 % . [facility] Neutrophils Auto (Bld) [#/Vo l]Ordered By: Ruth Hogue on 04-13-2023 Neutrophils (Bld) [#/Vol] 3.2 10*3/uL 1.8-7.7 [facility] Neutrophils/100 WBC Auto (Bl d)Ordered By: Ruth Hogue on 04-13-2023 Neutrophils/100 WBC (Bld) 57.1 % . [facility] No Panel InformationOrdered By: Katerine Clark on 04-13-2023 D-Dimer Quantitative (PE/DVT) < 200 ng/mL 0-243 [facility] Comment on above: The reference range for [...] 04-13-2023 Estimated GFR (CKD-EPI) > 60.0 mL/Min [facility] Creatinine Clearance (Chem 54.85 [facility] Nucleated erythrocytes [Pres ence] in Blood by Automated countOrdered By: Ruth Hogue on 04-13-2023 Nucleated RBC Auto Ql (Bld) 0.5 /100{WBC} 0-0.5 [facility] Platelet mean volume Auto (B ld) [Entitic vol]Ordered By: Ruth Hogue on 04-13-2023 Platelet mean volume (Bld) [Entitic vol] 8.8 fL 6.6-10.1 [facility] Platelets Auto (Bld) [#/Vol] Ordered By: Ruth Hogue on 04-13-2023 Platelets (Bld) [#/Vol] 209 10*3/uL 150-450 [facility] Potassium [Moles/volume] in Serum or PlasmaOrdered By: Ruth Hogue on 04-13-2023 Potassium [Moles/Vol] 3.9 mmol/L 3.5-5.1 [facility] RBC Auto (Bld) [#/Vol]Ordere d By: Ruth Hogue on 04-13-2023 RBC (Bld) [#/Vol] 4.22 10*6/uL 3.90-5.60 [facility] Serum or plasma anion gap de terminationOrdered By: Ruth Hogue on 04-13-2023 Anion gap [Moles/Vol] 8.7 mmol/L 6.0-15.0 [facility] Serum or plasma high density lipoprotein (HDL) cholesterol measurementOrdered By: Ruth Hogue on 04-13-2023 Cholesterol in HDL [Mass/Vol] 25 mg/dL 23-92 [facility] Comment on above: HDL CHOL ATP-III CLA SSIFICATION Cardiovascular RiskHDL > or equal to 60 mg/dL LOWHDL < 40 mg/dL HIGH Serum or plasma total choles terol/high density lipoprotein (HDL) cholesterol mass ratOrdered By: Ruth Hogue on 04-13-2023 Cholesterol.total/Chol esterol in HDL [Mass ratio] 3.5 {ratio} <5.0 [facility] Sodium [Moles/volume] in Ser um or PlasmaOrdered By: Ruth Hogue on 04-13-2023 Sodium [Moles/Vol] 140 mmol/L 136-[address] [facility] Triglyceride [Mass/volume] i n Serum or PlasmaOrdered By: Ruth Hogue on 04-13-2023 Triglyceride [Mass/Vol] 83 mg/dL 0-149 [facility] Comment on above: TRIG ATP III CLASSIF ICATIONTRIG less than 150 mg/dL NormalTRIG 150-199 mg/dL Borderline highTRIG 200-500 mg/dL High TRIG greater than 500 mg/dL Very highStandard traceable to the Center for Disease Conrtrol and Prevention (CDC) test method. Troponin I High Sensitivityo n 04-13-2023 Troponin I High Sensitivity 32.1 pg/mL High 0.0-20.0 [facility] Comment on above: Result Comment: PERF ORMED BY: [place] [address] PATHOLOGIST ENVIRONMENTAL ISSUES INSTRUCTOR VANESSA VASQUEZ M.D. Performed By: #### A DDONUAPLUS #### [address] Troponin I.cardiac [Mass/vol ume] in Serum or Plasma by Detection limit <= 0.01 ng/Ordered By: Ruth Hogue on 04-13-2023 Troponin I.cardiac DL <= 0.01 ng/mL [Mass/Vol] 32.1 pg/mL 0.0-20.0 [facility] Urea nitrogen [Mass/volume] in Serum or PlasmaOrdered By: Ruth Hogue on 04-13-2023 Urea nitrogen [Mass/Vol] 20 mg/dL 7- [facility] WBC Auto (Bld) [#/Vol]Ordere d By: Ruth Hogue on 04-13-2023 WBC (Bld) [#/Vol] 5.6 10*3/uL 4.1-10.[address] [facility] Alanine aminotransferase [En zymatic activity/volume] in Serum or PlasmaOrdered By: Guanako Plummer on 04-06-2023 ALT [Catalytic activity/Vol] 14 U/L 7-52 [facility] Albumin [Mass/volume] in Ser um or Plasma by Bromocresol green (BCG) dye binding methoOrdered By: Guanako Plummer on 04-06-2023 Albumin BCG dye [Mass/Vol] 4.2 g/dL 3.5-5.7 [facility] Alkaline phosphatase [Enzyma tic activity/volume] in Serum or PlasmaOrdered By: Guanako Plummer on 04-06-2023 ALP [Catalytic activity/Vol] 68 U/L 34-104 [facility] Aspartate aminotransferase [ Enzymatic activity/volume] in Serum or PlasmaOrdered By: Guanako Plummer on 04-06-2023 AST [Catalytic activity/Vol] 11 U/L 13-39 [facility] Automated erythrocytes count in urine sediment (number/area)Ordered By: Guanako Plummer on 04-06-2023 RBC Auto (Urine sed) [#/Area] 0-1 [HPF] 0-4 [facility] Automated leukocytes count i n urine sediment (number/area)Ordered By: Guanako Plummer on 04-06-2023 WBC Auto (Urine sed) [#/Area] 0-1 [HPF] 0-4 [facility] Bacterial blood cultureOrder ed By: Guanako Plummer on 04-06-2023 Bacteria identified Cx Nom (Bld) NO GROWTH 5 DAYS [facility] Basophils Auto (Bld) [#/Vol] Ordered By: Guanako Plummer on 04-06-2023 Basophils (Bld) [#/Vol] 0.0 10*3/uL 0.0-0.2 [facility] Basophils/100 WBC Auto (Bld) Ordered By: Guanako Plummer on 04-06-2023 Basophils/100 WBC (Bld) 0.2 % . [facility] Bilirubin Test strip Ql (U)O rdered By: Guanako Plummer on 04-06-2023 Bilirubin Ql (U) Negative Negative [facility] Bilirubin.total [Mass/volume ] in Serum or PlasmaOrdered By: Guanako Plummer on 04-06-2023 Bilirubin [Mass/Vol] 1.1 mg/dL 0.3-1.0 [facility] Blood Cultureon 04-06-2023 Bacteria identified Cx Nom (Bld) NO GROWTH 5 DAYS PERFORMED BY: [place] [address] PATHOLOGIST ENVIRONMENTAL ISSUES INSTRUCTOR VANESAS VASQUEZ M.D. [facility] Comment on above: Performed By: #### A DDONUAPLUS #### [facility] [address] [place] [address] Bacteria identified Cx Nom (Bld) NO GROWTH 5 DAYS PERFORMED BY: [place] [address] PATHOLOGIST ENVIRONMENTAL ISSUES INSTRUCTOR VANESSA VASQUEZ M.D. [facility] Comment on above: Performed By: #### A DDONUAPLUS #### [facility] [address] [place] [address] CT abdomen pelvis w conon CT abdomen pelvis w [facility] [place] [address] [place] [address] CT Scan Report Signed Patient: Kia Mendez MR#: [id number] [birth year] : 1950 Acct:[id number] Age/Sex: 72 / M ADM Date: 04/06/23 Loc: ER Room: Type: [facility] ER Attending Dr: Copies to: Guanako [...] Sen Otero M.D.04/06/2023 4:55 PM Dictation Location: [place] [address] Transcribed By: [facility] 04/06/23 165 Dictated By: Sen Otero II, MD 04/06/23 1648 Signed By: 04/06/23 165 Normal [facility] Calcium [Mass/volume] in Ser um or PlasmaOrdered By: Guanako Plummer on 04-06-2023 Calcium [Mass/Vol] 8.8 mg/dL 8.6-10.[address] [facility] Carbon dioxide, total [Moles /volume] in Serum or PlasmaOrdered By: Guanako Plummer on 04-06-2023 CO2 [Moles/Vol] 25.2 mmol/L 21.0-31.0 [facility] Chloride [Moles/volume] in S arvin or PlasmaOrdered By: Guanako Plummer on 04-06-2023 Chloride [Moles/Vol] 106 mmol/L 98-107 [facility] Color Auto (U)Ordered By: Ry Plummer on 04-06-2023 Color (U) Yellow Yellow [facility] Complete Blood Count Auto Di ffon 04-06-2023 Basophils (Bld) [#/Vol] 0.0 10*3/uL Normal 0.0-0.2 [facility] Comment on above: Result Comment: PERF ORMED BY: [place] [id number] PATHOLOGIST ENVIRONMENTAL ISSUES INSTRUCTOR VANESSA VASQUEZ M.D. Performed By: #### G LULS #### Point of Care testing , Basophils/100 WBC (Bld) 0.2 % Normal . [facility] Comment on above: Performed By: #### G LULS #### Point of Care testing , Eosinophils (Bld) [#/Vol] 0.2 10*3/uL Normal 0.0-0.45 [facility] Comment on above: Performed By: #### G LULS #### Point of Care testing , Eosinophils/100 WBC (Bld) 4.4 % Normal . [facility] Comment on above: Performed By: #### G LULS #### Point of Care testing , Erythrocyte distribution width (RBC) [Ratio] 14.0 % Normal 12.0-14.8 [facility] Comment on above: Performed By: #### G LULS #### Point of Care testing , Hematocrit (Bld) [Volume fraction] 41.1 % Normal 38.8-50.0 [facility] Comment on above: Performed By: #### G LULS #### Point of Care testing , Hemoglobin (Bld) [Mass/Vol] 13.8 g/dL Normal 13.0-17.0 [facility] Comment on above: Performed By: #### G LULS #### Point of Care testing , Lymphocytes (Bld) [#/Vol] 0.4 10*3/uL Low 1.00-4.8 [facility] Comment on above: Performed By: #### G LULS #### Point of Care testing , Lymphocytes/100 WBC (Bld) 8.4 % Normal . [facility] Comment on above: Performed By: #### G LULS #### Point of Care testing , MCH (RBC) [Entitic mass] 30.9 pg Normal 27.5-35.2 [facility] Comment on above: Performed By: #### G LULS #### Point of Care testing , MCV (RBC) [Entitic vol] 91.8 fL Normal 83.5-101 [facility] Comment on above: Performed By: #### Robert CORREA #### Point of Care testing , Mean Corpuscular HGB Conc 33.6 g/dL Normal 32.5-35.6 [facility] Comment on above: Performed By: #### Robert CORREA #### Point of Care testing , Monocytes (Bld) [#/Vol] 0.6 10*3/uL Normal 0.0-0.8 [facility] Comment on above: Performed By: #### Robert CORREA #### Point of Care testing , Monocytes/100 WBC (Bld) 17.74 % Normal 0.00-20.00 [facility] Comment on above: Performed By: #### Robert CORREA #### Point of Care testing , Monocytes/100 WBC (Bld) 11.5 % Normal . [facility] Comment on above: Performed By: #### Robert CORREA #### Point of Care testing , Neutrophils (Bld) [#/Vol] 3.7 10*3/uL Normal 1.8-7.7 [facility] Comment on above: Performed By: #### Robert CORREA #### Point of Care testing , Neutrophils/100 WBC (Bld) 75.5 % Normal . [facility] Comment on above: Performed By: #### Robert CORREA #### Point of Care testing , NRBC% 0.0 /100{WBC} Normal 0-0.5 [facility] Comment on above: Performed By: #### Robert CORREA #### Point of Care testing , Platelet mean volume (Bld) [Entitic vol] 8.5 fL Normal 6.6-10.1 [facility] Comment on above: Performed By: #### Robert CORREA #### Point of Care testing , Platelets (Bld) [#/Vol] 210 10*3/uL Normal 150-450 [facility] Comment on above: Performed By: #### Robert CORREA #### Point of Care testing , RBC (Bld) [#/Vol] 4.48 10*6/uL Normal 3.90-5.60 [facility] Comment on above: Performed By: #### Robert CORREA #### Point of Care testing , WBC (Bld) [#/Vol] 4.9 10*3/uL Normal 4.1-10.[address] [facility] Comment on above: Performed By: #### Robert CORREA #### Point of Care testing , Comprehensive Metabolic Pane raul 04-06-2023 Albumin [Mass/Vol] 4.2 g/dL Normal 3.5-5.[address] [facility] Comment on above: Performed By: #### Robert CORREA #### Point of Care testing , Albumin/Globulin [Mass ratio] 1.6 {ratio} Normal [facility] Comment on above: Performed By: #### Robert CORREA #### Point of Care testing , ALP [Catalytic activity/Vol] 68 U/L Normal 34-104 [facility] Comment on above: Performed By: #### Robert CORREA #### Point of Care testing , ALT [Catalytic activity/Vol] 14 U/L Normal 7-52 [facility] Comment on above: Performed By: #### Robert CORREA #### Point of Care testing , Anion gap [Moles/Vol] 10.2 mmol/L Normal 6.0-15.0 [facility] Comment on above: Performed By: #### Robert CORREA #### Point of Care testing , AST [Catalytic activity/Vol] 11 U/L Low 13-39 [facility] Comment on above: Performed By: #### Robert CORREA #### Point of Care testing , Bilirubin [Mass/Vol] 1.1 mg/dL High 0.3-1.0 [facility] Comment on above: Performed By: #### Robert CORREA #### Point of Care testing , Calcium [Mass/Vol] 8.8 mg/dL Normal 8.6-10.[address] [facility] Comment on above: Performed By: #### Robert CORREA #### Point of Care testing , Chloride [Moles/Vol] 106 mmol/L Normal 98-107 [facility] Comment on above: Performed By: #### G FLEXLS #### Point of Care testing , CO2 [Moles/Vol] 25.2 mmol/L Normal 21.0-31.0 [facility] Comment on above: Performed By: #### G LULS #### Point of Care testing , Creatinine [Mass/Vol] 1.41 mg/dL High 0.70-1.30 [facility] Comment on above: Performed By: #### G LULS #### Point of Care testing , Creatinine Clr Calc Pharmacy 51.48 [facility] Comment on above: Performed By: #### G FLEXLS #### Point of Care testing , GFR/1.73 sq M.predicted MDRD (S/P/Bld) [Vol rate/Area] 52.293 mL/min/{1.73_m2} [facility] Comment on above: Performed By: #### G FLEXLS #### Point of Care testing , Globulin (S) [Mass/Vol] 2.7 g/dL [facility] Comment on above: Performed By: #### G FLEXLS #### Point of Care testing , Glucose [Mass/Vol] 197 mg/dL High 70-[address] [facility] Comment on above: Result Comment: [place] Glucose Reference Range is dependent on time and content of last meal. Glucose of more than 200 mg/dL in a nonstressed, ambulatory subject supports the diagnosis of Diabetes Mellitus. ADA recommended reference range Performed By: #### G FLEXLS #### Point of Care testing , Potassium [Moles/Vol] 4.4 mmol/L Normal 3.5-5.1 [facility] Comment on above: Performed By: #### G FLEXLS #### Point of Care testing , Protein [Mass/Vol] 6.9 g/dL Normal 6.4-8.[address] [facility] Comment on above: Performed By: #### G FLEXLS #### Point of Care testing , Sodium [Moles/Vol] 137 mmol/L Normal 136-[address] [facility] Comment on above: Performed By: #### G LULS #### Point of Care testing , Urea nitrogen [Mass/Vol] 26 mg/dL High 05-01 [facility] Comment on above: Performed By: #### G SUNNY #### Point of Care testing , Creatinine [Mass/volume] in Serum or PlasmaOrdered By: Guanako Plummer on 04-06-2023 Creatinine [Mass/Vol] 1.41 mg/dL 0.70-1.30 [facility] Dipstick and Microscopicon 0 04-06-2023 Appearance (U) Clear Normal Clear [facility] Comment on above: Order Comment: Name Collection Type:: Clean-Voided Midstream Performed By: #### A DDONUAPLUS #### [facility] [address] [place] [address] Bacteria,Urine None Seen Normal None Seen [facility] Comment on above: Order Comment: Name Collection Type:: Clean-Voided Midstream Performed By: #### A DDONUAPLUS #### [facility] [address] [place] [address] [place] Bilirubin,Urine Negative Normal Negative [facility] Comment on above: Order Comment: Name Collection Type:: Clean-Voided Midstream Performed By: #### A DDONUAPLUS #### [facility] [address] [place] [address] [place] Color (U) Yellow Normal Yellow [facility] Comment on above: Order Comment: Name Collection Type:: Clean-Voided Midstream Performed By: #### A DDONUAPLUS #### [facility] [address] [place] [address] [place] Glucose Ql (U) 100 mg/dL High Normal [facility] Comment on above: Order Comment: Name Collection Type:: Clean-Voided Midstream Performed By: #### A DDONUAPLUS #### [facility] [address] [place] [address] [place] Hyaline Casts,Urine None Seen Normal 0-8 [facility] Comment on above: Order Comment: Name Collection Type:: Clean-Voided Midstream Result Comment: PERF ORMED BY: [place] [address] PATHOLOGIST ENVIRONMENTAL ISSUES INSTRUCTOR VANESSA VASQUEZ M.D. Performed By: #### A DDONUAPLUS #### [address] Ketones Ql (U) Negative Normal Negative [facility] Comment on above: Order Comment: Name Collection Type:: Clean-Voided Midstream Performed By: #### A DDONUAPLUS #### [address] Leukocyte esterase Test strip Ql (U) Negative Normal Negative [facility] Comment on above: Order Comment: Name Collection Type:: Clean-Voided Midstream Performed By: #### A DDONUAPLUS #### [address] Nitrite,Urine Negative Normal Negative [facility] Comment on above: Order Comment: Name Collection Type:: Clean-Voided Midstream Performed By: #### A DDONUAPLUS #### [address] Occult Blood,Urine Negative Normal Negative [facility] Comment on above: Order Comment: Name Collection Type:: Clean-Voided Midstream Result Comment: PERF ORMED BY: [place] [address] PATHOLOGIST ENVIRONMENTAL ISSUES INSTRUCTOR VANESSA VASQUEZ M.D. Performed By: #### A DDONUAPLUS #### [address] pH (U) 5.5 [pH] Normal 5.0-9.0 [facility] Comment on above: Order Comment: Name Collection Type:: Clean-Voided Midstream Performed By: #### A DDONUAPLUS #### [place] [address] [place] Protein (U) [Mass/Vol] 30 mg/dL High Negative [facility] Comment on above: Order Comment: Name Collection Type:: Clean-Voided Midstream Performed By: #### A DDONUAPLUS #### [place] [address] [place] RBC LM.HPF (Urine sed) [#/Area] 0 /[HPF] Normal 0-4 [facility] Comment on above: Order Comment: Name Collection Type:: Clean-Voided Midstream Performed By: #### A DDONUAPLUS #### [address] Specificy [place],Urine 1.034 High 1.001-1.03 0 [facility] Comment on above: Order Comment: Name Collection Type:: Clean-Voided Midstream Performed By: #### A DDONUAPLUS #### [address] Squamous Epithelial Cell,Urine None Seen Normal 0-2 [facility] Comment on above: Order Comment: Name Collection Type:: Clean-Voided Midstream Performed By: #### A DDONUAPLUS #### [address] Urobilinogen,Urine Normal Normal Normal [facility] Comment on above: Order Comment: Name Collection Type:: Clean-Voided Midstream Performed By: #### A DDONUAPLUS #### [address] WBC LM.HPF (Urine sed) [#/Area] 0 /[HPF] Normal 0-4 [facility] Comment on above: Order Comment: Name Collection Type:: Clean-Voided Midstream Performed By: #### A DDONUAPLUS #### [place] [address] [place] Eosinophils Auto (Bld) [#/Vo l]Ordered By: Guanako Plummer on 04-06-2023 Eosinophils (Bld) [#/Vol] 0.2 10*3/uL 0.0-0.45 [facility] Eosinophils/100 WBC Auto (Bl d)Ordered By: Guanako Plummer on 04-06-2023 Eosinophils/100 WBC (Bld) 4.4 % . [facility] Erythrocyte distribution wid th Auto (RBC) [Ratio]Ordered By: Guanako Plummer on 04-06-2023 Erythrocyte distribution width (RBC) [Ratio] 14.0 % 12.0-14.8 [facility] Globulin Calc (S) [Mass/Vol] Ordered By: Guanako Plummer on 04-06-2023 Globulin (S) [Mass/Vol] 2.7 g/dL [facility] Glucose [Mass/volume] in Ser um or PlasmaOrdered By: Guanako Plummer on 04-06-2023 Glucose [Mass/Vol] 197 mg/dL 70-[address] [facility] Comment on above: ADA recommended refe rence rangeRandom Glucose Reference Range is dependent on time and content of last meal. Glucose of more than 200 mg/dL in a nonstressed, ambulatory subject supports the diagnosis of Diabetes Mellitus. Hematocrit Auto (Bld) [Volum e fraction]Ordered By: Guanako Plummer on 04-06-2023 Hematocrit (Bld) [Volume fraction] 41.1 % 38.8-50.0 [facility] Hemoglobin [Mass/volume] in BloodOrdered By: Guanako Plummer on 04-06-2023 Hemoglobin (Bld) [Mass/Vol] 13.8 g/dL 13.0-17.0 [facility] Ketones Auto test strip (U) [Mass/Vol]Ordered By: Guanako Plummer on 04-06-2023 Ketones (U) [Mass/Vol] Negative Negative [facility] - UrinalysisOrder ed By: Guanako Plummer on 04-06-2023 Hyaline casts LM Ql (Urine sed) None seen [LPF] 0-8 [facility] Leukocytes [#/volume] correc wyatt for nucleated erythrocytes in Blood by Automated counOrdered By: Guanako Plummer on 04-06-2023 WBC corrected for nucl RBC Auto (Bld) [#/Vol] 4.9 10*3/uL 4.1-10.5 [facility] Lipaseon 04-06-2023 Lipase [Catalytic activity/Vol] 40.0 U/L Normal 11.0-82.0 [facility] Comment on above: Result Comment: PERF ORMED BY: [facility] [address] [place] [address] PATHOLOGIST ENVIRONMENTAL ISSUES INSTRUCTOR VANESSA VASQUEZ M.D. Performed By: #### G LULS #### Point of Care testing , Lipase [Enzymatic activity/v olume] in Serum or PlasmaOrdered By: Guanako Plummer on 04-06-2023 Lipase [Catalytic activity/Vol] 40.0 U/L 11.0-82.0 [facility] Lymphocytes Auto (Bld) [#/Vo l]Ordered By: Guanako Plummer on 04-06-2023 Lymphocytes (Bld) [#/Vol] 0.4 10*3/uL 1.00-4.8 [facility] Lymphocytes/100 WBC Auto (Bl d)Ordered By: Guanako Plummer on 04-06-2023 Lymphocytes/100 WBC (Bld) 8.4 % . [facility] MCH Auto (RBC) [Entitic mass ]Ordered By: Guanako Plummer on 04-06-2023 MCH (RBC) [Entitic mass] 30.9 pg 27.5-35.2 [facility] MCHC Auto (RBC) [Mass/Vol]Or dered By: Guanako Plummer on 04-06-2023 MCHC (RBC) [Mass/Vol] 33.6 g/dL 32.5-35.6 [facility] MCV Auto (RBC) [Entitic vol] Ordered By: Guanako Plummer on 04-06-2023 MCV (RBC) [Entitic vol] 91.8 fL 83.5-101 [facility] Monocyte distribution width [Entitic volume] in Blood by AutomatedOrdered By: Guanako Plummer on 04-06-2023 Monocyte distribution width Auto (Bld) [Entitic vol] 17.74 % 0.00-20.00 [facility] Monocytes Auto (Bld) [#/Vol] Ordered By: Guanako Plummer on 04-06-2023 Monocytes (Bld) [#/Vol] 0.6 10*3/uL 0.0-0.8 [facility] Monocytes/100 WBC Auto (Bld) Ordered By: Guanako Plummer on 04-06-2023 Monocytes/100 WBC (Bld) 11.5 % . [facility] Neutrophils Auto (Bld) [#/Vo l]Ordered By: Guanako Plummer on 04-06-2023 Neutrophils (Bld) [#/Vol] 3.7 10*3/uL 1.8-7.7 [facility] Neutrophils/100 WBC Auto (Bl d)Ordered By: Guanako Plummer on 04-06-2023 Neutrophils/100 WBC (Bld) 75.5 % . [facility] Nitrite Test strip Ql (U)Ord ered By: Guanako Plummer on 04-06-2023 Nitrite Ql (U) Negative Negative [facility] No Panel InformationOrdered By: Guanako Plummer on 04-06-2023 Estimated GFR (CKD-EPI) 52.293 mL/Min [facility] Creatinine Clearance (Chem 51.48 [facility] Nucleated erythrocytes [Pres ence] in Blood by Automated countOrdered By: Guanako Plummer on 04-06-2023 Nucleated RBC Auto Ql (Bld) 0.0 /100{WBC} 0-0.5 [facility] Platelet mean volume Auto (B ld) [Entitic vol]Ordered By: Guanako Plummer on 04-06-2023 Platelet mean volume (Bld) [Entitic vol] 8.5 fL 6.6-10.1 [facility] Platelets Auto (Bld) [#/Vol] Ordered By: Guanako Plummer on 04-06-2023 Platelets (Bld) [#/Vol] 210 10*3/uL 150-450 [facility] Potassium [Moles/volume] in Serum or PlasmaOrdered By: Guanako Plummer on 04-06-2023 Potassium [Moles/Vol] 4.4 mmol/L 3.5-5.1 [facility] Protein Auto test strip (U) [Mass/Vol]Ordered By: Guanako Plummer on 04-06-2023 Protein (U) [Mass/Vol] 30 mg/dL Negative [facility] Protein [Mass/volume] in Ser um or PlasmaOrdered By: Guanako Plummer on 04-06-2023 Protein [Mass/Vol] 6.9 g/dL 6.4-8.[address] [facility] RBC Auto (Bld) [#/Vol]Ordere d By: Guanako Plummer on 04-06-2023 RBC (Bld) [#/Vol] 4.48 10*6/uL 3.90-5.60 [facility] Serum or plasma albumin/glob ulin mass ratioOrdered By: Guanako Plummer on 04-06-2023 Albumin/Globulin [Mass ratio] 1.6 {ratio} [facility] Serum or plasma anion gap de terminationOrdered By: Guanako Plummer on 04-06-2023 Anion gap [Moles/Vol] 10.2 mmol/L 6.0-15.0 [facility] Sodium [Moles/volume] in Ser um or PlasmaOrdered By: Guanako Plummer on 04-06-2023 Sodium [Moles/Vol] 137 mmol/L 136-[address] [facility] Specific gravity Auto test s trip (U) [Rel density]Ordered By: Guanako Plummer on 04-06-2023 Specific gravity (U) [Rel density] 1.034 1.001-1.03 0 [facility] Squamous epithelial cells de tection in urine sediment by light microscopyOrdered By: Guanako Plummer on 04-06-2023 Epithelial cells.squamous LM Ql (Urine sed) None seen [HPF] 0-2 [facility] Urea nitrogen [Mass/volume] in Serum or PlasmaOrdered By: Guanako Plummer on 04-06-2023 Urea nitrogen [Mass/Vol] 26 mg/dL 7-25 [facility] Urine bacteria detection by automated methodOrdered By: Guanako Plummer on 04-06-2023 Bacteria Auto Ql (U) None seen None Seen [facility] Urine clarity by refractomet ry automatedOrdered By: Guanako Plummer on 04-06-2023 Clarity Refractometry automated (U) Clear Clear [facility] Urine glucose measurement by automated test strip (mass/volume)Ordered By: Guanako Plummer on 04-06-2023 Glucose Auto test strip (U) [Mass/Vol] 100 mg/dL Normal [facility] Urine hemoglobin detection b y automated test stripOrdered By: Guanako Plummer on 04-06-2023 Hemoglobin Auto test strip Ql (U) Negative Negative [facility] Urine leukocyte esterase det ection by automated test stripOrdered By: Guanako Plummer on 04-06-2023 Leukocyte esterase Auto test strip Ql (U) Negative Negative [facility] Urobilinogen Auto test strip (U) [Mass/Vol]Ordered By: Guanako Plummer on 04-06-2023 Urobilinogen (U) [Mass/Vol] Normal mg/dL Normal [facility] WBC Auto (Bld) [#/Vol]Ordere d By: Guanako Plummer on 04-06-2023 WBC (Bld) [#/Vol] 4.9 10*3/uL 4.1-10.[address] [facility] pH Auto test strip (U)Ordere d By: Guanako Plummer on 04-06-2023 pH (U) 5.5 [pH] 5.0-9.0 [facility] Office Visit (Cardiology)on 03-15-2023 Follow-up visit Diagnoses/Problems [...] Oral Capsu (more content not included)... Normal [email or web address] Tobacco Screening.on 023 Fall risk assessment b) One or more fall s in the last year [facility] [employer] 250 DO Work Phone: Tobacco use status [facility] b) No [facility] Level y 250 DO Work Phone: Tobacco Screening. Yes [facility] Level y 250 DO Work Phone: XR KNEE [...] by: JUAN STEWART Date: 2023-02-15 18:57 Normal [facility] Falls Screening (Age 18+)on 07-28-2022 Fall risk assessment a) No falls within the last year [facility] [employer] 250 DO Work Phone: Falls Screening (Age 18+)on 05-18-2022 Fall risk assessment a) No falls within the last year [facility] [employer] 250 DO Work Phone: CARDIAC SEN 3-6on 2 CK [Catalytic activity/Vol] 68 U/L Normal 39-308 [facility] Comment on above: Performed By: #### C MREP #### [facility] [address] [address] [address] Vern Browne CK.MB [Mass/Vol] 1.29 ng/mL Normal <=3.60 [facility] Comment on above: Performed By: #### C MREP #### [facility] [address] [address] [address] Vern Browne HSTROP 24.2 pg/mL Normal 4.0-76.1 [facility] Comment on above: Result Comment: CUT- OFF POINTS HAVE BEEN ESTABLISHED BASED ON THE FOURTH UNIVERSAL DEFINITIONS OF MYOCARDIAL INFARCTION. THE UPPER REFERENCE LIMIT (URL) OF TROPONIN, DEFINED THE 99TH PERCENTILE OF cTnI DISTRIBUTION IN A REFERENCE POPULATION, HAS BEEN CONFIRMED THE DECISION THRESHOLD FOR MT DIAGNOSIS. Performed By: #### C MREP #### [facility] [address] [address] [address] Vern Browne LACTATE/LACTIC ACIDon 2021 Lactate [Moles/Vol] 1.3 mmol/L Normal 0.4-1.9 [facility] Comment on above: Performed By: #### L ACT #### [facility] [address] [address] [address] Vern Browne XR CHEST 1 Von [...] BARBARA TIAN Date: 2022-05-16 22:45 Normal [facility] CARDIAC SEN ADMITon 022 CK [Catalytic activity/Vol] 88 U/L Normal 39-308 [facility] Comment on above: Performed By: #### B MP, HSTROPN #### [facility] [address] [address] [address] Vern Browne CK.MB [Mass/Vol] 1.74 ng/mL Normal <=3.60 [facility] Comment on above: Performed By: #### B MP, HSTROPN #### [facility] [address] [place] [address] Dr. Vern Borwne HSTROP 18.8 pg/mL Normal 4.0-76.1 [facility] Comment on above: Result Comment: CUT- OFF POINTS HAVE BEEN ESTABLISHED BASED ON THE FOURTH UNIVERSAL DEFINITIONS OF MYOCARDIAL INFARCTION. THE UPPER REFERENCE LIMIT (URL) OF TROPONIN, DEFINED THE 99TH PERCENTILE OF cTnI DISTRIBUTION IN A REFERENCE POPULATION, HAS BEEN CONFIRMED THE DECISION THRESHOLD FOR MT DIAGNOSIS. Performed By: #### B MP, HSTROPN #### [facility] [address] [place] [address] Dr. Vern Browne PHIL 125 ng/mL Critically high 16-96 [facility] Comment on above: Performed By: #### B MP, HSTROPN #### [facility] [address] [place] [address] Dr. Vern Browne CBC AUTO DIFFon 05-16-2022 BASO # 0.0 103/ul Normal 0.0-0.1 [facility] Comment on above: Performed By: #### B MP, HSTROPN #### [facility] [address] [place] [address] Dr. Vern Browne Basophils/100 WBC (Bld) 0.5 % Normal 0.2-2.0 [facility] Comment on above: Performed By: #### B MP, HSTROPN #### [facility] [address] [place] [address] Dr. Vern Browne EO # 0.4 103/ul Normal 0.0-0.7 [facility] Comment on above: Performed By: #### B MP, HSTROPN #### [facility] [address] [place] [address] Dr. Vern Browne Eosinophils/100 WBC (Bld) 5.5 % Normal 0.9-7.0 [facility] Comment on above: Performed By: #### B HANG, HSTROPN #### [facility] [address] [place] [address] Dr. Vern Browne Erythrocyte distribution width (RBC) [Ratio] 13.2 % Normal 11.0-15.0 [facility] Comment on above: Performed By: #### B HANG, HSTROPN #### [facility] [address] [place] [address] Dr. Vern Browne Hematocrit (Bld) [Volume fraction] 39.5 % Critically low 42.0-54.0 [facility] Comment on above: Performed By: #### B HANG, HSTROPN #### [facility] [address] [place] [address] Dr. Vern Browne Hemoglobin (Bld) [Mass/Vol] 13.2 g/dL Critically low 14.0-18.0 [facility] Comment on above: Performed By: #### B HANG, HSTROPN #### [facility] [address] [place] [address] Dr. Vern Browne IG # 0.03 10e3/ul Normal 0.00-0.03 [facility] Comment on above: Performed By: #### B HANG, HSTROPN #### [facility] [address] [place] [address] Dr. Vern Browne IG % 0.4 % Normal 0.0-0.5 [facility] Comment on above: Performed By: #### B HANG, HSTROPN #### [facility] [address] [place] [address] Dr. Vern Browne LYMPH # 1.5 103/ul Normal 1.2-3.8 [facility] Comment on above: Performed By: #### B HANG, HSTROPN #### [facility] [address] [place] [address] Dr. Vern Browne Lymphocytes/100 WBC (Bld) 20.5 % Normal 20.5-60.0 [facility] Comment on above: Performed By: #### B MP, HSTROPN #### [facility] [address] [place] [address] Dr. Vern Browne MANUAL DIFF REQ NO Normal [facility] Comment on above: Performed By: #### B MP, HSTROPN #### [facility] [address] [place] [address] Dr. Vern Browne MCH (RBC) [Entitic mass] 29.9 pg Normal 25.9-34.0 [facility] Comment on above: Performed By: #### B MP, HSTROPN #### [facility] [address] [place] [address] Dr. Vern Browne MCHC (RBC) [Mass/Vol] 33.4 g/dL Normal 29.9-35.2 [facility] Comment on above: Performed By: #### B MP, HSTROPN #### [facility] [address] [place] [address] Dr. Vern Browne MCV (RBC) [Entitic vol] 89.6 fL Normal 80.0-94.0 [facility] Comment on above: Performed By: #### B MP, HSTROPN #### [facility] [address] [place] [address] Dr. Vern Browne MONO # 0.6 103/ul Normal 0.3-0.8 [facility] Comment on above: Performed By: #### B MP, HSTROPN #### [facility] [address] [place] [address] Dr. Vern Browne Monocytes/100 WBC (Bld) 8.2 % Normal 1.7-12.0 [facility] Comment on above: Performed By: #### B MP, HSTROPN #### [facility] [address] [place] [address] Dr. Vern Browne NEUT # 4.9 103/ul Normal 1.4-6.5 [facility] Comment on above: Performed By: #### B MP, HSTROPN #### [facility] [address] [place] [address] Dr. Vern Browne Neutrophils/100 WBC (Bld) 64.9 % Normal 43.0-75.0 [facility] Comment on above: Performed By: #### B HANG, HSTROPN #### [facility] [address] [place] [address] Dr. Vern Browne Platelet mean volume (Bld) [Entitic vol] 10.6 fL Normal 9.5-13.5 [facility] Comment on above: Performed By: #### B HANG, HSTROPN #### [facility] [address] [place] [address] Dr. Vern Browne PLT 176 103/ul Normal 150-450 [facility] Comment on above: Performed By: #### B HANG, HSTROPN #### [facility] [address] [place] [address] Dr. Vern Browne RBC 4.41 106/ul Critically low 4.70-6.10 [facility] Comment on above: Performed By: #### B HANG, HSTROPN #### [facility] [address] [place] [address] Dr. Vern Browne WBC 7.5 103/ul Normal 4.0-11.0 [facility] Comment on above: Performed By: #### B HANG, HSTROPN #### [facility] [address] [place] [address] Dr. Vern Browne [facility]on SARS-CoV-2 (COVID-19) RNA BISI+probe Ql (Unsp spec) Not detected Normal NOT DETECTED [facility] Comment on above: Result Comment: When diagnostic [...] for this test is supported by the Clinical Data Management Director of Health and Human Service's declaration that [...] used). Performed By: #### C VDTBH #### [facility] [address] [place] [address] Dr. Vern Browne LACTATE/LACTIC ACIDon 2021 Lactate [Moles/Vol] 2.1 mmol/L Critically high 0.4-1.9 [facility] Comment on above: Performed By: #### L ACT #### [facility] [address] [place] [address] Dr. Vern Browne PROF CHEM 8 (BAS METB)on Anion gap [Moles/Vol] 13.2 mmol/L Normal [facility] Comment on above: Performed By: #### B HANG, HSTROPN #### [facility] [address] [place] [address] Dr. Vern Browne Calcium [Mass/Vol] 8.6 mg/dL Normal 8.5-10.1 [facility] Comment on above: Performed By: #### B HANG, HSTROPN #### [facility] [address] [place] [address] Dr. Vern Browne Chloride [Moles/Vol] 102 mmol/L Normal 98-107 [facility] Comment on above: Performed By: #### B HANG, HSTROPN #### [facility] [address] [place] [address] Dr. Vern Browne CO2 [Moles/Vol] 25.3 mmol/L Normal 21.0-32.0 [facility] Comment on above: Performed By: #### B HANG, HSTROPN #### [facility] [address] [place] [address] Dr. Vern Browne Creatinine [Mass/Vol] 1.39 mg/dL Critically high 0.70-1.30 [facility] Comment on above: Performed By: #### B HANG, HSTROPN #### [facility] [address] [address] [address] Vern Browne EGFR-AF SLOVENIAN >60 Normal >=60 [facility] Comment on above: Performed By: #### B MP, HSTROPN #### [facility] [address] [address] [address] Vern Browne EGFR-NON AF SLOVENIAN 50 mL/min/1.73m2 Critically low >=60 [facility] Comment on above: Performed By: #### B MP, HSTROPN #### [facility] [address] [address] [address] Vern Browne Glucose [Mass/Vol] 312 mg/dL Critically high 74-106 [facility] Comment on above: Performed By: #### B MP, HSTROPN #### [facility] [address] [place] [address] Dr. Vern Browne Potassium [Moles/Vol] 4.5 mmol/L Normal 3.5-5.1 [facility] Comment on above: Performed By: #### B MP, HSTROPN #### [facility] [address] [address] [address] Vern Browne Sodium [Moles/Vol] 136 mmol/L Normal 136-145 [facility] Comment on above: Performed By: #### B MP, HSTROPN #### [facility] [address] [address] [address] Vern Browne Urea nitrogen [Mass/Vol] 24.0 mg/dL Critically high 7.0-18.0 [facility] Comment on above: Performed By: #### B MP, HSTROPN #### [facility] [address] [address] [address] Vern Browne Urea nitrogen/Creatinine [Mass ratio] 17.3 mg/mg Normal [facility] Comment on above: Performed By: #### B MP, HSTROPN #### [facility] [address] [address] [address] Vern Browne CBC AUTO DIFFon 05-10-2022 BASO # 0.1 103/ul Normal 0.0-0.1 [facility] Comment on above: Performed By: #### C BC #### [facility] [address] [place] [address] Dr. Vern Browne Basophils/100 WBC (Bld) 0.8 % Normal 0.2-2.0 [facility] Comment on above: Performed By: #### C BC #### [facility] [address] [place] [address] Dr. Vern Browne EO # 0.4 103/ul Normal 0.0-0.7 [facility] Comment on above: Performed By: #### C BC #### [facility] [address] [place] [address] Dr. Vern Browne Eosinophils/100 WBC (Bld) 4.7 % Normal 0.9-7.0 [facility] Comment on above: Performed By: #### C BC #### [facility] [address] [place] [address] Dr. Vern Browne Erythrocyte distribution width (RBC) [Ratio] 13.1 % Normal 11.0-15.0 [facility] Comment on above: Performed By: #### C BC #### [facility] [address] [place] [address] Dr. Vern Browne Hematocrit (Bld) [Volume fraction] 40.9 % Critically low 42.0-54.0 [facility] Comment on above: Performed By: #### C BC #### [facility] [address] [place] [address] Dr. Vern Browne Hemoglobin (Bld) [Mass/Vol] 13.9 g/dL Critically low 14.0-18.0 [facility] Comment on above: Performed By: #### C BC #### [facility] [address] [place] [address] Dr. Vern Browne IG # 0.05 10e3/ul Critically high 0.00-0.03 [facility] Comment on above: Performed By: #### C BC #### [facility] [address] [place] [address] Dr. Vern Browne IG % 0.6 % Critically high 0.0-0.5 [facility] Comment on above: Performed By: #### C BC #### [facility] [address] [place] [address] Dr. Vern Browne LYMPH # 1.4 103/ul Normal 1.2-3.8 [facility] Comment on above: Performed By: #### C BC #### [facility] [address] [place] [address] Dr. Vern Browne Lymphocytes/100 WBC (Bld) 14.9 % Critically low 20.5-60.0 [facility] Comment on above: Performed By: #### C BC #### [facility] [address] [place] [address] Dr. Vern Browne MANUAL DIFF REQ NO Normal [facility] Comment on above: Performed By: #### C BC #### [facility] [address] [place] [address] Dr. Vern Browne MCH (RBC) [Entitic mass] 30.3 pg Normal 25.9-34.0 [facility] Comment on above: Performed By: #### C BC #### [facility] [address] [place] [address] Dr. Vern Browne MCHC (RBC) [Mass/Vol] 34.0 g/dL Normal 29.9-35.2 [facility] Comment on above: Performed By: #### C BC #### [facility] [address] [place] [address] Dr. Vern Browne MCV (RBC) [Entitic vol] 89.1 fL Normal 80.0-94.0 [facility] Comment on above: Performed By: #### C BC #### [facility] [address] [place] [address] Dr. Vern Browne MONO # 0.8 103/ul Normal 0.3-0.8 [facility] Comment on above: Performed By: #### C BC #### [facility] [address] [place] [address] Dr. Vern Browne Monocytes/100 WBC (Bld) 8.7 % Normal 1.7-12.0 [facility] Comment on above: Performed By: #### C BC #### [facility] [address] [address] [address] Vern Browne NEUT # 6.4 103/ul Normal 1.4-6.5 [facility] Comment on above: Performed By: #### C BC #### [facility] [address] [address] [address] Vern Browne Neutrophils/100 WBC (Bld) 70.3 % Normal 43.0-75.0 [facility] Comment on above: Performed By: #### C BC #### [facility] [address] [address] [address] Vern Browne Platelet mean volume (Bld) [Entitic vol] 10.9 fL Normal 9.5-13.5 [facility] Comment on above: Performed By: #### C BC #### [facility] [address] [place] [address] Dr. Vern Browne PLT 199 103/ul Normal 150-450 [facility] Comment on above: Performed By: #### C BC #### [facility] [address] [address] [address] Vern Browne RBC 4.59 106/ul Critically low 4.70-6.10 [facility] Comment on above: Performed By: #### C BC #### [facility] [address] [place] [address] Dr. Vern Browne WBC 9.1 103/ul Normal 4.0-11.0 [facility] Comment on above: Performed By: #### C BC #### [facility] [address] [place] [address] Dr. Vern Browne D-DIMERon 05-10-2022 D-DIMER 0.38 mg/L FEU Normal <=0.[address] [facility] Comment on above: Performed By: #### D DIM #### [facility] [address] [place] [address] Dr. Vern Browne D-DIMER COMMENTS SEE BELOW Normal [facility] Comment on above: Result Comment: Incr [...] hospitalization. Performed By: #### D DIM #### [facility] [address] [place] [address] Dr. Vern Browne PROF CHEM 8 (BAS METB)on Anion gap [Moles/Vol] 15.9 mmol/L Normal [facility] Comment on above: Performed By: #### B HANG, HSTROPN #### [facility] [address] [place] [address] Dr. Vern Browne Calcium [Mass/Vol] 8.3 mg/dL Critically low 8.5-10.1 [facility] Comment on above: Performed By: #### B MP, HSTROPN #### [facility] [address] [place] [address] Dr. Vern Browne Chloride [Moles/Vol] 103 mmol/L Normal 98-107 [facility] Comment on above: Performed By: #### B MP, HSTROPN #### [facility] [address] [place] [address] Dr. Vern Browne CO2 [Moles/Vol] 23.8 mmol/L Normal 21.0-32.0 [facility] Comment on above: Performed By: #### B MP, HSTROPN #### [facility] [address] [place] [address] Dr. Vern Browne Creatinine [Mass/Vol] 1.30 mg/dL Normal 0.70-1.30 [facility] Comment on above: Performed By: #### B MP, HSTROPN #### [facility] [address] [place] [address] Dr. Vern Browne EGFR-AF SLOVENIAN >60 Normal >=60 [facility] Comment on above: Performed By: #### B MP, HSTROPN #### [facility] [address] [address] [address] Vern Browne EGFR-NON AF SLOVENIAN 54 mL/min/1.73m2 Critically low >=60 [facility] Comment on above: Performed By: #### B MP, HSTROPN #### [facility] [address] [address] [address] Vern Browne Glucose [Mass/Vol] 310 mg/dL Critically high 74-106 [facility] Comment on above: Performed By: #### B MP, HSTROPN #### [facility] [address] [address] [address] Vern Browne Potassium [Moles/Vol] 4.7 mmol/L Normal 3.5-5.1 [facility] Comment on above: Performed By: #### B MP, HSTROPN #### [facility] [address] [place] [address] Dr. Vern Browne Sodium [Moles/Vol] 138 mmol/L Normal 136-145 [facility] Comment on above: Performed By: #### B MP, HSTROPN #### [facility] [address] [place] [address] Dr. Vern Browne Urea nitrogen [Mass/Vol] 17.0 mg/dL Normal 7.0-18.0 [facility] Comment on above: Performed By: #### B MP, HSTROPN #### [facility] [address] [place] [address] Dr. Vern Browne Urea nitrogen/Creatinine [Mass ratio] 13.1 mg/mg Normal [facility] Comment on above: Performed By: #### B MP, HSTROPN #### [facility] [address] [place] [address] Dr. Vern Browne TROPONIN, HIGH SENSITIVITYon 05-10-2022 HSTROP 15.7 pg/mL Normal 4.0-76.1 [facility] Comment on above: Result Comment: CUT- OFF POINTS HAVE BEEN ESTABLISHED BASED ON THE FOURTH UNIVERSAL DEFINITIONS OF MYOCARDIAL INFARCTION. THE UPPER REFERENCE LIMIT (URL) OF TROPONIN, DEFINED THE 99TH PERCENTILE OF cTnI DISTRIBUTION IN A REFERENCE POPULATION, HAS BEEN CONFIRMED THE DECISION THRESHOLD FOR MT DIAGNOSIS. Performed By: #### H STROPN #### [facility] [address] [place], [place] [address] Dr. Vern Browne HSTROP 15.1 pg/mL Normal 4.0-76.1 [facility] Comment on above: Result Comment: CUT- OFF POINTS HAVE BEEN ESTABLISHED BASED ON THE FOURTH UNIVERSAL DEFINITIONS OF MYOCARDIAL INFARCTION. THE UPPER REFERENCE LIMIT (URL) OF TROPONIN, DEFINED THE 99TH PERCENTILE OF cTnI DISTRIBUTION IN A REFERENCE POPULATION, HAS BEEN CONFIRMED THE DECISION THRESHOLD FOR MT DIAGNOSIS. Performed By: #### B MP, HSTROPN #### [facility] [address] [id number] Vern Browne XR CHEST 1 Von [...] MEME VILLANUEVA Date: 2022-05-10 17:27 Normal [facility] COVID Quick Testingon 2021 Result Negative [facility] Other Quick Strepon 04-15-2022 S. pyogenes Org specific cx Ql (Throat) Negative [facility] Other Quick Strep [facility] Other MRI KNEE RT WO CONon 022 [...] by: MEME VILLANUEVA Date: 2022-03-31 09:05 Normal [facility] XR FOREIGN BODY EYEon 2021 XR FOREIGN BODY EYE EXAMINATION: XR FORE IGN BODY EYE HISTORY: Foreign body in eye COMPARISON: No relevant comparison available. FINDINGS: ORBITS: Negative for a metallic foreign body. OTHER: Negative. IMPRESSION: 1. No metallic foreign body within the orbits. Electronically authenticated by: MEME VILLANUEVA Date: 2022-03-30 16:02 Normal [facility] Tobacco Screening.on 022 Adult depression screening assessment No [facility] DO Work Phone: Fall risk assessment a) No falls within the last year [facility] DO Work Phone: Tobacco use status CPHS b) No [facility] DO Work Phone: RAD - Ultrasound Reporton RAD - Ultrasound Report [id number] Normal [facility] Activated partial thrombopla stin time (aPTT) in platelet poor plasma by coagulation aOrdered By: Yifan Caldwell on 03-02-2022 aPTT Coag (PPP) [Time] 33.4 s 25.1-36.5 [facility] Basophils Auto (Bld) [#/Vol] Ordered By: Yifan Caldwell on 03-02-2022 Basophils (Bld) [#/Vol] 0.0 10*3/uL 0.0-0.2 [facility] Basophils/100 WBC Auto (Bld) Ordered By: Yifan Caldwell on 03-02-2022 Basophils/100 WBC (Bld) 0.8 % [facility] Blood hemoglobin measurement (mass/volume)Ordered By: Yifan Caldwell on 03-02-2022 Hemoglobin (Bld) [Mass/Vol] 13.6 g/dL 13.0-17.0 [facility] Blood leukocytes automated c ount (number/volume)Ordered By: Yifan Caldwell on 03-02-2022 WBC (Bld) [#/Vol] 5.8 10*3/uL 4.5-11.[address] [facility] Creatine kinase [Enzymatic a ctivity/volume] in Serum or PlasmaOrdered By: Yifan Caldwell on 03-02-2022 CK [Catalytic activity/Vol] 94 U/L 22-269 [facility] Creatinine and Glomerular fi ltration rate.predicted panel (S/P/Bld)Ordered By: Yifan Caldwell on 03-02-2022 Creatinine [Mass/Vol] 1.15 mg/dL 0.64-1.27 [facility] Eosinophils Auto (Bld) [#/Vo l]Ordered By: Yifan Caldwell on 03-02-2022 Eosinophils (Bld) [#/Vol] 0.6 10*3/uL 0.0-0.45 [facility] Eosinophils/100 WBC Auto (Bl d)Ordered By: Yifan Caldwell on 03-02-2022 Eosinophils/100 WBC (Bld) 9.8 % [facility] Erythrocyte distribution wid th Auto (RBC) [Ratio]Ordered By: Yifan Caldwell on 03-02-2022 Erythrocyte distribution width (RBC) [Ratio] 13.3 % 12.0-14.8 [facility] Estimated glomerular filtrat ion rate (GFR) non- AmericanOrdered By: Yifan Caldwell on 03-02-2022 GFR/1.73 sq M.predicted among non-blacks MDRD (S/P/Bld) [Vol rate/Area] > 60 mL/Min [facility] Hematocrit Auto (Bld) [Volum e fraction]Ordered By: Yifan Caldwell on 03-02-2022 Hematocrit (Bld) [Volume fraction] 40.3 % 38.8-50.0 [facility] Laboratory - Chemistry and C hemistry - challengeOrdered By: Yifan Caldwell on 03-02-2022 Natriuretic peptide B (Bld) [Mass/Vol] 115.0 pg/mL 5-100 [facility] Laboratory - CoagulationOrde red By: Yifan Caldwell on 03-02-2022 PT Coag (PPP) [Time] 11.5 s 9.0-12.9 [facility] - Hematology and Cell countsOrdered By: Yifan Caldwell on 03-02-2022 Nucleated RBC/100 WBC (Bld) [Ratio] 0.0 % 0-0.5 [facility] Lymphocytes Auto (Bld) [#/Vo l]Ordered By: Yifan Caldwell on 03-02-2022 Lymphocytes (Bld) [#/Vol] 0.8 10*3/uL 1.00-4.8 [facility] Lymphocytes/100 WBC Auto (Bl d)Ordered By: Yifan Caldwell on 03-02-2022 Lymphocytes/100 WBC (Bld) 14.3 % [facility] MCH Auto (RBC) [Entitic mass ]Ordered By: Yifan Caldwell on 03-02-2022 MCH (RBC) [Entitic mass] 30.7 pg 27.5-35.2 [facility] MCHC Auto (RBC) [Mass/Vol]Or dered By: Yifan Caldwell on 03-02-2022 MCHC (RBC) [Mass/Vol] 33.7 g/dL 32.5-35.6 [facility] MCV Auto (RBC) [Entitic vol] Ordered By: Yifan Caldwell on 03-02-2022 MCV (RBC) [Entitic vol] 91.0 fL 83.5-101 [facility] Monocytes Auto (Bld) [#/Vol] Ordered By: Yifan Caldwell on 03-02-2022 Monocytes (Bld) [#/Vol] 0.6 10*3/uL 0.0-0.8 [facility] Monocytes/100 WBC Auto (Bld) Ordered By: Yifan Caldwell on 03-02-2022 Monocytes/100 WBC (Bld) 10.8 % [facility] Neutrophils Auto (Bld) [#/Vo l]Ordered By: Yifan Caldwell on 03-02-2022 Neutrophils (Bld) [#/Vol] 3.7 10*3/uL 1.8-7.7 [facility] Neutrophils/100 WBC Auto (Bl d)Ordered By: Yifan Caldwell on 03-02-2022 Neutrophils/100 WBC (Bld) 64.3 % [facility] No Panel InformationOrdered By: Yifan Caldwell on 03-02-2022 Estimated GFR () > 60 mL/Min [facility] Comment on above: GFR estimated refere nce range: According to KDOQI guidelines, <60 ml/min/1.73m2 is sufficient to diagnose a patient with chronic kidney disease. Pharmacy Creatinine Clearance (Chem 64.07 [facility] Platelet mean volume Auto (B ld) [Entitic vol]Ordered By: Yifan Caldwell on 03-02-2022 Platelet mean volume (Bld) [Entitic vol] 8.8 fL 6.6-10.1 [facility] Platelet poor plasma interna tional normalized ratio (INR) by coagulation assay (relatOrdered By: Yifan Caldwell on 03-02-2022 INR Coag (PPP) [Relative time] 1.0 {INR} [facility] Comment on above: INR Therapeutic Rang e [...] 03-02-2022 Platelets (Bld) [#/Vol] 186 10*3/uL 150-450 [facility] RBC Auto (Bld) [#/Vol]Ordere d By: Yifan Caldwell on 03-02-2022 RBC (Bld) [#/Vol] 4.43 10*6/uL 3.90-5.60 [facility] Serum or plasma calcium leo urement (mass/volume)Ordered By: Yifan Caldwell on 03-02-2022 Calcium [Mass/Vol] 8.6 mg/dL 8.2-10.[address] [facility] Serum or plasma chloride angel surement (moles/volume)Ordered By: Yifan Caldwell on 03-02-2022 Chloride [Moles/Vol] 99 mmol/L 95-114 [facility] Serum or plasma creatine kin ase MB (CKMB)/total creatine kinase (CK) ratio by calculaOrdered By: Yifan Caldwell on 03-02-2022 CK.MB Calc [Catalytic fraction] 2.4 % 0.00-2.50 [facility] Serum or plasma creatine kin ase MB measurement (mass/volume)Ordered By: Yifan Caldwell on 03-02-2022 CK.MB [Mass/Vol] 2.3 ng/mL 0.6-6.3 [facility] Serum or plasma glucose leo urement (mass/volume)Ordered By: Yifan Caldwell on 03-02-2022 Glucose [Mass/Vol] 332 mg/dL 70-[address] [facility] Comment on above: ADA recommended refe rence range Random Glucose Reference Range is dependent on time and content of last meal. Glucose of more than 200 mg/dL in a nonstressed, ambulatory subject supports the diagnosis of Diabetes Mellitus. Serum or plasma potassium me asurement (moles/volume)Ordered By: Yifan Caldwell on 03-02-2022 Potassium [Moles/Vol] 4.8 mmol/L 3.5-5.1 [facility] Serum or plasma sodium measu rement (moles/volume)Ordered By: Yifan Caldwell on 03-02-2022 Sodium [Moles/Vol] 131 mmol/L 136-[address] [facility] Serum or plasma total carbon dioxide measurement (moles/volume)Ordered By: Yifan Caldwell on 03-02-2022 CO2 [Moles/Vol] 22.1 mmol/L 22.0-30.0 [facility] Serum or plasma urea nitroge n measurement (mass/volume)Ordered By: Yifan Caldwell on 03-02-2022 Urea nitrogen [Mass/Vol] 25 mg/dL 9- [facility] Troponin I.cardiac [Mass/vol ume] in Serum or Plasma by High sensitivity methodOrdered By: Yifan Caldwell on 03-02-2022 Troponin I.cardiac High sensitivity method [Mass/Vol] 10 pg/mL 0-20 [facility] Tobacco Screening.on 021 Fall risk assessment a) No falls within the last year [facility] DO Work Phone: Tobacco use status CP b) No [facility] DO Work Phone: Vital Signs Date Time Vital Sign Value Performing Clinician Facility 05-12-2024 08:43-0400 Body height 155.4 cm Susan Skelton PA-C Work Phone: [facility] 05-12-2024 08:43-0400 Body mass index (BMI) [Ratio] 36.6 kg/m2 Susan Wellsgs PA-C Work Phone: [facility] 05-12-2024 08:43-0400 Body weight 88.45 kg Susan Skelton PA-C Work Phone: [facility] 05-12-2024 08:43-0400 Diastolic blood pressure 64 mm[Hg] Susan Russellgs PA-C Work Phone: [facility] 05-12-2024 08:43-0400 Heart rate 68 /min Susan Wellsgs PA-C Work Phone: [facility] 05-12-2024 08:43-0400 Systolic blood pressure 119 mm[Hg] Susan Skelton PA-C Work Phone: [facility] 03-31-2024 09:50-0400 Diastolic blood pressure 54 mm[Hg] Jos Armstrong MD Work Phone: [facility] 03-31-2024 09:50-0400 Heart rate 59 /min Jos Armstrong MD Work Phone: [facility] 03-31-2024 09:50-0400 SaO2% (BldA) [Mass fraction] 98 % Jos Armstrong MD Work Phone: [facility] 03-31-2024 09:50-0400 Systolic blood pressure 115 mm[Hg] Jos Armstrong MD Work Phone: [facility] 03-04-2024 10:44-0400 Diastolic blood pressure 64 mm[Hg] Lacey Pretty MD Work Phone: [facility] 03-04-2024 10:44-0400 Systolic blood pressure 138 mm[Hg] Lacey Pretty MD Work Phone: [facility] 03-04-2024 10:17-0400 Body height 177.8 cm Lacey Pretty MD Work Phone: [facility] 03-04-2024 10:17-0400 Body mass index (BMI) [Ratio] 28.3 kg/m2 Lacey Pretty MD Work Phone: [facility] 03-04-2024 10:17-0400 Body weight 89.45 kg Lacey Pretty MD Work Phone: [facility] 03-04-2024 10:17-0400 Heart rate 60 /min Lacey Pretty MD Work Phone: [facility] 09-27-2023 15:20-0500 Body height 179.07 cm Hali Alexander Other [facility] Other 09-27-2023 15:20-0500 Body mass index (BMI) [Ratio] 29.19 kg/m2 Hali Alexander Other [facility] Other 09-27-2023 15:20-0500 Body temperature 98.6 [degF] Hali Alexander Other [facility] Other 09-27-2023 15:20-0500 Body weight 93.62 kg Hali Alexander Other [facility] Other 09-27-2023 15:20-0500 Respiratory rate 18 /min Hali Alexander Other [facility] Other 09-27-2023 15:20-0500 SaO2% (BldA) [Mass fraction] 96 % Hali Alexander Other [facility] Other 06-01-2023 10:12-0400 Body height 177.8 cm Sebas Amezcua Miguel Work Phone[facility] [employer] 600 DO Work Phone: 06-01-2023 10:12-0400 Body mass index (BMI) [Ratio] 26.4 kg/m2 Sebas Amezcua Miguel Work Phone: [employer] [facility] [employer] 600 DO Work Phone: 06-01-2023 10:12-0400 Body surface area Derived from formula 2.01 m2 Sebas Miguel Work Phone: [employer] [facility] [employer] 600 DO Work Phone: 06-01-2023 10:12-0400 Body weight 83.46 kg Sebas Miguel Work Phone: [facility] [employer] 600 DO Work Phone: 06-01-2023 10:12-0400 Diastolic blood pressure 62 mm[Hg] Sebas Miguel Work Phone: [employer] [facility] 600 DO Work Phone: 06-01-2023 10:12-0400 Heart rate 74 /min Sebas Miguel Work Phone: [facility] 600 DO Work Phone: 06-01-2023 10:12-0400 Systolic blood pressure 134 mm[Hg] Sebas Miguel Work Phone: [facility] 600 DO Work Phone: 05-08-2023 03:53-0400 Diastolic blood pressure 72 mm[Hg] II Sebas Miguel Work Phone: [facility] 05-08-2023 03:53-0400 Heart rate 92 /min II Sbeas Miguel Work Phone: [facility] 05-08-2023 03:53-0400 Respiratory rate 18 /min II Sebas Miguel Work Phone: [facility] 05-08-2023 03:53-0400 SaO2% (BldA) [Mass fraction] 95 % II Sebas Miguel Work Phone: [facility] 05-08-2023 03:53-0400 Systolic blood pressure 158 mm[Hg] II Sebas Miguel Work Phone: [facility] 05-07-2023 22:30-0400 Body height 177.8 cm II Sebas Miguel Work Phone: [facility] 05-07-2023 22:30-0400 Body temperature 97.5 [degF] II Sebsa Miguel Work Phone: [facility] 05-07-2023 22:30-0400 Body weight 79.37 kg II Sebas Miguel Work Phone: [facility] 04-26-2023 14:15-0400 Body height 179.07 cm Imad Asaad Other [facility] [employer] Other 04-26-2023 14:15-0400 Body mass index (BMI) [Ratio] 26.17 kg/m2 Imad Asaad Other [facility] [employer] Other 04-26-2023 14:15-0400 Body weight 83.92 kg Imad Asaad Other [facility] [employer] Other 04-26-2023 14:15-0400 Diastolic blood pressure 70 mm[Hg] Imad Asaad Other [facility] [employer] Other 04-26-2023 14:15-0400 Systolic blood pressure 123 mm[Hg] Imad Asaad Other [facility] [employer] Other 04-13-2023 14:54-0400 Body temperature 98 [degF] II Sebas Miguel Work Phone: [facility] 04-13-2023 14:54-0400 Diastolic blood pressure 73 mm[Hg] II Sebas Miguel Work Phone: [facility] 04-13-2023 14:54-0400 Heart rate 73 /min II Sebas Miguel Work Phone: [facility] 04-13-2023 14:54-0400 Respiratory rate 18 /min II Sebas Miguel Work Phone: [facility] 04-13-2023 14:54-0400 SaO2% (BldA) [Mass fraction] 96 % II Sebas Miguel Work Phone: [facility] 04-13-2023 14:54-0400 Systolic blood pressure 122 mm[Hg] II Sebas Miguel Work Phone: [facility] 04-13-2023 03:59-0400 Body height 177.8 cm II Sebas Miguel Work Phone: [facility] 04-13-2023 03:59-0400 Body weight 85.6 kg II Sebas Miguel Work Phone: [facility] 04-06-2023 15:28-0400 Diastolic blood pressure 70 mm[Hg] II Sebas Miguel Work Phone: [facility] 04-06-2023 15:28-0400 Heart rate 74 /min II Sebas Miguel Work Phone: [facility] 04-06-2023 15:28-0400 Respiratory rate 16 /min II Sebas Miguel Work Phone: [facility] 04-06-2023 15:28-0400 SaO2% (BldA) [Mass fraction] 98 % II Sebas Miguel Work Phone: [facility] 04-06-2023 15:28-0400 Systolic blood pressure 153 mm[Hg] II Sebas Miguel Work Phone: [facility] 04-06-2023 14:35-0400 Body height 177.8 cm II Sebas Miguel Work Phone: [facility] 04-06-2023 14:35-0400 Body temperature 97.5 [degF] II Sebas Miguel Work Phone: [facility] 04-06-2023 14:35-0400 Body weight 88.45 kg II Sebas Miguel Work Phone: [facility] 03-15-2023 15:07-0400 Body height 177.8 cm Sebas Seven Lamont Work Phone: [facility] 250 DO Work Phone: 03-15-2023 15:07-0400 Body mass index (BMI) [Ratio] 28.7 kg/m2 Sebas Miguel Work Phone: [facility] 250 DO Work Phone: 03-15-2023 15:07-0400 Body surface area Derived from formula 2.09 m2 Sebas Miguel Work Phone: [facility] 250 DO Work Phone: 03-15-2023 15:07-0400 Body weight 90.72 kg Sebas Miguel Work Phone: [facility] 250 DO Work Phone: 03-15-2023 15:07-0400 Diastolic blood pressure 68 mm[Hg] Sebas Miguel Work Phone: [facility] 250 DO Work Phone: 03-15-2023 15:07-0400 Heart rate 65 /min Sebas Miguel Work Phone: [facility] 250 DO Work Phone: 03-15-2023 15:07-0400 Systolic blood pressure 132 mm[Hg] Sebas Miguel Work Phone: [facility] 250 DO Work Phone: 07-28-2022 12:17-0400 Body height 177.8 cm [id number] NO [id number] TELEPHONIC NURSE CASE MANAGER 1 Work Phone: [facility] 250 DO Work Phone: 07-28-2022 12:17-0400 Body mass index (BMI) [Ratio] 27.84 kg/m2 [id number] NOH [id number] TELEPHONIC NURSE CASE MANAGER 1 Work Phone: [facility] 250 DO Work Phone: 07-28-2022 12:17-0400 Body surface area Derived from formula 2.06 m2 [id number] NOH [id number] TELEPHONIC NURSE CASE MANAGER 1 Work Phone: [facility] 250 DO Work Phone: 07-28-2022 12:17-0400 Body weight 88 kg [id number] NOH [id number] TELEPHONIC NURSE CASE MANAGER 1 Work Phone: [facility] 250 DO Work Phone: 07-28-2022 12:17-0400 Diastolic blood pressure 52 mm[Hg] [id number] NO [id number] TELEPHONIC NURSE CASE MANAGER 1 Work Phone: [facility] 250 DO Work Phone: 07-28-2022 12:17-0400 Heart rate 60 /min [id number] NO [id number] TELEPHONIC NURSE CASE MANAGER 1 Work Phone: [facility] 250 DO Work Phone: 07-28-2022 12:17-0400 Systolic blood pressure 150 mm[Hg] [id number] NO [id number] TELEPHONIC NURSE CASE MANAGER 1 Work Phone: [facility] 250 DO Work Phone: 05-18-2022 13:00-0400 Body height 177.8 cm [id number] NO [id number] TELEPHONIC NURSE CASE MANAGER 1 Work Phone: [facility] 250 DO Work Phone: 05-18-2022 13:00-0400 Body mass index (BMI) [Ratio] 28.27 kg/m2 [id number] NO [id number] TELEPHONIC NURSE CASE MANAGER 1 Work Phone: [facility] 250 DO Work Phone: 05-18-2022 13:00-0400 Body surface area Derived from formula 2.07 m2 [id number] NO [id number] TELEPHONIC NURSE CASE MANAGER 1 Work Phone: [facility] 250 DO Work Phone: 05-18-2022 13:00-0400 Body weight 89.36 kg [id number] NO [id number] TELEPHONIC NURSE CASE MANAGER 1 Work Phone: [facility] 250 DO Work Phone: 05-18-2022 13:00-0400 Diastolic blood pressure 64 mm[Hg] [id number] NO [id number] TELEPHONIC NURSE CASE MANAGER 1 Work Phone: [facility] 250 DO Work Phone: 05-18-2022 13:00-0400 Heart rate 61 /min [id number] [facility] [id number] TELEPHONIC NURSE CASE MANAGER 1 Work Phone: [facility] 250 DO Work Phone: 05-18-2022 13:00-0400 Systolic blood pressure 136 mm[Hg] [id number] [facility] [id number] TELEPHONIC NURSE CASE MANAGER 1 Work Phone: [facility] 250 DO Work Phone: 04-15-2022 11:35-0400 Body height 179.07 cm Alka Jacqueline Other [facility] Other 04-15-2022 11:35-0400 Body mass index (BMI) [Ratio] 27.3 kg/m2 Alka Jacqueline Other [facility] Other 04-15-2022 11:35-0400 Body temperature 97.1 [degF] Alka Jacqueline Other [facility] Other 04-15-2022 11:35-0400 Body weight 87.54 kg Alka Jacqueline Other [facility] Other 04-15-2022 11:35-0400 Respiratory rate 18 /min Alka Gudinomond Other [facility] Other 04-15-2022 11:35-0400 SaO2% (BldA) [Mass fraction] 97 % Alka Jacqueline Other [facility] Other 03-15-2022 14:26-0400 Body height 177.8 cm Lacey Pretty MD Work Phone: [facility] 250 DO Work Phone: 03-15-2022 14:26-0400 Body mass index (BMI) [Ratio] 27.98 kg/m2 Lacey Pretty MD Work Phone: [facility] 250 DO Work Phone: 03-15-2022 14:26-0400 Body surface area Derived from formula 2.06 m2 Lacey Pretty MD Work Phone: [facility] 250 DO Work Phone: 03-15-2022 14:26-0400 Body weight 88.45 kg Lacey Pretty MD Work Phone: [facility] 250 DO Work Phone: 03-15-2022 14:26-0400 Diastolic blood pressure 60 mm[Hg] Lacey Pretty MD Work Phone: [facility] DO Work Phone: 03-15-2022 14:26-0400 Heart rate 72 /min Lacey Pretty MD Work Phone: [facility] 250 DO Work Phone: 03-15-2022 14:26-0400 Systolic blood pressure 132 mm[Hg] Lacey Pretty MD Work Phone: [facility] 250 DO Work Phone: 03-02-2022 18:00-0400 Diastolic blood pressure 80 mm[Hg] II Sebas Miguel Work Phone: [facility] 03-02-2022 18:00-0400 Heart rate 68 /min MARANDA Miguel Work Phone: [facility] 03-02-2022 18:00-0400 Respiratory rate 18 /min II Sebas Miguel Work Phone: [facility] 03-02-2022 18:00-0400 SaO2% (BldA) [Mass fraction] 96 % II Sebas Miguel Work Phone: [facility] 03-02-2022 18:00-0400 Systolic blood pressure 181 mm[Hg] II Sebas Miguel Work Phone: [facility] 03-02-2022 11:42-0400 Body height 177.8 cm II Sebas Miguel Work Phone: [facility] 03-02-2022 11:42-0400 Body mass index (BMI) [Ratio] 27.9 kg/m2 II Sebas Miguel Work Phone: [facility] 03-02-2022 11:42-0400 Body temperature 97.6 [degF] II Sebas Miguel Work Phone: [facility] 03-02-2022 11:42-0400 Body weight 88.45 kg II Sebas Miguel Work Phone: [facility] 09-13-2021 13:44-0500 Body height 179.07 cm Lacey Pretty MD Work Phone: [facility] 250 DO Work Phone: 09-13-2021 13:44-0500 Body mass index (BMI) [Ratio] 29 kg/m2 Lacey Pretty MD Work Phone: [facility] 250 DO Work Phone: 09-13-2021 13:44-0500 Body surface area Derived from formula 2.12 m2 Lacey Pretty MD Work Phone: [facility] 250 DO Work Phone: 09-13-2021 13:44-0500 Body weight 92.99 kg Lacey Pretty MD Work Phone: [facility] 250 DO Work Phone: 09-13-2021 13:44-0500 Diastolic blood pressure 74 mm[Hg] Lacey Pretty MD Work Phone: [facility] 250 DO Work Phone: 09-13-2021 13:44-0500 Heart rate 66 /min Lacey Pretty MD Work Phone: [facility] 250 DO Work Phone: 09-13-2021 13:44-0500 Systolic blood pressure 136 mm[Hg] Lacey Pretty MD Work Phone: [facility] 250 DO Work Phone: Encounters Encounter Date Encounter Type Care Provider Facility Start: 06-11-2024 End: 06-11-2024 ambulatory RUBY GARCIA Not Available Start: 05-27-2024 ambulatory SEBAS MIGUEL II Facil ity:[facility] Start: 05-13-2024 End: 05-13-2024 Subsequent hospital visit by physician Mri 3 Radio Main Q (I-Stat/1.5t/3t) Work Phone: MRI Q Start: 05-12-2024 End: 05-12-2024 ambulatory SEBAS MIGUEL II Facility:[facility] Start: 05-12-2024 End: 05-12-2024 Patient encounter procedure Susan Skelton PA-C Work Phone: [facility] Comment on above: Essential tremor (Pr imary Dx) Essential tremor Start: 05-06-2024 End: 05-06-2024 ambulatory AGUSTINA LUIS Not Available Start: 04-23-2024 End: 04-23-2024 ambulatory PHILIP HUGGINS Not Available Start: 04-03-2024 End: 04-03-2024 ambulatory RUBY GARCIA Not Available Start: 03-31-2024 End: 03-31-2024 ambulatory SEBAS MIGUEL II Facility:[facility] Start: 03-31-2024 End: 03-31-2024 Patient encounter procedure Jos Armstrong MD Work Phone: [facility] Comment on above: Essential tremor (Pr imary Dx) Start: 03-06-2024 End: 03-06-2024 ambulatory YANMy GAUTAM Not Available Start: 03-04-2024 End: 03-04-2024 ambulatory AGUSTINA Patsy LUIS Not Available Start: 03-04-2024 End: 03-04-2024 Office outpatient visit 25 minutes Lacey Pretty MD Work Phone: [facility] Comment on above: CAD, multiple vessel (Primary Dx); Benign essential hypertension; Chest pain, unspecified type; Mixed hyperlipidemia; Paroxysmal supraventricular tachycardia (CMS-HCC); Other fatigue; BMI 28.0-28.9,adult Start: 03-04-2024 End: 03-04-2024 ambulatory [facility] Ambulatory Start: 02-26-2024 End: 02-26-2024 ambulatory RUBY GARCIA Not Available Start: 09-27-2023 End: 09-27-2023 ambulatory Hali Alexander Other [facility] Other Start: 09-27-2023 Office outpatient vi sit 25 minutes Hali Alexander [facility] Start: 06-01-[address] Lacey Pretty Facility: Start: 06-01-2023 Office outpatient vi sit 25 minutes Sebas Miguel Work Phone: [facility] 600 DO Work Phone: Start: 05-28-2023 End: 05-28-2023 ambulatory Amauri Carrera Facility:[facility] Start: 05-09-2023 End: 05-09-2023 ambulatory Amauri Carrera Facility:[facility] Start: 05-09-2023 End: 05-09-2023 ambulatory II Sebas Miguel Work Phone: [facility] Work Phone: Start: 05-09-2023 End: 05-09-2023 Patient encounter procedure II Sebas Miguel Work Phone: [facility]Fys[facility]Fdwld[facility] Testing Work Phone: Start: 05-08-2023 End: 05-08-2023 Emergency department patient visit Katty Pierre Jr Facility:[facility] Start: 05-07-2023 End: 05-08-2023 Emergency department patient visit II Sebas Miguel Work Phone: [facility] Ctr-Emergency Room Work Phone: Start: 04-26-2023 End: 04-26-2023 ambulatory Imad Asaad Other [facility] [employer] Other Start: 04-26-2023 Office outpatient ne w 45 minutes Imad Asaad [facility] Start: 04-20-[address] Lacey Pretty Facility:[id number] Start: 04-17-2023 Rx Renewal Sebas Miguel Work Phone: -[facility] 250 DO Work Phone: Start: 04-13-2023 Message Sebas Miguel Work Phone: -[facility] 250 DO Work Phone: Start: 04-13-2023 End: 04-13-[address] Sebas Miguel II Facility:[id number] Start: 04-13-2023 End: 04-13-2023 Evaluation and management of inpatient II Sebas Miguel Work Phone: [facility] [place] [facility] Work Phone: Start: 04-13-2023 End: 04-13-2023 observation encounter II Sebas Miguel Work Phone: [facility] Work Phone: Start: 04-06-2023 End: 04-06-2023 Emergency department patient visit Guanako Plummer Facility:[facility] Start: 04-06-2023 End: 04-06-2023 Emergency department patient visit II Sebas Miguel Work Phone: [facility]-Emergency Room Work Phone: Start: 03-15-[address] Sebas Miguel II Facility: Start: 02-15-2023 End: 02-15-2023 ambulatory LONG RODRIGUEZ Facility:H1 Start: 07-28-2022 Patient encounter procedure [id number] TELEPHONIC NURSE CASE MANAGER 1 Work Phone: [facility] 250 DO Work Phone: Start: 07-28-[address] Sebas Miguel II Facility: Start: 05-18-2022 Patient encounter procedure [id number] TELEPHONIC NURSE CASE MANAGER 1 Work Phone: [facility] 250 DO Work Phone: Start: 05-16-2022 End: 05-17-[address] SEBAS MIGUEL Facility:H1 Start: 05-10-2022 End: 05-10-[address] SEBAS MIGUEL Facility:H1 Start: 04-17-2022 Rx Renewal Lacey cooney MD Work Phone: [facility] 250 DO Work Phone: Start: 04-15-2022 End: 04-15-2022 ambulatory Alka Phillips Other [facility] [employer] Other Start: 04-15-2022 Office outpatient vi sit 15 minutes Alka Phillips [facility] Start: 03-30-2022 End: 03-31-2022 ambulatory RUBY GARCIA Facility:H1 Start: 03-15-2022 Office outpatient vi sit 25 minutes Lacey Pretty MD Work Phone: [facility] 250 DO Work Phone: Start: 03-13-2022 End: 03-13-2022 Patient encounter procedure II Sebas Miguel Work Phone: [facility]-Ultrasound Main [place] Start: 03-09-2022 End: 03-10-[address] GONZALEZEL LAMONT Facility:H1 Start: 03-02-2022 End: 03-02-2022 Emergency department patient visit II Sebas Miguel Work Phone: [facility]-Emergency Room Start: 09-13-2021 Office outpatient vi sit 25 minutes [facility] Work Phone: Start: 08-12-2018 Patient encounter procedure LACEY PRETTY Facility:[id number] Patient encounter status Sebas Miguel Work Phone: [facility] 250 DO Work Phone: Procedures Date Procedure [...] BP Controlled (<130/80) BP Con trolled (<130/80) [facility] Start: 03-31-2025 BP Controlled (<130/80) BP Con trolled (<130/80) [facility] Start: 08-22-2024 End: 08-22-2024 Patient encounter procedure 08/22/2024 10:30 AM EST Office Visit [facility] [address] [place] [address] Lacey Pretty MD [address] [facility] [address] [place] [address] [facility] Start: 06-27-2024 End: 06-27-2024 Patient encounter procedure [facility] Comment on above: DBS/ HIFU Eval - Con sult with Psychology For DBS/HIFU Eval Start: 06-08-2024 Influenza vaccination Influenza Vacc ine (#1) [facility] Start: 05-13-2024 End: 05-13-2024 Patient encounter procedure 05/13/2024 1:30 PM EDT Appointment Radiology [id number] Brain for DBS/HIFU Eval. Chago density ratio protocol. Radiology Comment on above: CT Brain for DBS/HIF U Eval. [place]ago density ratio protocol. Start: 05-13-2024 Subsequent hospital visit by physician 05/13/2024 7:00 AM EDT Hospital Encounter MRI Q [address] [id number] Essential tremor [G25.0] MRI Q Comment on above: Essential tremor [G2 5.0] Start: 03-20-2024 Shingrix Vaccine (2 of 2) Shingrix Vaccine (2 of 2) [facility] Start: 03-04-2024 FUV, Provider: Lacey Pretty, Status: Pen, Time: 10:10 AM FUV, Provider: Lacey Pretty, Status: Pen, [facility]: [facility] Work [facility]: Start: 02-19-2024 FUV, Provider: Lacey Pretty, Status: Pen, Time: 3:00 PM FUV, Provider: Lacey Pretty, Status: Pen, Time: 3:00 PM [facility] Work [facility]: Start: 01-24-2024 COVID-19 Vaccine ( season) COVID-19 Vaccine ( season) [facility] Start: 10-08-2023 Advance Directive Discussion Advance Directive Discussion [facility] Start: 06-01-2023 FUV, Provider: Lacey Pretty, Status: Pen, Time: 9:40 AM FUV, Provider: Lacey Pretty, Status: Pen, Time: 9:40 AM [facility] Work Phone: Start: 05-08-2023 Computed tomography of abdomen and pelvis with contrast CT abdomen pelvis w con [facility] Start: 05-08-2023 CT Abdomen and Pelvi s W contrast IV [facility] Start: 04-20-2023 STRESS NUC, Provider : STEVEN STEVENI NUCLEAR 01,[id number], Status: Pen, Time: 8:00 AM STRESS NUC, Provider: STEVEN HHVI NUCLEAR 01,[id number], Status: Pen, Time: 8:00 AM [facility] 250 DO Work Phone: Start: 04-14-2023 End: 04-14-2023 [facility] Start: 04-14-2023 Blood chemistry [facility] Start: 04-13-2023 [facility] Start: 04-13-2023 Hospital admission [facility] Start: 04-13-2023 [facility] Start: 04-06-2023 Bacteria identified in Blood by Culture Blood Culture [facility] Start: 09-22-2022 FUV, Provider: Lacey Pretty, Status: Pen, Time: 11:00 AM FUV, Provider: Lacey Pretty, Status: Pen, Time: 11:00 AM [facility] 250 DO Work Phone: Start: 05-21-2022 Screening for malign ant neoplasm of colon [facility] Start: 03-15-2022 FUV, Provider: Lacey Pretty, Status: Pen, Time: 2:40 PM FUV, Provider: Lacey Pretty, Status: Pen, Time: 2:40 PM [facility] 250 DO Work Phone: Start: 06-12-2020 Screening for malign ant neoplasm of colon Colonoscopy [facility] Start: 06-28-2018 Glaucoma screening Dilated Retinal E xam [facility] Start: 03-09-2017 Pneumococcal Vaccine : 65+ (2 of 2 - PPSV23 or PCV20) Pneumococcal Vaccine: 65+ (2 of 2 - PPSV23 or PCV20) [facility] Start: 03-09-2017 Pneumococcal Vaccine : 65+ Years (2 of 2 - PPSV23 or PCV20) Pneumococcal Vaccine: 65+ Years (2 of 2 - PPSV23 or PCV20) [facility] Start: 2008 RSV patient s and/or patients aged 60+ years (1 - 1-dose 60+ series) RSV patients and/or patients aged 60+ years (1 - 1-dose 60+ series) [facility] Start: 2008 RSV Vaccine (1 - 1-d ose 60+ series) RSV Vaccine (1 - 1-dose 60+ series) [facility] Start: 1998 Zoster Vaccines (1 o f 2) Zoster Vaccines (1 of 2) [facility] Start: 1993 Screening for malign ant neoplasm of colon [facility] Start: 1970 DTaP/Tdap/Td Vaccine s (1 - Tdap) DTaP/Tdap/Td Vaccines (1 - Tdap) [facility] Start: 1967 Urine microalbumin profile DTaP,Tdap,Td Vaccine (1 - Tdap) [facility] Start: 1967 Urine screening for protein Diabetes: Urine Protein Screening [facility] Start: 1966 Annual PCP Team Lumber Straightener manny Disease Visit Annual PCP Team Chronic Disease Visit [facility] Start: 1966 Anxiety Screening Anxiety Screening [facility] Start: 1966 Depression Screening Depression Scre ening [facility] Start: 1966 Hepatitis B surface antibody level LDL Cholesterol [facility] Start: 1966 Hepatitis C screening Hepatitis C Sc reening [facility] Start: 1958 Diabetic foot examination [facility] Start: 1958 Glaucoma screening Diabetes: R etinopathy Screening [facility] Start: 1958 Hepatitis B screening Urine Albumin:Creatinine Ratio [facility] Start: 1953 Hemoglobin A1c measurement HbA1C [facility] Start: 1948 Hemoglobin A1c measurement Diabetes: Hemoglobin A1C [facility] Start: 1948 Lipid panel Lipid Panel [facility] Start: 1948 Medicare Annual Wellness Visit Medicare Annual Wellness Visit (AWV) [facility] Start: 1948 Screening for malign ant neoplasm of colon [facility] End: 04-30-2025 MR Brain WO and W contrast IV MRI BRAIN WO/W IVCON Radiology Routine Essential tremor 1 Occurrences starting 03/31/2024 until 04/30/2025 [place] Work Phone: Comment on above: 1 Occurrences starti ng 03/31/2024 until 04/30/2025 Patient Education [facility] Work Phone: Patient referral [facility] Work Phone: Immunizations Immunization Date Immunization Notes Care Provider Trupti silveira 09-24-2023 influenza virus vaccine, unspecified formulation Susan Skelton PA-C Work Phone: [facility] 09-27-2022 COVID-19 mRNA Bivale nt Booster (Pfizer) MARANDA Miguel Work Phone: [facility] 11-08-2021 Moderna COVID-19 Vaccine 100 MCG/0.5ML Intramuscular Suspension Lacey Pretty MD Work Phone: [facility] 12-18-2020 Fredrick COVID-19 Vaccine 0.5 ML Intramuscular Suspension Lacey Pretty MD Work Phone: [facility] 12-16-2020 COVID-19 Ad26.COV2.S (Fredrick) MARANDA Miguel Work Phone: [facility] 07-24-2017 seasonal influenza, intradermal, preservative free Lacey Pretty MD Work Phone: [facility] 250 DO Work Phone: 01-12-2017 pneumococcal conjuga te vaccine, 13 valent Lacey Pretty MD Work Phone: [facility] 250 DO Work Phone: 05-14-2007 influenza virus vaccine, unspecified formulation Lacey Pretty MD Work Phone: [facility] 250 DO Work Phone: NEGATED: Highlighted row has not occurred!08-19-2019 influenza, high dose seasonal, preservative-free MARANDA Miguel Work Phone: [facility] Payers Date Payer Category Payer Self-pay [id number] 2021 Unknown 2013 Medicare [id number] 1959 Medicare [id number] 1959 Unknown [id number] 1948 Unknown [id number] 2.16.840.1.831380.3.579.2.355 1948 Unknown [id number] 2.16.840.1.499891.3.579.2.593 1948 Unknown [id number] 2.16.840.1.798240.3.579.2.593 1948 Unknown [id number] 2.16.840.1.617733.3.579.2.593 1948 Unknown [id number] 2.16.840.1.899704.3.579.2.593 1948 Unknown [id number] 2.16.840.1.962646.3.579.2.593 1948 Unknown [id number] 2.16.840.1.668115.3.579.2.1068 1948 Unknown [id number] 2.16.840.1.109771.3.579.2.356 1948 Unknown [id number] 2.16.840.1.125917.3.579.2.356 1948 Unknown [id number] 2.16.840.1.505694.3.579.2.356 1948 Unknown [id number] 2.16.840.1.958588.3.579.2.356 1948 Unknown [id number] 2.16.840.1.836376.3.579.2.356 1948 Unknown [id number] 2.16840.1.802945.3.579.2.1244 1948 Unknown [id number] 2.16840.1.358690.3.579.2.1258 1948 Unknown [id number] 2.16.840.1.187638.3.579.2.125 1948 Unknown [id number] 2.840.1.436174.3.579.2.1258 1948 Unknown [id number] 2.16840.1.440482.3.579.2.1258 1948 Unknown [id number] 2.840.1.605207.3.579.2.1258 1948 Unknown [id number] 2.840.1.527433.3.579.2.1258 1948 Unknown [id number] 2.840.1.121933.3.579.2.1259 Medicare [id number] Private Health Insurance [employer] [id number] Unknown [id number] Unknown [id number] 2.840.1.491826.3.579.2.531 Unknown [id number] 2.840.1.472763.3.579.2.531 Unknown [id number] 2.840.1.716205.3.579.2.531 Unknown [id number] 2.840.1.619491.3.579.2.531 Unknown [id number] 2.0.1.747243.3.579.2.531 Social History Date Type Detail Facility Start: 03-04-2024 End: 03-31-2024 No alcohol use No alcohol use [facility] Comment on above: Coffee 1-2 cups paola y; Start: 03-02-2022 End: 03-31-2024 Tobacco smoking status NHIS Never smoked tobacco (finding) [facility] Start: 1950 Sex Assigned At Male F [facility] Start: 03-04-2024 End: 03-31-2024 Sex Assigned At [facility] Start: 03-04-2024 End: 03-31-2024 Tobacco use and exposure Smokeless tobacco non-user [facility] Work Phone: Start: 03-04-2024 Alcoholic beverage intake Lifetime non-drinker (finding) [facility] Work Phone: Start: 1950 [facility] Start: 02-23-2024 End: 03-04-2024 Exposure to SARS-CoV-2 (event) Not sure [facility] Start: 03-31-2024 End: 05-12-2024 Alcohol intake Current non-drinker of alcohol (finding) [facility] Adult Depression Screening Assessment 0 [facility] Medical Equipment Procedure Code Equipment Code Equipment Original Text Equipment Identifier Dates CL STENT MAGI 5.[address] art: 06-09-2018 CL STENT MAGI 5.[address] art: 06-09-2018 [id number] FDA Start: 08-19-2019 CL STENT MAGI 5.[address] art: 06-09-2018 CL STENT MAGI 5.[address] art: 06-09-2018 [id number] FDA Start: 08-19-2019 CL STENT MAGI 5.[address] art: 06-09-2018 CL STENT MAGI 5.[address] art: 06-09-2018 [id number] FDA Start: 08-19-2019 CL STENT MAGI 5.[address] art: 06-09-2018 CL STENT MAGI 5.[address] art: 06-09-2018 [id number] FDA Start: 08-19-2019 CL STENT MAGI 5.[address] art: 06-09-2018 CL STENT MAGI 5.[address] art: 06-09-2018 [id number] FDA Start: 08-19-2019 Lens Acrysof Iq +18.5 Diopter Natural 0 D Biconvex Acrylic Methacrylate - [id number] Start: 07-25-2017 Lens Acrysof Iq +18 Diopter Natural 0 D Biconvex Acrylic Methacrylate - [id number] Start: 08-08-2017 Goals Date Patient Goal Desired Activity /State Functional Status Date Assessment Result Facility 04-13-2023 Functional status Patient at Baseline [facility] Work Phone: Mental Status Date Assessment Result Facility 04-13-2023 Cognitive function Cognitive Sta tus Patient at Baseline [facility] Work Phone: Clinical Notes 03-09-2022 to 05-12-2024 Susan Skelton PA-C - 05/12/2024 9:29 AM EDTHeSusan purcell PA-C - 05/12/2024 9:12 AM EDTPatient InstructionsJos Armstrong MD - 03/31/2024 10:27 AM EDTPatient Instructions Note Date & Type Note Facility 05-12-2024 Note HNO ID: [id number] Author: SUSAN SKELTON PA-C Service: ? Author Type: Physician District [employer] Type: Progress Notes Filed: 05/12/2024 11:01 Note Text: Name: Kia Mendez [facility]#: [id number] Date of Service: May 12, 2024 Age: [...] improve tremor. He had a friend in [place] that told him about HIFUS and he [...] and strokes Ever (more content not included)... [facility] 05-12-2024 History of Present illness Narrative Name: Kia Mendez [facility]#: [id number] Date of Service: May 12, 2024 Age: [...] improve tremor. He had a friend in [place] that told him about HIFUS and he [...] visit. Constitutional: Well developed, well nourished Skin: [place], warm, dry, no lesions or rashes Head, [...] He has 4 cardiac stents after several MT's. He is on ASA and Plavix. He [...] on the day of service, which included ikla-wm-ieoj patient care, completing clinical documentation, performing a medically appropriate examination, and counseling and educating the patient/family/caregiver. Susan Skelton PA-C documented in this encounter [facility] 05-12-2024 Note HNO ID: [id number] Author: SUSAN SKELTON PA-C Service: ? Author Type: Physician District [employer] Executive Type: Progress Notes Filed: 05/12/2024 10:49 Note [...] improve tremor. He had a friend in [place] that told him about HIFUS and he spoke with his PCP and was then referred here for procedure. He has difficulty eating, carrying things, writing. 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 GOALS for HIFUS improve tremor in the right hand tremor score 25 took Primidone this morning 100 mg Susan Skelton PA-C [facility] 05-12-2024 History of Present illness Narrative CC: [...] improve tremor. He had a friend in [place] that told him about HIFUS and he [...] Susan Skelton PA-C documented in this encounter [facility] 05-08-2024 Note HNO ID: [id number] Author: CALLI FRAZIER RN Service: ? Author Type: Registered Nurse Type: Progress Notes Filed: 05/08/2024 15:32 Note Text: RN added CT WO contrast for patient for skull density for DBS placement. Routed to provider for signature. Calli Frazier RN [facility] 03-31-2024 Instructions Jos Armstrong MD - 03/31/2024 [...] call to let me know. Dr. Armstrong [phone] Can look into assistive devices [email or web address] Referral placed for the surgical assessment documented in this encounter [facility] 03-31-2024 Note HNO ID: [id number] Author: JOS ARMSTRONG MD Service: ? Author Type: Physician Type: Progress Notes Filed: 03/31/2024 11:23 Note Text: March 31, 2024 Jos Armstrong MD [facility] [address] [place] [address] PCP: Sebas Miguel II, MD [address] [address] Referring Physician: Ruby Garcia NP [address] [address] Kia Mendez : 1950 History of Present Illness: Kia Mendez is a 73 year old right-handed man who is seen in consultation for evaluation of Essential Tremor and the possibility of a high frequency ultrasound thalamotomy. My final recommendations will be communicated back to the requesting physician by way of shared medical record or via letter. The patient is seen with a mcgrqyag-rm-eav. Mr. Mendez reports shakiness present in his hands, getting worse over the past five years. It is difficult to see if it is actually still getting worse now. This interferes with doing various tasks including writing, eating, drinking (he fills the cup only usp now), and other fine motor tasks. Lifting [...] is no CP, (more content not included)... [facility] 03-31-2024 History of Present illness Narrative March 31, 2024 Jos Armstrong MD [facility] [address] [place] [address] PCP: Sebas Miguel II, MD 112 [facility] [address] [place] [address] Referring Physician: Ruby Garcia NP 112 [facility] 110 [facility] [address] Kia Mendez : 1950 History of Present Illness: Kia Mendez is a 73 year old right-handed man who is seen in consultation for evaluation of Essential Tremor and the possibility of a high frequency ultrasound thalamotomy. My final recommendations will be communicated back to the requesting physician by way of shared medical record or via letter. The patient is seen with a xwhcupma-cs-bnx. Mr. Mendez reports shakiness present in his hands, getting worse over the past five years. It is difficult to see if it is actually still getting worse now. This interferes with doing various tasks including writing, eating, drinking (he fills the cup only usp now), and other fine motor tasks. Lifting [...] discussed with the patient and his adult iwypuerh-wi-fyd. Level of service: New level 4 (45-59 min). Time spent 45 min on the day of service, which included iaif-if-eauz patient care, completing clinical documentation, obtaining and/or reviewing separately obtained history, performing a medically appropriate examination, counseling and educating the patient/family/caregiver, ordering medications, tests, or procedures, and communicating with other HCPs (not separately reported). Thank you for including me in the care of this interesting patient. Jos Armstrong MD Staff Neurologist [facility] [place] Cc: documented in this encounter [facility] 03-04-2024 History of Present illness Narrative Subjective [...] 5. I advised him to try some qpjp-bjb-xiouiqk Maalox if develop chest pain Review of [...] discussion and plan. documented in this encounter [facility] Work Phone: 03-04-2024 Instructions Braydon Solomon [...] of your visit. documented in this encounter [facility] Work Phone: 09-27-2023 Evaluation note Encounter Date Diagnosis Assessment Notes Sep, Suspected COVID-19 virus infection (ICD-10 - Z20.822) Sep, Influenza A (ICD-10 - J10.1) Advised patient that rapid Influenza A test was positive, rapid Influenza B/COVID test negative. Encouraged supportive care, Tamiflu as directed, [place] as directed, Tylenol OTC as needed for [...] supportive care. Follow above treatment plan recommendations. [facility] Other 07-20-2023 Evaluation note* Encounter Date Diagnosis Assessment Notes Treatment Notes Treatment Clinical Notes Apr, Pancreatitis (ICD-10 - K85.90) Apr, Cholecystitis (ICD-1 0 - K81.9) [facility] [employer] Other 07-07-2023 Consult note Author Edmund Saha [facility] April 13, 2023 11:59am Note Date/Time April 13, 2023 11:53 am [facility] [address] [place] [address] Cardiology Consult Note Signed Patient: Kia Mendez MR#: [id number] : 1950 Acct:[id number] Age/Sex: 72 / M Adm Date: 3 Loc: Room: [address] [place] [address] Type: ADM INOo Attending Dr: Moses Velez [...] have a history of ASHD, remote inferior MT with revascularization of the RCA with 1 episode of stent thrombosis with repeat intervention. Subsequent intervention of the proximal/mid LAD in 2018, at that time the RCA was widely patent with preserved LV function. [facility] widely patent proximal/mid LAD [...] hyperlipidemia, hypertension, mild obesity, the above-mentioned inferior MT and revascularization procedures Impression/recommendations: Anginal episode with isolated troponin of 32, no further clinical episodes of angina and ECG is unchanged from the past, with known small branch vessel coronary disease. There is no evidence of stent thrombosis clinically. Recommendations: Continue current therapies, discharged today with follow-up stress testing and office visit with Dr. Pretty [facility] Vaccinated for COVID-19?: Yes Medical History (Updated [...] x10E3/uL Lymph # (Auto) 1.3 (1.00-4.8) x10E3/uL Kern # (Auto) 0.6 (0.0-0.8) x10E3/uL Eos # [...] Interpretations EKG EKG results cardiology: sinus rhythm MT, pacemaker, normal Myocardial infarction: inferior MT (old age indeterminate) A&P - Cardiology (1) Angina at rest: Code(s): I20.8 - Other forms of angina pectoris (2) Hyperlipidemia: Code(s): E78.5 - Hyperlipidemia, unspecified (3) Hypertension: Code(s): I10 - Essential (primary) hypertension (4) Diabetes: Code(s): E11.9 - Type 2 diabetes mellitus without complications (5) CAD (coronary artery disease): Code(s): I25.10 - Atherosclerotic heart disease of alutiiq coronary artery without angina pectoris (6) H/O heart artery stent: Code(s): Z95.5 - Presence of coronary angioplasty implant and graft Documented By: Edmund Saha DO 04/13/23 1151 Signed By: <Electronically signed by Edmund Saha DO> 04/13/23 1159 [facility] Work Phone: [phone]) 132-458407-07-2023 History and physical note Author Grey Neff [facility] April 13, 2023 4:47am Note Date/Time April 13, 2023 4:02a m [facility] [address] [place] [address] Hospitalist H&P Signed Patient: Kia Mendez MR#: [id number] : 1950 Acct:[id number] Age/Sex: 72 / M Adm Date: 3 Loc: 3T Room: [address] [place] [address] Type: ADM INOo Attending Dr: Grey Neff DO Copies to: MD Ruth Hernandez II, CLAIMS SUPERVISOR Grey Neff DO~ HPI DATE OF EXAMINATION: 04/13/23 CHIEF COMPLAINT: shortness of breath, light headedness HISTORY OF PRESENT ILLNESS: Mr. Mendez is a 72-year-old male with PMH of T2DM, HTN, heart cath with 4 stents, GERD, HLD, BPH that was transferred from [facility]. 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 He was transferred to [facility] under the care of the [facility] for further evaluation and treatment. Review of Systems Review of Systems Review of systems: A 10 point review of systems was obtained, negative unless noted in the HPI or below. [facility] Vaccinated for COVID-19?: Yes Medical History (Updated [...] signed by Grey Neff DO> 04/13/23 0447 [facility] Work Phone: [phone]) 450-685307-09-2022 Evaluation note* Encounter Date Diagnosis Assessment Notes [...] Patient care instructions given in writing by [facility] document. [facility] Other 06-02-2022 NotePROCEDURE: XR KNEE RT 3V HISTORY: Pain of joint of knee ; acute medial knee pain, no known injury COMPARISON: None. FINDINGS: BONES:No fracture, acute abnormality, or significant arthropathy. SOFT TISSUES:No visible soft tissue swelling. EFFUSION:None visible. OTHER: Negative. IMPRESSION: 1. No acute bone abnormality or significant degenerative joint disease. Electronically authenticated by: MEME VILLANUEVA Date: 2022-03-09 18:19[facility] information available[facility] Work Phone: Evaluation note* Diagnosis Onset Date Resolution Status Angina at rest acute CAD (coronary artery disease) acute Chest pain acute H/O heart artery stent acute Diabetes chronic Hyperlipidemia chronic Hypertension chronic [facility] Work Phone: Evaluation note* Diagnosis CAD, multiple vessel- Primary Benign essential hypertension Essential hypertension, benign Chest pain, unspecified type Mixed hyperlipidemia Paroxysmal supraventricular tachycardia ([facility]) Paroxysmal supraventricular tachycardia Other fatigue BMI 28.0-28.9,adult documented in this encounter [facility] Work Phone: Evaluation note* Diagnosis Essential tremor- Primary Essential and other specified forms of tremor documented in this encounter [facility] note* Diagnosis Essential tremor- Primary Essential and other specified forms of tremor documented in this encounter [facility] note* Diagnosis Essential tremor Essential and other specified forms of tremor documented in this encounter [facility] general Narrative - Reported* Type Description Date Medical History hypertension Medical History hypercholesterolemia Medical History prostatism Medical History diabetes mellitus Surgical History heart catheterization Surgical History heart stent Surgical History melanoma removed form left arm Hospitalization History see above [facility] Other [facility] general Narrative - Reported* Type Description Date Medical History hypertension Medical History hypercholesterolemia Medical History prostatism Medical History diabetes mellitus Medical History stroke Medical History diabetes mallitus Surgical History heart catheterization Surgical History heart stent Surgical History melanoma removed form left arm Surgical History knee arthroscopy Hospitalization History see above Hospitalization History stroke-mini Hospitalization History shortness of breath/ lig htheaded [facility] Other History of Present illness Narrative* Patient [...] the office before you go back to [place] in the winter * 4. Try to retrieve his recent lab * 5. I advised him to follow-up with sleep clinic. However he requested to wait until he came back from [facility] Work Phone: History of Present illness Narrative* [...] to sleep study after current issues resolved [facility] 250 DO Work Phone: History of Present illness Narrative* Patient is here for follow-up continue management for coronary artery disease with prior PCI of theright coronary artery, hyperlipidemia and recent evaluation for chest pain. He underwent PCI to theRCA remotely. Following that he underwent heart cath which showed no residual stenosis. Recent stress test showed inferior MT but no ischemia. He recently underwent cholecystectomy. [...] 6. I advised him to try some [id number] Maalox if develop chest pain -[facility] 600 DO Work Phone: [facility] Work Phone: Hospital Discharge instructions Additional Instructions You are scheduled for an outpatient EXERCISE MYOCARDIAL PERFUSION STRESS TEST at [facility] Office on 04/20/2023 at 8:00am - [facility] Work Phone: Hospital Discharge instructions Additional Instructions As we discussed, your gallbladder looks fine tonight. You are constipated and I have prescribed you a laxative. Please follow-up with your doctor. Follow-up with Dr. Carrera as scheduled as well. If you have any further problems or concerns, certainly if anything is worsening, we are happy to see you at any time.[facility] Work Phone: Reason for referral (narrative)* Consultation (Routine) - Authorized Specialty Diagnoses / Procedures Referred By Tierney t Referred To Contact Cardiology Diagnoses CAD, multiple vessel Benign essential hypertension Chest pain, unspecified type Mixed hyperlipidemia Paroxysmal supraventricular tachycardia (CMS-HCC) Other fatigue BMI 28.0-28.9,adult Procedures Follow Up In Cardiology Lacey Pretty MD [address] [place] [address] 2, [address] [address] Laecy Pretty MD [address] [place] [address] 2, [address] [address] Referral ID Status Reason Start Date Expiration Date V isits Requested Visits Authorized [id number] Authorized 03/04/2024 03/04/2025 1 1 [facility] Work Phone: Summary Purpose Family History [...] Essential tremor Procedures CONSULT TO PSYCHOLOGY OFFICE/OUTPATIENT [facility] 60 MINUTES Jos Armstrong MD [facility] [place] [address] Referral ID Status Reason Start Date Expiration Date Visits Requested Visits Authorized [id number] Pending Review PCP Requested Referral 03/31/2024 03/31/2025 [...] EA ADDL 30 MIN Jos Armstrong MD [address] [place] [address] Referral ID Status Reason Start Date Expiration Date Visits Requested Visits Authorized [id number] Pending Review PCP Requested Referral 03/31/2024 06/29/2024 1 3 Specialty Diagnoses / Procedures Referred By Contac t Referred To Contact Neurosurgery Diagnoses Essential tremor Procedures CONSULT TO NEUROSURGERY OFFICE/OUTPATIENT [facility] 60 MINUTES Jos Armstrong MD [address] [place] [address] Referral ID Status Reason Start Date Expiration Date Visits Requested Visits Authorized [id number] Authorized PCP Requested Referral 03/31/2024 03/31/2025 1 1 Specialty Diagnoses / Procedures Referred By Tierney raymond Referred To Contact MR IMAGING Diagnoses Essential tremor Procedures MRI BRAIN WO/W IVCON MRI BRAIN BRAIN STEM W/O W/CONTRAST MATERIAL Jos Armstrong MD [address] [place] [address] [place] [address] Referral ID Status Reason Start Date Expiration Date Visits Requested Visits Authorized [id number] Pending Review Auto-Generat ed Referral 03/31/2024 04/30/2025 1 1 Reason Eval and Treat Diagnosis 1 Cholecystitis (K81.9 ) Diagnosis 2 Pancreatitis (K85.90 ) Referral Organization [facility] Referring Provider First Name Imad Referring Provider Last Name Asaad Referring Provider Specialty Gastroenter ology Referred Organization [facility] Referred Provider Amauri Carrera Referred Address ,[place], [place],[address] Referred Provider Specialty Surgery Referral Priority Routine Additional Source Comments (unrecognized sect ion and content) No Status Records FoundNo Status Records FoundNo Status Records FoundNo Status Records FoundNo Status Records FoundNo Status Records FoundNo Status Records FoundNo Status Records FoundNo Status Records FoundNo Status Records Found INFORMATION SOURCE (unrecogn ized section and content) DATE CREATED AUTHOR 09/15/2018 [facility] DATE CREATED AUTHOR AUTHOR'S ORGANIZ ATION 04/27/2022 [facility] DATE CREATED AUTHOR AUTHOR'S ORGANIZ ATION 02/19/2023 [facility] DATE CREATED AUTHOR AUTHOR'S ORGANIZ ATION [facility]2023 [facility] DATE CREATED AUTHOR AUTHOR'S ORGANIZ ATION 06/02/2023 [facility] DATE CREATED AUTHOR AUTHOR'S ORGANIZ ATION 06/02/2023 [facility] DATE CREATED AUTHOR AUTHOR'S ORGANIZ ATION 06/04/2023 [facility] DATE CREATED AUTHOR AUTHOR'S ORGANIZ ATION 04/08/2024 [facility] DATE CREATED AUTHOR AUTHOR'S ORGANIZ ATION 05/28/2024 [facility] DATE CREATED AUTHOR AUTHOR'S ORGANIZ ATION 06/12/2024 [facility] EPIC Care Teams (unrecognized [...] Active Amauri Carrera DO Attending Provider Active Channel Turner Relationship Specialty Start Date End Date Sebas Miguel MD [address] [facility] [address] [place] [address] PCP - General 03/15/23 Channel Turner Relationship Specialty Start Date End Date Sebas Miguel II, MD [address] [facility] [address] [place] [address] PCP - General Internal Medicine 05/10/17 Sebas Miguel II, MD [address] [facility] [address] [address] [place] [address] Internal Medicine 05/10/17 Ruby Garcia CNP [address] [place] [address] [place] [address] Referring Family Medicine 02/29/24 Channel Turner Relationship Specialty Start Date End Date Sebas Miguel II, MD [address] [place] [address] PCP - General Internal Medicine 05/10/17 Sebas Miguel II, MD [address] [place] [address] Internal Medicine 05/10/17 Ruby Garcia CNP [address] [place] [address] [place] [address] Referring Family Medicine 02/29/24 Channel Turner Relationship Specialty Start Date End Date Sebas Miguel II, MD [address] [place] [address] PCP - General Internal Medicine 05/10/17 eSbas Miguel II, MD [address] [place] [address] Internal Medicine 05/10/17 Ruby Garcia CNP [address] [place] [address] Referring Family Medicine 02/29/24 Channel Turner Relationship Specialty Start Date End Date Sebas Miguel II, MD [address] [place] [address] PCP - General Internal Medicine 05/10/17 Sebas Miguel II, MD [address] [place] [address] Internal Medicine 05/10/17 Ruby Garcia CNP [address] [facility] [address] [place] [address] Referring Family Medicine 02/29/24 Goals (unrecognized section [...] [facility] Diagnoses Essential tremor Procedures OFFICE/OUTPATIENT [facility] MDM 60 MINUTES AMB REFERRAL TO NEUROLOGY Ruby Garcia CNP [address] [facility] [address] [place] [address] Jeffrey Burgos MD [address] [place] [address] Referral ID Status Reason Start Date Expiration Date V isits Requested Visits Authorized [id number] Outside PCP 02/26/2024 08/24/2024 1 1 Specialty Diagnoses / Procedures Referred By Contac t Referred To Contact Neurosurgery Diagnoses Essential tremor Procedures CONSULT TO NEUROSURGERY OFFICE/OUTPATIENT [facility] 60 MINUTES Jos Armstrong MD [address] [place] [address] Referral ID Status Reason Start Date Expiration Date V isits Requested Visits Authorized [id number] Closed PCP Requested Referral 03/31/2024 03/31/2025 1 1 Source Comments (unrecognize d section and content) In the event this informatio n is protected by the Federal Confidentiality of Alcohol and Drug Abuse Patient Records regulations: The Federal rules restrict any use of the information to criminally investigate or prosecute any alcohol or drug abuse patient.[facility] the event this information is protected by the Federal Confidentiality of Alcohol and Drug Abuse Patient Records regulations: The Federal rules restrict any use of the information to criminally investigate or prosecute any alcohol or drug abuse patient.[facility] Center[facility] the event this information is protected by the Federal Confidentiality of Alcohol and Drug Abuse Patient Records regulations: The Federal rules restrict any use of the information to criminally investigate or prosecute any alcohol or drug abuse patient.[facility] Center[facility] the event this information is protected by the Federal Confidentiality of Alcohol and Drug Abuse Patient Records regulations: The Federal rules restrict any use of the information to criminally investigate or prosecute any alcohol or drug abuse patient.[facility] FOR RECORDS PERTAINING TO PATIENTS WHO ARE [...] BE BASED ON THE PRIMARY CLINICAL RECORDS. [facility] [employer] [facility]. provides no warranty or guarantee of the accuracy or completeness of information in this document.
--- NOTE | 2024-06-14 09:39 | ED_ITS ---
HPI - Dizziness General Chief Complaint: Dizziness Stated Complaint: Dizziness Time Seen by Provider: 06/14/24 09:07 Source: patient Mode of arrival: Carry Limitations: no limitations History of Present Illness HPI Narrative: The patient have a history of coronary artery disease TIA as well as diabetes type 2 and hyperlipidemia, is coming to us after he has been complaining of headache for the last 5 days, mentioned that the headache is all over and associated with some nausea, he did mention that photosensitivity as well and he does not know if he had a history of migraine before not. The patient had a CAT scan of the brain ordered by his primary care doctor when he woke up this morning he was dizzy more than usual and he mentioned that it was not a room spinning sensation as more of a imbalance, the patient when presented to us he was already dizzy but when laying down even before getting into the CAT scan the patient started getting more dizzy and nauseous. The patient denies any double vision or blurry vision he also denies any abdominal pain chest pain or any other concerns The patient was complaining of generalized weakness Related Data Home Medications ?Medication ?Instructions ?Recorded ?Confirmed acetaminophen 650 mg 650 mg PO Q8H 04/01/23 04/12/23 tablet,extended release (8 Hour Pain Reliever) atorvastatin 40 mg tablet 40 mg PO DAILY 04/01/23 03/10/24 clopidogrel 75 mg tablet 75 mg PO DAILY 04/01/23 03/10/24 famotidine 20 mg tablet 20 mg PO Q12H 04/01/23 03/10/24 lisinopril 2.5 mg tablet 2.5 mg PO DAILY 04/01/23 03/10/24 metformin 1,000 mg tablet 1,000 mg PO DAILY 04/01/23 03/10/24 metoprolol tartrate 25 mg tablet 25 mg PO Q12H 04/01/23 03/10/24 primidone 50 mg tablet 50 mg PO DAILY 04/01/23 03/10/24 semaglutide 0.25 mg or 0.5 mg (2 mg subcut 04/01/23 mg/3 mL) subcutaneous pen injector (Ozempic) tamsulosin 0.4 mg capsule 0.4 mg PO Q24H 04/01/23 03/10/24 tramadol 50 mg tablet 50 mg PO Q6H PRN pain 04/01/23 03/10/24 Previous Rx's ?Medication ?Instructions ?Recorded aspirin 81 mg chewable tablet 81 mg PO DAILY #30 tabs 04/02/23 hydrocodone 5 mg-acetaminophen 325 1 tab PO Q8H PRN pain 3 days #9 05/29/23 mg tablet tabs amoxicillin 500 mg tablet 500 mg PO TID #15 tabs 06/14/24 fluticasone propionate 50 1 spray intranasal Q12H #16 grams 06/14/24 mcg/actuation nasal spray,suspension (Flonase Allergy Relief) meclizine 25 mg tablet 25 mg PO TID PRN motion sickness 06/14/24 #14 tabs Allergies Allergy/AdvReac Type Severity Reaction Status Date / Time codeine Allergy Severe Verified 03/10/24 05:47 acetaminophen [From Percocet] Allergy Mild itchy Verified 03/10/24 05:47 oxycodone [From Percocet] Allergy Mild itchy Verified 03/10/24 05:47 Review of Systems ROS Status of ROS 10 or more systems reviewed and unremark able except as noted in history and below [facility] Medical History (Updated 06/14/24 @ 11:17 by Taylor Null MD) Migraine ?G43.909 - Migraine, unspecified, not intractable, without status migrainosus (ICD-10) HLD (hyperlipidemia) ?E78.5 - Hyperlipidemia, unspecified (ICD-10) CAD (coronary artery disease) ?I25.10 - Atherosclerotic heart disease of [place] coronary artery without angina pectoris (ICD-10) Transient cerebral ischemia ?G45.9 - Transient cerebral ischemic attack, unspecified (ICD-10) History of diabetes mellitus ?Z86.39 - Personal history of other endocrine, nutritional and metabolic disease (ICD-10) History of hypertension ?Z86.79 - Personal history of other diseases of the circulatory system (ICD- 10) Surgical History (Updated 09/17/23 @ 11:32 by Aditi Minaya RN) Hx of cholecystectomy ?Z90.49 - Acquired absence of other specified parts of digestive tract (ICD- 10) History of heart artery stent ?Z95.5 - Presence of coronary angioplasty implant and graft (ICD-10) History of arthroscopic knee surgery ?Z98.890 - Other specified postprocedural states (ICD-10) Family History Other Family history of hypertension Family history of myocardial infarction Family history of stroke Social History Within the past year, how often did you have a drink containing alcohol: never Within the past year, how often did you have six or more drinks on one occasion: never Score interpretation: A score less than 4 is consistent with normal alcohol consumption. Smoking status: Never smoker Non-prescribed substance use: denies use Little interest or pleasure in doing things: not at all Feeling down, depressed, or hopeless: several days Exam Narrative Exam Narrative: Nurses notes and vital signs reviewed and patient is not hypoxic. General: Well-appearing and in no apparent distress. Skin: Warm, dry, no pallor noted. No rash. Head: Normocephalic, atraumatic. Neck: Supple, non-tender. Eye: Pupils are equal, round and EOMI. No scleral icterus. Ears, Nose, Mouth, and Throat: TM are clear, no nasal mucosal hypertrophy. Oral mucosa is moist, no posterior oropharynx erythema, uvula is mid-line Cardiovascular: Regular Rate and Rhythm without murmur, gallop or rub. Respiratory: No accessory muscle use or respiratory distress. Lungs are clear to auscultation, no wheezing, rales or rhonchi Chest Wall: no tenderness Back: No midline thoracic or lumbar vertebral tenderness. No CVA tenderness Musculoskeletal: normal ROM, no calf or popliteal tenderness, no lower extremity edema/swelling GI: Abdomen is soft, non-distended. Normal bowel sounds. No masses appreciated. No tenderness to palpation. No rebound, guarding, or rigidity noted. Neurological: A&O x4. No cranial nerve dysfunction observed. , There is horizontal nystagmus mostly to the left side Constitutional Vital Signs, click to edit/add: Last Vital Signs Temp 98.2 F 06/14/24 09:07 Pulse 60 06/14/24 10:50 Resp 16 06/14/24 10:50 BP 164/92 H 06/14/24 11:42 Pulse Ox 96 06/14/24 10:50 O2 Del Method Room Air 06/14/24 09:18 Course Vital Signs Vital signs: Vital Signs Temperature 98.2 F 06/14/24 09:07 Pulse Rate 68 06/14/24 09:07 Respiratory Rate 18 06/14/24 09:07 Blood Pressure 186/97 H 06/14/24 09:07 Pulse Oximetry 97 06/14/24 09:07 Oxygen Delivery Method Room Air 06/14/24 09:07 Temperature 98.2 F 06/14/24 09:07 Pulse Rate 60 06/14/24 10:50 Respiratory Rate 16 06/14/24 10:50 Blood Pressure 164/92 H 06/14/24 11:42 Pulse Oximetry 96 06/14/24 10:50 Oxygen Delivery Method Room Air 06/14/24 09:18 MDM - Dizziness MDM Narrative Medical decision making narrative: The patient EKG showing sinus rhythm with a heart rate of [address] elevation or depression there is some ectopic atrial complexes The patient presenting with mostly vertigo ,CBC and chemistry showed no acute pathology and his horizontal nystagmus mostly correlate with possible vertigo specially with the CT head showing no acute pathology Patient also was having migraine symptoms which got better after he was treated with Toradol and Compazine Patient was feeling much better after initial treatment with Benadryl he was discharged home with meclizine as well as hydration and rest He did had some asymptomatic hypomagnesemia that he was treated with p.o. magnesium The patient is to follow up with primary care physician in next 2-3 days or to return to the emergency department should any of the signs or symptoms worsen or new symptoms develop. The patient agrees with the following Diagnosis and Treatment plan and the patient will be discharged home. Lab Data Labs: Lab Results 06/14/24 06/14/24 Range/Units 09:29 11:04 WBC 5.8 (4.0-11.0) 10^3/uL RBC 4.63 L (4.70-6.10) 10^6/uL Hgb 13.8 L (14.0-18.0) g/dL Hct 42.2 (42.0-54.0) % MCV 91.1 (80.0-94.0) fL MCH 29.8 (25.9-34.0) pg MCHC 32.7 (29.9-35.2) g/dL RDW 13.3 (11.0-15.0) % Plt Count 203 (150-450) 10^3/uL MPV 10.4 (9.5-13.5) fL Neut % (Auto) 64.4 (43.0-75.0) % Lymph % (Auto) 14.4 L (20.5-60.0) % Dawson % (Auto) 10.6 (1.7-12.0) % Eos % (Auto) 9.9 H (0.9-7.0) % Baso % (Auto) 0.5 (0.2-2.0) % Neut # (Auto) 3.8 (1.4-6.5) 10^3/uL Lymph # (Auto) 0.8 L (1.2-3.8) 10^3/uL Dawson # (Auto) 0.6 (0.3-0.8) 10^3/uL Eos # (Auto) 0.6 (0.0-0.7) 10^3/uL Baso # (Auto) 0.0 (0.0-0.1) 10^3/uL Abs Immat Gran (auto) 0.01 (0.00-0.03) 10^3/uL Imm/Tot Granulo (auto) 0.2 (0.0-0.5) % PT 10.5 (9.0-11.6) sec INR 0.99 Sodium 138 (136-145) mmol/L Potassium 4.2 (3.5-5.1) mmol/L Chloride 104 (98-107) mmol/L Carbon Dioxide 28.4 (21.0-32.0) mmol/L Anion Gap 9.8 BUN 22.0 H (7.0-18.0) mg/dL Creatinine 1.13 (0.70-1.30) mg/dL Est GFR ( Amer) >60 (>=60) Est GFR (Non-Af Amer) >60 (>=60) BUN/Creatinine Ratio 19.5 Glucose 132 H (74-106) mg/dL Calcium 8.6 (8.5-10.1) mg/dL Magnesium 1.6 L (1.8-2.4) mg/dL Total Bilirubin 0.4 (0.2-1.0) mg/dL AST 10 L (15-37) U/L ALT 15 L (16-63) U/L Alkaline Phosphatase 65 (46-116) U/L Troponin I High Sens 19.6 (4.0-76.1) pg/mL Total Protein 6.6 (6.4-8.2) g/dL Albumin 3.3 L (3.4-5.0) g/dL Globulin 3.3 g/dL Albumin/Globulin Ratio 1.0 SARS-CoV-2 Ag (CV2AG) Negative (NEGATIVE) Discharge Plan Discharge Chief Complaint: Dizziness Clinical Impression: Benign paroxysmal positional vertigo, Otitis media Patient Disposition: Home, Self-Care Time of Disposition Decision: 11:17 Condition: Good Prescriptions / Home Meds: New fluticasone propionate [Flonase Allergy Relief] 50 mcg/actuation spray,suspension 1 spray intranasal Q12H Qty: 16 0RF Rx Instructions: administer into each nostril amoxicillin 500 mg tablet 500 mg PO TID Qty: 15 0RF meclizine 25 mg tablet 25 mg PO TID PRN (Reason: motion sickness) Qty: 14 0RF No Action hydrocodone-acetaminophen 5-325 mg tablet 1 tab PO Q8H MDD 3 tabs PRN (Reason: pain) 3 Days Qty: 9 0RF acetaminophen [8 Hour Pain Reliever] 650 mg tablet extended release 650 mg PO Q8H atorvastatin 40 mg tablet 40 mg PO DAILY clopidogrel 75 mg tablet 75 mg PO DAILY famotidine 20 mg tablet 20 mg PO Q12H lisinopril 2.5 mg tablet 2.5 mg PO DAILY metformin 1,000 mg tablet 1,000 mg PO DAILY metoprolol tartrate 25 mg tablet 25 mg PO Q12H primidone 50 mg tablet 50 mg PO DAILY Ozempic 0.25 mg or 0.5 mg (2 mg/3 mL) pen injector SUBCUT tamsulosin 0.4 mg capsule 0.4 mg PO Q24H tramadol 50 mg tablet 50 mg PO Q6H PRN (Reason: pain) aspirin 81 mg tablet,chewable 81 mg PO DAILY Qty: 30 0RF Print Language: Moroccan Instructions: Ear Infection (ED), Benign Paroxysmal Positional Vertigo (ED) Referrals: BRINDA WELLER [Primary Care Provider] - 1 week Discharge Date/Time: 06/14/24 11:47
[2024-06-14 09:42] LABS: Basophils Percent Auto 0.5 % (0.2-2.0); Eosinophils Absolute Auto 0.6 10^3/uL (0.0-0.7); Eosinophils Percent Auto 9.9 % (0.9-7.0); Hematocrit 42.2 % (42.0-54.0); Hemoglobin 13.8 g/dL (14.0-18.0); Immature Granulocytes Abs Auto 0.01 10^3/uL (0.00-0.03); Immature Granulocytes Pct Auto 0.2 % (0.0-0.5); Lymphocytes Absolute Auto 0.8 10^3/uL (1.2-3.8); Lymphocytes Percent Auto 14.4 % (20.5-60.0); Mean Corpuscular HGB Conc 32.7 g/dL (29.9-35.2); Mean Corpuscular Hemoglobin 29.8 pg (25.9-34.0); Mean Corpuscular Volume 91.1 fL (80.0-94.0); Mean Platelet Volume 10.4 fL (9.5-13.5); Monocytes Absolute Auto 0.6 10^3/uL (0.3-0.8); Monocytes Percent Auto 10.6 % (1.7-12.0); Neutrophils Absolute Auto 3.8 10^3/uL (1.4-6.5); Neutrophils Percent Auto 64.4 % (43.0-75.0); Platelet Count 203 10^3/uL (150-450); Red Blood Count 4.63 10^6/uL (4.70-6.10); Red Cell Distribution Width 13.3 % (11.0-15.0); White Blood Count 5.8 10^3/uL (4.0-11.0)
[2024-06-14] MEDS: PROCHLORPERAZINE 10 MG/2 ML VIAL 5 MG IV (09:44)
[2024-06-14 09:47] LABS: INR 0.99; Prothrombin Time 10.5 sec (9.0-11.6)
[2024-06-14 09:49] LABS: Alanine Aminotransferase 15 U/L (16-63); Albumin Level 3.3 g/dL (3.4-5.0); Alkaline Phosphatase 65 U/L (46-116); Anion Gap 9.8; Aspartate Amino Transferase 10 U/L (15-37); BUN Creatinine Ratio 19.5; Bilirubin Total 0.4 mg/dL (0.2-1.0); Calcium 8.6 mg/dL (8.5-10.1); Carbon Dioxide 28.4 mmol/L (21.0-32.0); Chloride 104 mmol/L (98-107); Estimated GFR (African America >60 (>=60); Estimated GFR (Non-African Ame >60 (>=60); Globulin 3.3 g/dL; Glucose 132 mg/dL (74-106); Potassium 4.2 mmol/L (3.5-5.1); Sodium 138 mmol/L (136-145); Total Protein 6.6 g/dL (6.4-8.2)
[2024-06-14 09:52] LABS: Magnesium 1.6 mg/dL (1.8-2.4); Troponin I High Sensitivity 19.6 pg/mL (4.0-76.1)
[2024-06-14] MEDS: DIPHENHYDRAMINE HCL 50 MG/ML VIAL 12.5 MG IV (10:01)
[2024-06-14] MEDS: KETOROLAC TROMETHAMINE 30 MG/ML VIAL 15 MG IVP (10:02)
[2024-06-14] MEDS: FAMOTIDINE/PF 20 MG/2 ML VIAL IV (10:03)
[2024-06-14 11:23] LABS: Internal Control Within Normal Limits; SARS-CoV-2 Ag NEGATIVE (NEGATIVE)
[2024-06-14] MEDS: MAGNESIUM OXIDE 400 MG TABLET PO (11:30)
== END 2024-06-14 11:47 | disposition home or self-care (01) ==
PROVIDERS: Emergency Provider Emergency Medicine; PCP Internal Medicine
DX: H81.10 Benign paroxysmal vertigo, unspecified ear (principal); H66.90 Otitis media, unspecified, unspecified ear; R51.9 Headache, unspecified; R41.3 Other amnesia; J32.1 Chronic frontal sinusitis; J32.2 Chronic ethmoidal sinusitis; G31.9 Degenerative disease of nervous system, unspecified; E11.9 Type 2 diabetes mellitus without complications; I25.10 Atherosclerotic heart disease of native coronary artery without angina pectoris; E78.5 Hyperlipidemia, unspecified; Z86.73 Personal history of transient ischemic attack (TIA), and cerebral infarction without residual deficits; Z79.84 Long term (current) use of oral hypoglycemic drugs; Z20.822 Contact with and (suspected) exposure to COVID-19
CPT/HCPCS: 36415; 70450; 80053; 83735; 84484; 85025; 85610; 87811; 93005; 96374; 96375; 99284; J0780; J1200; J1885